=== PATIENT | male | born 1955 | race Caucasian/White ===

== ENCOUNTER 2016-09-21 09:40 | Inpatient (IN) | payer OTHER ==
[2016-09-21] VITALS (8 sets, daily range): BP systolic 81–113; BP diastolic 53–67; PULSE 96–112; RESP 16–20; TEMP 97.3–97.8; O2SAT 94–98
[~2016-09-21] VITALS: Ht 180.3 cm; Wt 69.0 kg
[~2016-09-21 09:40] MED LIST: AMIT25TA20 PO/GT; FURO1TAB93 PO/GT; LACT20SO4 PO/GT; LORTA5 PEG; MAGN400T19 PO/GT; MIDO5 PO/GT; PROT40TA PO/GT; QUET1TAB67 PO/GT; RIFA550 PO/GT; SENN8.6T15 PO/GT; SPIR100 PO/GT; TUMS500C PO/GT
[2016-09-21] MEDS ORDERED: SODIUM CHLOR 0.9% 1000 ML INJ 1,000 ML IV SCH (10:36)
--- NOTE | 2016-09-21 10:37 | RADRPT ---
EXAM DATE/TIME: 09/21/2016 10:07 [facility] COMPARISON: CHEST SINGLE AP, December 13, 2013, 4:11. INDICATIONS : Cough x 3 weeks. MEDICAL HISTORY : Ascites. SURGICAL HISTORY : None. ENCOUNTER: Initial ACUITY: 1 day PAIN SCORE: 5/10 LOCATION: Bilateral chest FINDINGS: A single view of the chest demonstrates a focal small area of probable consolidation in the right quyen g base just above the right hemidiaphragm. Otherwise, the lungs are well aerated and grossly clear. There is blunting of the right costophrenic angle suggestive of a small right effusion. There is no e vidence of a left-sided effusion. The heart size is within normal limits. There is no pulmonary edema . The bony structures are grossly intact. There is evidence of previous surgery to the cervical spine . CONCLUSION: There is a small focal area of parenchymal consolidation in the right lung base along with a small ri ght effusion. Focal right lower lung pneumonia is the primary consideration. Recommend a followup lisa st x-ray in 2-3 weeks after appropriate medical therapy to ensure resolution. If this has not resolve d after appropriate medical therapy, then a noncontrast CT thorax can be performed for further evalua tion on a nonemergent outpatient basis.. Saroj Martinez MD on September 21, 2016 at 10:30 Board Certified Radiologist. This report was verified electronically.
[2016-09-21] MEDS ORDERED: SODIUM CHLORIDE 0.9% FLUSH 5 ML FLUSH IVF PRN (10:45)
[2016-09-21] MEDS ORDERED: ONDANSETRON HCL 4 MG/2 ML VIAL IVP ONE (10:45)
[2016-09-21] MEDS ORDERED: PANTOPRAZOLE SODIUM 40 MG VIAL IVP ONE (10:45)
--- NOTE | 2016-09-21 10:49 | PD ---
HPI Chief Complaint: Respiratory Symptoms Time Seen by Provider: 10:36 Travel History International Travel<30 days: No Contact w/Intl Traveler<30days: No Traveled to known affect area: No History of Present Illness HPI 60-year-old male with history of alcohol use, cirrhosis, smoking, presents to the ER today because he has been having coughing and shortness of breath for several days. He also states that he has been having epigastric burning pains when he eats. He has been nauseous but denies any vomiting, fevers, or any other symptoms. Modifying Factors: None Associated Signs & Symptoms: Epigastric abdominal discomfort and nausea, shortness of breath and coughing Risk Factors: None PFSH Past Medical History Blood Disorders: No Anxiety: No Depression: No Cancer: No Cardiovascular Problems: No Chemotherapy: No Cirrhosis: Yes Cerebrovascular Accident: No Diabetes: No Diminished Hearing: No Endocrine: No Gastrointestinal Disorders: Yes (ASCITIES/CIRRHOSIS) Genitourinary: No Immune Disorder: No Implanted Vascular Access Dvce: No Musculoskeletal: No Neurologic: Yes Psychiatric: No Reproductive: No Respiratory: Yes Immunizations Current: Yes Radiation Therapy: No Seizures: No Thyroid Disease: No Past Surgical History Abdominal Surgery: Yes (APPENDIX) Appendectomy: Yes Neurologic Surgery: Yes (C3,C4,C5 FUSION) Other Surgery: Yes Social History Alcohol Use: Yes (1 or 2 beers a day) Tobacco Use: Yes (4 CIGS A DAY) Substance Use: No Allergies-Medications (Allergen,Severity, Reaction): Coded Allergies: *MDRO Multi-Drug Resistant Organism (Verified Allergy, Unknown, 09/21/16) MDR Streptococcus pneumoniae Reported Meds & Prescriptions Reported Meds & Active Scripts Active Reported Proamatine 5 Mg Tab (Midodrine) 5 Mg Tab 5 Mg PO/GT ,, PRN Tums (Calcium Carbonate) 500 Mg Chew 500 Mg PO/GT DAILY Aldactone 100 Mg Tab (Spironolactone) 100 Mg Tab 100 Mg PO/GT DAILY Xifaxan 550 Mg Tab (Rifaximin) 550 Mg Tab 550 Mg PO/GT BID Protonix (Pantoprazole Sodium) 40 Mg Tab 40 Mg PO/GT DAILY Lasix (Furosemide) 40 Mg Tab 40 Mg PO/GT DAILY Senna Lax (Sennosides) 8.6 Mg Tab 17.6 Mg PO/GT BID PRN Seroquel (Quetiapine Fumarate) 25 Mg Tab 25 Mg PO/GT BID Elavil (Amitriptyline HCl) 25 Mg Tab 25 Mg PO/GT HS Magnesium Oxide (Magnesium Oxide (mg Supplement)) 400 Mg Tab 400 Mg PO/GT TID Lactulose 30 Ml Syrp 30 Ml PO/GT BID Lortab 5/325 Tab (Hydrocodone-Acetaminophen) 1 Tab Tab 1 Tab PEG Q6H PRN Review of Systems Except as stated in HPI: all other systems reviewed are Neg Physical Exam Narrative GENERAL: Thin, well-developed middle age white male patient in mild distress. Awake and oriented 3. SKIN: Warm and dry. HEAD: Normocephalic. EYES: No scleral icterus. No injection or drainage. NECK: Supple, trachea midline. CARDIOVASCULAR: Regular rate and rhythm without murmurs, gallops, or rubs. RESPIRATORY: Breath sounds equal with mild wheezing throughout bilaterally. No accessory muscle use. GASTROINTESTINAL: Abdomen soft, diffuse abdominal tenderness more pronounced in the epigastrium with mild guarding and no rebound, nondistended. MUSCULOSKELETAL: No cyanosis, or edema. BACK: Nontender without obvious deformity. No CVA tenderness. Data Data Last Documented VS Vital Signs Date Time Temp Pulse Resp B/P Pulse Ox O2 Delivery O2 Flow Rate FiO2 09/21/16 09:45 97.8 99 16 113/67 98 Orders Influenzae A/B Antigen (09/21/16 10:10) Chest, Single Ap (09/21/16 10:10) Complete Blood Count With Diff (09/21/16 10:36) Comprehensive Metabolic Panel (09/21/16 10:36) Lipase (09/21/16 10:36) Iv Access Insert/Monitor (09/21/16 10:36) Ecg Monitoring (09/21/16 10:36) Oximetry (09/21/16 10:36) Ondansetron Inj (Zofran Inj) (09/21/16 10:45) Pantoprazole Inj (Protonix Inj) (09/21/16 10:45) Sodium Chlor 0.9% 1000 Ml Inj (Ns 1000 M (09/21/16 10:36) Sodium Chloride 0.9% Flush (Ns Flush) (09/21/16 10:45) Electrocardiogram (09/21/16 10:36) Albuterol-Ipratropium Neb (Duoneb Neb) (09/21/16 10:45) Ct Abd/Pel W Iv Contrast(Rout) (09/21/16 10:49) Lactic Acid Sepsis Protocol (09/21/16 10:58) Blood Culture (09/21/16 10:58) Ceftriaxone Inj (Rocephin Inj) (09/21/16 10:58) Azithromycin Inj (Zithromax Inj) (09/21/16 10:58) Iohexol 300 Inj (Omnipaque 300 Inj) (09/21/16 13:03) Hydromorphone Pf Inj (Dilaudid Pf Inj) (09/21/16 13:30) Ondansetron Inj (Zofran Inj) (09/21/16 13:30) Admit Order (Ed Use Only) (09/21/16 13:42) Labs Laboratory Tests Test 09/21/16 09/21/16 10:45 11:15 White Blood Count 7.5 TH/MM3 Red Blood Count 3.57 MIL/MM3 Hemoglobin 10.9 GM/DL Hematocrit 32.1 % Mean Corpuscular Volume 90.1 FL Mean Corpuscular Hemoglobin 30.6 PG Mean Corpuscular Hemoglobin 34.0 % Concent Red Cell Distribution Width 16.9 % Platelet Count 187 TH/MM3 Mean Platelet Volume 8.0 FL Neutrophils (%) (Auto) 71.5 % Lymphocytes (%) (Auto) 12.7 % Monocytes (%) (Auto) 14.4 % Eosinophils (%) (Auto) 0.5 % Basophils (%) (Auto) 0.9 % Neutrophils # (Auto) 5.3 TH/MM3 Lymphocytes # (Auto) 0.9 TH/MM3 Monocytes # (Auto) 1.1 TH/MM3 Eosinophils # (Auto) 0.0 TH/MM3 Basophils # (Auto) 0.1 TH/MM3 CBC Comment DIFF FINAL Differential Comment Sodium Level 130 MEQ/L Potassium Level 3.3 MEQ/L Chloride Level 93 MEQ/L Carbon Dioxide Level 27.0 MEQ/L Anion Gap 10 MEQ/L Blood Urea Nitrogen 12 MG/DL Creatinine 0.83 MG/DL Estimat Glomerular Filtration 95 ML/MIN Rate Random Glucose 93 MG/DL Calcium Level 8.1 MG/DL Total Bilirubin 1.2 MG/DL Aspartate Amino Transf 69 U/L (AST/SGOT) Alanine Aminotransferase 25 U/L (ALT/SGPT) Alkaline Phosphatase 157 U/L Total Protein 8.5 GM/DL Albumin 2.0 GM/DL Lipase 164 U/L Lactic Acid Level 1.9 mmol/L MDM Medical Decision Making Medical Screen Exam Complete: Yes Emergency Medical Condition: Yes Medical Record Reviewed: Yes Interpretation(s) Laboratory Tests Test 09/21/16 10:45 Red Blood Count 3.57 MIL/MM3 (4.50-5.90) Hemoglobin 10.9 GM/DL (13.0-17.0) Hematocrit 32.1 % (39.0-51.0) Neutrophils (%) (Auto) 71.5 % (16.0-70.0) Monocytes (%) (Auto) 14.4 % (0.0-8.0) Lymphocytes # (Auto) 0.9 TH/MM3 (1.0-4.8) Monocytes # (Auto) 1.1 TH/MM3 (0-0.9) Sodium Level 130 MEQ/L (136-145) Potassium Level 3.3 MEQ/L (3.5-5.1) Chloride Level 93 MEQ/L (98-107) Calcium Level 8.1 MG/DL (8.5-10.1) Total Bilirubin 1.2 MG/DL (0.2-1.0) Aspartate Amino Transf 69 U/L (15-37) (AST/SGOT) Alkaline Phosphatase 157 U/L (45-117) Total Protein 8.5 GM/DL (6.4-8.2) Albumin 2.0 GM/DL (3.4-5.0) Last 24 hours Impressions Abdomen/Pelvis CT 09/21/16 1049 Signed Impressions: Service Date/Time: Wednesday, September 21, 2016 12:51 - CONCLUSION: Persistent findings of cirrhosis hepatocellular disease splenomegaly varices portal hypertension and ascites. Significant change with multiple low density lesions ill-defined in the liver as well as intra-abdominal adenopathy at the bernie hepatis as well as retroperitoneal up to 5 cm in size. Findings are highly suggestive of malignancy such as hepatocellular carcinoma or metastatic disease. Mello Zelaya MD Chest X-Ray 09/21/16 1010 Signed Impressions: Service Date/Time: Wednesday, September 21, 2016 10:07 - CONCLUSION: There is a small focal area of parenchymal consolidation in the right lung base along with a small right effusion. Focal right lower lung pneumonia is the primary consideration. Recommend a followup chest x-ray in 2-3 weeks after appropriate medical therapy to ensure resolution. If this has not resolved after appropriate medical therapy, then a noncontrast CT thorax can be performed for further evaluation on a nonemergent outpatient basis.. Saroj Martinez MD Differential Diagnosis Coughing, shortness of breath, nausea, epigastric abdominal painsgastritis versus gastroesophageal reflux versus gastroenteritis versus pancreatitis versus worsening cirrhosis versus influenza versus pneumonia Narrative Course Chest x-ray indicates underlying pneumonia. Lab work indicates a questionable metastatic disease or liver nodules which needs to be evaluated further. IV Ancef eyes were initiated in the ER. At this point, my plan would be to admit the patient for further evaluation. Case is discussed with family practice residents for admission. Diagnosis Primary Impression: Pneumonia Admitting Information Admitting Physician Requests: Admit Rolanda Joyner MD Sep 21, 2016 10:49
[2016-09-21] MEDS ORDERED: AZITHROMYCIN INJ 500 MG in SODIUM CHLOR 0.9% 250 ML INJ 250 ML IV STA (10:58)
[2016-09-21] MEDS: RESP: ALBUTEROL 2.5 MG/IPRATROPIUM 0.5 MG NEB (SCH) INH ×2 (10:58→11:00)
[2016-09-21] MEDS ORDERED: cefTRIAXone INJ 2,000 MG in SODIUM CHLORIDE 0.9% INJ 100 ML IV STA (10:58)
[2016-09-21 11:24] LABS: AUTOMATED NEUTROPHIL # 5.3 TH/MM3 (1.8-7.7); BASOPHIL # 0.1 TH/MM3 (0-0.2); BASOPHIL % 0.9 % (0.0-2.0); EOSINOPHIL % 0.5 % (0.0-4.0); HEMATOCRIT 32.1 % (39.0-51.0); HEMO FLAGS DIFF FINAL; LYMPH % 12.7 % (9.0-44.0); LYMPHOCYTE # 0.9 TH/MM3 (1.0-4.8); MEAN CELL VOLUME 90.1 FL (80.0-100.0); MEAN CORPUSCULAR HEMOGLOBIN 30.6 PG (27.0-34.0); MONO % 14.4 % (0.0-8.0); NEUT % 71.5 % (16.0-70.0); PLATELET COUNT 187 TH/MM3 (150-450); RED BLOOD COUNT 3.57 MIL/MM3 (4.50-5.90); RED CELL DISTRIBUTION WIDTH 16.9 % (11.6-17.2); WHITE BLOOD COUNT 7.5 TH/MM3 (4.0-11.0)
[2016-09-21 11:44] LABS: ALKALINE PHOSPHATASE 157 U/L (45-117); TOTAL BILIRUBIN ADULT 1.2 MG/DL (0.2-1.0)
[2016-09-21 11:55] LABS: ALT (GPT) 25 U/L (12-78); ANION GAP 10 MEQ/L (5-15); AST (GOT) 69 U/L (15-37); BLOOD UREA NITROGEN 12 MG/DL (7-18); CHLORIDE 93 MEQ/L (98-107); GLOMERULAR FILTRATION RATE 95 ML/MIN (>89); SODIUM (NA) 130 MEQ/L (136-145)
[2016-09-21 12:01] LABS: POTASSIUM 3.3 MEQ/L (3.5-5.1)
[2016-09-21] MEDS ORDERED: IOHEXOL 300 MG/ML 50 ML BTL (for RAD DIAG) IV ONE (13:03)
--- NOTE | 2016-09-21 13:14 | RADRPT ---
EXAM DATE/TIME: 09/21/2016 12:51 [facility] COMPARISON: CT ABDOMEN & PELVIS W CONTRAST, July 02, 2013, 17:15. INDICATIONS : Epigastric pain. IV CONTRAST: 85 cc Omnipaque 300 (iohexol) IV ORAL CONTRAST: No oral contrast ingested. RADIATION DOSE: 9.96 CTDIvol (mGy) MEDICAL HISTORY : Cirrhosis. SURGICAL HISTORY : Appendectomy. ENCOUNTER: Initial ACUITY: 1 week PAIN SCALE: 8/10 LOCATION: Epigastric TECHNIQUE: Volumetric scanning of the abdomen and pelvis was performed. Using automated exposure control and adjustment of the mA and/or kV according to patient size, radiation dose was kept as low as reasonably achievable to obtain optimal diagnostic quality images. FINDINGS: Significant abnormalities include findings of cirrhosis with a nodular liver which now has multiple ill defined low density lesion in the right lobe largest up to 3.6 cm. There are multipl e of these suggesting metastatic disease or hepatocellular carcinoma. There is additionally appreciat ed intra-abdominal lymphadenopathy at the bernie hepatis measuring up to 3.7 cm in size in multiple re troperitoneal bilateral largest right side 5 cm in size. There is ascitic fluid. Borderline splenomeg flaquita. There is right basilar pleural thickening or effusion and possible fissural thickening laterally . CONCLUSION: Persistent findings of cirrhosis hepatocellular disease splenomegaly varices portal h ypertension and ascites. Significant change with multiple low density lesions ill-defi nicolasa in the liver as well as intra-abdominal adenopathy at the bernie hepatis as well as retroperitonea l up to 5 cm in size. Findings are highly suggestive of malignancy such as hepatocellular carcinoma o r metastatic disease. Mello Zelaya MD on September 21, 2016 at 13:05 Board Certified Radiologist. This report was verified electronically.
[2016-09-21] MEDS ORDERED: HYDROmorphone HCL PF 1 MG/ML VIAL IV PUSH ONE (13:30)
[2016-09-21] MEDS ORDERED: ONDANSETRON HCL 4 MG/2 ML VIAL IV PUSH ONE (13:30)
[2016-09-21] MEDS ORDERED: IBUPROFEN 400 MG TAB PO PRN (14:30)
[2016-09-21] MEDS ORDERED: FLUMAZENIL 1 MG/10 ML VIAL IV PUSH PRN (14:45)
[2016-09-21] MEDS ORDERED: LORazepam 2 MG TAB PO PRN (14:45)
[2016-09-21] MEDS ORDERED: LORazepam 1 MG TAB PO PRN (14:45)
[2016-09-21] MEDS ORDERED: LORazepam 2 MG/ML VIAL IV PUSH PRN ×4 (14:45)
[2016-09-21] MEDS ORDERED: VITA100T54 PO (15:24)
[2016-09-21] MEDS ORDERED: ALDA50TA2 PO (15:24)
[2016-09-21] MEDS ORDERED: QUET-86 PO (15:24)
[2016-09-21] MEDS ORDERED: TRAM50TA PO (15:24)
[2016-09-21] MEDS ORDERED: FOLI1TAB4 PO (15:24)
[2016-09-21] MEDS ORDERED: FAMO20TA2 PO (15:24)
[2016-09-21] MEDS ORDERED: AMIT50TA3 PO (15:24)
[2016-09-21] MEDS ORDERED: FURO20TA PO (15:24)
--- NOTE | 2016-09-21 16:44 | PD.CONS ---
HPI History of Present Illness This is a 60 year old male with known history of alcoholic cirrhosis, history of varices, double pneumonia presents to the ED with one week history of chest pain, shortness of breath associated with nausea, vomiting, cough, sputum, burning sensation in the upper chest area. As far as cirrhosis is concerned, patient states this has been under good control, he hasn't required any recent paracentesis, and hasn't seen GI Dr. for over a year due to lack of symptoms. He is on a regimen of Lasix , Aldactone, and Pepcid. He denies recent endoscopy. He continue to drink about [address] showed hepatic carcinoma, with possible mets, persistent cirrhosis. Chest x-ray suggesting pneumonia. He denies hematemesis, abdominal pain, hematochezia, melena, diarrhea or constipation. Patient is visiting for [place], he is from [place]. Records indicated EGD on (12/20/13) ----> grade 1 esophageal varices. (Shabbir Holt) PFSH Past Medical History Cirrhosis history of double pneumonia requiring intubation Past Surgical History Appendectomy C3,C4,C5 FUSION PEG placement and removal (Shabbir Holt) Coded Allergies: *MDRO Multi-Drug Resistant Organism (Verified Allergy, Unknown, 09/21/16) MDR Streptococcus pneumoniae Medications Current Medications Medications (Trade) Dose Ordered Sig/Bashir Route Start Time Stop Time Status Last Admin (NS Flush) 2 ml UNSCH PRN FLUSH 09/21/16 14:30 (NS Flush) 2 ml BID FLUSH 09/21/16 21:00 (Motrin) 400 mg Q6H PRN PO 09/21/16 14:30 (Roxicodone) 10 mg Q4H PRN PO 09/21/16 14:30 (Dilaudid Pf Inj) 1 mg Q3H PRN IV 09/21/16 14:30 (Roxicodone) 5 mg Q4H PRN PO 09/21/16 14:30 (Ativan) 1 mg Q4H PRN PO 09/21/16 14:45 (Ativan Inj) 1 mg Q4H PRN IV PUSH 09/21/16 14:45 (Ativan) 2 mg Q2H PRN PO 09/21/16 14:45 (Ativan Inj) 2 mg Q2H PRN IV PUSH 09/21/16 14:45 (Ativan Inj) 2 mg Q1H PRN IV PUSH 09/21/16 14:45 Lorazepam 2 mg 2 mg Q15M PRN IV PUSH 09/21/16 14:45 Ceftriaxone Sodium 1000 mg/ Sodium Chloride 100 ml @ 200 mls/hr Q24H IV 09/22/16 13:00 (Zithromax Inj/ NS 250 ml Inj) 250 ml @ 250 mls/hr Q24H IV 09/22/16 14:00 (Deltasone) 40 mg DAILY PO 09/22/16 09:00 (Protonix) 40 mg DAILY PO 09/22/16 09:00 (Elavil) 50 mg HS PO 09/21/16 21:00 (Folate) 1 mg DAILY PO 09/22/16 09:00 (Lasix) 20 mg DAILY PO 09/22/16 09:00 (Aldactone) 50 mg DAILY PO 09/22/16 09:00 (Vitamin B1) 100 mg DAILY PO 09/22/16 09:00 (SEROquel XR) 50 mg HS PO 09/21/16 21:00 Family History two brothers and two sisters are healthy Social History Drinks 1-2 drinks a day smokes 3 cigarette a day No illicit drug use (Shabbir Holt) Review of Systems Constitutional: COMPLAINS OF: Fatigue, DENIES: Fever, Chills Endocrine: DENIES: Polyuria Eyes: DENIES: Double Vision Ears, nose, mouth, throat: DENIES: Hoarseness Respiratory: COMPLAINS OF: Shortness of breath Cardiovascular: DENIES: Syncope, Lower Extremity Edema Gastrointestinal: COMPLAINS OF: Nausea, Vomiting, Heartburn, DENIES: Abdominal pain, Black stools, Bloody stools, Constipation, Diarrhea, Difficulty Swallowing, Anorexia, Odynophagia, Swelling of Abdomen, Hematemesis Genitourinary: DENIES: Hematuria Musculoskeletal: DENIES: Neck pain Integumentary: DENIES: Jaundice Hematologic/lymphatic: DENIES: Bruising Immunologic/allergic: DENIES: Eczema Neurologic: DENIES: Abnormal gait Psychiatric: DENIES: Anxiety (Shabbir Holt) GI Exam Vitals I&O Vital Signs Date Time Temp Pulse Resp B/P Pulse Ox O2 Delivery O2 Flow Rate FiO2 09/21/16 10:15 24 96 Room Air 09/21/16 09:45 97.8 99 16 113/67 98 Imaging Last Impressions Abdomen/Pelvis CT 09/21/16 1049 Signed Impressions: Service Date/Time: Wednesday, September 21, 2016 12:51 - CONCLUSION: Persistent findings of cirrhosis hepatocellular disease splenomegaly varices portal hypertension and ascites. Significant change with multiple low density lesions ill-defined in the liver as well as intra-abdominal adenopathy at the bernie hepatis as well as retroperitoneal up to 5 cm in size. Findings are highly suggestive of malignancy such as hepatocellular carcinoma or metastatic disease. Mello Zelaya MD Chest X-Ray 09/21/16 1010 Signed Impressions: Service Date/Time: Wednesday, September 21, 2016 10:07 - CONCLUSION: There is a small focal area of parenchymal consolidation in the right lung base along with a small right effusion. Focal right lower lung pneumonia is the primary consideration. Recommend a followup chest x-ray in 2-3 weeks after appropriate medical therapy to ensure resolution. If this has not resolved after appropriate medical therapy, then a noncontrast CT thorax can be performed for further evaluation on a nonemergent outpatient basis.. Saroj Martinez MD Laboratory Test 09/21/16 09/21/16 10:45 11:15 White Blood Count 7.5 TH/MM3 Red Blood Count 3.57 MIL/MM3 Hemoglobin 10.9 GM/DL Hematocrit 32.1 % Mean Corpuscular Volume 90.1 FL Mean Corpuscular Hemoglobin 30.6 PG Mean Corpuscular Hemoglobin 34.0 % Concent Red Cell Distribution Width 16.9 % Platelet Count 187 TH/MM3 Mean Platelet Volume 8.0 FL Neutrophils (%) (Auto) 71.5 % Lymphocytes (%) (Auto) 12.7 % Monocytes (%) (Auto) 14.4 % Eosinophils (%) (Auto) 0.5 % Basophils (%) (Auto) 0.9 % Neutrophils # (Auto) 5.3 TH/MM3 Lymphocytes # (Auto) 0.9 TH/MM3 Monocytes # (Auto) 1.1 TH/MM3 Eosinophils # (Auto) 0.0 TH/MM3 Basophils # (Auto) 0.1 TH/MM3 CBC Comment DIFF FINAL Differential Comment Sodium Level 130 MEQ/L Potassium Level 3.3 MEQ/L Chloride Level 93 MEQ/L Carbon Dioxide Level 27.0 MEQ/L Anion Gap 10 MEQ/L Blood Urea Nitrogen 12 MG/DL Creatinine 0.83 MG/DL Estimat Glomerular Filtration 95 ML/MIN Rate Random Glucose 93 MG/DL Calcium Level 8.1 MG/DL Total Bilirubin 1.2 MG/DL Aspartate Amino Transf 69 U/L (AST/SGOT) Alanine Aminotransferase 25 U/L (ALT/SGPT) Alkaline Phosphatase 157 U/L Total Protein 8.5 GM/DL Albumin 2.0 GM/DL Lipase 164 U/L Lactic Acid Level 1.9 mmol/L Date/Time Procedure Status Source Growth 09/21/16 11:10 Aerobic Blood Culture Received Blood Peripheral Pending 09/21/16 11:10 Anaerobic Blood Culture Received Blood Peripheral Pending 09/21/16 10:45 Influenza Types A,B Antigen ([facility]ASE[facility]) - Final Complete Nasal Washing NEGATIVE FOR FLU A AND B ANTIGEN.... Physical Examination HEENT: Pupils round and reactive to light; normocephalic; atraumatic; no jaundice. Throat is clear. NECK: Neck is supple, no JVD, no lymphadenopathy. CHEST: wheezing throughout bilaterally more so on the right CARDIAC: Regular rate and rhythm with no murmur gallop or rubs. ABDOMEN: Soft, nondistended, nontender; no hepatosplenomegaly; bowel sounds are present in all four quadrants. EXTREMITIES: No clubbing, cyanosis, or edema. SKIN: Normal; no rash; no jaundice. ADULT AND PEDIATRIC NEUROLOGIST: No focal deficits; alert and oriented times three. (Shabbir Holt) Assessment and Plan Plan - Alcoholic cirrhosis- He continue to drink, has been stable with Lasix, Aldactone and Pepcid, no recent EGD Records indicated EGD on (12/20/13) ----> grade [address] showed hepatic carcinoma, with possible mets, persistent cirrhosis. He denies hematemesis, abdominal pain, hematochezia, melena, diarrhea or constipation. Patient is visiting for [place], he is from [place]. - Chronic anemia- hgb 10.9 no bleeding reported, will need EGD once more stable - History of Varices- EGD in 2013, no bleeding reported - liver cancer with mets- CT above, oncology consulted - Pneumonia- Chest x-ray suggesting pneumonia, abx, blood cx pending - Hyponatremia, hypokalemia per attending Plan: - [facility] - [facility] - Appreciate oncology input - alcohol cessation - EGD/colonoscopy once more stable medically - Supportive care - Patient seen and examined by and myself and this note is written on his behalf. (Shabbir Holt) Physician Comments Seen and examined, plan as above, will follow up with you for further recommendations . (Chen Ochoa MD) Shabbir Holt Sep 21, 2016 16:44 Chen Ochoa MD Sep 21, 2016 17:07
--- NOTE | 2016-09-21 17:42 | HHI.FPPN ---
Subjective Subjective Patient seen and examined. Case reviewed and discussed Please refer to resident H&P for further details regarding HPI, ROS, PMH, SurgHx , FH and SocHx In summary, patient is a 60yo[place] who [place] an [place] resident with a history significant for cirrhosis presenting with a several week history of progressively worsening shortness of breath, productive cough, night sweats and weight loss. He decided to call 911 today after his breathing became significantly worse. [facility] Objective Objective Last Impressions Abdomen/Pelvis CT 09/21/16 1049 Signed Impressions: Service Date/Time: Wednesday, September 21, 2016 12:51 - CONCLUSION: Persistent findings of cirrhosis hepatocellular disease splenomegaly varices portal hypertension and ascites. Significant change with multiple low density lesions ill-defined in the liver as well as intra-abdominal adenopathy at the bernie hepatis as well as retroperitoneal up to 5 cm in size. Findings are highly suggestive of malignancy such as hepatocellular carcinoma or metastatic disease. Mello Zelaya MD Chest X-Ray 09/21/16 1010 Signed Impressions: Service Date/Time: Wednesday, September 21, 2016 10:07 - CONCLUSION: There is a small focal area of parenchymal consolidation in the right lung base along with a small right effusion. Focal right lower lung pneumonia is the primary consideration. Recommend a followup chest x-ray in 2-3 weeks after appropriate medical therapy to ensure resolution. If this has not resolved after appropriate medical therapy, then a noncontrast CT thorax can be performed for further evaluation on a nonemergent outpatient basis.. Saroj Martinez MD Laboratory Tests - Abnormals Test 09/21/16 09/21/16 10:45 15:04 Red Blood Count 3.57 MIL/MM3 Hemoglobin 10.9 GM/DL Hematocrit 32.1 % Neutrophils (%) (Auto) 71.5 % Monocytes (%) (Auto) 14.4 % Lymphocytes # (Auto) 0.9 TH/MM3 Monocytes # (Auto) 1.1 TH/MM3 Sodium Level 130 MEQ/L Potassium Level 3.3 MEQ/L Chloride Level 93 MEQ/L Calcium Level 8.1 MG/DL Total Bilirubin 1.2 MG/DL Aspartate Amino Transf 69 U/L (AST/SGOT) Alkaline Phosphatase 157 U/L Total Protein 8.5 GM/DL Albumin 2.0 GM/DL Troponin I LESS THAN 0.02 NG/ML Vital Signs 09/21/16 09/21/16 09/21/16 09/21/16 09:45 10:15 11:00 15:00 Temp 97.8 Pulse 99 112 Resp 16 24 20 B/P 113/67 101/60 Pulse Ox 98 96 96 94 O2 Delivery Room Air Room Air Room Air 09/21/16 09/21/16 16:00 17:30 Pulse 100 102 Resp 20 19 B/P 84/56 Pulse Ox 98 96 O2 Delivery Room Air Room Air Physical exam GENERAL: Cachectic male SKIN: Warm and dry. Tattoos HEAD: Normocephalic. AT EYES: No scleral icterus. No injection or drainage. ENT: OP clear. MM slightly dry NECK: Supple, trachea midline. No JVD or lymphadenopathy. CARDIOVASCULAR: Regular rate and rhythm without audible murmurs, gallops, or rubs. RESPIRATORY: Breath sounds with R basilar crackles, poor inspiratory effort. Scattered exp wheezing. No accessory muscle use. GASTROINTESTINAL: Abdomen soft, non-tender, nondistended. Normal active BS MUSCULOSKELETAL: No cyanosis, or edema. 2+distal pulses BACK: Nontender without obvious deformity. No CVA tenderness. NEURO: Awake and alert. Normal speech. CN grossly intact. Assessment Assessment 60yoM admitted with: PNA, CAP vs post-obstructive 2/2 malignancy Multiple liver lesions, HCC vs metastatic disease Cirrhosis Chronic alcohol and tobacco use Anemia Hyponatremia Hypokalemia PLAN PLAN CT Chest CT consult for CT guided bx liver lesion Oncology consult GI consult Floresita Porter for CAP Sputum culture Check legionella, pneumococcal antigen Pain control Duonebs Supplemental oxgen CIWA Replete electrolytes as needed Counseled on smoking cessation Patient seen and examined. Case reviewed and discussed Agree with plan of care as discussed with me and documented in the resident note. Naty Man MD Sep 21, 2016 17:42
--- NOTE | 2016-09-21 19:31 | MB ---
cc: HAIM QUINN M.D. DATE OF CONSULTATION 09/21/[address] Man. REASON FOR CONSULTATION Oncology consulted to render an opinion regarding a patient with liver mass. HISTORY OF PRESENT ILLNESS The patient is very pleasant 60-year-old male visiting from [place] with a history of alcohol-induced cirrhosis presented to the emergency room with complaint of right chest wall and midepigastric pain, associated with shortness of breath, nausea, vomiting and cough productive of yellowish sputum which has been going on for about a week. He has lost about 10 pounds. He denies any fevers or chills. He denies any chest pressure or palpitation. He denies any significant abdominal pain. He has constipation. He has no dysuria or hematuria. He denies any back pain. Denies any headache, focal numbness or weakness. In the emergency room a CT abdomen showed multiple low density lesions in the liver with intra-abdominal adenopathy. PAST MEDICAL HISTORY 1. Alcohol-induced cirrhosis. 2. Varices. 3. History of pneumonia, respiratory failure requiring ventilator support. PAST SURGICAL HISTORY 1. EGD November 2013, reportedly showed varices. 2. Appendectomy. 3. C3-C5 fusion. 4. PEG tube placement and removal. FAMILY HISTORY Two brothers, two sisters all healthy. He has a son who is healthy. SOCIAL HISTORY Smoked two packs a day for about 40 years. He has cut back down to about a pack every 3 days. He used to drink excessively, now he drinks one to two beers a day. ALLERGIES NO KNOWN DRUG ALLERGIES. CURRENT MEDICATIONS 1. Azithromycin. 2. Ceftriaxone. 3. Prednisone. 4. Protonix. 5. Folic acid. 6. Lasix. 7. Aldactone. 8. Thiamine. 9. Elavil. 10. Seroquel. REVIEW OF SYSTEMS CONSTITUTIONAL: He has increased fatigue and has lost about 10 pounds. EYES: Denies any blurred vision, double vision. EAR, NOSE, AND THROAT: Denies any mouth sores or voice changes. CARDIOVASCULAR: He denies chest pressure, palpitations. RESPIRATORY: As above. GASTROINTESTINAL: As above. GENITOURINARY: Denies any dysuria, hematuria. MUSCULOSKELETAL: Denies any bone pain, muscle pain. HEMATOLOGIC: Negative. ENDOCRINE: Negative. DERMATOLOGIC: Negative. PSYCHIATRIC: Negative. NEUROLOGICAL: Negative. PHYSICAL EXAMINATION VITAL SIGNS: Temperature 97.8, blood pressure 84/56, pulse is 102. O2 saturation 96% on room air. GENERAL: He is alert and oriented times three, in no acute distress. He is very thin. HEENT: Atraumatic, normocephalic. Pupils equal, round and reactive to light. Extraocular muscles intact. No scleral icterus. Oropharynx dry mucosa, no lesion. NECK: No thyromegaly, no palpable mass. LYMPHATICS: No palpable cervical, clavicular, axillary or inguinal lymph nodes. CARDIOVASCULAR: Regular S1, S2. No murmur. LUNGS: Clear to auscultation bilaterally. No wheezing or rhonchi. ABDOMEN: Soft, nondistended. He is very tense and very difficult to palpate his liver. EXTREMITIES: No clubbing, cyanosis or edema. No calf tenderness. BACK: No paravertebral tenderness. SKIN: No rash or petechiae. NEUROLOGIC: Nonfocal. LABORATORY DATA Reviewed. ASSESSMENT 1. Liver mass with intra-abdominal adenopathy. He has history of alcohol-induced cirrhosis. The CT finding is suspicious for malignancy. This could be a primary hepatocellular carcinoma with metastatic adenopathy versus metastatic disease from other GI tract. Clinically he has shortness of breath and productive cough which may be due to pneumonia. However, I recommend getting a CT of the chest to make sure he does not have metastatic disease in the thorax. We will check his tumor marker. He is going to need further GI workup to look for other GI primary tumor. Gastroenterology has been consulted. I also talked to the patient about getting a biopsy of the liver mass which he agrees. We will consult radiology for CT-guided biopsy. 2. Pneumonia. Chest x-ray showed right lung base consolidation with small right pleural effusion. He has had increased shortness of breath and productive cough for about a week. He was started on antibiotic. 3. Alcohol-induced cirrhosis. He still drinks one to two beers a day. He has history of portal hypertension with varices but no history of GI bleed. CT of the abdomen also showed ascites and sign of portal hypertension. RECOMMENDATIONS 1. Check tumor marker. 2. Await CT scan of the chest. 3. Await further GI workup. I think he will need EGD and colonoscopy. 4. Consult radiology to biopsy the liver mass. Thank you Dr. Man for asking me to see this patient. MD JAVIER Jason /6:36 PM /7:11 PM MARGY
[2016-09-21] MEDS ORDERED: AMITRIPTYLINE HCL 25 MG TAB PO SCH (21:00)
[2016-09-21] MEDS: QUEtiapine FUMARATE 50 MG EXTENDED RELEASE TABLET PO SCH (21:20)
[2016-09-21] MEDS: AMITRIPTYLINE HCL 50 MG TAB PO SCH (21:20)
[2016-09-21] MEDS: SODIUM CHLORIDE 0.9% FLUSH 5 ML FLUSH FLUSH SCH (21:21)
[2016-09-21 21:47] LABS: HEMATOCRIT 29.7 % (39.0-51.0); REVIEW FLAG FINAL
--- NOTE | 2016-09-21 22:53 | HHI.HP ---
HPI Service Family Medicine Primary Care Physician Unknown Admission Diagnosis pneumonia/liver nodules Diagnoses: International Travel<30 Days: No Contact w/Intl Traveler<30days: No Known Affected Area: No History of Present Illness 60-year-old male with extensive smoking history and cirrhosis of the liver due to prior alcohol use presenting with a history of increased shortness of breath and cough starting last Tuesday. These been progressively worsening gradually to the point where it is difficult to move very far without stopping to catch her breath. He also endorses some mild pleuritic chest pain, but no chest pain unrelated to inspiration, and no chest pain on exertion. No fevers or chills that is noted. He is also been nauseous and has vomited about 6 times in the last several days, one of which had streaks of blood in the vomitus but no large volume of blood, no coffee ground emesis, no bile. No hematochezia or melena. (Delmar Dumont MD R1) Review of Systems Constitutional: COMPLAINS OF: Fatigue, DENIES: Fever Endocrine: DENIES: Polyuria Eyes: DENIES: Blurred vision Ears, nose, mouth, throat: DENIES: Hearing loss Respiratory: COMPLAINS OF: Cough, Shortness of breath, DENIES: Wheezing, Hemoptysis Cardiovascular: COMPLAINS OF: Chest pain (pleuritic, not exertional, only related to breathing on deep inspiration), Dyspnea on Exertion, DENIES: Palpitations, Lower Extremity Edema Gastrointestinal: COMPLAINS OF: Nausea, Vomiting, DENIES: Abdominal pain, Black stools, Bloody stools Genitourinary: DENIES: Dysuria Musculoskeletal: DENIES: Muscle aches Integumentary: DENIES: Rash Hematologic/lymphatic: DENIES: Bruising Neurologic: DENIES: Headache (Delmar Dumont MD R1) Past Family Social History Past Medical History Cirrhosis of the liver COPD Past Surgical History Appendectomy about 40 years ago Orthopedic surgeries in youth Reported Medications Reported Meds & Active Scripts Active Reported Quetiapine ER (Quetiapine Fumarate) 50 Mg Tab 50 Mg PO HS Famotidine 20 Mg Tab 20 Mg PO DAILY Vitamin B-1 (Thiamine HCl) 100 Mg Tab 100 Mg PO DAILY Folate (Folic Acid) 1 Mg Tab 1 Mg PO DAILY Furosemide 20 Mg Tab 20 Mg PO DAILY Amitriptyline (Amitriptyline HCl) 50 Mg Tab 50 Mg PO HS Aldactone (Spironolactone) 50 Mg Tab 50 Mg PO DAILY Tramadol (Tramadol HCl) 50 Mg Tab 50 Mg PO BID PRN Protonix (Pantoprazole Sodium) 40 Mg Tab 40 Mg PO/GT DAILY (Delmar Dumont MD R1 ) Allergies: Coded Allergies: *MDRO Multi-Drug Resistant Organism (Verified Allergy, Unknown, 09/21/16) MDR Streptococcus pneumoniae Active Ordered Medications Current Medications Medications (Trade) Dose Ordered Sig/Bashir Route Start Time Stop Time Status Last Admin (NS Flush) 2 ml UNSCH PRN FLUSH 09/21/16 14:30 (NS Flush) 2 ml BID FLUSH 09/21/16 21:00 09/21/16 21:21 (Motrin) 400 mg Q6H PRN PO 09/21/16 14:30 (Roxicodone) 10 mg Q4H PRN PO 09/21/16 14:30 09/21/16 20:30 (Dilaudid Pf Inj) 1 mg Q3H PRN IV 09/21/16 14:30 (Roxicodone) 5 mg Q4H PRN PO 09/21/16 14:30 (Ativan) 1 mg Q4H PRN PO 09/21/16 14:45 (Ativan Inj) 1 mg Q4H PRN IV PUSH 09/21/16 14:45 (Ativan) 2 mg Q2H PRN PO 09/21/16 14:45 (Ativan Inj) 2 mg Q2H PRN IV PUSH 09/21/16 14:45 (Ativan Inj) 2 mg Q1H PRN IV PUSH 09/21/16 14:45 Lorazepam 2 mg 2 mg Q15M PRN IV PUSH 09/21/16 14:45 Ceftriaxone Sodium 1000 mg/ Sodium Chloride 100 ml @ 200 mls/hr Q24H IV 09/22/16 13:00 (Zithromax Inj/ NS 250 ml Inj) 250 ml @ 250 mls/hr Q24H IV 09/22/16 14:00 (Deltasone) 40 mg DAILY PO 09/22/16 09:00 (Protonix) 40 mg DAILY PO 09/22/16 09:00 (Elavil) 50 mg HS PO 09/21/16 21:00 09/21/16 21:20 (Folate) 1 mg DAILY PO 09/22/16 09:00 (Lasix) 20 mg DAILY PO 09/22/16 09:00 (Aldactone) 50 mg DAILY PO 09/22/16 09:00 (Vitamin B1) 100 mg DAILY PO 09/22/16 09:00 (SEROquel XR) 50 mg HS PO 09/21/16 21:00 09/21/16 21:20 (Flu (Quadrivalent) Vaccine Inj) 0.5 ml ONCE ONCE IM 09/22/16 10:00 09/22/16 10:01 Family History Mother and father are healthy with no medical problems; no diabetes or high blood pressure in the family Social History Tobacco: One pack per day for approximately 46 years Alcohol: One to 2 beers per day Other drug use: Denies (Delmar Dumont MD R1) Physical Exam Vital Signs Vital Signs Date Time Temp Pulse Resp B/P Pulse Ox O2 Delivery O2 Flow Rate FiO2 09/21/16 19:15 97.3 96 16 81/53 97 09/21/16 17:30 102 19 84/56 96 Room Air 09/21/16 16:00 100 20 98 Room Air 09/21/16 15:00 112 20 101/60 94 Room Air 09/21/16 11:00 96 Room Air 09/21/16 10:15 24 96 Room Air 09/21/16 09:45 97.8 99 16 113/67 98 Physical Exam GENERAL: WDWN adult white male sitting up in bed in no acute distress SKIN: No rashes, ecchymoses or lesions. Cool and dry. No stigmata of chronic liver disease except very mild jaundice. HEAD: NC/AT EYES: PERRL. EOMI. No conjunctival injection or drainage. ENT: MMM, OP without erythema, tonsillar swelling, or exudate. NECK: Supple, no lymphadenopathy. No JVD. CARDIOVASCULAR: NRRR. Normal S1/S2. No MRG RESPIRATORY: CTAB. No crackles or wheezes. GASTROINTESTINAL: Abdomen soft, non-distended, non-tender. No hepato- splenomegaly or palpable masses. No ascites. MUSCULOSKELETAL: Extremities without clubbing, cyanosis, or edema. NEUROLOGICAL: Awake and alert. Cranial nerves II through XII grossly intact. Moves all extremities without difficulty. Normal speech. Laboratory Laboratory Tests Test 09/21/16 09/21/16 09/21/16 09/21/16 10:45 11:15 15:04 20:50 White Blood Count 7.5 Red Blood Count 3.57 Hemoglobin 10.9 10.0 Hematocrit 32.1 29.7 Mean Corpuscular Volume 90.1 Mean Corpuscular Hemoglobin 30.6 Mean Corpuscular Hemoglobin 34.0 Concent Red Cell Distribution Width 16.9 Platelet Count 187 Mean Platelet Volume 8.0 Neutrophils (%) (Auto) 71.5 Lymphocytes (%) (Auto) 12.7 Monocytes (%) (Auto) 14.4 Eosinophils (%) (Auto) 0.5 Basophils (%) (Auto) 0.9 Neutrophils # (Auto) 5.3 Lymphocytes # (Auto) 0.9 Monocytes # (Auto) 1.1 Eosinophils # (Auto) 0.0 Basophils # (Auto) 0.1 CBC Comment DIFF FINAL Differential Comment Sodium Level 130 Potassium Level 3.3 Chloride Level 93 Carbon Dioxide Level 27.0 Anion Gap 10 Blood Urea Nitrogen 12 Creatinine 0.83 Estimat Glomerular Filtration 95 Rate Random Glucose 93 Calcium Level 8.1 Total Bilirubin 1.2 Aspartate Amino Transf 69 (AST/SGOT) Alanine Aminotransferase 25 (ALT/SGPT) Alkaline Phosphatase 157 Total Protein 8.5 Albumin 2.0 Lipase 164 Lactic Acid Level 1.9 Troponin I LESS THAN 0.02 Date/Time Procedure Status Source Growth 09/21/16 11:10 Aerobic Blood Culture Received Blood Peripheral Pending 09/21/16 11:10 Anaerobic Blood Culture Received Blood Peripheral Pending 09/21/16 10:45 Influenza Types A,B Antigen (KASEY) - Final Complete Nasal Washing NEGATIVE FOR FLU A AND B ANTIGEN.... (Delmar Dumont MD R1) Result Diagram: 09/21/16204909/21/16 104 Imaging Last Impressions Abdomen/Pelvis CT 09/21/16 1049 Signed Impressions: Service Date/Time: Wednesday, September 21, 2016 12:51 - CONCLUSION: Persistent findings of cirrhosis hepatocellular disease splenomegaly varices portal hypertension and ascites. Significant change with multiple low density lesions ill-defined in the liver as well as intra-abdominal adenopathy at the bernie hepatis as well as retroperitoneal up to 5 cm in size. Findings are highly suggestive of malignancy such as hepatocellular carcinoma or metastatic disease. Mello Zelaya MD Chest X-Ray 09/21/16 1010 Signed Impressions: Service Date/Time: Wednesday, September 21, 2016 10:07 - CONCLUSION: There is a small focal area of parenchymal consolidation in the right lung base along with a small right effusion. Focal right lower lung pneumonia is the primary consideration. Recommend a followup chest x-ray in 2-3 weeks after appropriate medical therapy to ensure resolution. If this has not resolved after appropriate medical therapy, then a noncontrast CT thorax can be performed for further evaluation on a nonemergent outpatient basis.. Saroj Martinez MD (Delmar Dumont MD R1) Assessment and Plan Assessment and Plan 60 year old male with PMH of cirrhosis presenting with: #1 Liver nodules Highly suspicious for malignancy by CT * Oncology consulted, appreciate their recommendations * GI consulted, appreciate their recommendations * Check plans for EGD/colonoscopy once medically stable * Oncology recommending CT chest and CT guided biopsy of liver nodules as well as cancer antigen workup * Ibuprofen and oxycodone as needed for pain * Dilaudid and milligram IV every 3 hours for breakthrough pain #2 pneumonia Chest x-ray suspicious for right lower lobe pneumonia. In setting of likely cancer, this could either be a primary with obstruction versus separate community-acquired pneumonia. * Rocephin 1 g IV every 24 hours * Azithromycin 500 mg IV every 24 hours * Legionella urine antigen * Pneumococcal urine antigen * Sputum culture and Gram stain * Prednisone 40 mg daily #3 alcohol abuse Does not drink very much at present, however has severe cirrhosis * [facility] protocol #4 hepatic cirrhosis Well compensated at present * Continue home Lasix, prolactin, vitamins * Hepatic dosing for medications #5 GERD Stable * Continue home Protonix #6 depression Stable * Continue home Seroquel, Elavil Code Status DNR Discussed Condition With Dr. Patel, Dr. Man (Delmar Dumont MD R1) Attending Attestation The patient has been seen and examined. The chart and all resident notes have been reviewed. I agree that inpatient care is appropriate and that a two midnight stay is expected for the reasons documented in the resident history and physical. I have discussed this with the resident and certify the resident s order for inpatient admission. (Naty Man MD) Problem List: (1) Liver nodule Status: Acute (2) Pneumonia Status: Acute (3) Liver cirrhosis Status: Chronic (4) Hyponatremia Status: Acute (5) Anemia of chronic disease Status: Acute (6) Tobacco abuse Status: Chronic (7) Alcohol abuse Status: Chronic (Delmar Dumont MD R1) Physician Certification 2 Midnight Certification Type: Admission for Inpatient Services Order for Inpatient Services The services are ordered in accordance with Medicare regulations or non- Medicare payer requirements, as applicable. In the case of services not specified as inpatient-only, they are appropriately provided as inpatient services in accordance with the 2-midnight benchmark. Estimated LOS (days): 2 days is the estimated time the patient will need to remain in the hospital, assuming treatment plan goals are met and no additional complications. Post-Hospital Plan: Not yet determined (Delmar Dumont MD R1) Problem Qualifiers (1) Pneumonia: Qualified Code: J18.1 - Pneumonia of right lower lobe due to infectious organism (2) Liver cirrhosis: Qualified Code: K70.30 - Alcoholic cirrhosis of liver without ascites Delmar Dumont MD R1 Sep 21, 2016 22:53 Naty Man MD Sep 23, 2016 08:48
[2016-09-22] VITALS (9 sets, daily range): BP systolic 75–99; BP diastolic 50–60; PULSE 90–105; RESP 16–20; TEMP 97.1–98; O2SAT 74–95
[2016-09-22] MEDS: FUROSEMIDE 20 MG TAB PO SCH (08:05)
[2016-09-22] MEDS: predniSONE 20 MG TAB PO SCH (08:05)
[2016-09-22] MEDS: FOLIC ACID 1 MG TAB PO SCH (08:05)
[2016-09-22] MEDS: SPIRONOLACTONE 50 MG TAB PO SCH (08:05)
[2016-09-22] MEDS: SODIUM CHLORIDE 0.9% FLUSH 5 ML FLUSH FLUSH SCH ×2 (08:05→21:00)
[2016-09-22] MEDS: PANTOPRAZOLE SOD 40 MG DELAYED RELEASE TAB PO SCH (08:05)
[2016-09-22] MEDS: THIAMINE HCL 100 MG TAB PO SCH (08:05)
[2016-09-22 08:18] LABS: AUTOMATED NEUTROPHIL # 6.7 TH/MM3 (1.8-7.7); BASOPHIL % 0.2 % (0.0-2.0); HEMO FLAGS DIFF FINAL; LYMPH % 9.9 % (9.0-44.0); LYMPHOCYTE # 0.8 TH/MM3 (1.0-4.8); MEAN CELL VOLUME 90.3 FL (80.0-100.0); MEAN CORPUSCULAR HEMOGLOBIN 30.2 PG (27.0-34.0); MEAN CORPUSCULAR HGB CONC 33.4 % (32.0-36.0); MONO % 10.7 % (0.0-8.0); NEUT % 79.2 % (16.0-70.0); PLATELET COUNT 185 TH/MM3 (150-450); RED BLOOD COUNT 3.21 MIL/MM3 (4.50-5.90); RED CELL DISTRIBUTION WIDTH 16.6 % (11.6-17.2); WHITE BLOOD COUNT 8.5 TH/MM3 (4.0-11.0)
[2016-09-22 08:24] LABS: APTT (PATIENT) 32.7 SEC (24.3-30.1); INTERNATIONAL NORMALIZED RATIO 1.3 RATIO; PROTHROMBIN TIME - PATIENT 14.5 SEC (9.8-11.6)
[2016-09-22 08:43] LABS: ANION GAP 10 MEQ/L (5-15); AST (GOT) 43 U/L (15-37); BICARBONATE 24.2 MEQ/L (21.0-32.0); BLOOD UREA NITROGEN 14 MG/DL (7-18); CHLORIDE 97 MEQ/L (98-107); GLOMERULAR FILTRATION RATE 73 ML/MIN (>89); POTASSIUM 3.3 MEQ/L (3.5-5.1); SODIUM (NA) 131 MEQ/L (136-145)
[2016-09-22 08:46] LABS: ALKALINE PHOSPHATASE 134 U/L (45-117); ALT (GPT) 20 U/L (12-78); TOTAL BILIRUBIN ADULT 0.5 MG/DL (0.2-1.0)
[2016-09-22] MEDS ORDERED: FAMOTIDINE 20 MG TAB PO SCH (09:00)
[2016-09-22] MEDS ORDERED: LIDOCAINE 1%/EPINEPHrine 1:100,000 SOLN 20 ML VIAL ONE (09:47)
[2016-09-22] MEDS ORDERED: INFLUENZA VIRUS VACCINE (QUADRIVALENT) 0.5 ML SYR IM ONE (10:00)
[2016-09-22] MEDS ORDERED: LACTULOSE SYRUP 20 GM/30 ML CUP PO PRN (10:15)
[2016-09-22] MEDS ORDERED: POTASSIUM CHLORIDE 10 MEQ CONTROLLED RELEASE TAB PO ONE (10:15)
[2016-09-22] MEDS ORDERED: SODIUM CHLOR 0.9% 1000 ML INJ 1,000 ML IV ONE (10:15)
[2016-09-22] MEDS ORDERED: MIDAZOLAM HCL 5 MG/5 ML VIAL ONE (10:39)
[2016-09-22] MEDS ORDERED: fentaNYL CITRATE 250 MCG/5 ML AMP ONE (10:39)
[2016-09-22] MEDS ORDERED: IOHEXOL 350 MG/ML 10 ML VIAL (for RAD DIAG) IV ONE (11:29)
--- NOTE | 2016-09-22 11:45 | RADRPT ---
EXAM DATE/TIME: 09/22/2016 10:49 [facility] COMPARISON: CT THORAX W/O CONTRAST, November 23, 2013, 16:28. INDICATIONS : Cough; evaluate for pulmonary embolism. IV CONTRAST: 85 cc Omnipaque 350 (iohexol) IV RADIATION DOSE: 10.42 CTDIvol (mGy) MEDICAL HISTORY : Cirrhosis. SURGICAL HISTORY : Appendectomy. ENCOUNTER: Initial ACUITY: 1 day PAIN SCALE: 0/10 LOCATION: chest TECHNIQUE: Volumetric scanning of the chest was performed using a pulmonary embolism protocol MIP images were re constructed. Using automated exposure control and adjustment of the mA and/or kV according to patien t size, radiation dose was kept as low as reasonably achievable to obtain optimal diagnostic quality images. FINDINGS: PULMONARY ARTERIES: No filling defects are seen in the pulmonary arteries through the segmental level. LUNGS: Severe emphysematous changes are noted. There is a mass involving the right lower lobe that measures 3.6 x 2.6 cm. This abuts the overlying pleura of the major fissure as well as the right posterior lat eral chest. This is a new finding from the prior exam. PLEURAE: Scattered areas of pleural thickening observed most pronounced within the lateral aspects of the righ t posterior lateral chest. Tiny bilateral pleural effusions. MEDIASTINUM: The heart is normal in size. Pulmonary arteries and aorta are normal in caliber. There is circumferen tial wall thickening involving the lower thoracic esophagus approaching the GE junction. There is dil atation of the more proximal esophagus which is fluid-filled. MUSCULOSKELETAL: Within normal limits for patient age. MISCELLANEOUS: Please see the CT of the abdomen and pelvis reported separately. CONCLUSION: 1. Right lower lobe pulmonary mass measuring 3.6 x 2.6 cm. This would be amenable to percutaneous bio psy if clinically warranted. 2. Circumferential wall thickening involving the lower thoracic esophagus with some dilatation of the more proximal esophagus. I cannot exclude an infiltrating process such as malignancy. 3. No pulmonary embolus. 4. Pronounced emphysematous changes. 5. Tiny bilateral pleural effusions. Ruben Hannon Jr., MD on September 22, 2016 at 11:34 Board Certified Radiologist. This report was verified electronically.
[2016-09-22] MEDS: ALBUMIN HUMAN 5% 25 GM/500 ML BOTTLE IV SCH ×2 (11:51→21:00)
[2016-09-22] MEDS: MIDODRINE 5 MG TAB PO SCH ×2 (11:51→18:37)
[2016-09-22] MEDS ORDERED: PIPERACIL-TAZO 3.375 GM PREMIX 50 ML IV SCH (12:00)
--- NOTE | 2016-09-22 12:01 | RADRPT ---
EXAM DATE/TIME: 09/22/2016 11:32 [facility] COMPARISON: US ABDOMEN - LOWER LIMITED, January 31, 2015, 8:39. INDICATIONS : Ascites. MEDICAL HISTORY : Cirrhosis. Ascites. SURGICAL HISTORY : Appendectomy. Spinal fusion. Orthopedic surgery, right hand, left wrist, left collar bone, and ri ght ankle. ENCOUNTER: Subsequent ACUITY: 1 day PAIN SCORE: 1/10 LOCATION: Abdomen. AREA EVALUATED: Abdomen. FINDINGS: Imaging of the abdomen and pelvis was performed to evaluate for ascites for possible paracentesis. Th ere is only a trace of ascites. This is insufficient for drainage. CONCLUSION: Trace of ascites. Insufficient for drainage. Saroj Martinez MD on September 22, 2016 at 11:59 Board Certified Radiologist. This report was verified electronically.
--- NOTE | 2016-09-22 12:25 | HHI.GIFU ---
Subjective Remarks Resting in bed. States he is hungry and wants to get some coffee. Pain controlled. Never had a colonoscopy- states he does not really want this unless absolutely necessary. (Abbie Johns) Objective Vitals I&O Vital Signs Date Time Temp Pulse Resp B/P Pulse Ox O2 Delivery O2 Flow Rate FiO2 09/22/16 08:45 90 09/22/16 08:00 97.4 105 20 84/53 94 09/22/16 08:00 Room Air 09/22/16 03:37 97.5 99 16 75/50 95 09/21/16 23:27 97.7 97 16 87/55 95 09/21/16 20:00 Room Air 09/21/16 20:00 96 09/21/16 19:15 97.3 96 16 81/53 97 09/21/16 17:30 102 19 84/56 96 Room Air 09/21/16 16:00 100 20 98 Room Air 09/21/16 15:00 112 20 101/60 94 Room Air I/O 09/21/16 09/21/16 09/21/16 09/22/16 09/22/16 09/22/16 06:59 14:59 22:59 06:59 14:59 22:59 Intake Total 480 ml Output Total 150 ml Balance 330 ml Intake Oral 480 ml Output Urine Total 150 ml # Bowel Movements 0 Laboratory Laboratory Tests Test 09/21/16 09/21/16 09/22/16 15:04 20:50 07:18 Troponin I LESS THAN 0.02 Hemoglobin 10.0 9.7 Hematocrit 29.7 29.0 White Blood Count 8.5 Red Blood Count 3.21 Mean Corpuscular Volume 90.3 Mean Corpuscular Hemoglobin 30.2 Mean Corpuscular Hemoglobin 33.4 Concent Red Cell Distribution Width 16.6 Platelet Count 185 Mean Platelet Volume 7.9 Neutrophils (%) (Auto) 79.2 Lymphocytes (%) (Auto) 9.9 Monocytes (%) (Auto) 10.7 Eosinophils (%) (Auto) 0.0 Basophils (%) (Auto) 0.2 Neutrophils # (Auto) 6.7 Lymphocytes # (Auto) 0.8 Monocytes # (Auto) 0.9 Eosinophils # (Auto) 0.0 Basophils # (Auto) 0.0 CBC Comment DIFF FINAL Differential Comment Prothrombin Time 14.5 Prothromb Time International 1.3 Ratio Activated Partial 32.7 Thromboplast Time Sodium Level 131 Potassium Level 3.3 Chloride Level 97 Carbon Dioxide Level 24.2 Anion Gap 10 Blood Urea Nitrogen 14 Creatinine 1.04 Estimat Glomerular Filtration 73 Rate Random Glucose 120 Calcium Level 7.9 Total Bilirubin 0.5 Aspartate Amino Transf 43 (AST/SGOT) Alanine Aminotransferase 20 (ALT/SGPT) Alkaline Phosphatase 134 Total Protein 7.7 Albumin 1.8 Tumor Marker Alpha Fetoprotein 131.7 Carcinoembryonic Antigen 2.8 CA 19-9 Antigen 45.1 Date/Time Procedure Status Source Growth 09/22/16 07:10 Gram Stain Received Sputum Expectorated Sputum Pending 09/22/16 07:10 Sputum Culture Received Sputum Expectorated Sputum Pending 09/21/16 11:10 Aerobic Blood Culture - Preliminary Resulted Blood Peripheral NO GROWTH IN 1 DAY 09/21/16 11:10 Anaerobic Blood Culture - Preliminary Resulted Blood Peripheral NO GROWTH IN 1 DAY 09/21/16 10:45 Influenza Types A,B Antigen (KASEY) - Final Complete Nasal Washing NEGATIVE FOR FLU A AND B ANTIGEN.... Imaging Last Impressions Abdomen/Pelvis CT 09/21/16 1049 Signed Impressions: Service Date/Time: Wednesday, September 21, 2016 12:51 - CONCLUSION: Persistent findings of cirrhosis hepatocellular disease splenomegaly varices portal hypertension and ascites. Significant change with multiple low density lesions ill-defined in the liver as well as intra-abdominal adenopathy at the bernie hepatis as well as retroperitoneal up to 5 cm in size. Findings are highly suggestive of malignancy such as hepatocellular carcinoma or metastatic disease. Mello Zelaya MD Chest X-Ray 09/21/16 1010 Signed Impressions: Service Date/Time: Wednesday, September 21, 2016 10:07 - CONCLUSION: There is a small focal area of parenchymal consolidation in the right lung base along with a small right effusion. Focal right lower lung pneumonia is the primary consideration. Recommend a followup chest x-ray in 2-3 weeks after appropriate medical therapy to ensure resolution. If this has not resolved after appropriate medical therapy, then a noncontrast CT thorax can be performed for further evaluation on a nonemergent outpatient basis.. Saroj Martinez MD Physical Exam HEENT: Normocephalic; atraumatic; no jaundice. CHEST: CTA, diminished CARDIAC: RRR ABDOMEN: Soft, distended, mild diffuse tenderness; hepatosplenomegaly; bowel sounds are present in all four quadrants. EXTREMITIES: No clubbing, cyanosis, or edema. SKIN: Multiple ecchymotic areas. [employer]: No focal deficits; alert and oriented times three. (Abbie Johns) Assessment and Plan Plan ASSESSMENT: - Liver mass with intra-abdominal adenopathy and elevated tumor markers. Abdomen/Pelvis CT (09/21/16)-----> Persistent findings of cirrhosis hepatocellular disease splenomegaly varices portal hypertension and ascites. Significant change with multiple low density lesions ill-defined in the liver as well as intra-abdominal adenopathy at the bernie hepatis as well as retroperitoneal up to 5 cm in size. Findings are highly suggestive of malignancy such as hepatocellular carcinoma or metastatic disease. AFP 131.7, CEA 2.8, Ca19-[address] guided liver biopsy pending. Suspicious for HCC vs. other primary. Spoke to Dr. Franz, suspects that this could be GI primary. Recommends endoscopic evaluation. Spoke to patient re: egd vs. egd/colonoscopy. He is very reluctant to pursue at this time and would like to speak to his son yue prior to making a decision. - Esophageal thickening involving the lower thoracic esophagus with some dilatation of the more proximal esophagus on CTA. - RLL Pulmonary mass measuring 3.6 x 2.6. - Alcoholic cirrhosis- He continue to drink, has been stable with Lasix, Aldactone and Pepcid, no recent EGD Records indicated EGD on (12/20/13) ----> grade 1 esophageal varices. - Ascites. US with trace ascites, insufficient for safe drainage - Chronic anemia. HH 9.7/29.0. - History of Varices- EGD in 2013, no bleeding reported - Pneumonia- Chest x-ray suggesting pneumonia, abx - Hyponatremia, hypokalemia per attending Plan: - [place] - Await pathology from liver biopsy - Hepatitis panel - Monitor labs, CBC, PT/INR, CMP - Likely will need EGD/Colonoscopy- will d/w Dr. Franz timing of this - Supportive care - Further recommendations to follow based on results of above - Patient seen and examined by Dr. Ochoa and myself and this note is written on his behalf. ADDENDUM. D/W Dr. Franz, recommends endoscopic evaluation to r/o GI source. D/ W patient CT findings and further evaluation with egd vs. egd/colonoscopy. He verbalizes understanding, but is very reluctant to proceed with any procedures until he speaks to his son yue. He states that he will make a decision later tonight after he speaks with his son. Will follow up in am. (Abbie Johns) Physician Comments Seen and examined, plan as above, will follow up regarding endoscopic evaluation , will plan it for tomorrow or after tomorrow. (Chen Ochoa MD) Abbie Johns Sep 22, 2016 12:25 Chen Ochoa MD Sep 22, 2016 21:33
[2016-09-22] MEDS ORDERED: cefTRIAXone INJ 1,000 MG in SODIUM CHLORIDE 0.9% INJ 100 ML IV SCH (13:00)
[2016-09-22] MEDS: metroNIDAZOLE 500 MG INJ 100 ML IV SCH ×2 (13:15→18:38)
[2016-09-22] MEDS: cefTRIAXone INJ 1,000 MG in SODIUM CHLORIDE 0.9% INJ 100 ML IV SCH (13:44)
[2016-09-22] MEDS ORDERED: AZITHROMYCIN INJ 500 MG in SODIUM CHLOR 0.9% 250 ML INJ 250 ML IV SCH (14:00)
[2016-09-22 14:07] LABS: BLOOD, URINE NEG (NEG); GLUCOSE,URINE NEG (NEG); KETONE, URINE NEG (NEG); NITRITE,URINE NEG (NEG); PH, URINE 6.5 (5.0-8.5); SQUAMOUS EPITHELIAL CELL URINE <1 /hpf (0-5); URINE COLOR YELLOW (YELLW/STRAW)
[2016-09-22 14:08] LABS: COMMENT (UR) CATH-CULT NOT IND; CULTURE IF INDICATED CATH CULTURE NOT IND
--- NOTE | 2016-09-22 14:16 | RADRPT ---
EXAM DATE/TIME: 09/22/2016 10:49 [facility] COMPARISON: No previous studies available for comparison. INDICATIONS : Liver mass. BIOPSY SITE: Liver DEVICE(S): 1.) 18 gauge Temno core biopsy needle MEDICAL HISTORY : Cirrhosis. SURGICAL HISTORY : Appendectomy. ENCOUNTER: Initial ACUITY: 1 day PAIN SCORE: 0/10 LOCATION: abdomen. A total of two core specimen(s) were obtained and sent to the laboratory for pathologic evaluation. PROCEDURE: 1. CT guided liver biopsy. Prior to the procedure informed consent was obtained. Any appropriate prior imaging studies were rev iewed. The site was prepped in a sterile fashion. Full sterile technique was used, including cap, mask, saumya rile gloves and gown and a large sterile sheet. Hand hygiene and 2% chlorhexidine and/or betadine/al cohol prep was utilized per protocol for cutaneous antisepsis. The skin and subcutaneous tissues wer e infiltrated with local anesthetic solution. With CT guidance the previously identified target was localized. Biopsy was performed using the presc ribed needle as above. Adequate hemostasis was obtained with compression at the puncture site. Follow-up CT scan reveals no hemorrhage. The patient tolerated the procedure well and there were no complications. The patient was returned to the Radiology Outpatient Unit in stable condition. CONCLUSION: Uncomplicated CT guided biopsy. Saroj Martinez MD on September 22, 2016 at 14:14 Board Certified Radiologist. This report was verified electronically.
[2016-09-22 15:45] LABS: LACTIC ACID GHOST NOT REPORTABLE
--- NOTE | 2016-09-22 16:30 | PD.ONC.PN ---
Subjective Subjective Remarks Feels better. Mild HENRI/chest wall pain. Objective Data Date Time Temp Pulse Resp B/P Pulse Ox O2 Delivery O2 Flow Rate FiO2 09/22/16 09:08 93 21 09/22/16 08:45 90 09/22/16 08:00 97.4 105 20 84/53 94 09/22/16 08:00 Room Air 09/22/16 03:37 97.5 99 16 75/50 95 09/21/16 23:27 97.7 97 16 87/55 95 09/21/16 20:00 Room Air 09/21/16 20:00 96 09/21/16 19:15 97.3 96 16 81/53 97 09/21/16 17:30 102 19 84/56 96 Room Air Result Diagram: 09/22/16 0718 09/22/16 0718 Laboratory Results Laboratory Tests Test 09/21/16 09/22/16 09/22/16 09/22/16 20:50 07:18 13:15 13:42 Hemoglobin 10.0 GM/DL 9.7 GM/DL Hematocrit 29.7 % 29.0 % White Blood Count 8.5 TH/MM3 Red Blood Count 3.21 MIL/MM3 Mean Corpuscular Volume 90.3 FL Mean Corpuscular Hemoglobin 30.2 PG Mean Corpuscular Hemoglobin 33.4 % Concent Red Cell Distribution Width 16.6 % Platelet Count 185 TH/MM3 Mean Platelet Volume 7.9 FL Neutrophils (%) (Auto) 79.2 % Lymphocytes (%) (Auto) 9.9 % Monocytes (%) (Auto) 10.7 % Eosinophils (%) (Auto) 0.0 % Basophils (%) (Auto) 0.2 % Neutrophils # (Auto) 6.7 TH/MM3 Lymphocytes # (Auto) 0.8 TH/MM3 Monocytes # (Auto) 0.9 TH/MM3 Eosinophils # (Auto) 0.0 TH/MM3 Basophils # (Auto) 0.0 TH/MM3 CBC Comment DIFF FINAL Differential Comment Prothrombin Time 14.5 SEC Prothromb Time International 1.3 RATIO Ratio Activated Partial 32.7 SEC Thromboplast Time Sodium Level 131 MEQ/L Potassium Level 3.3 MEQ/L Chloride Level 97 MEQ/L Carbon Dioxide Level 24.2 MEQ/L Anion Gap 10 MEQ/L Blood Urea Nitrogen 14 MG/DL Creatinine 1.04 MG/DL Estimat Glomerular Filtration 73 ML/MIN Rate Random Glucose 120 MG/DL Calcium Level 7.9 MG/DL Total Bilirubin 0.5 MG/DL Aspartate Amino Transf 43 U/L (AST/SGOT) Alanine Aminotransferase 20 U/L (ALT/SGPT) Alkaline Phosphatase 134 U/L Lactate Dehydrogenase 266 U/L Total Protein 7.7 GM/DL Albumin 1.8 GM/DL Tumor Marker Alpha Fetoprotein 131.7 NG/ML Carcinoembryonic Antigen 2.8 NG/ML CA 19-9 Antigen 45.1 U/ML Urine Color YELLOW Urine Turbidity CLEAR Urine pH 6.5 Urine Specific [place] 1.024 Urine Protein NEG mg/dL Urine Glucose (UA) NEG mg/dL Urine Ketones NEG mg/dL Urine Occult Blood NEG Urine Nitrite NEG Urine Bilirubin NEG Urine Urobilinogen LESS THAN 2.0 MG/DL Urine Leukocyte Esterase NEG Urine WBC 1 /hpf Urine Squamous Epithelial <1 /hpf Cells Microscopic Urinalysis Comment CATH-CULT NOT IND Lactic Acid Level 3.4 mmol/L Culture Results Microbiology Date/Time Procedure Status Source Growth 09/21/16 10:45 Influenza Types A,B Antigen (KASEY) - Final Complete Nasal Washing NEGATIVE FOR FLU A AND B ANTIGEN.... 09/21/16 11:05 Aerobic Blood Culture - Preliminary Resulted Blood Peripheral NO GROWTH IN 1 DAY 09/21/16 11:05 Anaerobic Blood Culture - Preliminary Resulted Escherichia Coli 09/21/16 11:10 Aerobic Blood Culture - Preliminary Resulted Blood Peripheral NO GROWTH IN 1 DAY 09/21/16 11:10 Anaerobic Blood Culture - Preliminary Resulted Blood Peripheral NO GROWTH IN 1 DAY 09/22/16 07:10 Cancelled Sputum Expectorated Sputum 09/22/16 13:34 Aerobic Blood Culture Received Blood Peripheral Pending 09/22/16 13:34 Anaerobic Blood Culture Received Blood Peripheral Pending 09/22/16 13:42 Aerobic Blood Culture Received Blood Peripheral Pending 09/22/16 13:42 Anaerobic Blood Culture Received Blood Peripheral Pending Imaging Studies Last 24 hours Impressions Liver Biopsy CT 09/22/16 0000 Signed Impressions: Service Date/Time: Thursday, September 22, 2016 10:49 - CONCLUSION: Uncomplicated CT guided biopsy. Saroj Martinez MD CT Angiography 09/22/16 0000 Signed Impressions: Service Date/Time: Thursday, September 22, 2016 10:49 - CONCLUSION: 1. Right lower lobe pulmonary mass measuring 3.6 x 2.6 cm. This would be amenable to percutaneous biopsy if clinically warranted. 2. Circumferential wall thickening involving the lower thoracic esophagus with some dilatation of the more proximal esophagus. I cannot exclude an infiltrating process such as malignancy. 3. No pulmonary embolus. 4. Pronounced emphysematous changes. 5. Tiny bilateral pleural effusions. Ruben Hannon Jr., MD Abdomen Ultrasound 09/22/16 0000 Signed Impressions: Service Date/Time: Thursday, September 22, 2016 11:32 - CONCLUSION: Trace of ascites. Insufficient for drainage. Saroj Martinez MD Administered Medications Medications (Trade) Dose Ordered Sig/Bashir Route PRN Reason Start Time Stop Time Status Last Admin Dose Admin IV Flush (NS Flush) 2 ml BID FLUSH 09/21/16 21:00 09/22/16 08:05 Oxycodone HCl 10 mg 10 mg Q4H PRN PO PAIN SCALE 6 TO 10 09/21/16 14:30 09/22/16 13:18 Azithromycin/ Sodium Chloride (Zithromax Inj/ NS 250 ml Inj) 250 ml @ 250 mls/hr Q24H IV 09/22/16 14:00 09/22/16 14:20 Prednisone (Deltasone) 40 mg DAILY PO 09/22/16 09:00 09/22/16 08:05 Pantoprazole Sodium (Protonix) 40 mg DAILY PO 09/22/16 09:00 09/22/16 08:05 Amitriptyline HCl (Elavil) 50 mg HS PO 09/21/16 21:00 09/21/16 21:20 Folic Acid (Folate) 1 mg DAILY PO 09/22/16 09:00 09/22/16 08:05 Furosemide (Lasix) 20 mg DAILY PO 09/22/16 09:00 09/22/16 08:05 Spironolactone (Aldactone) 50 mg DAILY PO 09/22/16 09:00 09/22/16 08:05 Thiamine HCl (Vitamin B1) 100 mg DAILY PO 09/22/16 09:00 09/22/16 08:05 Quetiapine Fumarate (SEROquel XR) 50 mg HS PO 09/21/16 21:00 09/21/16 21:20 Albumin Human (Albumin 5% Inj) 25 gm Q12H IV 09/22/16 09:00 09/22/16 11:51 Midodrine 5 mg 5 mg TID@07,12,17 PO 09/22/16 12:00 09/22/16 11:51 Sodium Chloride 1,000 ml @ 42 mls/hr [id number] ONCE IV 09/22/16 10:15 09/23/16 10:03 09/22/16 11:51 Ceftriaxone Sodium 1000 mg/ Sodium Chloride 100 ml @ 200 mls/hr Q24H IV 09/22/16 14:00 09/22/16 13:44 Metronidazole (Flagyl 500 Mg Inj) 100 ml @ 100 mls/hr Q6H IV 09/22/16 13:00 09/22/16 13:15 Objective Remarks GENERAL: Weak. SKIN: Warm and dry. HEAD: Normocephalic. EYES: No scleral icterus. No injection or drainage. NECK: Supple, trachea midline. No JVD or lymphadenopathy. LYMPHATIC: No adenopathy. CARDIOVASCULAR: Regular rate and rhythm without murmurs. RESPIRATORY: Breath sounds equal bilaterally. No accessory muscle use. GASTROINTESTINAL: Abdomen soft, slightly tender HENRI, +BS. EXTREMITIES: No cyanosis, or edema. MUSCULOSKELETAL: Adequate muscle tone. NEUROLOGICAL: No obvious focal deficit. Awake, alert, and oriented x3. PSYCHIATRIC: Appropriate mood and affect; insight and judgment normal. Assessment/Plan Assessment 1. Liver mass with intra-abdominal adenopathy. He has history of alcohol-induced cirrhosis. The CT finding is suspicious for malignancy. This could be a primary hepatocellular carcinoma with metastatic adenopathy versus metastatic disease from other GI tract. CT chest showed a right lower lobe lung mass and circumferential wall thickening of lower thoracic esophagus. AFP and Ca 19-9 slighyly elevated but non specific. Clinically he has shortness Going to have biopsy of liver lesion. 2. Pneumonia. Chest x-ray showed right lung base consolidation with small right pleural effusion. He has had increased shortness of breath and productive cough for about a week. He was started on antibiotic. 3. Alcohol-induced cirrhosis. He still drinks one to two beers a day. He has history of portal hypertension with varices but no history of GI bleed. CT of the abdomen also showed ascites and sign of portal hypertension. Plan Plan: 1. Await biopsy of liver mass. 2. Await further GI workup. I think he will need EGD to evaluate the esophageal wall thickening noted on chest CT. Ranjit Franz MD Sep 22, 2016 16:30
--- NOTE | 2016-09-22 17:16 | HHI.FPPN ---
Subjective Remarks No acute events overnight. Feeling not nearly as short of breath, just tired due to lack of sleep. No new chest pains or other concerns. Afebrile. Persistently hypotensive with SBP into 80s and DBP into 50s. Mild tachycardia into the 90s-100s. (Delmar Dumont MD R1) Objective Vitals Vital Signs Date Time Temp Pulse Resp B/P Pulse Ox O2 Delivery O2 Flow Rate FiO2 09/22/16 09:08 93 21 09/22/16 08:45 90 09/22/16 08:00 97.4 105 20 84/53 94 09/22/16 08:00 Room Air 09/22/16 03:37 97.5 99 16 75/50 95 09/21/16 23:27 97.7 97 16 87/55 95 09/21/16 20:00 Room Air 09/21/16 20:00 96 09/21/16 19:15 97.3 96 16 81/53 97 09/21/16 17:30 102 19 84/56 96 Room Air I/O 09/21/16 09/21/16 09/21/16 09/22/16 09/22/16 09/22/16 07:00 15:00 23:00 07:00 15:00 23:00 Intake Total 480 ml Output Total 150 ml Balance 330 ml Intake Oral 480 ml Output Urine Total 150 ml # Bowel Movements 0 (Delmar Dumont MD R1) Result Diagram: 09/22/1618 09/22/16 0718 Imaging Last Impressions Liver Biopsy CT 09/22/16 0000 Signed Impressions: Service Date/Time: Thursday, September 22, 2016 10:49 - CONCLUSION: Uncomplicated CT guided biopsy. Saroj Martinez MD CT Angiography 09/22/16 0000 Signed Impressions: Service Date/Time: Thursday, September 22, 2016 10:49 - CONCLUSION: 1. Right lower lobe pulmonary mass measuring 3.6 x 2.6 cm. This would be amenable to percutaneous biopsy if clinically warranted. 2. Circumferential wall thickening involving the lower thoracic esophagus with some dilatation of the more proximal esophagus. I cannot exclude an infiltrating process such as malignancy. 3. No pulmonary embolus. 4. Pronounced emphysematous changes. 5. Tiny bilateral pleural effusions. Ruben Hannon Jr., MD Abdomen Ultrasound 09/22/16 0000 Signed Impressions: Service Date/Time: Thursday, September 22, 2016 11:32 - CONCLUSION: Trace of ascites. Insufficient for drainage. Saroj Martinez MD Abdomen/Pelvis CT 09/21/16 1049 Signed Impressions: Service Date/Time: Wednesday, September 21, 2016 12:51 - CONCLUSION: Persistent findings of cirrhosis hepatocellular disease splenomegaly varices portal hypertension and ascites. Significant change with multiple low density lesions ill-defined in the liver as well as intra-abdominal adenopathy at the bernie hepatis as well as retroperitoneal up to 5 cm in size. Findings are highly suggestive of malignancy such as hepatocellular carcinoma or metastatic disease. Mello Zelaya MD Chest X-Ray 09/21/16 1010 Signed Impressions: Service Date/Time: Wednesday, September 21, 2016 10:07 - CONCLUSION: There is a small focal area of parenchymal consolidation in the right lung base along with a small right effusion. Focal right lower lung pneumonia is the primary consideration. Recommend a followup chest x-ray in 2-3 weeks after appropriate medical therapy to ensure resolution. If this has not resolved after appropriate medical therapy, then a noncontrast CT thorax can be performed for further evaluation on a nonemergent outpatient basis.. Saroj Martinez MD Objective Remarks GENERAL: Very pleasant WDWN adult white male lying in bed in no acute distress SKIN: No stigmata of chronic liver disease except very mild jaundice. CARDIOVASCULAR: NRRR. Normal S1/S2. No MRG RESPIRATORY: CTAB. No crackles or wheezes. GASTROINTESTINAL: Abdomen soft, non-distended, non-tender. No hepato- splenomegaly or palpable masses. No ascites. MUSCULOSKELETAL: Extremities without clubbing, cyanosis, or edema. NEUROLOGICAL: Awake and alert. Cranial nerves II through XII grossly intact. Moves all extremities without difficulty. Normal speech. Procedures 09/22 - CT guided liver Bx Medications and IVs Current Medications Medications (Trade) Dose Ordered Sig/Bashir Route Start Time Stop Time Status Last Admin (NS Flush) 2 ml UNSCH PRN FLUSH 09/21/16 14:30 (NS Flush) 2 ml BID FLUSH 09/21/16 21:00 09/22/16 08:05 (Motrin) 400 mg Q6H PRN PO 09/21/16 14:30 (Roxicodone) 10 mg Q4H PRN PO 09/21/16 14:30 09/22/16 13:18 (Dilaudid Pf Inj) 1 mg Q3H PRN IV 09/21/16 14:30 (Roxicodone) 5 mg Q4H PRN PO 09/21/16 14:30 (Ativan) 1 mg Q4H PRN PO 09/21/16 14:45 (Ativan Inj) 1 mg Q4H PRN IV PUSH 09/21/16 14:45 (Ativan) 2 mg Q2H PRN PO 09/21/16 14:45 (Ativan Inj) 2 mg Q2H PRN IV PUSH 09/21/16 14:45 (Ativan Inj) 2 mg Q1H PRN IV PUSH 09/21/16 14:45 Lorazepam 2 mg 2 mg Q15M PRN IV PUSH 09/21/16 14:45 (Zithromax Inj/ NS 250 ml Inj) 250 ml @ 250 mls/hr Q24H IV 09/22/16 14:00 09/22/16 14:20 (Deltasone) 40 mg DAILY PO 09/22/16 09:00 09/22/16 08:05 (Protonix) 40 mg DAILY PO 09/22/16 09:00 09/22/16 08:05 (Elavil) 50 mg HS PO 09/21/16 21:00 09/21/16 21:20 (Folate) 1 mg DAILY PO 09/22/16 09:00 09/22/16 08:05 (Lasix) 20 mg DAILY PO 09/22/16 09:00 09/22/16 08:05 (Aldactone) 50 mg DAILY PO 09/22/16 09:00 09/22/16 08:05 (Vitamin B1) 100 mg DAILY PO 09/22/16 09:00 09/22/16 08:05 (SEROquel XR) 50 mg HS PO 09/21/16 21:00 09/21/16 21:20 (Albumin 5% Inj) 25 gm Q12H IV 09/22/16 09:00 09/22/16 11:51 (Proamatine) 5 mg TID@07,12,17 PO 09/22/16 12:00 09/22/16 11:51 Lactulose 30 ml 30 ml DAILY PRN PO 09/22/16 10:15 Sodium Chloride 1,000 ml @ 42 mls/hr [id number] ONCE IV 09/22/16 10:15 09/23/16 10:03 09/22/16 11:51 Ceftriaxone Sodium 1000 mg/ Sodium Chloride 100 ml @ 200 mls/hr Q24H IV 09/22/16 14:00 09/22/16 13:44 (Flagyl 500 Mg Inj) 100 ml @ 100 mls/hr Q6H IV 09/22/16 13:00 09/22/16 13:15 (Delmar Dumont MD R1) A/P Assessment and Plan 60 year old male with PMH of cirrhosis presenting with: Discharge Planning Unclear at this time; pending work-up of malignancy and discussions with palliative care (Delmar Dumont MD R1) Attending Attestation Patient seen and examined with the resident team. Case reviewed and discussed Agree with plan of care as discussed with me and documented in the resident note. Appreciate expertise of consultants. (Naty Man MD) Problem List: (1) Liver nodule Status: Acute Plan: Highly suspicious for malignancy by CT CTA chest showing approx 3x3 cm lung mass, could be primary or met CTA also showing esophageal thickening which could also be primary cancer source AFP elevated to 131.7 CA 19-9 elevated to 45.1 CEA Ag normal (2.8) * Oncology consulted, appreciate their recommendations * GI consulted, appreciate their recommendations * GI plans for EGD/colonoscopy once more clinically stable * F/u liver biopsy results * Ibuprofen and oxycodone as needed for pain * Dilaudid and milligram IV every 3 hours for breakthrough pain * Palliative care consult placed per ID suggestion to address goals of care and dispo planning (CM to assist as well, patient lives in [place]) (2) Sepsis syndrome Status: Acute Plan: Patient with positive blood cultures and imaging suggestive of PNA now with tachycardia, hypotension and elevated lactic acid (3.4) Hypotension could be due to cirrhosis and chronic (he has had this on prior admission) however could also be a sepsis response * ID consulted, appreciate their recommendations * Antibiotics as below (see "Pneumonia" and "Positive blood culture") * Repeat lactic acid per sepsis protocol * Holding IVF at this time given cirrhosis * Midodrine 5 mg PO TID to treat hypotension * If begins to decompensate, low threshold to consult CCM (3) Pneumonia Status: Acute Plan: Chest x-ray suspicious for right lower lobe pneumonia. In setting of likely cancer, this could either be a primary with obstruction versus solely malignancy versus separate community-acquired pneumonia. CTA chest showing 3x3 cm mass and emphysematous changes * Rocephin 1 g IV every 24 hours * Azithromycin 500 mg IV every 24 hours * Legionella urine antigen * Pneumococcal urine antigen * Sputum culture and Gram stain * Prednisone 40 mg daily (4) Positive blood culture Status: Acute Plan: Blood culture drawn 09/22 bottle growing GNR E. coli Probable GI source from invasion of a primary tumor causing seeding of bloodstream versus SBP Abdominal U/S showing small ascites but insufficient to obtain paracentesis sample * ID consulted, appreciate their recommendations * Continue Rocephin and Azithro as above * Add Flagyl 500 mg IV Q6H for anaerobic coverage * Plan for assessment of ascitic fluid if fluid pocket increases (will order additional U/S if ascites develops) (5) Liver cirrhosis Status: Chronic Plan: Well compensated at present * Added lactulose to prevent hepatic encephalopathy given positive blood culture / possible SBP * Added albumin 25 g Q12H IV * Continue home Lasix, prolactin, vitamins * Hepatic dosing for medications (6) Hyponatremia Status: Acute Plan: Likely chronic * Encourage salty foods * Monitor BMP * Hold IVF due to cirrhosis (7) Anemia of chronic disease Status: Acute Plan: Stable at present * Monitor H/H (8) Depression Status: Acute Plan: Stable * Continue home Seroquel, Elavil (9) GERD (gastroesophageal reflux disease) Status: Acute Plan: Stable * Continue home Protonix (10) Alcohol abuse Status: Chronic Plan: Does not drink very much at present, however has severe cirrhosis * CIWA protocol (11) Tobacco abuse Status: Chronic Plan: Nicotine patch if patient requests (12) FEN/PPX Status: Acute Plan: Fluids: PO only Elecs: Monitor and replete PRN; hyponatremic and hypokalemic, see above for hyponatremia. Repleting potassium with PO KCl as indicated Nutrition: Diet regular basic DVT: SCDs to BLE Pain: As above GI: On Protonix 40 mg daily (Delmar Dumont MD R1) Problem Qualifiers (1) Pneumonia: Qualified Code: J18.1 - Pneumonia of right lower lobe due to infectious organism (2) Liver cirrhosis: Qualified Code: K70.30 - Alcoholic cirrhosis of liver without ascites Delmar Dumont MD R1 Sep 22, 2016 17:15 Naty Man MD Sep 23, 2016 08:52
--- NOTE | 2016-09-22 18:15 | PD.ID.CON ---
History of Present Illness Service ID Consult Requested By Reason for Consult Evaluation and Mment of Sepsis, Gram negative bacteremia, ? liver abscess. Primary Care Physician Unknown Diagnoses: History of Present Illness is a 60 y/o male with extensive history of smoking, cirrhosis of the liver thought to be due to prior alcohol use. With this background patient presents with a history of increased shortness of breath and cough starting last Tuesday. These been progressively worsening gradually to the point where it is difficult to move very far without stopping to catch her breath. He also endorses some mild pleuritic chest pain, but no chest pain unrelated to inspiration, and no chest pain on exertion. No fevers or chills that is noted. He is also been nauseous and has vomited about 6 times in the last several days RN INTERVENTIONAL, one of which had streaks of blood in the vomitus but no large volume of blood, no coffee ground emesis, no bile. No hematochezia or melena. Patient has had prior Strep pneumo bacteremia and necrotizing pneumonia. Also has h/o Kocuria bacteremia. Patient reports he has no recent paracentesis last one was several years back. Imaging revealed right lower lobe pulmonary mass measuring 3.6 x 2.6 cm. Circumferential wall thickening involving the lower thoracic esophagus with some dilatation of the more proximal esophagus. No pulmonary embolus. Pronounced emphysematous changes. Tiny bilateral pleural effusions. Oncology has been following patient. A CT guided liver biopsy was done prior to me seeing the patient. I called micro and all samples were in formalin and could not be sent for cultures. Called pathology to add gram stain, AFB stain and Fungal stain to help guide therapy. Blood cultures growing E.coli susceptibility pending. Sepsis workup was initiated and patient is started on IV Rocephin and Azithro. Review of Systems ROS Limitations: Poor Historian Constitutional: COMPLAINS OF: Fever, Weight loss, Chills, Change in appetite, Night Sweats, DENIES: Diaphoretic episodes, Fatigue, Weight gain, Dizziness Endocrine: DENIES: Heat/cold intolerance, Polydipsia, Polyuria, Polyphagia Eyes: DENIES: Blurred vision, Diplopia, Eye inflammation, Eye pain, Vision loss , Photosensitivity, Double Vision Ears, nose, mouth, throat: DENIES: Tinnitus, Hearing loss, Vertigo, Nasal discharge, Oral lesions, Throat pain, Hoarseness, Ear Pain, Running Nose, Epistaxis, Sinus Pain, Toothache, Odynophagia Respiratory: DENIES: Apneas, Cough, Snoring, Wheezing, Hemoptysis, Sputum production, Shortness of breath Cardiovascular: DENIES: Chest pain, Palpitations, Syncope, Dyspnea on Exertion , PND, Lower Extremity Edema, Orthopnea, Claudication Gastrointestinal: COMPLAINS OF: Abdominal pain Genitourinary: DENIES: Sexual dysfunction, Urinary frequency, Urinary incontinence, Urgency, Hematuria, Dysuria, Nocturia, Penile Discharge, Testicular Pain, Testicular Swelling Musculoskeletal: DENIES: Joint pain, Muscle aches, Stiffness, Joint Swelling, Back pain, Neck pain Integumentary: DENIES: Abnormal pigmentation, Nail changes, Pruritus, Rash Hematologic/lymphatic: DENIES: Bruising, Lymphadenopathy Immunologic/allergic: DENIES: Eczema, Urticaria Neurologic: DENIES: Abnormal gait, Headache, Localized weakness, Paresthesias, Seizures, Speech Problems, Tremor, Poor Balance Psychiatric: DENIES: Anxiety, Confusion, Mood changes, Depression, Hallucinations, Agitation, Suicidal Ideation, Homicidal Ideation, Delusions Past Family Social History Allergies: Coded Allergies: *MDRO Multi-Drug Resistant Organism (Verified Allergy, Unknown, 09/21/16) MDR Streptococcus pneumoniae Past Medical History Cirrhosis of the liver COPD ? Alcoholic liver cirrhosis. GERD. Past Surgical History Appendectomy about 40 years ago Orthopedic surgeries in youth Reported Medications Reported Meds & Active Scripts Active Reported Quetiapine ER (Quetiapine Fumarate) 50 Mg Tab 50 Mg PO HS Famotidine 20 Mg Tab 20 Mg PO DAILY Vitamin B-1 (Thiamine HCl) 100 Mg Tab 100 Mg PO DAILY Folate (Folic Acid) 1 Mg Tab 1 Mg PO DAILY Furosemide 20 Mg Tab 20 Mg PO DAILY Amitriptyline (Amitriptyline HCl) 50 Mg Tab 50 Mg PO HS Aldactone (Spironolactone) 50 Mg Tab 50 Mg PO DAILY Tramadol (Tramadol HCl) 50 Mg Tab 50 Mg PO BID PRN Protonix (Pantoprazole Sodium) 40 Mg Tab 40 Mg PO/GT DAILY Active Ordered Medications Current Medications Medications (Trade) Dose Ordered Sig/Bashir Route Start Time Stop Time Status Last Admin (NS Flush) 2 ml UNSCH PRN FLUSH 09/21/16 14:30 (NS Flush) 2 ml BID FLUSH 09/21/16 21:00 09/22/16 21:00 (Motrin) 400 mg Q6H PRN PO 09/21/16 14:30 (Roxicodone) 10 mg Q4H PRN PO 09/21/16 14:30 09/22/16 20:59 (Dilaudid Pf Inj) 1 mg Q3H PRN IV 09/21/16 14:30 (Roxicodone) 5 mg Q4H PRN PO 09/21/16 14:30 (Ativan) 1 mg Q4H PRN PO 09/21/16 14:45 (Ativan Inj) 1 mg Q4H PRN IV PUSH 09/21/16 14:45 (Ativan) 2 mg Q2H PRN PO 09/21/16 14:45 (Ativan Inj) 2 mg Q2H PRN IV PUSH 09/21/16 14:45 (Ativan Inj) 2 mg Q1H PRN IV PUSH 09/21/16 14:45 Lorazepam 2 mg 2 mg Q15M PRN IV PUSH 09/21/16 14:45 (Zithromax Inj/ NS 250 ml Inj) 250 ml @ 250 mls/hr Q24H IV 09/22/16 14:00 09/22/16 14:20 (Deltasone) 40 mg DAILY PO 09/22/16 09:00 09/22/16 08:05 (Protonix) 40 mg DAILY PO 09/22/16 09:00 09/22/16 08:05 (Elavil) 50 mg HS PO 09/21/16 21:00 09/22/16 20:59 (Folate) 1 mg DAILY PO 09/22/16 09:00 09/22/16 08:05 (Lasix) 20 mg DAILY PO 09/22/16 09:00 09/22/16 08:05 (Aldactone) 50 mg DAILY PO 09/22/16 09:00 09/22/16 08:05 (Vitamin B1) 100 mg DAILY PO 09/22/16 09:00 09/22/16 08:05 (SEROquel XR) 50 mg HS PO 09/21/16 21:00 09/22/16 20:59 (Albumin 5% Inj) 25 gm Q12H IV 09/22/16 09:00 09/22/16 11:51 (Proamatine) 5 mg TID@07,12,17 PO 09/22/16 12:00 09/22/16 18:37 Lactulose 30 ml 30 ml DAILY PRN PO 09/22/16 10:15 Sodium Chloride 1,000 ml @ 42 mls/hr [id number] ONCE IV 09/22/16 10:15 09/23/16 10:03 09/22/16 11:51 Ceftriaxone Sodium 1000 mg/ Sodium Chloride 100 ml @ 200 mls/hr Q24H IV 09/22/16 14:00 09/22/16 13:44 (Flagyl 500 Mg Inj) 100 ml @ 100 mls/hr Q6H IV 09/22/16 13:00 09/22/16 18:38 Family History reviewed and NC to current ID problems. Social History Prior alcoholism. Now admits to [facility] 1-2 beers ? reliability. Prior smoking many yrs 40 plus yrs. No IVDA Lives in [place]. His son lives in [facility] and he is visiting him for the holidays. Physical Exam Vital Signs Vital Signs Date Time Temp Pulse Resp B/P Pulse Ox O2 Delivery O2 Flow Rate FiO2 09/22/16 16:00 97.4 90 16 84/51 92 09/22/16 12:00 97.1 96 20 99/60 93 09/22/16 09:08 93 21 09/22/16 08:45 90 09/22/16 08:00 97.4 105 20 84/53 94 09/22/16 08:00 Room Air 09/22/16 03:37 97.5 99 16 75/50 95 09/21/16 23:27 97.7 97 16 87/55 95 09/21/16 20:00 Room Air 09/21/16 20:00 96 09/21/16 19:15 97.3 96 16 81/53 97 Physical Exam GENERAL: Thin built cachectic appearing male patient, in no apparent distress. SKIN: No rashes but bruising and spider naevi noted on neck and chest wall HEAD: Atraumatic. Normocephalic. No temporal or scalp tenderness. EYES: Pupils equal round and reactive. Extraocular motions intact. No scleral icterus. No injection or drainage. ENT: Nose without bleeding, purulent drainage or septal hematoma. Throat without erythema, tonsillar hypertrophy or exudate. Uvula midline. Airway patent. NECK: Trachea midline. Supple, nontender, no meningeal signs. CARDIOVASCULAR: HS audible. RESPIRATORY: Clear to auscultation. Breath sounds equal bilaterally. GASTROINTESTINAL: Abdomen soft, non-tender, nondistended. MUSCULOSKELETAL: Extremities without clubbing, cyanosis, or edema. No joint tenderness, effusion, or edema noted. No calf tenderness. Negative Homans sign bilaterally. NEUROLOGICAL: Awake and alert. Cranial nerves II through XII intact. Motor and sensory grossly within normal limits. Five out of 5 muscle strength in all muscle groups. Normal speech. Psych cooperative IV line sites with no e.o infection. Laboratory Laboratory Tests Test 09/21/16 09/22/16 09/22/16 09/22/16 20:50 07:18 13:15 13:42 Hemoglobin 10.0 9.7 Hematocrit 29.7 29.0 White Blood Count 8.5 Red Blood Count 3.21 Mean Corpuscular Volume 90.3 Mean Corpuscular Hemoglobin 30.2 Mean Corpuscular Hemoglobin 33.4 Concent Red Cell Distribution Width 16.6 Platelet Count 185 Mean Platelet Volume 7.9 Neutrophils (%) (Auto) 79.2 Lymphocytes (%) (Auto) 9.9 Monocytes (%) (Auto) 10.7 Eosinophils (%) (Auto) 0.0 Basophils (%) (Auto) 0.2 Neutrophils # (Auto) 6.7 Lymphocytes # (Auto) 0.8 Monocytes # (Auto) 0.9 Eosinophils # (Auto) 0.0 Basophils # (Auto) 0.0 CBC Comment DIFF FINAL Differential Comment Prothrombin Time 14.5 Prothromb Time International 1.3 Ratio Activated Partial 32.7 Thromboplast Time Sodium Level 131 Potassium Level 3.3 Chloride Level 97 Carbon Dioxide Level 24.2 Anion Gap 10 Blood Urea Nitrogen 14 Creatinine 1.04 Estimat Glomerular Filtration 73 Rate Random Glucose 120 Calcium Level 7.9 Total Bilirubin 0.5 Aspartate Amino Transf 43 (AST/SGOT) Alanine Aminotransferase 20 (ALT/SGPT) Alkaline Phosphatase 134 Lactate Dehydrogenase 266 C-Reactive Protein 4.60 Total Protein 7.7 Albumin 1.8 Tumor Marker Alpha Fetoprotein 131.7 Carcinoembryonic Antigen 2.8 CA 19-9 Antigen 45.1 Urine Color YELLOW Urine Turbidity CLEAR Urine pH 6.5 Urine Specific Innis 1.024 Urine Protein NEG Urine Glucose (UA) NEG Urine Ketones NEG Urine Occult Blood NEG Urine Nitrite NEG Urine Bilirubin NEG Urine Urobilinogen LESS THAN 2.0 Urine Leukocyte Esterase NEG Urine WBC 1 Urine Squamous Epithelial <1 Cells Microscopic Urinalysis Comment CATH-CULT NOT IND Lactic Acid Level 3.4 Test 09/22/16 16:20 Lactic Acid Level 3.7 Date/Time Procedure Status Source Growth 09/22/16 13:42 Aerobic Blood Culture Received Blood Peripheral Pending 09/22/16 13:42 Anaerobic Blood Culture Received Blood Peripheral Pending 09/22/16 07:10 Cancelled Sputum Expectorated Sputum 09/21/16 11:10 Aerobic Blood Culture - Preliminary Resulted Blood Peripheral NO GROWTH IN 1 DAY 09/21/16 11:10 Anaerobic Blood Culture - Preliminary Resulted Blood Peripheral NO GROWTH IN 1 DAY 09/21/16 10:45 Influenza Types A,B Antigen (KASEY) - Final Complete Nasal Washing NEGATIVE FOR FLU A AND B ANTIGEN.... Result Diagram: 09/22/16 0718 09/22/16 0718 Imaging Last Impressions Liver Biopsy CT 09/22/16 0000 Signed Impressions: Service Date/Time: Thursday, September 22, 2016 10:49 - CONCLUSION: Uncomplicated CT guided biopsy. Saroj Martinez MD CT Angiography 09/22/16 0000 Signed Impressions: Service Date/Time: Thursday, September 22, 2016 10:49 - CONCLUSION: 1. Right lower lobe pulmonary mass measuring 3.6 x 2.6 cm. This would be amenable to percutaneous biopsy if clinically warranted. 2. Circumferential wall thickening involving the lower thoracic esophagus with some dilatation of the more proximal esophagus. I cannot exclude an infiltrating process such as malignancy. 3. No pulmonary embolus. 4. Pronounced emphysematous changes. 5. Tiny bilateral pleural effusions. Ruben Hannon Jr., MD Abdomen Ultrasound 09/22/16 0000 Signed Impressions: Service Date/Time: Thursday, September 22, 2016 11:32 - CONCLUSION: Trace of ascites. Insufficient for drainage. Saroj Martinez MD Abdomen/Pelvis CT 09/21/16 1049 Signed Impressions: Service Date/Time: Wednesday, September 21, 2016 12:51 - CONCLUSION: Persistent findings of cirrhosis hepatocellular disease splenomegaly varices portal hypertension and ascites. Significant change with multiple low density lesions ill-defined in the liver as well as intra-abdominal adenopathy at the bernie hepatis as well as retroperitoneal up to 5 cm in size. Findings are highly suggestive of malignancy such as hepatocellular carcinoma or metastatic disease. Mello Zelaya MD Chest X-Ray 09/21/16 1010 Signed Impressions: Service Date/Time: Wednesday, September 21, 2016 10:07 - CONCLUSION: There is a small focal area of parenchymal consolidation in the right lung base along with a small right effusion. Focal right lower lung pneumonia is the primary consideration. Recommend a followup chest x-ray in 2-3 weeks after appropriate medical therapy to ensure resolution. If this has not resolved after appropriate medical therapy, then a noncontrast CT thorax can be performed for further evaluation on a nonemergent outpatient basis.. Saroj Martinez MD Assessment and Plan Assessment and Plan Sepsis E.coli bacteremia Pneumonia vs septic emboli. Ascites with tiny pleural effusions. Esophageal mass needs EGD. Liver masses: DDx: abscess, malignancy or both. Recs Repeat blood cultures Check CRP Check hepatitis profile. 2D ECHO to r.o endocarditis in view of multiple system lesions ? septic emboli Continue Rocephin Continue Azithro. Called micro no sample in saline sent. Called Pathology: added gram stain, AFB stain and Fungal stain. D.w Primary team, pt and RN. Follow cultures Follow clinically. Vernell Austin MD Sep 22, 2016 18:15
[2016-09-22] MEDS: QUEtiapine FUMARATE 50 MG EXTENDED RELEASE TABLET PO SCH (20:59)
[2016-09-22] MEDS: AMITRIPTYLINE HCL 50 MG TAB PO SCH (20:59)
--- NOTE | 2016-09-22 21:02 | EC ---
Study Study Date:09/22/2016 STUDY CONCLUSIONS SUMMARY LEFT VENTRICLE: The cavity size was normal. Wall thickness was normal. Systolic function was normal. The estimated ejection fraction was in the range of 55% to 60%. Wall motion was normal; there were no regional wall motion abnormalities. Impressions: No evidence of endocarditis. If LV function is below 40, please consider prescribing an ACEI or ARB or document rationale for non-use. PROCEDURE DATA STUDY STATUS: Elective. Procedure: Transthoracic echocardiography. Image quality was poor. Scanning was performed from the parasternal, apical, and subcostal acoustic windows. Study completion: The patient tolerated the procedure well. Transthoracic echocardiography. M-mode, complete 2D, complete spectral Doppler, and color Doppler. Patient status: Inpatient. CARDIAC ANATOMY LEFT VENTRICLE: The cavity size was normal. Wall thickness was normal. Systolic function was normal. The estimated ejection fraction was in the range of 55% to 60%. Wall motion was normal; there were no regional wall motion abnormalities. AORTIC VALVE: Poorly visualized. Trileaflet; normal thickness leaflets. Doppler: Transvalvular velocity was within the normal range. There was no stenosis. No regurgitation. AORTA: Aortic root: The aortic root was normal in size. MITRAL VALVE: Poorly visualized. Structurally normal valve. Doppler: Transvalvular velocity was within the normal range. There was no evidence for stenosis. No regurgitation. Mean gradient: 2mm Hg (D). LEFT ATRIUM: The atrium was normal in size. RIGHT VENTRICLE: The cavity size was normal. Wall thickness was normal. PULMONIC VALVE: Doppler: Transvalvular velocity was within the normal range. There was no evidence for stenosis. No regurgitation. TRICUSPID VALVE: Poorly visualized. Structurally normal valve. Doppler: Transvalvular velocity was within the normal range. No regurgitation. PULMONARY ARTERY: The main pulmonary artery was normal-sized. Systolic pressure was within the normal range. RIGHT ATRIUM: The atrium was normal in size. PERICARDIUM: There was no pericardial effusion. SYSTEMIC VEINS: Inferior vena cava: The vessel was normal in size. BASIC MEASUREMENTS ADULT Normal Left ventricle LV internal dimension, ED, chordal level, *40.7 mm 43-52 PLAX LV posterior wall thickness, ED 6.82 mm IVS/LVPW ratio, ED *1.36 <1.3 Ventricular septum Septal thickness, ED 9.25 mm Left atrium Anterior-posterior dimension 32 mm DOPPLER MEASUREMENTS ADULT Normal Main pulmonary artery Pressure, S 14 mm Hg =30 Aortic valve VTI, S 27 cm Mitral valve Peak E-wave velocity 52.4 cm/s Peak A-wave velocity 57.5 cm/s Mean velocity, D 55.8 cm/s Mean gradient, D 2 mm Hg Peak E/A ratio 0.9 Tricuspid valve Regurgitant peak velocity 95.6 cm/s Peak RV-RA gradient, S 4 mm Hg Maximal regurgitant velocity 95.6 cm/s Systemic veins Estimated CVP 10 mm Hg Right ventricle RV pressure, S 14 mm Hg <30 LEGEND: Mean values are shown as u=mean value. Asterisk (*) horn values outside specified normal range. Prepared and signed by Alanna Cristina [id number]
--- NOTE | 2016-09-22 23:23 | EKG ---
Date Performed: 09/21/2016 Time Performed: 14:55:21 PTAGE: 60 years EKG: SINUS TACHYCARDIA LOW QRS VOLTAGE IN EXTREMITY LEADS NONSPECIFIC ST & T-WAVE ABNORMALITY AB NORMAL RHYTHM ECG PREVIOUS TRACING : 10/25/2013 07.19 DOCTOR: Veronica Daugherty Interpretating Date/Time 09/22/2016 23:16:40
[2016-09-23] VITALS (9 sets, daily range): BP systolic 74–109; BP diastolic 51–68; PULSE 86–115; RESP 16–20; TEMP 97–98.3; O2SAT 84–95
[2016-09-23] MEDS: HYDROmorphone HCL PF 1 MG/ML VIAL IV PRN ×2 (00:06→11:48)
[2016-09-23] MEDS: metroNIDAZOLE 500 MG INJ 100 ML IV SCH ×3 (00:10→11:47)
[2016-09-23] MEDS: RESP: ALBUTEROL 2.5 MG/IPRATROPIUM 0.5 MG NEB (PRN) NEB (05:22)
[2016-09-23] MEDS: MIDODRINE 5 MG TAB PO SCH ×3 (06:55→16:42)
[2016-09-23] MEDS: ALBUMIN HUMAN 5% 25 GM/500 ML BOTTLE IV SCH ×2 (08:54→22:12)
[2016-09-23] MEDS: SODIUM CHLORIDE 0.9% FLUSH 5 ML FLUSH FLUSH SCH ×2 (08:54→22:12)
[2016-09-23] MEDS: SPIRONOLACTONE 50 MG TAB PO SCH (08:54)
[2016-09-23] MEDS: PANTOPRAZOLE SOD 40 MG DELAYED RELEASE TAB PO SCH (08:55)
[2016-09-23] MEDS: predniSONE 20 MG TAB PO SCH (08:55)
[2016-09-23] MEDS: FOLIC ACID 1 MG TAB PO SCH (08:55)
[2016-09-23] MEDS: THIAMINE HCL 100 MG TAB PO SCH (08:55)
[2016-09-23 09:09] LABS: AUTOMATED NEUTROPHIL # 6.3 TH/MM3 (1.8-7.7); BASOPHIL % 0.1 % (0.0-2.0); HEMATOCRIT 29.4 % (39.0-51.0); HEMO FLAGS DIFF FINAL; LYMPH % 10.2 % (9.0-44.0); LYMPHOCYTE # 0.8 TH/MM3 (1.0-4.8); MEAN CELL VOLUME 91.9 FL (80.0-100.0); MEAN CORPUSCULAR HEMOGLOBIN 30.5 PG (27.0-34.0); MEAN CORPUSCULAR HGB CONC 33.2 % (32.0-36.0); MONO % 8.8 % (0.0-8.0); NEUT % 80.9 % (16.0-70.0); PLATELET COUNT 160 TH/MM3 (150-450); RED CELL DISTRIBUTION WIDTH 17.3 % (11.6-17.2); WHITE BLOOD COUNT 7.8 TH/MM3 (4.0-11.0)
[2016-09-23 09:25] LABS: APTT (PATIENT) 33.3 SEC (24.3-30.1); INTERNATIONAL NORMALIZED RATIO 1.3 RATIO
[2016-09-23 09:47] LABS: ALKALINE PHOSPHATASE 137 U/L (45-117); ALT (GPT) 22 U/L (12-78); ANION GAP 9 MEQ/L (5-15); AST (GOT) 45 U/L (15-37); BLOOD UREA NITROGEN 13 MG/DL (7-18); CHLORIDE 100 MEQ/L (98-107); GLOMERULAR FILTRATION RATE 87 ML/MIN (>89); POTASSIUM 3.7 MEQ/L (3.5-5.1); SODIUM (NA) 132 MEQ/L (136-145); TOTAL BILIRUBIN ADULT 0.5 MG/DL (0.2-1.0)
[2016-09-23] MEDS ORDERED: PILL SPLITTER OTHER PRN (11:15)
[2016-09-23] MEDS: LACTULOSE SYRUP 20 GM/30 ML CUP PO SCH (11:46)
--- NOTE | 2016-09-23 11:52 | HHI.FPPN ---
Subjective Remarks No acute events overnight. Afebrile, still having low BPs running 80-90/50-55. He is tired from not sleeping much but otherwise feels well with no CP/SOB, mild abdominal pain. (Delmar Dumont MD R1) Objective Vitals Vital Signs Date Time Temp Pulse Resp B/P Pulse Ox O2 Delivery O2 Flow Rate FiO2 09/23/16 09:57 20 09/23/16 08:00 97.3 102 20 98/59 91 09/23/16 05:58 90 16 95 09/23/16 04:55 97.8 97 16 84/56 84 09/22/16 23:56 98.0 99 16 90/57 91 09/22/16 20:54 97.4 94 16 79/52 94 09/22/16 20:00 97 09/22/16 20:00 Room Air 09/22/16 16:00 97.4 90 16 84/51 92 09/22/16 12:00 97.1 96 20 99/60 93 I/O 09/22/16 09/22/16 09/22/16 09/23/16 09/23/16 09/23/16 06:59 14:59 22:59 06:59 14:59 22:59 Intake Total 480 ml 803 ml 480 ml 720 ml Output Total 150 ml 525 ml 250 ml 250 ml Balance 330 ml 278 ml 230 ml 470 ml Intake Oral 480 ml 240 ml 480 ml 720 ml IV Total 563 ml Output Urine Total 150 ml 525 ml 250 ml 250 ml # Bowel Movements 0 0 0 0 (Delmar Dumont MD R1) Result Diagram: 09/23/1613 09/23/16 0812 Imaging Last Impressions Liver Biopsy CT 09/22/16 0000 Signed Impressions: Service Date/Time: Thursday, September 22, 2016 10:49 - CONCLUSION: Uncomplicated CT guided biopsy. Saroj Martinez MD CT Angiography 09/22/16 0000 Signed Impressions: Service Date/Time: Thursday, September 22, 2016 10:49 - CONCLUSION: 1. Right lower lobe pulmonary mass measuring 3.6 x 2.6 cm. This would be amenable to percutaneous biopsy if clinically warranted. 2. Circumferential wall thickening involving the lower thoracic esophagus with some dilatation of the more proximal esophagus. I cannot exclude an infiltrating process such as malignancy. 3. No pulmonary embolus. 4. Pronounced emphysematous changes. 5. Tiny bilateral pleural effusions. Ruben Hannon Jr., MD Abdomen Ultrasound 09/22/16 0000 Signed Impressions: Service Date/Time: Thursday, September 22, 2016 11:32 - CONCLUSION: Trace of ascites. Insufficient for drainage. Saroj Martinez MD Abdomen/Pelvis CT 09/21/16 1049 Signed Impressions: Service Date/Time: Wednesday, September 21, 2016 12:51 - CONCLUSION: Persistent findings of cirrhosis hepatocellular disease splenomegaly varices portal hypertension and ascites. Significant change with multiple low density lesions ill-defined in the liver as well as intra-abdominal adenopathy at the bernie hepatis as well as retroperitoneal up to 5 cm in size. Findings are highly suggestive of malignancy such as hepatocellular carcinoma or metastatic disease. Mello Zelaya MD Chest X-Ray 09/21/16 1010 Signed Impressions: Service Date/Time: Wednesday, September 21, 2016 10:07 - CONCLUSION: There is a small focal area of parenchymal consolidation in the right lung base along with a small right effusion. Focal right lower lung pneumonia is the primary consideration. Recommend a followup chest x-ray in 2-3 weeks after appropriate medical therapy to ensure resolution. If this has not resolved after appropriate medical therapy, then a noncontrast CT thorax can be performed for further evaluation on a nonemergent outpatient basis.. Saroj Martinez MD Objective Remarks GENERAL: Very pleasant WDWN adult white male lying in bed in no acute distress SKIN: No stigmata of chronic liver disease except very mild jaundice. CARDIOVASCULAR: NRRR. Normal S1/S2. No MRG RESPIRATORY: CTAB. No crackles or wheezes. GASTROINTESTINAL: Abdomen soft, non-distended, non-tender. No hepato- splenomegaly or palpable masses. No ascites. MUSCULOSKELETAL: Extremities without clubbing, cyanosis, or edema. NEUROLOGICAL: Awake and alert. Cranial nerves II through XII grossly intact. Moves all extremities without difficulty. Normal speech. Procedures 09/22 - CT guided liver Bx Medications and IVs Current Medications Medications (Trade) Dose Ordered Sig/Bashir Route Start Time Stop Time Status Last Admin (NS Flush) 2 ml UNSCH PRN FLUSH 09/21/16 14:30 (NS Flush) 2 ml BID FLUSH 09/21/16 21:00 09/23/16 08:54 (Motrin) 400 mg Q6H PRN PO 09/21/16 14:30 (Roxicodone) 10 mg Q4H PRN PO 09/21/16 14:30 09/23/16 08:55 (Dilaudid Pf Inj) 1 mg Q3H PRN IV 09/21/16 14:30 09/23/16 11:48 (Roxicodone) 5 mg Q4H PRN PO 09/21/16 14:30 (Ativan) 1 mg Q4H PRN PO 09/21/16 14:45 (Ativan Inj) 1 mg Q4H PRN IV PUSH 09/21/16 14:45 (Ativan) 2 mg Q2H PRN PO 09/21/16 14:45 (Ativan Inj) 2 mg Q2H PRN IV PUSH 09/21/16 14:45 (Ativan Inj) 2 mg Q1H PRN IV PUSH 09/21/16 14:45 Lorazepam 2 mg 2 mg Q15M PRN IV PUSH 09/21/16 14:45 (Zithromax Inj/ NS 250 ml Inj) 250 ml @ 250 mls/hr Q24H IV 09/22/16 14:00 09/22/16 14:20 (Deltasone) 40 mg DAILY PO 09/22/16 09:00 09/23/16 08:55 (Protonix) 40 mg DAILY PO 09/22/16 09:00 09/23/16 08:55 (Elavil) 50 mg HS PO 09/21/16 21:00 09/22/16 20:59 (Folate) 1 mg DAILY PO 09/22/16 09:00 09/23/16 08:55 (Lasix) 20 mg DAILY PO 09/22/16 09:00 09/22/16 08:05 (Vitamin B1) 100 mg DAILY PO 09/22/16 09:00 09/23/16 08:55 (SEROquel XR) 50 mg HS PO 09/21/16 21:00 09/22/16 20:59 Albumin Human 25 gm 25 gm Q12H IV 09/22/16 09:00 09/23/16 08:54 Ceftriaxone Sodium 1000 mg/ Sodium Chloride 100 ml @ 200 mls/hr Q24H IV 09/22/16 14:00 09/22/16 13:44 (Flagyl 500 Mg Inj) 100 ml @ 100 mls/hr Q6H IV 09/22/16 13:00 09/23/16 11:47 (Proamatine) 10 mg TID@07,12,17 PO 09/23/16 12:00 09/23/16 11:46 (Lactulose Liq) 30 ml DAILY PO 09/23/16 11:00 09/23/16 11:46 (Aldactone) 12.5 mg BID PO 09/23/16 21:00 (Pill Splitter) 1 ea UNSCH PRN OTHER 09/23/16 11:15 (Delmar Dumont MD R1) A/P Assessment and Plan 60 year old male with PMH of cirrhosis presenting with: Discharge Planning Unclear at this time; pending work-up of malignancy and discussions with palliative care (Delmar Dumont MD R1) Attending Attestation Patient seen and examined. Case reviewed and discussed Agree with plan of care as discussed with me and documented in the resident note. (Naty Man MD) Problem List: (1) Liver nodule Status: Acute Plan: Highly suspicious for malignancy by CT CTA chest showing approx 3x3 cm lung mass, could be primary or met CTA also showing esophageal thickening which could also be primary cancer source AFP elevated to 131.7 CA 19-9 elevated to 45.1 CEA Ag normal (2.8) * Oncology consulted, appreciate their recommendations * GI consulted, appreciate their recommendations * GI plans for EGD/colonoscopy once more clinically stable * F/u liver biopsy results * Ibuprofen and oxycodone as needed for pain * Dilaudid and milligram IV every 3 hours for breakthrough pain * Palliative care consult placed to address goals of care and dispo planning ( CM to assist as well, patient lives in [place], son is local) (2) Sepsis syndrome Status: Acute Plan: Patient with positive blood cultures and imaging suggestive of PNA now with tachycardia, hypotension and elevated lactic acid (3.4) Hypotension could be due to cirrhosis and chronic (he has had this on prior admission) however could also be a sepsis response Repeat lactic acid 09/22 PM = 3.7 * ID consulted, appreciate their recommendations * Repeat lactic acid today * Antibiotics as below (see "Pneumonia" and "Positive blood culture") * Repeat lactic acid per sepsis protocol * Light MIVF (NS @ 42 cc/hr), no bolus given cirrhosis and desire to prevent decompensation * Increase to Midodrine 10 mg PO TID to treat hypotension * Decrease dose of aldactone to 12.5 mg PO BID (from 50 daily) to address hypotension * If begins to decompensate, low threshold to consult CCM (3) Pneumonia Status: Acute Plan: Chest x-ray suspicious for right lower lobe pneumonia. In setting of likely cancer, this could either be a primary with obstruction versus solely malignancy versus separate community-acquired pneumonia. CTA chest showing 3x3 cm mass and emphysematous changes * Rocephin 1 g IV every 24 hours * Azithromycin 500 mg IV every 24 hours * Legionella urine antigen * Pneumococcal urine antigen * Sputum culture and Gram stain * Prednisone 40 mg daily (4) Positive blood culture Status: Acute Plan: Blood culture drawn 09/22 bottle growing GNR E. coli Probable GI source from invasion of a primary tumor causing seeding of bloodstream versus SBP Abdominal U/S showing small ascites but insufficient to obtain paracentesis sample * ID consulted, appreciate their recommendations * Continue Rocephin and Azithro as above * Continue Flagyl 500 mg IV Q6H for anaerobic coverage * Plan for assessment of ascitic fluid if fluid pocket increases (will order additional U/S if ascites develops) * F/U culture of liver biopsy sample to r/o abscesses (5) Liver cirrhosis Status: Chronic Plan: Well compensated at present * Added lactulose to prevent hepatic encephalopathy given positive blood culture / possible SBP * Added albumin 25 g Q12H IV * Aldactone as above * Continue home Lasix, prolactin, vitamins * Hepatic dosing for medications (6) Hyponatremia Status: Acute Plan: Likely chronic * Encourage salty foods * Monitor BMP * Hold IVF due to cirrhosis (7) Anemia of chronic disease Status: Acute Plan: Stable at present * Monitor H/H (8) Depression Status: Acute Plan: Stable * Continue home Seroquel, Elavil (9) GERD (gastroesophageal reflux disease) Status: Acute Plan: Stable * Continue home Protonix (10) Alcohol abuse Status: Chronic Plan: Does not drink very much at present, however has severe cirrhosis * CIWA protocol (11) Tobacco abuse Status: Chronic Plan: Nicotine patch if patient requests (12) FEN/PPX Status: Acute Plan: Fluids: NS @ 42 cc/hr Elecs: Monitor and replete PRN; hyponatremic, see above. Nutrition: Diet regular basic DVT: SCDs to BLE Pain: As above GI: On Protonix 40 mg daily (Delmar Dumont MD R1) Problem Qualifiers (1) Pneumonia: Qualified Code: J18.1 - Pneumonia of right lower lobe due to infectious organism (2) Liver cirrhosis: Qualified Code: K70.30 - Alcoholic cirrhosis of liver without ascites Delmar Dumont MD R1 Sep 23, 2016 11:52 Naty Man MD Sep 23, 2016 16:24
--- NOTE | 2016-09-23 11:54 | PD.CONS ---
Consult Service Palliative Care Consult Requested By Family Medicine Primary Care Physician Unknown Reason for Consultation a. To assist with evaluation and management of symptoms including:pain b. To assist medical decision maker(s) with: better understanding of current medical conditions; weighing benefits/burdens of medical treatment options; making medical treatment decisions. HPI History of Present Illness Is a 58-year-old male with a past medical history of alcohol use, cirrhosis, ascites, neck and back pain, who presented to the ER due to coughing and shortness of breath on 09/21/2016. There is associated epigastric burning sensation when he eats. In the ER: * Temperature is 97.8, pulse is 99, respirations 16, blood pressure is 113/67, pulse ox 98% * WBC is 7.5, H&H is 10.9 and 32.1, platelets 187 * Sodium is 1:30, potassium is 3.3, chloride 93, bicarbonate is 27.0, BUN is 12 , creatinine is 0.83 * AST is 69, ALTs 29, alkaline phosphatase is 157, albumin is 2.0 * PT is 14.5, INR is 1.3 * UA is unremarkable * Chest x-ray shows small focal area of consolidation in the right lung base along with small right pleural effusion. * Abdominal CT shows persistent cirrhosis and hepatocellular disease, splenomegaly, varices, portal hypertension and ascites. There are multiple low densities lesion ill-defined in the liver,as well as intra-abdominal adenopathy at the bernie hepatis in the retroperitoneal area up to 5 cm in size. Findings are highly suggestive of malignancy such as hepatocellular carcinoma metastatic disease. * Patient was initiated on Ancef in the ER. Patient was admitted to family medicine services. ==Oncology was consulted, to make markers are checked. Oncology recommended further GI workup to look for other GI primary tumors, and also biopsy. GI evaluated patient and pt stated he does not really want colonoscopy unless absolutely necessary. == ID was consulted and followed. recommended rocephin, and follow cultures. Recommend 2D echo to r/o endocarditis. ==Pt pneumonia continues to be treated. 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 Palliative care was consulted to review goals of care. On my visit pt was sleeping, easily wakes up, complain of pain when breathing in the ribs area bilaterally. He is fatigued. He states he has not drink since [place]. When I ask him if he was concern about his results, he stated yes. He would like his son to be involve when results are revealed and discussion on further treatement and prognosis. I spoke with pt's son is is amenable to family meeting at 1030AM in the morning. He ask if other physicians will be present, I stated I will find out. Function/Cognitive Trajectory Weak, has been declining. Fatigued. Review of Systems Constitutional: COMPLAINS OF: Fatigue, Weight loss Musculoskeletal: COMPLAINS OF: Muscle aches, Stiffness Past Family Social History Coded Allergies: *MDRO Multi-Drug Resistant Organism (Verified Allergy, Unknown, 09/21/16) MDR Streptococcus pneumoniae Past Medical History Cirrhosis history of double pneumonia requiring intubation Past Surgical History Appendectomy C3,C4,C5 FUSION PEG placement and removal Reported Medications Proamatine 5 Mg Tab (Midodrine) 5 Mg Tab 5 Mg PO/GT ,, PRN Tums (Calcium Carbonate) 500 Mg Chew 500 Mg PO/GT DAILY Aldactone 100 Mg Tab (Spironolactone) 100 Mg Tab 100 Mg PO/GT DAILY Xifaxan 550 Mg Tab (Rifaximin) 550 Mg Tab 550 Mg PO/GT BID Protonix (Pantoprazole Sodium) 40 Mg Tab 40 Mg PO/GT DAILY Lasix (Furosemide) 40 Mg Tab 40 Mg PO/GT DAILY Senna Lax (Sennosides) 8.6 Mg Tab 17.6 Mg PO/GT BID PRN Seroquel (Quetiapine Fumarate) 25 Mg Tab 25 Mg PO/GT BID Elavil (Amitriptyline HCl) 25 Mg Tab 25 Mg PO/GT HS Magnesium Oxide (Magnesium Oxide (mg Supplement)) 400 Mg Tab 400 Mg PO/GT TID Lactulose 30 Ml Syrp 30 Ml PO/GT BID Lortab 5/325 Tab (Hydrocodone-Acetaminophen) 1 Tab Tab 1 Tab PEG Q6H PRN Current Medications Medications (Trade) Dose Ordered Sig/Bashir Route Start Time Stop Time Status Last Admin (NS Flush) 2 ml UNSCH PRN FLUSH 09/21/16 14:30 (NS Flush) 2 ml BID FLUSH 09/21/16 21:00 09/23/16 08:54 (Motrin) 400 mg Q6H PRN PO 09/21/16 14:30 (Roxicodone) 10 mg Q4H PRN PO 09/21/16 14:30 09/23/16 08:55 (Dilaudid Pf Inj) 1 mg Q3H PRN IV 09/21/16 14:30 09/23/16 00:06 (Roxicodone) 5 mg Q4H PRN PO 09/21/16 14:30 (Ativan) 1 mg Q4H PRN PO 09/21/16 14:45 (Ativan Inj) 1 mg Q4H PRN IV PUSH 09/21/16 14:45 (Ativan) 2 mg Q2H PRN PO 09/21/16 14:45 (Ativan Inj) 2 mg Q2H PRN IV PUSH 09/21/16 14:45 (Ativan Inj) 2 mg Q1H PRN IV PUSH 09/21/16 14:45 Lorazepam 2 mg 2 mg Q15M PRN IV PUSH 09/21/16 14:45 (Zithromax Inj/ NS 250 ml Inj) 250 ml @ 250 mls/hr Q24H IV 09/22/16 14:00 09/22/16 14:20 (Deltasone) 40 mg DAILY PO 09/22/16 09:00 09/23/16 08:55 (Protonix) 40 mg DAILY PO 09/22/16 09:00 09/23/16 08:55 (Elavil) 50 mg HS PO 09/21/16 21:00 09/22/16 20:59 (Folate) 1 mg DAILY PO 09/22/16 09:00 09/23/16 08:55 (Lasix) 20 mg DAILY PO 09/22/16 09:00 Hold 09/22/16 08:05 (Vitamin B1) 100 mg DAILY PO 09/22/16 09:00 09/23/16 08:55 (SEROquel XR) 50 mg HS PO 09/21/16 21:00 09/22/16 20:59 Albumin Human 25 gm 25 gm Q12H IV 09/22/16 09:00 09/23/16 08:54 Ceftriaxone Sodium 1000 mg/ Sodium Chloride 100 ml @ 200 mls/hr Q24H IV 09/22/16 14:00 09/22/16 13:44 (Flagyl 500 Mg Inj) 100 ml @ 100 mls/hr Q6H IV 09/22/16 13:00 09/23/16 06:55 (Proamatine) 10 mg TID@07,12,17 PO 09/23/16 12:00 (Lactulose Liq) 30 ml DAILY PO 09/23/16 11:00 (Aldactone) 12.5 mg BID PO 09/23/16 21:00 (Pill Splitter) 1 ea UNSCH PRN OTHER 09/23/16 11:15 Family History two brothers and two sisters are healthy Substance Use Tobacco: He smokes 2 packs per day for 40 years Alcohol: Drink excessively now he only drinks 1-2 beers a day according to patient. Illicits: Denies Psychosocial History Originally from [place]. He never . He has a son, and a grandson. 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 Living Will: Never completed Physical Exam Vital Signs Date Time Temp Pulse Resp B/P Pulse Ox O2 Delivery O2 Flow Rate FiO2 09/23/16 09:57 20 09/23/16 08:00 97.3 102 20 98/59 91 09/23/16 05:58 90 16 95 09/23/16 04:55 97.8 97 16 84/56 84 09/22/16 23:56 98.0 99 16 90/57 91 09/22/16 20:54 97.4 94 16 79/52 94 09/22/16 20:00 97 09/22/16 20:00 Room Air 09/22/16 16:00 97.4 90 16 84/51 92 09/22/16 12:00 97.1 96 20 99/60 93 09/22/16 09/23/16 19:00 07:00 Intake Total 803 ml 1200 ml Output Total 525 ml 500 ml Balance 278 ml 700 ml Intake Oral 240 ml 1200 ml IV Total 563 ml Output Urine Total 525 ml 500 ml # Bowel Movements 0 0 Exam CONSTITUTIONAL/GENERAL: This is a thin middle age male. Appeas fatigued SKIN: Jaundice. Ecchymoses on upper extremities. No wounds seen anteriorly. Skin temperature appropriate. Not diaphoretic. HEAD: Atraumatic. Normocephalic. EYES: Pupils equal and round and reactive. Extraocular motions intact. No scleral icterus. No injection or drainage. Fundi not examined. ENT: Hearing grossly normal. Nose without bleeding or purulent drainage. Throat without visible erythema, exudates, masses, or lesions. NECK: Trachea midline. Supple, nontender. No palpable thyroid enlargement or nodularity. CARDIOVASCULAR: Regular rate and rhythm without murmurs, gallops, or rubs. No JVD. Peripheral pulses symmetric. RESPIRATORY/CHEST: Symmetric, unlabored respirations. Clear to auscultation. Breath sounds equal bilaterally. No wheezes, rales, or rhonchi. GASTROINTESTINAL: Abdomen soft, somewhat distended. No guarding. Bowel sounds present. GENITOURINARY: Without palpable bladder distension. Christopher catheter in place. MUSCULOSKELETAL: Extremities without clubbing, cyanosis, or edema. LYMPHATICS: No palpable cervical or supraclavicular adenopathy. NEUROLOGICAL: Awake and alert. Motor and sensory grossly within normal limits. Follows commands. Cognitively sharp. Moves all extremities. Diagnostic Tests Laboratory Laboratory Tests Test 09/21/16 09/21/16 09/21/16 09/21/16 10:45 11:15 15:04 20:50 White Blood Count 7.5 TH/MM3 (4.0-11.0) Red Blood Count 3.57 MIL/MM3 (4.50-5.90) Hemoglobin 10.9 GM/DL 10.0 GM/DL (13.0-17.0) (13.0-17.0) Hematocrit 32.1 % 29.7 % (39.0-51.0) (39.0-51.0) Mean Corpuscular Volume 90.1 FL (80.0-100.0) Mean Corpuscular Hemoglobin 30.6 PG (27.0-34.0) Mean Corpuscular Hemoglobin 34.0 % Concent (32.0-36.0) Red Cell Distribution Width 16.9 % (11.6-17.2) Platelet Count 187 TH/MM3 (150-450) Mean Platelet Volume 8.0 FL (7.0-11.0) Neutrophils (%) (Auto) 71.5 % (16.0-70.0) Lymphocytes (%) (Auto) 12.7 % (9.0-44.0) Monocytes (%) (Auto) 14.4 % (0.0-8.0) Eosinophils (%) (Auto) 0.5 % (0.0-4.0) Basophils (%) (Auto) 0.9 % (0.0-2.0) Neutrophils # (Auto) 5.3 TH/MM3 (1.8-7.7) Lymphocytes # (Auto) 0.9 TH/MM3 (1.0-4.8) Monocytes # (Auto) 1.1 TH/MM3 (0-0.9) Eosinophils # (Auto) 0.0 TH/MM3 (0-0.4) Basophils # (Auto) 0.1 TH/MM3 (0-0.2) CBC Comment DIFF FINAL Differential Comment Sodium Level 130 MEQ/L (136-145) Potassium Level 3.3 MEQ/L (3.5-5.1) Chloride Level 93 MEQ/L (98-107) Carbon Dioxide Level 27.0 MEQ/L (21.0-32.0) Anion Gap 10 MEQ/L (5-15) Blood Urea Nitrogen 12 MG/DL (7-18) Creatinine 0.83 MG/DL (0.60-1.30) Estimat Glomerular Filtration 95 ML/MIN (>89) Rate Random Glucose 93 MG/DL (74-106) Calcium Level 8.1 MG/DL (8.5-10.1) Total Bilirubin 1.2 MG/DL (0.2-1.0) Aspartate Amino Transf 69 U/L (15-37) (AST/SGOT) Alanine Aminotransferase 25 U/L (12-78) (ALT/SGPT) Alkaline Phosphatase 157 U/L (45-117) Total Protein 8.5 GM/DL (6.4-8.2) Albumin 2.0 GM/DL (3.4-5.0) Lipase 164 U/L (73-393) Lactic Acid Level 1.9 mmol/L (0.4-2.0) Troponin I LESS THAN 0.02 NG/ML (0.02-0.05) Test 09/22/16 09/22/16 09/22/16 09/22/16 07:18 13:15 13:42 16:20 White Blood Count 8.5 TH/MM3 (4.0-11.0) Red Blood Count 3.21 MIL/MM3 (4.50-5.90) Hemoglobin 9.7 GM/DL (13.0-17.0) Hematocrit 29.0 % (39.0-51.0) Mean Corpuscular Volume 90.3 FL (80.0-100.0) Mean Corpuscular Hemoglobin 30.2 PG (27.0-34.0) Mean Corpuscular Hemoglobin 33.4 % Concent (32.0-36.0) Red Cell Distribution Width 16.6 % (11.6-17.2) Platelet Count 185 TH/MM3 (150-450) Mean Platelet Volume 7.9 FL (7.0-11.0) Neutrophils (%) (Auto) 79.2 % (16.0-70.0) Lymphocytes (%) (Auto) 9.9 % (9.0-44.0) Monocytes (%) (Auto) 10.7 % (0.0-8.0) Eosinophils (%) (Auto) 0.0 % (0.0-4.0) Basophils (%) (Auto) 0.2 % (0.0-2.0) Neutrophils # (Auto) 6.7 TH/MM3 (1.8-7.7) Lymphocytes # (Auto) 0.8 TH/MM3 (1.0-4.8) Monocytes # (Auto) 0.9 TH/MM3 (0-0.9) Eosinophils # (Auto) 0.0 TH/MM3 (0-0.4) Basophils # (Auto) 0.0 TH/MM3 (0-0.2) CBC Comment DIFF FINAL Differential Comment Prothrombin Time 14.5 SEC (9.8-11.6) Prothromb Time International 1.3 RATIO Ratio Activated Partial 32.7 SEC Thromboplast Time (24.3-30.1) Sodium Level 131 MEQ/L (136-145) Potassium Level 3.3 MEQ/L (3.5-5.1) Chloride Level 97 MEQ/L (98-107) Carbon Dioxide Level 24.2 MEQ/L (21.0-32.0) Anion Gap 10 MEQ/L (5-15) Blood Urea Nitrogen 14 MG/DL (7-18) Creatinine 1.04 MG/DL (0.60-1.30) Estimat Glomerular Filtration 73 ML/MIN (>89) Rate Random Glucose 120 MG/DL (74-106) Calcium Level 7.9 MG/DL (8.5-10.1) Total Bilirubin 0.5 MG/DL (0.2-1.0) Aspartate Amino Transf 43 U/L (15-37) (AST/SGOT) Alanine Aminotransferase 20 U/L (12-78) (ALT/SGPT) Alkaline Phosphatase 134 U/L (45-117) Lactate Dehydrogenase 266 U/L (87-241) C-Reactive Protein 4.60 MG/DL (0.00-0.30) Total Protein 7.7 GM/DL (6.4-8.2) Albumin 1.8 GM/DL (3.4-5.0) Tumor Marker Alpha Fetoprotein 131.7 NG/ML (0.5-8.0) Carcinoembryonic Antigen 2.8 NG/ML (0.2-5.0) CA 19-9 Antigen 45.1 U/ML (0.0-35.0) Urine Color YELLOW (YELLW/STRAW) Urine Turbidity CLEAR (CLEAR) Urine pH 6.5 (5.0-8.5) Urine Specific [place] 1.024 (1.002-1.035) Urine Protein NEG mg/dL (NEG-TRACE) Urine Glucose (UA) NEG mg/dL (NEG) Urine Ketones NEG mg/dL (NEG) Urine Occult Blood NEG (NEG) Urine Nitrite NEG (NEG) Urine Bilirubin NEG (NEG) Urine Urobilinogen LESS THAN 2.0 MG/DL (LESS THAN 2.0) Urine Leukocyte Esterase NEG (NEG) Urine WBC 1 /hpf (0-5) Urine Squamous Epithelial <1 /hpf (0-5) Cells Microscopic Urinalysis Comment CATH-CULT NOT IND Lactic Acid Level 3.4 mmol/L 3.7 mmol/L (0.4-2.0) (0.4-2.0) Test 09/23/16 09/23/16 08:12 08:13 Sodium Level 132 MEQ/L (136-145) Potassium Level 3.7 MEQ/L (3.5-5.1) Chloride Level 100 MEQ/L (98-107) Carbon Dioxide Level 23.0 MEQ/L (21.0-32.0) Anion Gap 9 MEQ/L (5-15) Blood Urea Nitrogen 13 MG/DL (7-18) Creatinine 0.90 MG/DL (0.60-1.30) Estimat Glomerular Filtration 87 ML/MIN (>89) Rate Random Glucose 101 MG/DL (74-106) Calcium Level 7.8 MG/DL (8.5-10.1) Total Bilirubin 0.5 MG/DL (0.2-1.0) Aspartate Amino Transf 45 U/L (15-37) (AST/SGOT) Alanine Aminotransferase 22 U/L (12-78) (ALT/SGPT) Alkaline Phosphatase 137 U/L (45-117) Total Protein 7.7 GM/DL (6.4-8.2) Albumin 2.6 GM/DL (3.4-5.0) White Blood Count 7.8 TH/MM3 (4.0-11.0) Red Blood Count 3.20 MIL/MM3 (4.50-5.90) Hemoglobin 9.8 GM/DL (13.0-17.0) Hematocrit 29.4 % (39.0-51.0) Mean Corpuscular Volume 91.9 FL (80.0-100.0) Mean Corpuscular Hemoglobin 30.5 PG (27.0-34.0) Mean Corpuscular Hemoglobin 33.2 % Concent (32.0-36.0) Red Cell Distribution Width 17.3 % (11.6-17.2) Platelet Count 160 TH/MM3 (150-450) Mean Platelet Volume 7.8 FL (7.0-11.0) Neutrophils (%) (Auto) 80.9 % (16.0-70.0) Lymphocytes (%) (Auto) 10.2 % (9.0-44.0) Monocytes (%) (Auto) 8.8 % (0.0-8.0) Eosinophils (%) (Auto) 0.0 % (0.0-4.0) Basophils (%) (Auto) 0.1 % (0.0-2.0) Neutrophils # (Auto) 6.3 TH/MM3 (1.8-7.7) Lymphocytes # (Auto) 0.8 TH/MM3 (1.0-4.8) Monocytes # (Auto) 0.7 TH/MM3 (0-0.9) Eosinophils # (Auto) 0.0 TH/MM3 (0-0.4) Basophils # (Auto) 0.0 TH/MM3 (0-0.2) CBC Comment DIFF FINAL Differential Comment Prothrombin Time 14.0 SEC (9.8-11.6) Prothromb Time International 1.3 RATIO Ratio Activated Partial 33.3 SEC Thromboplast Time (24.3-30.1) Result Diagram: 09/23/16 0813 09/23/16 0812 Microbiology Microbiology Date/Time Procedure Status Source Growth 09/21/16 10:45 Influenza Types A,B Antigen (KASEY) - Final Complete Nasal Washing NEGATIVE FOR FLU A AND B ANTIGEN.... 09/21/16 11:05 Aerobic Blood Culture - Preliminary Resulted Blood Peripheral NO GROWTH IN 2 DAYS 09/21/16 11:05 Anaerobic Blood Culture - Preliminary Resulted Escherichia Coli 09/21/16 11:10 Aerobic Blood Culture - Preliminary Resulted Blood Peripheral NO GROWTH IN 2 DAYS 09/21/16 11:10 Anaerobic Blood Culture - Preliminary Resulted Blood Peripheral NO GROWTH IN 2 DAYS 09/22/16 07:10 Cancelled Sputum Expectorated Sputum 09/22/16 13:34 Aerobic Blood Culture - Preliminary Resulted Blood Peripheral NO GROWTH IN 1 DAY 09/22/16 13:34 Anaerobic Blood Culture - Preliminary Resulted Blood Peripheral NO GROWTH IN 1 DAY 09/22/16 13:42 Aerobic Blood Culture - Preliminary Resulted Blood Peripheral NO GROWTH IN 1 DAY 09/22/16 13:42 Anaerobic Blood Culture - Preliminary Resulted Blood Peripheral NO GROWTH IN 1 DAY 09/22/16 22:45 Gram Stain - Final Resulted Sputum Expectorated Sputum 09/22/16 22:45 Sputum Culture Resulted Sputum Expectorated Sputum Pending Imaging Last Impressions Liver Biopsy CT 09/22/16 0000 Signed Impressions: Service Date/Time: Thursday, September 22, 2016 10:49 - CONCLUSION: Uncomplicated CT guided biopsy. Saroj Martinez MD CT Angiography 09/22/16 0000 Signed Impressions: Service Date/Time: Thursday, September 22, 2016 10:49 - CONCLUSION: 1. Right lower lobe pulmonary mass measuring 3.6 x 2.6 cm. This would be amenable to percutaneous biopsy if clinically warranted. 2. Circumferential wall thickening involving the lower thoracic esophagus with some dilatation of the more proximal esophagus. I cannot exclude an infiltrating process such as malignancy. 3. No pulmonary embolus. 4. Pronounced emphysematous changes. 5. Tiny bilateral pleural effusions. Ruben Hannon Jr., MD Abdomen Ultrasound 09/22/16 0000 Signed Impressions: Service Date/Time: Thursday, September 22, 2016 11:32 - CONCLUSION: Trace of ascites. Insufficient for drainage. Saroj Martinez MD Abdomen/Pelvis CT 09/21/16 1049 Signed Impressions: Service Date/Time: Wednesday, September 21, 2016 12:51 - CONCLUSION: Persistent findings of cirrhosis hepatocellular disease splenomegaly varices portal hypertension and ascites. Significant change with multiple low density lesions ill-defined in the liver as well as intra-abdominal adenopathy at the bernie hepatis as well as retroperitoneal up to 5 cm in size. Findings are highly suggestive of malignancy such as hepatocellular carcinoma or metastatic disease. Mello Zelaya MD Chest X-Ray 09/21/16 1010 Signed Impressions: Service Date/Time: Wednesday, September 21, 2016 10:07 - CONCLUSION: There is a small focal area of parenchymal consolidation in the right lung base along with a small right effusion. Focal right lower lung pneumonia is the primary consideration. Recommend a followup chest x-ray in 2-3 weeks after appropriate medical therapy to ensure resolution. If this has not resolved after appropriate medical therapy, then a noncontrast CT thorax can be performed for further evaluation on a nonemergent outpatient basis.. Saroj Martinez MD Patient/Family Conference Present at Family Conference: son Family Conference Time (mins): 20 Family Conference Location: Telephone Issues Discussed: * Palliative care role, purpose, approach * Additional medical, psychosocial, and spiritual history * Patients general health, functional status, and cognitive changes in the months leading up to the current hospitalization * Patient/family understanding of the current medical problems * Patient/family understanding of prognosis * Patients goals of care as best understood from advance directives and/or conversations and/or values * Current medical treatment options and benefits/burdens of those options * Likely scenarios comparing ongoing aggressive care with a transition to comfort measures only * Questions answered to the best of my ability * Palliative care contact information provided Assessment and Plan Disease Oriented Problem List: (1) End-stage liver disease (2) Liver cirrhosis (3) Pneumonia (4) GERD (gastroesophageal reflux disease) (5) Sepsis syndrome Symptom Scale: Pertinent Non-Medical Issues Psychosocial: Spiritual: Legal: Ethical issues impacting care: Important Contacts son Prognosis Primliminary report is hepatocellular carcinoma. Spoke with Dr. Franz oncology, if that is the case, prognosis is poor. Code Status: No Code Plan == dnr/dni no code. == goals: evolving pending family meeting with son tomorrow at 1030am. family residents will join. I spoke with oncology, who state preliminary results is hepatocellular carcinoma, if final results confirms it, prognosis is poor. == pain-pain when breathing, no new meds currently. == palliative care will follow up in AM. Thank you for the opportunity to participate in the care of Mr. Watkins. Attestation To help prompt me to consider important information that might be impacting today's encounter and assessment, information from prior notes written by myself or my colleagues may have been "brought forward" into today's note. My signature on this note, however, is an attestation that I personally performed the exam, history, and/or decision-making noted today, and, unless otherwise indicated, the interactions with patient, family, and staff as well as the review of records all occurred today. I also attest that the listed assessment and stated plan reflect my best clinical judgment today based on the combination of historical information, prior notes, and today's exam/ interactions. When time spent is documented, it refers only to time spent today by the signer, or if indicated, combined time spent today by collaborating physician/nurse practitioner. Fidel Hudson MD Sep 23, 2016 11:54
[2016-09-23] MEDS: cefTRIAXone INJ 1,000 MG in SODIUM CHLORIDE 0.9% INJ 100 ML IV SCH (13:07)
--- NOTE | 2016-09-23 15:13 | HHI.IDPN ---
Subjective Subjective Remarks is a 60 y/o male with extensive history of smoking, cirrhosis of the liver thought to be due to prior alcohol use. E.coli bacteremia possible liver abscesses. Antibiotics Rocephin Azithro Flagyl Lines Line sites with no e/o infection. Past Medical History reviewed Allergies: Coded Allergies: *MDRO Multi-Drug Resistant Organism (Verified Allergy, Unknown, 09/21/16) MDR Streptococcus pneumoniae Objective . Vital Signs Date Time Temp Pulse Resp B/P Pulse Ox O2 Delivery O2 Flow Rate FiO2 09/23/16 12:52 18 09/23/16 12:00 97.0 104 20 83/53 90 09/23/16 09:57 20 09/23/16 08:00 97.3 102 20 98/59 91 09/23/16 07:00 91 Nasal Cannula 2.00 09/23/16 05:58 90 16 95 09/23/16 04:55 97.8 97 16 84/56 84 09/22/16 23:56 98.0 99 16 90/57 91 09/22/16 20:54 97.4 94 16 79/52 94 09/22/16 20:00 97 09/22/16 20:00 Room Air 09/22/16 16:00 97.4 90 16 84/51 92 09/22/16 09/22/16 09/23/16 14:59 22:59 06:59 Intake Total 803 ml 480 ml 720 ml Output Total 525 ml 250 ml 250 ml Balance 278 ml 230 ml 470 ml Intake Oral 240 ml 480 ml 720 ml IV Total 563 ml Output Urine Total 525 ml 250 ml 250 ml # Bowel Movements 0 0 0 . Laboratory Tests Test 09/21/16 09/22/16 09/23/16 20:50 07:18 08:13 Hemoglobin 10.0 GM/DL 9.7 GM/DL 9.8 GM/DL Hematocrit 29.7 % 29.0 % 29.4 % White Blood Count 8.5 TH/MM3 7.8 TH/MM3 Red Blood Count 3.21 MIL/MM3 3.20 MIL/MM3 Mean Corpuscular Volume 90.3 FL 91.9 FL Mean Corpuscular Hemoglobin 30.2 PG 30.5 PG Mean Corpuscular Hemoglobin 33.4 % 33.2 % Concent Red Cell Distribution Width 16.6 % 17.3 % Platelet Count 185 TH/MM3 160 TH/MM3 Mean Platelet Volume 7.9 FL 7.8 FL Neutrophils (%) (Auto) 79.2 % 80.9 % Lymphocytes (%) (Auto) 9.9 % 10.2 % Monocytes (%) (Auto) 10.7 % 8.8 % Eosinophils (%) (Auto) 0.0 % 0.0 % Basophils (%) (Auto) 0.2 % 0.1 % Neutrophils # (Auto) 6.7 TH/MM3 6.3 TH/MM3 Lymphocytes # (Auto) 0.8 TH/MM3 0.8 TH/MM3 Monocytes # (Auto) 0.9 TH/MM3 0.7 TH/MM3 Eosinophils # (Auto) 0.0 TH/MM3 0.0 TH/MM3 Basophils # (Auto) 0.0 TH/MM3 0.0 TH/MM3 CBC Comment DIFF FINAL DIFF FINAL Differential Comment Laboratory Tests Test 09/22/16 09/22/16 09/22/16 09/23/16 07:18 13:42 16:20 08:12 Sodium Level 131 MEQ/L 132 MEQ/L Potassium Level 3.3 MEQ/L 3.7 MEQ/L Chloride Level 97 MEQ/L 100 MEQ/L Carbon Dioxide Level 24.2 MEQ/L 23.0 MEQ/L Anion Gap 10 MEQ/L 9 MEQ/L Blood Urea Nitrogen 14 MG/DL 13 MG/DL Creatinine 1.04 MG/DL 0.90 MG/DL Estimat Glomerular Filtration 73 ML/MIN 87 ML/MIN Rate Random Glucose 120 MG/DL 101 MG/DL Calcium Level 7.9 MG/DL 7.8 MG/DL Total Bilirubin 0.5 MG/DL 0.5 MG/DL Aspartate Amino Transf 43 U/L 45 U/L (AST/SGOT) Alanine Aminotransferase 20 U/L 22 U/L (ALT/SGPT) Alkaline Phosphatase 134 U/L 137 U/L Lactate Dehydrogenase 266 U/L C-Reactive Protein 4.60 MG/DL Total Protein 7.7 GM/DL 7.7 GM/DL Albumin 1.8 GM/DL 2.6 GM/DL Tumor Marker Alpha Fetoprotein 131.7 NG/ML Carcinoembryonic Antigen 2.8 NG/ML CA 19-9 Antigen 45.1 U/ML Lactic Acid Level 3.4 mmol/L 3.7 mmol/L Test 09/23/16 14:05 Lactic Acid Level 3.3 mmol/L Microbiology Date/Time Procedure Status Source Growth 09/21/16 10:45 Influenza Types A,B Antigen (KASEY) - Final Complete Nasal Washing NEGATIVE FOR FLU A AND B ANTIGEN.... 09/21/16 11:05 Aerobic Blood Culture - Preliminary Resulted Blood Peripheral NO GROWTH IN 2 DAYS 09/21/16 11:05 Anaerobic Blood Culture - Preliminary Resulted Escherichia Coli 09/21/16 11:10 Aerobic Blood Culture - Preliminary Resulted Blood Peripheral NO GROWTH IN 2 DAYS 09/21/16 11:10 Anaerobic Blood Culture - Preliminary Resulted Blood Peripheral NO GROWTH IN 2 DAYS 09/22/16 07:10 Cancelled Sputum Expectorated Sputum 09/22/16 13:34 Aerobic Blood Culture - Preliminary Resulted Blood Peripheral NO GROWTH IN 1 DAY 09/22/16 13:34 Anaerobic Blood Culture - Preliminary Resulted Blood Peripheral NO GROWTH IN 1 DAY 09/22/16 13:42 Aerobic Blood Culture - Preliminary Resulted Blood Peripheral NO GROWTH IN 1 DAY 09/22/16 13:42 Anaerobic Blood Culture - Preliminary Resulted Blood Peripheral NO GROWTH IN 1 DAY 09/22/16 22:45 Gram Stain - Final Resulted Sputum Expectorated Sputum 09/22/16 22:45 Sputum Culture Resulted Sputum Expectorated Sputum Pending Imaging Last Impressions Liver Biopsy CT 09/22/16 0000 Signed Impressions: Service Date/Time: Thursday, September 22, 2016 10:49 - CONCLUSION: Uncomplicated CT guided biopsy. Saroj Martinez MD CT Angiography 09/22/16 0000 Signed Impressions: Service Date/Time: Thursday, September 22, 2016 10:49 - CONCLUSION: 1. Right lower lobe pulmonary mass measuring 3.6 x 2.6 cm. This would be amenable to percutaneous biopsy if clinically warranted. 2. Circumferential wall thickening involving the lower thoracic esophagus with some dilatation of the more proximal esophagus. I cannot exclude an infiltrating process such as malignancy. 3. No pulmonary embolus. 4. Pronounced emphysematous changes. 5. Tiny bilateral pleural effusions. Ruben Hannon Jr., MD Abdomen Ultrasound 09/22/16 0000 Signed Impressions: Service Date/Time: Thursday, September 22, 2016 11:32 - CONCLUSION: Trace of ascites. Insufficient for drainage. Saroj Martinez MD Abdomen/Pelvis CT 09/21/16 1049 Signed Impressions: Service Date/Time: Wednesday, September 21, 2016 12:51 - CONCLUSION: Persistent findings of cirrhosis hepatocellular disease splenomegaly varices portal hypertension and ascites. Significant change with multiple low density lesions ill-defined in the liver as well as intra-abdominal adenopathy at the bernie hepatis as well as retroperitoneal up to 5 cm in size. Findings are highly suggestive of malignancy such as hepatocellular carcinoma or metastatic disease. Mello Zelaya MD Chest X-Ray 09/21/16 1010 Signed Impressions: Service Date/Time: Wednesday, September 21, 2016 10:07 - CONCLUSION: There is a small focal area of parenchymal consolidation in the right lung base along with a small right effusion. Focal right lower lung pneumonia is the primary consideration. Recommend a followup chest x-ray in 2-3 weeks after appropriate medical therapy to ensure resolution. If this has not resolved after appropriate medical therapy, then a noncontrast CT thorax can be performed for further evaluation on a nonemergent outpatient basis.. Saroj Martinez MD Assessment & Plan Remarks Sepsis E.coli bacteremia Pneumonia vs septic emboli. Hepatitis C antibody positive. Hepatocellular carcinoma in a patient with HCV positive. Ascites with tiny pleural effusions. Esophageal mass needs EGD. Liver masses: DDx: abscess, malignancy or both. Recs Continue Rocephin increase dose to 2 gm IV q24hrs. Follow blood cultures. Follow sputum cultures. Follow E.coli susceptibility. 2D ECHO to r.o endocarditis in view of multiple system lesions ? septic emboli DC Azithro DC Flagyl. discussed case with in pathology: no evidence of acute inflammation. Appears to be Hepatocellular carcinoma and Liver Cirrhosis. D.w Primary team, pt and RN. Follow cultures Follow clinically. I will be OOT from 09/24/16 to 10/13/16. Other ID MDs to cover for me. Vernell Austin MD Sep 23, 2016 15:13
--- NOTE | 2016-09-23 15:33 | HHI.GIFU ---
Subjective Remarks Resting in bed. States that he was up all night, didn't get much sleep. Does not want to pursue colonoscopy at this time, did agree to endoscopy for tomorrow though. (Abbie Johns) Objective Vitals I&O Vital Signs Date Time Temp Pulse Resp B/P Pulse Ox O2 Delivery O2 Flow Rate FiO2 09/23/16 12:52 18 09/23/16 12:00 97.0 104 20 83/53 90 09/23/16 09:57 20 09/23/16 08:00 97.3 102 20 98/59 91 09/23/16 07:00 91 Nasal Cannula 2.00 09/23/16 05:58 90 16 95 09/23/16 04:55 97.8 97 16 84/56 84 09/22/16 23:56 98.0 99 16 90/57 91 09/22/16 20:54 97.4 94 16 79/52 94 09/22/16 20:00 97 09/22/16 20:00 Room Air 09/22/16 16:00 97.4 90 16 84/51 92 I/O 09/22/16 09/22/16 09/22/16 09/23/16 09/23/16 09/23/16 07:00 15:00 23:00 07:00 15:00 23:00 Intake Total 480 ml 803 ml 480 ml 720 ml Output Total 150 ml 525 ml 250 ml 250 ml Balance 330 ml 278 ml 230 ml 470 ml Intake Oral 480 ml 240 ml 480 ml 720 ml IV Total 563 ml Output Urine Total 150 ml 525 ml 250 ml 250 ml # Bowel Movements 0 0 0 0 Laboratory Laboratory Tests Test 09/22/16 09/23/16 09/23/16 09/23/16 16:20 08:12 08:13 14:05 Lactic Acid Level 3.7 3.3 Sodium Level 132 Potassium Level 3.7 Chloride Level 100 Carbon Dioxide Level 23.0 Anion Gap 9 Blood Urea Nitrogen 13 Creatinine 0.90 Estimat Glomerular Filtration 87 Rate Random Glucose 101 Calcium Level 7.8 Total Bilirubin 0.5 Aspartate Amino Transf 45 (AST/SGOT) Alanine Aminotransferase 22 (ALT/SGPT) Alkaline Phosphatase 137 Total Protein 7.7 Albumin 2.6 White Blood Count 7.8 Red Blood Count 3.20 Hemoglobin 9.8 Hematocrit 29.4 Mean Corpuscular Volume 91.9 Mean Corpuscular Hemoglobin 30.5 Mean Corpuscular Hemoglobin 33.2 Concent Red Cell Distribution Width 17.3 Platelet Count 160 Mean Platelet Volume 7.8 Neutrophils (%) (Auto) 80.9 Lymphocytes (%) (Auto) 10.2 Monocytes (%) (Auto) 8.8 Eosinophils (%) (Auto) 0.0 Basophils (%) (Auto) 0.1 Neutrophils # (Auto) 6.3 Lymphocytes # (Auto) 0.8 Monocytes # (Auto) 0.7 Eosinophils # (Auto) 0.0 Basophils # (Auto) 0.0 CBC Comment DIFF FINAL Differential Comment Prothrombin Time 14.0 Prothromb Time International 1.3 Ratio Activated Partial 33.3 Thromboplast Time Hepatitis A IgM Antibody NEGATIVE Hepatitis B Surface Antigen NEGATIVE Hepatitis B Core IgM Antibody NEGATIVE Hepatitis C Antibody REACTIVE Date/Time Procedure Status Source Growth 09/22/16 22:45 Gram Stain - Final Resulted Sputum Expectorated Sputum 09/22/16 22:45 Sputum Culture Resulted Sputum Expectorated Sputum Pending 09/22/16 13:42 Aerobic Blood Culture - Preliminary Resulted Blood Peripheral NO GROWTH IN 1 DAY 09/22/16 13:42 Anaerobic Blood Culture - Preliminary Resulted Blood Peripheral NO GROWTH IN 1 DAY 09/22/16 07:10 Cancelled Sputum Expectorated Sputum 09/21/16 10:45 Influenza Types A,B Antigen (KASEY) - Final Complete Nasal Washing NEGATIVE FOR FLU A AND B ANTIGEN.... Imaging Last Impressions Liver Biopsy CT 09/22/16 0000 Signed Impressions: Service Date/Time: Thursday, September 22, 2016 10:49 - CONCLUSION: Uncomplicated CT guided biopsy. Saroj Martinez MD CT Angiography 09/22/16 0000 Signed Impressions: Service Date/Time: Thursday, September 22, 2016 10:49 - CONCLUSION: 1. Right lower lobe pulmonary mass measuring 3.6 x 2.6 cm. This would be amenable to percutaneous biopsy if clinically warranted. 2. Circumferential wall thickening involving the lower thoracic esophagus with some dilatation of the more proximal esophagus. I cannot exclude an infiltrating process such as malignancy. 3. No pulmonary embolus. 4. Pronounced emphysematous changes. 5. Tiny bilateral pleural effusions. Ruben Hannon Jr., MD Abdomen Ultrasound 09/22/16 0000 Signed Impressions: Service Date/Time: Thursday, September 22, 2016 11:32 - CONCLUSION: Trace of ascites. Insufficient for drainage. Saroj Martienz MD Abdomen/Pelvis CT 09/21/16 1049 Signed Impressions: Service Date/Time: Wednesday, September 21, 2016 12:51 - CONCLUSION: Persistent findings of cirrhosis hepatocellular disease splenomegaly varices portal hypertension and ascites. Significant change with multiple low density lesions ill-defined in the liver as well as intra-abdominal adenopathy at the bernie hepatis as well as retroperitoneal up to 5 cm in size. Findings are highly suggestive of malignancy such as hepatocellular carcinoma or metastatic disease. Mello Zelaya MD Chest X-Ray 09/21/16 1010 Signed Impressions: Service Date/Time: Wednesday, September 21, 2016 10:07 - CONCLUSION: There is a small focal area of parenchymal consolidation in the right lung base along with a small right effusion. Focal right lower lung pneumonia is the primary consideration. Recommend a followup chest x-ray in 2-3 weeks after appropriate medical therapy to ensure resolution. If this has not resolved after appropriate medical therapy, then a noncontrast CT thorax can be performed for further evaluation on a nonemergent outpatient basis.. Saroj Martinez MD Physical Exam HEENT: Normocephalic; atraumatic; no jaundice. CHEST: CTA, diminished CARDIAC: RRR ABDOMEN: Soft, distended, mild diffuse tenderness; hepatosplenomegaly; bowel sounds are present in all four quadrants. EXTREMITIES: No clubbing, cyanosis, or edema. SKIN: Multiple ecchymotic areas. RECOVERY ROOM NURSE: No focal deficits; alert and oriented times three. (Abbie Johns [facility]) Assessment and Plan Plan ASSESSMENT: - Liver mass with intra-abdominal adenopathy and elevated tumor markers. Abdomen/Pelvis CT (09/21/16)-----> Persistent findings of cirrhosis hepatocellular disease splenomegaly varices portal hypertension and ascites. Significant change with multiple low density lesions ill-defined in the liver as well as intra-abdominal adenopathy at the bernie hepatis as well as retroperitoneal up to 5 cm in size. Findings are highly suggestive of malignancy such as hepatocellular carcinoma or metastatic disease. AFP 131.7, CEA 2.8, Ca19-[address] guided liver biopsy pending. Suspicious for HCC vs. other primary. Spoke to Dr. Franz, suspects that this could be GI primary. Recommends endoscopic evaluation. Spoke to patient re: egd vs. egd/colonoscopy. He does not wish to have the colonoscopy at this time, but did agree to EGD. Will schedule for tomorrow. - Esophageal thickening involving the lower thoracic esophagus with some dilatation of the more proximal esophagus on CTA. EGD in am. - RLL Pulmonary mass measuring 3.6 x 2.6. - Alcoholic cirrhosis- He continue to drink, has been stable with Lasix, Aldactone and Pepcid, no recent EGD Records indicated EGD on (12/20/13) ----> grade 1 esophageal varices. - Ascites. US with trace ascites, insufficient for safe drainage - Chronic anemia. HH 9.8/29.4 - History of Varices- EGD in 2013, no bleeding reported - Pneumonia- Chest x-ray suggesting pneumonia, abx - Hyponatremia, hypokalemia per attending - Hepatitis C antibodies. Will check viral load and genotype Plan: - Plan for egd in am - Obtain consents - NPO after MN - Await pathology from liver biopsy - HCV Genotype and viral load - Cont. Ceftriaxone - Cont. Spironolactone - Cont. Lactulose - Cont. Lasix - Cont. Albumin - Monitor labs - Supportive care - Refusing colonoscopy at this time. - Further recommendations to follow based on results of above - Patient seen and examined by Dr. Ochoa and myself and this note is written on his behalf. (Abbie Johns) Physician Comments Will schedule EGD in Am, further recommendations to follow. (Chen Ochoa MD) Abbie Johns Sep 23, 2016 15:33 Chen Ochoa MD Sep 23, 2016 17:36
[2016-09-23 16:13] LABS: LACTIC ACID GHOST NOT REPORTABLE
--- NOTE | 2016-09-23 17:42 | PD.ONC.PN ---
Subjective Subjective Remarks Saw patient around 0730. His pain is better controlled. Objective Data Date Time Temp Pulse Resp B/P Pulse Ox O2 Delivery O2 Flow Rate FiO2 09/23/16 16:00 97.4 97 18 91/64 93 09/23/16 12:52 18 09/23/16 12:00 97.0 104 20 83/53 90 09/23/16 09:57 20 09/23/16 08:00 97.3 102 20 98/59 91 09/23/16 07:00 91 Nasal Cannula 2.00 09/23/16 05:58 90 16 95 09/23/16 04:55 97.8 97 16 84/56 84 09/22/16 23:56 98.0 99 16 90/57 91 09/22/16 20:54 97.4 94 16 79/52 94 09/22/16 20:00 97 09/22/16 20:00 Room Air 09/23/16 09/23/16 09/23/16 06:59 14:59 22:59 Intake Total 720 ml 840 ml Output Total 250 ml 550 ml Balance 470 ml 290 ml Result Diagram: 09/23/16 0813 09/23/16 0812 Laboratory Results Laboratory Tests Test 09/23/16 09/23/16 09/23/16 08:12 08:13 14:05 Sodium Level 132 MEQ/L Potassium Level 3.7 MEQ/L Chloride Level 100 MEQ/L Carbon Dioxide Level 23.0 MEQ/L Anion Gap 9 MEQ/L Blood Urea Nitrogen 13 MG/DL Creatinine 0.90 MG/DL Estimat Glomerular Filtration 87 ML/MIN Rate Random Glucose 101 MG/DL Calcium Level 7.8 MG/DL Total Bilirubin 0.5 MG/DL Aspartate Amino Transf 45 U/L (AST/SGOT) Alanine Aminotransferase 22 U/L (ALT/SGPT) Alkaline Phosphatase 137 U/L Total Protein 7.7 GM/DL Albumin 2.6 GM/DL White Blood Count 7.8 TH/MM3 Red Blood Count 3.20 MIL/MM3 Hemoglobin 9.8 GM/DL Hematocrit 29.4 % Mean Corpuscular Volume 91.9 FL Mean Corpuscular Hemoglobin 30.5 PG Mean Corpuscular Hemoglobin 33.2 % Concent Red Cell Distribution Width 17.3 % Platelet Count 160 TH/MM3 Mean Platelet Volume 7.8 FL Neutrophils (%) (Auto) 80.9 % Lymphocytes (%) (Auto) 10.2 % Monocytes (%) (Auto) 8.8 % Eosinophils (%) (Auto) 0.0 % Basophils (%) (Auto) 0.1 % Neutrophils # (Auto) 6.3 TH/MM3 Lymphocytes # (Auto) 0.8 TH/MM3 Monocytes # (Auto) 0.7 TH/MM3 Eosinophils # (Auto) 0.0 TH/MM3 Basophils # (Auto) 0.0 TH/MM3 CBC Comment DIFF FINAL Differential Comment Prothrombin Time 14.0 SEC Prothromb Time International 1.3 RATIO Ratio Activated Partial 33.3 SEC Thromboplast Time Hepatitis A IgM Antibody NEGATIVE Hepatitis B Surface Antigen NEGATIVE Hepatitis B Core IgM Antibody NEGATIVE Hepatitis C Antibody REACTIVE Lactic Acid Level 3.3 mmol/L Culture Results Microbiology Date/Time Procedure Status Source Growth 09/21/16 10:45 Influenza Types A,B Antigen (KASEY) - Final Complete Nasal Washing NEGATIVE FOR FLU A AND B ANTIGEN.... 09/21/16 11:05 Aerobic Blood Culture - Preliminary Resulted Blood Peripheral NO GROWTH IN 2 DAYS 09/21/16 11:05 Anaerobic Blood Culture - Preliminary Resulted Escherichia Coli 09/21/16 11:10 Aerobic Blood Culture - Preliminary Resulted Blood Peripheral NO GROWTH IN 2 DAYS 09/21/16 11:10 Anaerobic Blood Culture - Preliminary Resulted Blood Peripheral NO GROWTH IN 2 DAYS 09/22/16 07:10 Cancelled Sputum Expectorated Sputum 09/22/16 13:34 Aerobic Blood Culture - Preliminary Resulted Blood Peripheral NO GROWTH IN 1 DAY 09/22/16 13:34 Anaerobic Blood Culture - Preliminary Resulted Blood Peripheral NO GROWTH IN 1 DAY 09/22/16 13:42 Aerobic Blood Culture - Preliminary Resulted Blood Peripheral NO GROWTH IN 1 DAY 09/22/16 13:42 Anaerobic Blood Culture - Preliminary Resulted Blood Peripheral NO GROWTH IN 1 DAY 09/22/16 22:45 Gram Stain - Final Resulted Sputum Expectorated Sputum 09/22/16 22:45 Sputum Culture Resulted Sputum Expectorated Sputum Pending Administered Medications Medications (Trade) Dose Ordered Sig/Bashir Route PRN Reason Start Time Stop Time Status Last Admin Dose Admin IV Flush (NS Flush) 2 ml BID FLUSH 09/21/16 21:00 09/23/16 08:54 Oxycodone HCl (Roxicodone) 10 mg Q4H PRN PO PAIN SCALE 6 TO 10 09/21/16 14:30 12/29/16 08:55 Hydromorphone HCl (Dilaudid Pf Inj) 1 mg Q3H PRN IV BREAKTHROUGH PAIN 09/21/16 14:30 09/23/16 11:48 Prednisone (Deltasone) 40 mg DAILY PO 09/22/16 09:00 09/23/16 08:55 Pantoprazole Sodium (Protonix) 40 mg DAILY PO 09/22/16 09:00 09/23/16 08:55 Amitriptyline HCl (Elavil) 50 mg HS PO 09/21/16 21:00 09/22/16 20:59 Folic Acid (Folate) 1 mg DAILY PO 09/22/16 09:00 09/23/16 08:55 Furosemide (Lasix) 20 mg DAILY PO 09/22/16 09:00 09/22/16 08:05 Thiamine HCl (Vitamin B1) 100 mg DAILY PO 09/22/16 09:00 09/23/16 08:55 Quetiapine Fumarate (SEROquel XR) 50 mg HS PO 09/21/16 21:00 09/22/16 20:59 Albumin Human (Albumin 5% Inj) 25 gm Q12H IV 09/22/16 09:00 09/23/16 08:54 Midodrine (Proamatine) 10 mg TID@07,12,17 PO 09/23/16 12:00 09/23/16 16:42 Lactulose (Lactulose Liq) 30 ml DAILY PO 09/23/16 11:00 09/23/16 11:46 Objective Remarks GENERAL: Cachectic. SKIN: Warm and dry. HEAD: Normocephalic. EYES: No scleral icterus. No injection or drainage. NECK: Supple, trachea midline. No JVD or lymphadenopathy. LYMPHATIC: No adenopathy. CARDIOVASCULAR: Regular rate and rhythm without murmurs. RESPIRATORY: Breath sounds equal bilaterally. No accessory muscle use. GASTROINTESTINAL: Abdomen soft, slight tenderness HENRI. EXTREMITIES: No cyanosis, or edema. MUSCULOSKELETAL: Adequate muscle tone. NEUROLOGICAL: No obvious focal deficit. Awake, alert, and oriented x3. PSYCHIATRIC: Appropriate mood and affect; insight and judgment normal. Assessment/Plan Assessment 1. Liver mass with intra-abdominal adenopathy. He has history of alcohol-induced cirrhosis. The CT finding is suspicious for malignancy. This could be a primary hepatocellular carcinoma with metastatic adenopathy versus metastatic disease from other GI tract. CT chest showed a right lower lobe lung mass and circumferential wall thickening of lower thoracic esophagus. AFP and Ca 19-9 slighyly elevated but non specific. Clinically he has shortness S/p biopsy of liver lesion, path pending. 2. Pneumonia. Chest x-ray showed right lung base consolidation with small right pleural effusion. He has had increased shortness of breath and productive cough for about a week. He was started on antibiotic. 3. Alcohol-induced cirrhosis. He still drinks one to two beers a day. He has history of portal hypertension with varices but no history of GI bleed. CT of the abdomen also showed ascites and sign of portal hypertension. Plan Plan: 1. Await path. Prognosis is poor if it is hepatocellular carcinoma. 2. Await further GI workup. I think he will need EGD to evaluate the esophageal wall thickening noted on chest CT. Ranjit Franz MD Sep 23, 2016 17:42
[2016-09-23] MEDS ORDERED: SPIRONOLACTONE 50 MG TAB PO SCH (21:00)
[2016-09-23] MEDS: AMITRIPTYLINE HCL 50 MG TAB PO SCH (22:11)
[2016-09-23] MEDS: QUEtiapine FUMARATE 50 MG EXTENDED RELEASE TABLET PO SCH (22:12)
[2016-09-24] VITALS (8 sets, daily range): BP systolic 79–105; BP diastolic 50–65; PULSE 97–105; RESP 16–22; TEMP 98.1–98.3; O2SAT 90–94
[2016-09-24] MEDS: RESP: ALBUTEROL 2.5 MG/IPRATROPIUM 0.5 MG NEB (PRN) NEB (04:51)
[2016-09-24 05:10] LABS: AUTOMATED NEUTROPHIL # 4.3 TH/MM3 (1.8-7.7); BASOPHIL # 0.1 TH/MM3 (0-0.2); BASOPHIL % 1.1 % (0.0-2.0); HEMATOCRIT 24.7 % (39.0-51.0); HEMO FLAGS DIFF FINAL; LYMPHOCYTE # 0.7 TH/MM3 (1.0-4.8); MEAN CELL VOLUME 90.7 FL (80.0-100.0); MEAN CORPUSCULAR HEMOGLOBIN 30.8 PG (27.0-34.0); MONO % 12.4 % (0.0-8.0); NEUT % 74.5 % (16.0-70.0); PLATELET COUNT 130 TH/MM3 (150-450); RED BLOOD COUNT 2.72 MIL/MM3 (4.50-5.90); RED CELL DISTRIBUTION WIDTH 16.6 % (11.6-17.2); WHITE BLOOD COUNT 5.8 TH/MM3 (4.0-11.0)
[2016-09-24 05:37] LABS: ALT (GPT) 20 U/L (12-78); ANION GAP 9 MEQ/L (5-15); AST (GOT) 35 U/L (15-37); BICARBONATE 23.8 MEQ/L (21.0-32.0); BLOOD UREA NITROGEN 11 MG/DL (7-18); CHLORIDE 106 MEQ/L (98-107); GLOMERULAR FILTRATION RATE 122 ML/MIN (>89); POTASSIUM 4.2 MEQ/L (3.5-5.1); SODIUM (NA) 139 MEQ/L (136-145)
[2016-09-24 05:39] LABS: ALKALINE PHOSPHATASE 107 U/L (45-117); TOTAL BILIRUBIN ADULT 0.5 MG/DL (0.2-1.0)
[2016-09-24] MEDS: MIDODRINE 5 MG TAB PO SCH ×3 (06:17→18:03)
--- NOTE | 2016-09-24 08:07 | PD.ONC.PN ---
Subjective Subjective Remarks HENRI and low chest pain. SOB stable. Objective Data Date Time Temp Pulse Resp B/P Pulse Ox O2 Delivery O2 Flow Rate FiO2 09/24/16 05:30 84/51 92 09/24/16 04:38 98.1 97 20 79/50 90 09/24/16 00:03 97/58 09/24/16 00:00 Room Air 09/23/16 23:17 98.3 97 18 97/58 93 09/23/16 20:38 98.0 96 18 109/68 95 09/23/16 20:15 115 09/23/16 20:00 Room Air 09/23/16 18:17 86 09/23/16 16:00 97.4 97 18 91/64 93 09/23/16 12:52 18 09/23/16 12:00 97.0 104 20 83/53 90 09/23/16 09:57 20 09/24/16 09/24/16 09/24/16 06:59 14:59 22:59 Intake Total 0 ml Output Total 1075 ml Balance -1075 ml Result Diagram: 09/24/16 0446 09/24/16 0446 Laboratory Results Laboratory Tests Test 09/23/16 09/23/16 09/23/16 09/23/16 08:12 08:13 14:05 18:40 Sodium Level 132 MEQ/L Potassium Level 3.7 MEQ/L Chloride Level 100 MEQ/L Carbon Dioxide Level 23.0 MEQ/L Anion Gap 9 MEQ/L Blood Urea Nitrogen 13 MG/DL Creatinine 0.90 MG/DL Estimat Glomerular Filtration 87 ML/MIN Rate Random Glucose 101 MG/DL Calcium Level 7.8 MG/DL Total Bilirubin 0.5 MG/DL Aspartate Amino Transf 45 U/L (AST/SGOT) Alanine Aminotransferase 22 U/L (ALT/SGPT) Alkaline Phosphatase 137 U/L Total Protein 7.7 GM/DL Albumin 2.6 GM/DL White Blood Count 7.8 TH/MM3 Red Blood Count 3.20 MIL/MM3 Hemoglobin 9.8 GM/DL Hematocrit 29.4 % Mean Corpuscular Volume 91.9 FL Mean Corpuscular Hemoglobin 30.5 PG Mean Corpuscular Hemoglobin 33.2 % Concent Red Cell Distribution Width 17.3 % Platelet Count 160 TH/MM3 Mean Platelet Volume 7.8 FL Neutrophils (%) (Auto) 80.9 % Lymphocytes (%) (Auto) 10.2 % Monocytes (%) (Auto) 8.8 % Eosinophils (%) (Auto) 0.0 % Basophils (%) (Auto) 0.1 % Neutrophils # (Auto) 6.3 TH/MM3 Lymphocytes # (Auto) 0.8 TH/MM3 Monocytes # (Auto) 0.7 TH/MM3 Eosinophils # (Auto) 0.0 TH/MM3 Basophils # (Auto) 0.0 TH/MM3 CBC Comment DIFF FINAL Differential Comment Prothrombin Time 14.0 SEC Prothromb Time International 1.3 RATIO Ratio Activated Partial 33.3 SEC Thromboplast Time Hepatitis A IgM Antibody NEGATIVE Hepatitis B Surface Antigen NEGATIVE Hepatitis B Core IgM Antibody NEGATIVE Hepatitis C Antibody REACTIVE Lactic Acid Level 3.3 mmol/L 1.9 mmol/L Test 09/24/16 04:46 White Blood Count 5.8 TH/MM3 Red Blood Count 2.72 MIL/MM3 Hemoglobin 8.4 GM/DL Hematocrit 24.7 % Mean Corpuscular Volume 90.7 FL Mean Corpuscular Hemoglobin 30.8 PG Mean Corpuscular Hemoglobin 34.0 % Concent Red Cell Distribution Width 16.6 % Platelet Count 130 TH/MM3 Mean Platelet Volume 7.5 FL Neutrophils (%) (Auto) 74.5 % Lymphocytes (%) (Auto) 12.0 % Monocytes (%) (Auto) 12.4 % Eosinophils (%) (Auto) 0.0 % Basophils (%) (Auto) 1.1 % Neutrophils # (Auto) 4.3 TH/MM3 Lymphocytes # (Auto) 0.7 TH/MM3 Monocytes # (Auto) 0.7 TH/MM3 Eosinophils # (Auto) 0.0 TH/MM3 Basophils # (Auto) 0.1 TH/MM3 CBC Comment DIFF FINAL Differential Comment Sodium Level 139 MEQ/L Potassium Level 4.2 MEQ/L Chloride Level 106 MEQ/L Carbon Dioxide Level 23.8 MEQ/L Anion Gap 9 MEQ/L Blood Urea Nitrogen 11 MG/DL Creatinine 0.67 MG/DL Estimat Glomerular Filtration 122 ML/MIN Rate Random Glucose 103 MG/DL Calcium Level 8.2 MG/DL Total Bilirubin 0.5 MG/DL Aspartate Amino Transf 35 U/L (AST/SGOT) Alanine Aminotransferase 20 U/L (ALT/SGPT) Alkaline Phosphatase 107 U/L Total Protein 6.7 GM/DL Albumin 2.7 GM/DL Culture Results Microbiology Date/Time Procedure Status Source Growth 09/21/16 10:45 Influenza Types A,B Antigen (KASEY) - Final Complete Nasal Washing NEGATIVE FOR FLU A AND B ANTIGEN.... 09/21/16 11:05 Aerobic Blood Culture - Preliminary Resulted Blood Peripheral NO GROWTH IN 2 DAYS 09/21/16 11:05 Anaerobic Blood Culture - Preliminary Resulted Escherichia Coli 09/21/16 11:10 Aerobic Blood Culture - Preliminary Resulted Blood Peripheral NO GROWTH IN 2 DAYS 09/21/16 11:10 Anaerobic Blood Culture - Preliminary Resulted Blood Peripheral NO GROWTH IN 2 DAYS 09/22/16 07:10 Cancelled Sputum Expectorated Sputum 09/22/16 13:34 Aerobic Blood Culture - Preliminary Resulted Blood Peripheral NO GROWTH IN 1 DAY 09/22/16 13:34 Anaerobic Blood Culture - Preliminary Resulted Blood Peripheral NO GROWTH IN 1 DAY 09/22/16 13:42 Aerobic Blood Culture - Preliminary Resulted Blood Peripheral NO GROWTH IN 1 DAY 09/22/16 13:42 Anaerobic Blood Culture - Preliminary Resulted Blood Peripheral NO GROWTH IN 1 DAY 09/22/16 22:45 Gram Stain - Final Resulted Sputum Expectorated Sputum 09/22/16 22:45 Sputum Culture Resulted Sputum Expectorated Sputum Pending Administered Medications Medications (Trade) Dose Ordered Sig/Bashir Route PRN Reason Start Time Stop Time Status Last Admin Dose Admin IV Flush (NS Flush) 2 ml BID FLUSH 09/21/16 21:00 09/23/16 22:12 Oxycodone HCl (Roxicodone) 10 mg Q4H PRN PO PAIN SCALE 6 TO 10 09/21/16 14:30 09/23/16 22:19 Hydromorphone HCl (Dilaudid Pf Inj) 1 mg Q3H PRN IV BREAKTHROUGH PAIN 09/21/16 14:30 09/23/16 11:48 Prednisone (Deltasone) 40 mg DAILY PO 09/22/16 09:00 09/23/16 08:55 Pantoprazole Sodium (Protonix) 40 mg DAILY PO 09/22/16 09:00 09/23/16 08:55 Amitriptyline HCl (Elavil) 50 mg HS PO 09/21/16 21:00 09/23/16 22:11 Folic Acid (Folate) 1 mg DAILY PO 09/22/16 09:00 09/23/16 08:55 Furosemide (Lasix) 20 mg DAILY PO 09/22/16 09:00 09/22/16 08:05 Thiamine HCl (Vitamin B1) 100 mg DAILY PO 09/22/16 09:00 09/23/16 08:55 Quetiapine Fumarate (SEROquel XR) 50 mg HS PO 09/21/16 21:00 09/23/16 22:12 Albumin Human (Albumin 5% Inj) 25 gm Q12H IV 09/22/16 09:00 09/23/16 22:12 Midodrine (Proamatine) 10 mg TID@07,12,17 PO 09/23/16 12:00 09/24/16 06:17 Lactulose (Lactulose Liq) 30 ml DAILY PO 09/23/16 11:00 09/23/16 11:46 Objective Remarks GENERAL: Cachectic, weak. SKIN: Warm and dry. HEAD: Normocephalic. EYES: No scleral icterus. No injection or drainage. NECK: Supple, trachea midline. No JVD or lymphadenopathy. LYMPHATIC: No adenopathy. CARDIOVASCULAR: Regular rate and rhythm without murmurs. RESPIRATORY: Breath sounds equal bilaterally. No accessory muscle use. GASTROINTESTINAL: Abdomen soft, tender HENRI, RUQ, +BS EXTREMITIES: No cyanosis, or edema. MUSCULOSKELETAL: Adequate muscle tone. NEUROLOGICAL: No obvious focal deficit. Awake, alert, and oriented x3. PSYCHIATRIC: Appropriate mood and affect; insight and judgment normal. Assessment/Plan Assessment 1. Liver mass with intra-abdominal adenopathy. He has history of alcohol-induced cirrhosis. The CT finding is suspicious for malignancy. This could be a primary hepatocellular carcinoma with metastatic adenopathy versus metastatic disease from other GI tract. CT chest showed a right lower lobe lung mass and circumferential wall thickening of lower thoracic esophagus. AFP and Ca 19-9 slighyly elevated but non specific. Clinically he has shortness S/p biopsy of liver lesion, path pending. 09/24 Path showed hepatocellular carcinoma. Prognosis is poor. Unusual mets pattern to lung. CT showed thickened esophageal wall and that may be the cause of his HENRI pain. Await EGD today. 2. Pneumonia. Chest x-ray showed right lung base consolidation with small right pleural effusion. He has had increased shortness of breath and productive cough for about a week. He was started on antibiotic. Improving. 3. Alcohol-induced cirrhosis. He still drinks one to two beers a day. He has history of portal hypertension with varices but no history of GI bleed. CT of the abdomen also showed ascites and sign of portal hypertension. Hep C positive. Plan Plan: 1. Review path with patient. Prognosis is poor for metastatic hepatocellular carcinoma. Discussed hospice care or trial of Sorafenib. I told patient that treatment are usually not very effective. I have also discussed case with palliative care medicine. He and his family will meet with palliative care med today. 2. Await EGD today. He need EGD to evaluate the esophageal wall thickening noted on chest CT. Ranjit Franz MD Sep 24, 2016 08:07
[2016-09-24] MEDS ORDERED: PROPOFOL 200 MG/20 ML AMP IV ONE (10:32)
[2016-09-24] MEDS: SODIUM CHLORIDE 0.9% FLUSH 5 ML FLUSH FLUSH SCH ×2 (11:44→22:55)
[2016-09-24] MEDS: ALBUMIN HUMAN 5% 25 GM/500 ML BOTTLE IV SCH ×2 (11:44→22:46)
[2016-09-24] MEDS: SPIRONOLACTONE 25 MG TAB PO SCH ×2 (11:50→23:01)
[2016-09-24] MEDS: predniSONE 20 MG TAB PO SCH (11:51)
[2016-09-24] MEDS: THIAMINE HCL 100 MG TAB PO SCH (11:51)
[2016-09-24] MEDS: LACTULOSE SYRUP 20 GM/30 ML CUP PO SCH (11:51)
[2016-09-24] MEDS: FUROSEMIDE 20 MG TAB PO SCH (11:51)
[2016-09-24] MEDS: PANTOPRAZOLE SOD 40 MG DELAYED RELEASE TAB PO SCH (11:51)
[2016-09-24] MEDS: FOLIC ACID 1 MG TAB PO SCH (11:51)
--- NOTE | 2016-09-24 12:09 | HHI.HCPN ---
Pt was undergoing endoscopy. I did meet with son and Dr. Patel with family meeting. Son is proxy, and pt had expressed it was amenable for son to act as decision maker if pt become incapacitated in my past conversation with patient. Updated pt's son Shelton on biopsy results, and the poor prognosis. Given poor prognosis I recommend and offered transition to comfort measures to son for patient. Son is appreciative, and would like today to discuss results with father. He is amenable for Family medicine to follow up tomorrow with patient and son after their own private conversation. If family and pt amenable, primary medical team can place hospice consult. Fidel Hudson MD Sep 24, 2016 12:08
--- NOTE | 2016-09-24 12:55 | HHI.FPPN ---
Subjective Remarks Mr. Watkins was afebrile with HTN overnight. Patient was seen this morning and was in poor mood; requesting to leave the hospital after endoscopy. It was discussed with patient that we would meet with his son for a palliative meeting this afternoon. (Shaheen Patel MD R2) Objective Vitals Vital Signs Date Time Temp Pulse Resp B/P Pulse Ox O2 Delivery O2 Flow Rate FiO2 09/24/16 12:00 98.3 98 20 97/59 94 09/24/16 10:49 95 16 96/67 94 09/24/16 10:44 109 16 94/63 94 09/24/16 10:39 Nasal Cannula 3 09/24/16 10:39 97.6 110 16 89/56 91 09/24/16 10:10 98.2 104 16 102/65 94 09/24/16 08:00 98.3 101 20 84/50 94 09/24/16 05:30 84/51 92 09/24/16 04:38 98.1 97 20 79/50 90 09/24/16 00:03 97/58 09/24/16 00:00 Room Air 09/23/16 23:17 98.3 97 18 97/58 93 09/23/16 20:38 98.0 96 18 109/68 95 09/23/16 20:15 115 09/23/16 20:00 Room Air 09/23/16 18:17 86 09/23/16 16:00 97.4 97 18 91/64 93 09/23/16 12:52 18 I/O 09/23/16 09/23/16 09/23/16 09/24/16 09/24/16 09/24/16 07:00 15:00 23:00 07:00 15:00 23:00 Intake Total 720 ml 840 ml 480 ml 0 ml 200 ml Output Total 250 ml 550 ml 400 ml 1075 ml Balance 470 ml 290 ml 80 ml -1075 ml 200 ml Intake Oral 720 ml 840 ml 480 ml 0 ml IV Total 200 ml Output Urine Total 250 ml 550 ml 400 ml 1075 ml Stool Total 0 ml # Bowel Movements 0 0 0 (Shaheen Patel MD R2) Result Diagram: 09/24/16 0446 09/24/16 0446 Imaging Last Impressions Liver Biopsy CT 09/22/16 0000 Signed Impressions: Service Date/Time: Thursday, September 22, 2016 10:49 - CONCLUSION: Uncomplicated CT guided biopsy. Saroj Martinez MD CT Angiography 09/22/16 0000 Signed Impressions: Service Date/Time: Thursday, September 22, 2016 10:49 - CONCLUSION: 1. Right lower lobe pulmonary mass measuring 3.6 x 2.6 cm. This would be amenable to percutaneous biopsy if clinically warranted. 2. Circumferential wall thickening involving the lower thoracic esophagus with some dilatation of the more proximal esophagus. I cannot exclude an infiltrating process such as malignancy. 3. No pulmonary embolus. 4. Pronounced emphysematous changes. 5. Tiny bilateral pleural effusions. Ruben Hannon Jr., MD Abdomen Ultrasound 09/22/16 0000 Signed Impressions: Service Date/Time: Thursday, September 22, 2016 11:32 - CONCLUSION: Trace of ascites. Insufficient for drainage. Saroj Martinez MD Abdomen/Pelvis CT 09/21/16 1049 Signed Impressions: Service Date/Time: Wednesday, September 21, 2016 12:51 - CONCLUSION: Persistent findings of cirrhosis hepatocellular disease splenomegaly varices portal hypertension and ascites. Significant change with multiple low density lesions ill-defined in the liver as well as intra-abdominal adenopathy at the bernie hepatis as well as retroperitoneal up to 5 cm in size. Findings are highly suggestive of malignancy such as hepatocellular carcinoma or metastatic disease. Mello Zelaya MD Chest X-Ray 09/21/16 1010 Signed Impressions: Service Date/Time: Wednesday, September 21, 2016 10:07 - CONCLUSION: There is a small focal area of parenchymal consolidation in the right lung base along with a small right effusion. Focal right lower lung pneumonia is the primary consideration. Recommend a followup chest x-ray in 2-3 weeks after appropriate medical therapy to ensure resolution. If this has not resolved after appropriate medical therapy, then a noncontrast CT thorax can be performed for further evaluation on a nonemergent outpatient basis.. Saroj Martinez MD Objective Remarks GENERAL: Very pleasant WDWN adult white male lying in bed in no acute distress SKIN: No stigmata of chronic liver disease except very mild jaundice. CARDIOVASCULAR: Grossly normal perfusion. Exam deferred at this time due to patient mood/anxiety. RESPIRATORY: Regular rate; no visible distress. Exam deferred at this time due to patient mood/anxiety. GASTROINTESTINAL: Exam deferred at this time due to patient mood/anxiety. MUSCULOSKELETAL: Grossly normal motor function range of motion NEUROLOGICAL: Awake and alert once awoken from sleep. Cranial nerves grossly intact. Grossly normal peripheral motor function. Normal speech. Procedures 09/22 - CT guided liver Bx (Shaheen Patel MD R2) A/P Assessment and Plan 60 year old male with PMH of cirrhosis presenting with: Discharge Planning Unclear at this time; pending work-up of malignancy and discussions with palliative care (Shaheen Patel MD R2) Attending Attestation Patient seen and examined. Case reviewed and discussed Agree with plan of care as discussed with me and documented in the resident note. (Naty Man MD) Problem List: (1) Hepatocellular carcinoma Status: Acute Plan: -Oncology consulted, appreciate their recommendations -Hospice versus trial of sorafenib; poor prognosis -Plan for EGD -GI consulted, appreciate their recommendations -EGD 09/24 -Colonoscopy once stable -Palliative care consulted to address goals of care and disposition planning ( CM to assist as well, patient lives in [place], son is local) -Dr. Hudson met with son 09/24; poor prognosis explained to son Pain Control: -Ibuprofen and oxycodone as needed for pain -Dilaudid and milligram IV every 3 hours for breakthrough pain Impression: Highly suspicious for malignancy by CT. CTA chest showing approx 3x3 cm lung mass, could be primary or met; CTA with portal hypertension, ascites , esophageal thickening which could also be primary cancer source AFP elevated to 131.7, CA 19-9 elevated to 45.1, CEA Ag normal (2.8) Biopsy: Active cirrhosis with focal moderately differentiated hepatocellular carcinoma (2) Sepsis syndrome Status: Acute Plan: ID consulted: -Continue to follow cultures -Continue Rocephin; increase dose to 2gm IV q24hrs -Check CRP-4.6 -EGD for esophogeal mass -Continue to monitor lactic acid -Continue light IV fluids at 42ml/hr Impression: Patient met sepsis criteria during hospitalization (Hypotension, tachycardia); however, patient has history of chronic hypotension presumably secondary to cirrhosis. Lactic acid initially wnl; subsequently increased to 3.7 09/22 Patient with CXR suggestive of pneumonia 2D echo not suggestive of endocarditis Abdominal U/S showing small ascites but insufficient to obtain paracentesis sample Liver biopsy: gram stain, AFB, fungal stain negative Cultures: Blood culture drawn 09/22 - 1 bottle growing E. coli; other negative to date Sputum- pending Antibiotic History: Flagyl x5 doses Azithromycin x1 dose Zosyn x1 dose (3) Pneumonia Status: Acute Plan: -Continue management for sepsis criteria as above -Continue Prednisone 40mg daily Impression: Chest x-ray suspicious for right lower lobe pneumonia. In setting of likely cancer, this could either be a primary with obstruction versus solely malignancy versus separate community-acquired pneumonia. CTA chest showing 3x3 cm mass and emphysematous changes Legionella urine antigen, Pneumococcal urine antigen negative Sputum Gram stain negative, culture pending Influenza negative (4) Liver cirrhosis Status: Chronic Plan: GI Consulted: - Cont. Aldactone 12.5mg BID - Hold Furosemide 20mg - Cont. Albumin 25mg IV q12hrs -Hepatic dosing Impression: Well compensated at present. MELD 9 (5) Hyponatremia Status: Resolved Plan: Likely chronic * Encourage salty foods * Monitor BMP * Hold IVF due to cirrhosis (6) Anemia of chronic disease Status: Chronic Plan: Stable at present * Monitor H/H (7) Depression Status: Chronic Plan: Stable * Continue home Seroquel, Elavil (8) GERD (gastroesophageal reflux disease) Status: Chronic Plan: Stable * Continue home Protonix (9) Alcohol abuse Status: Chronic Plan: Does not drink very much at present, however has severe cirrhosis * CIWA protocol (10) Tobacco abuse Status: Chronic Plan: Nicotine patch if patient requests (11) FEN/PPX Status: Acute Plan: Fluids: NS @ 42 cc/hr Elecs: Monitor and replete PRN Nutrition: Diet regular basic DVT: SCDs to BLE; add Enoxaparin 40mg daily Pain: As above GI: On Protonix 40 mg daily (Shaheen Patel MD R2) Problem Qualifiers (1) Pneumonia: Qualified Code: J18.1 - Pneumonia of right lower lobe due to infectious organism (2) Liver cirrhosis: Qualified Code: K70.30 - Alcoholic cirrhosis of liver without ascites Shaheen Patel MD R2 Sep 24, 2016 12:55 Naty Man MD Sep 28, 2016 15:32 Shaheen Patel MD R2 Sep 24, 2016 12:55
[2016-09-24] MEDS: ENOXAPARIN SODIUM 40 MG/0.4 ML SYRINGE SQ SCH (13:04)
[2016-09-24] MEDS: cefTRIAXone INJ 2,000 MG in SODIUM CHLORIDE 0.9% INJ 100 ML IV SCH (13:05)
--- NOTE | 2016-09-24 13:58 | HHI.IDPN ---
Subjective Subjective Remarks ID COVERAGE Chart reviewed is a 60 y/o male with extensive history of smoking, cirrhosis of the liver thought to be due to prior alcohol use. Liver biopsy with cirrhosis and hepatocellular CA Has BC with E coli Notes reviewed Temps ok C/O abdominal pain Also having vomiting today Antibiotics Rocephin Lines Line sites with no e/o infection. Past Medical History reviewed Allergies: Coded Allergies: *MDRO Multi-Drug Resistant Organism (Verified Allergy, Unknown, 09/21/16) MDR Streptococcus pneumoniae Objective . Vital Signs Date Time Temp Pulse Resp B/P Pulse Ox O2 Delivery O2 Flow Rate FiO2 09/24/16 13:37 94 Nasal Cannula 2.00 09/24/16 12:00 98.3 98 20 97/59 94 09/24/16 10:49 95 16 96/67 94 09/24/16 10:44 109 16 94/63 94 09/24/16 10:39 Nasal Cannula 3 09/24/16 10:39 97.6 110 16 89/56 91 09/24/16 10:10 98.2 104 16 102/65 94 09/24/16 08:00 98.3 101 20 84/50 94 09/24/16 05:30 84/51 92 09/24/16 04:38 98.1 97 20 79/50 90 09/24/16 00:03 97/58 09/24/16 00:00 Room Air 09/23/16 23:17 98.3 97 18 97/58 93 09/23/16 20:38 98.0 96 18 109/68 95 09/23/16 20:15 115 09/23/16 20:00 Room Air 09/23/16 18:17 86 09/23/16 16:00 97.4 97 18 91/64 93 09/23/16 09/23/16 09/24/16 15:00 23:00 07:00 Intake Total 840 ml 480 ml 0 ml Output Total 550 ml 400 ml 1075 ml Balance 290 ml 80 ml -1075 ml Intake Oral 840 ml 480 ml 0 ml Output Urine Total 550 ml 400 ml 1075 ml Stool Total 0 ml # Bowel Movements 0 0 . Laboratory Tests Test 09/23/16 09/24/16 08:13 04:46 White Blood Count 7.8 TH/MM3 5.8 TH/MM3 Red Blood Count 3.20 MIL/MM3 2.72 MIL/MM3 Hemoglobin 9.8 GM/DL 8.4 GM/DL Hematocrit 29.4 % 24.7 % Mean Corpuscular Volume 91.9 FL 90.7 FL Mean Corpuscular Hemoglobin 30.5 PG 30.8 PG Mean Corpuscular Hemoglobin 33.2 % 34.0 % Concent Red Cell Distribution Width 17.3 % 16.6 % Platelet Count 160 TH/MM3 130 TH/MM3 Mean Platelet Volume 7.8 FL 7.5 FL Neutrophils (%) (Auto) 80.9 % 74.5 % Lymphocytes (%) (Auto) 10.2 % 12.0 % Monocytes (%) (Auto) 8.8 % 12.4 % Eosinophils (%) (Auto) 0.0 % 0.0 % Basophils (%) (Auto) 0.1 % 1.1 % Neutrophils # (Auto) 6.3 TH/MM3 4.3 TH/MM3 Lymphocytes # (Auto) 0.8 TH/MM3 0.7 TH/MM3 Monocytes # (Auto) 0.7 TH/MM3 0.7 TH/MM3 Eosinophils # (Auto) 0.0 TH/MM3 0.0 TH/MM3 Basophils # (Auto) 0.0 TH/MM3 0.1 TH/MM3 CBC Comment DIFF FINAL DIFF FINAL Differential Comment Laboratory Tests Test 09/22/16 09/23/16 09/23/16 09/23/16 16:20 08:12 14:05 18:40 Lactic Acid Level 3.7 mmol/L 3.3 mmol/L 1.9 mmol/L Sodium Level 132 MEQ/L Potassium Level 3.7 MEQ/L Chloride Level 100 MEQ/L Carbon Dioxide Level 23.0 MEQ/L Anion Gap 9 MEQ/L Blood Urea Nitrogen 13 MG/DL Creatinine 0.90 MG/DL Estimat Glomerular Filtration 87 ML/MIN Rate Random Glucose 101 MG/DL Calcium Level 7.8 MG/DL Total Bilirubin 0.5 MG/DL Aspartate Amino Transf 45 U/L (AST/SGOT) Alanine Aminotransferase 22 U/L (ALT/SGPT) Alkaline Phosphatase 137 U/L Total Protein 7.7 GM/DL Albumin 2.6 GM/DL Test 09/24/16 04:46 Sodium Level 139 MEQ/L Potassium Level 4.2 MEQ/L Chloride Level 106 MEQ/L Carbon Dioxide Level 23.8 MEQ/L Anion Gap 9 MEQ/L Blood Urea Nitrogen 11 MG/DL Creatinine 0.67 MG/DL Estimat Glomerular Filtration 122 ML/MIN Rate Random Glucose 103 MG/DL Calcium Level 8.2 MG/DL Total Bilirubin 0.5 MG/DL Aspartate Amino Transf 35 U/L (AST/SGOT) Alanine Aminotransferase 20 U/L (ALT/SGPT) Alkaline Phosphatase 107 U/L Total Protein 6.7 GM/DL Albumin 2.7 GM/DL Microbiology Date/Time Procedure Status Source Growth 09/22/16 07:10 Cancelled Sputum Expectorated Sputum 09/22/16 13:34 Aerobic Blood Culture - Preliminary Resulted Blood Peripheral NO GROWTH IN 2 DAYS 09/22/16 13:34 Anaerobic Blood Culture - Preliminary Resulted Blood Peripheral NO GROWTH IN 2 DAYS 09/22/16 13:42 Aerobic Blood Culture - Preliminary Resulted Blood Peripheral NO GROWTH IN 2 DAYS 09/22/16 13:42 Anaerobic Blood Culture - Preliminary Resulted Blood Peripheral NO GROWTH IN 2 DAYS 09/22/16 22:45 Gram Stain - Final Resulted Sputum Expectorated Sputum 09/22/16 22:45 Sputum Culture Resulted Sputum Expectorated Sputum Pending Imaging Last Impressions Liver Biopsy CT 09/22/16 0000 Signed Impressions: Service Date/Time: Thursday, September 22, 2016 10:49 - CONCLUSION: Uncomplicated CT guided biopsy. Saroj Martinez MD CT Angiography 09/22/16 0000 Signed Impressions: Service Date/Time: Thursday, September 22, 2016 10:49 - CONCLUSION: 1. Right lower lobe pulmonary mass measuring 3.6 x 2.6 cm. This would be amenable to percutaneous biopsy if clinically warranted. 2. Circumferential wall thickening involving the lower thoracic esophagus with some dilatation of the more proximal esophagus. I cannot exclude an infiltrating process such as malignancy. 3. No pulmonary embolus. 4. Pronounced emphysematous changes. 5. Tiny bilateral pleural effusions. Ruben Hannon Jr., MD Abdomen Ultrasound 09/22/16 0000 Signed Impressions: Service Date/Time: Thursday, September 22, 2016 11:32 - CONCLUSION: Trace of ascites. Insufficient for drainage. Saroj Martinez MD Abdomen/Pelvis CT 09/21/16 1049 Signed Impressions: Service Date/Time: Wednesday, September 21, 2016 12:51 - CONCLUSION: Persistent findings of cirrhosis hepatocellular disease splenomegaly varices portal hypertension and ascites. Significant change with multiple low density lesions ill-defined in the liver as well as intra-abdominal adenopathy at the bernie hepatis as well as retroperitoneal up to 5 cm in size. Findings are highly suggestive of malignancy such as hepatocellular carcinoma or metastatic disease. Mello Zelaya MD Chest X-Ray 09/21/16 1010 Signed Impressions: Service Date/Time: Wednesday, September 21, 2016 10:07 - CONCLUSION: There is a small focal area of parenchymal consolidation in the right lung base along with a small right effusion. Focal right lower lung pneumonia is the primary consideration. Recommend a followup chest x-ray in 2-3 weeks after appropriate medical therapy to ensure resolution. If this has not resolved after appropriate medical therapy, then a noncontrast CT thorax can be performed for further evaluation on a nonemergent outpatient basis.. Saroj Martinez MD Physical Exam GENERAL: Thin built cachectic appearing male patient, NAD SKIN: No rashes but bruising and spider naevi noted on neck and chest wall HEENT: Pupils equal round and reactive. No scleral icterus. No injection or drainage. Moist mucosa NECK: Trachea midline. Supple, nontender, no meningeal signs. CARDIOVASCULAR: HS audible. RESPIRATORY: Clear to auscultation. Breath sounds equal bilaterally. GASTROINTESTINAL: Abdomen distended, with diffuse tenderness MUSCULOSKELETAL: Extremities without clubbing, cyanosis, or edema. No calf tenderness. Negative Homans sign bilaterally. NEUROLOGICAL: Awake and alert. Cranial nerves II through XII intact. Motor and sensory grossly within normal limits. Five out of 5 muscle strength in all muscle groups. Normal speech. Psych cooperative IV line sites with no e.o infection. Assessment & Plan Remarks Sepsis E.coli bacteremia Pneumonia vs septic emboli. Hepatitis C antibody positive. Hepatocellular carcinoma in a patient with HCV positive. Ascites with tiny pleural effusions. Esophageal mass needs EGD. Recs Continue Rocephin Follow C/S Monitor progress 2D ECHO to r.o endocarditis in view of multiple system lesions ? septic emboli D/W Eden Zacarias MD Sep 24, 2016 13:58
[2016-09-24] MEDS: AMITRIPTYLINE HCL 50 MG TAB PO SCH (23:00)
[2016-09-24] MEDS: QUEtiapine FUMARATE 50 MG EXTENDED RELEASE TABLET PO SCH (23:01)
[2016-09-25] VITALS (7 sets, daily range): BP systolic 90–100; BP diastolic 57–64; PULSE 64–107; RESP 16–20; TEMP 97.3–99.5; O2SAT 91–98
[2016-09-25] MEDS: MIDODRINE 5 MG TAB PO SCH ×3 (05:53→17:50)
[2016-09-25] MEDS: LACTULOSE SYRUP 20 GM/30 ML CUP PO SCH (09:00)
--- NOTE | 2016-09-25 09:08 | HHI.FPPN ---
Subjective Remarks No acute events overnight. Afebrile. BPs still running low but stable at 90-100/ ~60. SOB stable, cough stable, pleuritic CP mild and stable. Objective Vitals Vital Signs Date Time Temp Pulse Resp B/P Pulse Ox O2 Delivery O2 Flow Rate FiO2 09/25/16 08:00 97.4 101 18 90/57 93 09/25/16 04:00 97.3 92 16 100/61 95 09/25/16 00:09 99.5 107 20 92/57 95 09/24/16 20:00 98.3 103 20 105/59 94 09/24/16 20:00 Nasal Cannula 2.00 09/24/16 16:00 98.3 105 22 91/57 91 09/24/16 13:37 94 Nasal Cannula 2.00 09/24/16 12:00 98.3 98 20 97/59 94 09/24/16 10:49 95 16 96/67 94 09/24/16 10:44 109 16 94/63 94 09/24/16 10:39 Nasal Cannula 3 09/24/16 10:39 97.6 110 16 89/56 91 09/24/16 10:10 98.2 104 16 102/65 94 I/O 09/24/16 09/24/16 09/24/16 09/25/16 09/25/16 09/25/16 06:59 14:59 22:59 06:59 14:59 22:59 Intake Total 0 ml 680 ml 240 ml 240 ml Output Total 1075 ml 400 ml 475 ml 200 ml Balance -1075 ml 280 ml -235 ml 40 ml Intake Oral 0 ml 480 ml 240 ml 240 ml IV Total 200 ml Output Urine Total 1075 ml 400 ml 475 ml 200 ml # Bowel Movements 0 1 Result Diagram: 09/24/16 0446 09/24/16 0446 Imaging Last Impressions Liver Biopsy CT 09/22/16 0000 Signed Impressions: Service Date/Time: Thursday, September 22, 2016 10:49 - CONCLUSION: Uncomplicated CT guided biopsy. Saroj Martinez MD CT Angiography 09/22/16 0000 Signed Impressions: Service Date/Time: Thursday, September 22, 2016 10:49 - CONCLUSION: 1. Right lower lobe pulmonary mass measuring 3.6 x 2.6 cm. This would be amenable to percutaneous biopsy if clinically warranted. 2. Circumferential wall thickening involving the lower thoracic esophagus with some dilatation of the more proximal esophagus. I cannot exclude an infiltrating process such as malignancy. 3. No pulmonary embolus. 4. Pronounced emphysematous changes. 5. Tiny bilateral pleural effusions. Ruben Hannon Jr., MD Abdomen Ultrasound 09/22/16 0000 Signed Impressions: Service Date/Time: Thursday, September 22, 2016 11:32 - CONCLUSION: Trace of ascites. Insufficient for drainage. Saroj Martinez MD Abdomen/Pelvis CT 09/21/16 1049 Signed Impressions: Service Date/Time: Wednesday, September 21, 2016 12:51 - CONCLUSION: Persistent findings of cirrhosis hepatocellular disease splenomegaly varices portal hypertension and ascites. Significant change with multiple low density lesions ill-defined in the liver as well as intra-abdominal adenopathy at the bernie hepatis as well as retroperitoneal up to 5 cm in size. Findings are highly suggestive of malignancy such as hepatocellular carcinoma or metastatic disease. Mello Zelaya MD Chest X-Ray 09/21/16 1010 Signed Impressions: Service Date/Time: Wednesday, September 21, 2016 10:07 - CONCLUSION: There is a small focal area of parenchymal consolidation in the right lung base along with a small right effusion. Focal right lower lung pneumonia is the primary consideration. Recommend a followup chest x-ray in 2-3 weeks after appropriate medical therapy to ensure resolution. If this has not resolved after appropriate medical therapy, then a noncontrast CT thorax can be performed for further evaluation on a nonemergent outpatient basis.. Saroj Martinez MD Objective Remarks GENERAL: Very pleasant cachectic adult white male lying in bed in no acute distress SKIN: No stigmata of chronic liver disease except very mild jaundice. CARDIOVASCULAR: Heart sounds distant. NRRR, normal S1/S2, no MRG RESPIRATORY: Clear breath sounds anteriorly. GASTROINTESTINAL: Abdomen non-distended. MUSCULOSKELETAL: Grossly normal motor function range of motion NEUROLOGICAL: Awake and alert once awoken from sleep. Grossly nonfocal. Normal speech. Procedures 09/22 - CT guided liver Bx Medications and IVs Current Medications Medications (Trade) Dose Ordered Sig/Bashir Route Start Time Stop Time Status Last Admin (NS Flush) 2 ml UNSCH PRN FLUSH 09/21/16 14:30 (NS Flush) 2 ml BID FLUSH 09/21/16 21:00 12/30/16 22:55 (Motrin) 400 mg Q6H PRN PO 09/21/16 14:30 (Roxicodone) 10 mg Q4H PRN PO 09/21/16 14:30 09/25/16 05:54 (Dilaudid Pf Inj) 1 mg Q3H PRN IV 09/21/16 14:30 09/23/16 11:48 (Roxicodone) 5 mg Q4H PRN PO 09/21/16 14:30 (Ativan) 1 mg Q4H PRN PO 09/21/16 14:45 (Ativan Inj) 1 mg Q4H PRN IV PUSH 09/21/16 14:45 (Ativan) 2 mg Q2H PRN PO 09/21/16 14:45 (Ativan Inj) 2 mg Q2H PRN IV PUSH 09/21/16 14:45 (Ativan Inj) 2 mg Q1H PRN IV PUSH 09/21/16 14:45 (Ativan Inj) 2 mg Q15M PRN IV PUSH 09/21/16 14:45 (Deltasone) 40 mg DAILY PO 09/22/16 09:00 09/24/16 11:51 (Protonix) 40 mg DAILY PO 09/22/16 09:00 09/24/16 11:51 (Elavil) 50 mg HS PO 09/21/16 21:00 09/24/16 23:00 (Folate) 1 mg DAILY PO 09/22/16 09:00 09/24/16 11:51 (Lasix) 20 mg DAILY PO 09/22/16 09:00 Hold 09/24/16 11:51 (Vitamin B1) 100 mg DAILY PO 09/22/16 09:00 09/24/16 11:51 (SEROquel XR) 50 mg HS PO 09/21/16 21:00 09/24/16 23:01 (Albumin 5% Inj) 25 gm Q12H IV 09/22/16 09:00 09/24/16 22:46 (Proamatine) 10 mg TID@07,12,17 PO 09/23/16 12:00 09/25/16 05:53 (Lactulose Liq) 30 ml DAILY PO 09/23/16 11:00 09/24/16 11:51 (Pill Splitter) 1 ea UNSCH PRN OTHER 09/23/16 11:15 Spironolactone 12.5 mg 12.5 mg BID PO 09/24/16 09:00 09/24/16 23:01 (Rocephin Inj/NS Inj) 100 ml @ 200 mls/hr Q24H IV 09/24/16 14:00 09/24/16 13:05 (Lovenox Inj) 40 mg Q24H SQ 09/24/16 12:00 09/24/16 13:04 A/P Assessment and Plan 60 year old male with PMH of cirrhosis presenting with: Discharge Planning Unclear at this time; pending work-up of malignancy and discussions with palliative care Problem List: (1) Hepatocellular carcinoma Status: Acute Plan: Highly suspicious for malignancy by CT. CTA chest showing approx 3x3 cm lung mass, could be primary or met; CTA with portal hypertension, ascites, esophageal thickening which could also be primary cancer source AFP elevated to 131.7, CA 19-9 elevated to 45.1, CEA Ag normal (2.8) Biopsy: Active cirrhosis with focal moderately differentiated hepatocellular carcinoma -Oncology consulted, appreciate their recommendations -Hospice versus trial of sorafenib; poor prognosis -GI consulted, appreciate their recommendations -EGD 09/24 showing esophageal varices -Colonoscopy once stable -Palliative care consulted to address goals of care and disposition planning ( CM to assist as well, patient lives in [place], son is local) -Dr. Hudson met with son 09/24; poor prognosis explained to son -Patient to discuss with son about hospice versus trial of sorafenib; will place hospice consult pending family decision Pain Control: -Ibuprofen and oxycodone as needed for pain -Dilaudid and milligram IV every 3 hours for breakthrough pain (2) Sepsis syndrome Status: Acute Plan: Patient met sepsis criteria during hospitalization (Hypotension, tachycardia); however, patient has history of chronic hypotension presumably secondary to cirrhosis. Lactic acid initially wnl; subsequently increased to 3.7 09/22 Patient with CXR suggestive of pneumonia 2D echo not suggestive of endocarditis Abdominal U/S showing small ascites but insufficient to obtain paracentesis sample Liver biopsy: gram stain, AFB, fungal stain negative ID consulted: -Continue to follow cultures -Continue Rocephin; increase dose to 2gm IV q24hrs -Continue to monitor lactic acid Cultures: Blood culture drawn 09/22 - 1 bottle growing E. coli; other negative to date Sputum- heavy growth normal respiratory adam Antibiotic History: Flagyl x5 doses Azithromycin x1 dose Zosyn x1 dose (3) Pneumonia Status: Acute Plan: Chest x-ray suspicious for right lower lobe pneumonia. In setting of likely cancer, this could either be a primary with obstruction versus solely malignancy versus separate community-acquired pneumonia. CTA chest showing 3x3 cm mass and emphysematous changes Legionella urine antigen, Pneumococcal urine antigen negative Sputum Gram stain negative, culture growing normal respiratory adam Influenza negative -Continue management for sepsis criteria as above -Continue Prednisone 40mg daily (4) Liver cirrhosis Status: Chronic Plan: Well compensated at present. MELD 9 GI Consulted: - Cont. Aldactone 12.5mg BID - Hold Furosemide 20mg - Cont. Albumin 25mg IV q12hrs - Cont. Lactulose 30 mL daily to prevent hepatic encephalopathy -Hepatic dosing of meds (5) Hyponatremia Status: Resolved Plan: Likely chronic Na 139 on 09/24 * Encourage salty foods * Monitor BMP (6) Anemia of chronic disease Status: Chronic Plan: Stable at present * Monitor H/H (7) Depression Status: Chronic Plan: Stable * Continue home Seroquel, Elavil (8) GERD (gastroesophageal reflux disease) Status: Chronic Plan: Stable * Continue home Protonix (9) Alcohol abuse Status: Chronic Plan: Does not drink very much at present, however has severe cirrhosis * CIWA protocol (10) Tobacco abuse Status: Chronic Plan: Nicotine patch if patient requests (11) FEN/PPX Status: Acute Plan: Fluids: PO only except with IV meds Elecs: Monitor and replete PRN Nutrition: Diet regular basic DVT: SCDs to BLE; add Enoxaparin 40mg daily Pain: As above GI: On Protonix 40 mg daily Problem Qualifiers (1) Pneumonia: Qualified Code: J18.1 - Pneumonia of right lower lobe due to infectious organism (2) Liver cirrhosis: Qualified Code: K70.30 - Alcoholic cirrhosis of liver without ascites Delmar Dumont MD R1 Sep 25, 2016 9:08 am
[2016-09-25] MEDS: THIAMINE HCL 100 MG TAB PO SCH (09:57)
[2016-09-25] MEDS: SPIRONOLACTONE 25 MG TAB PO SCH ×2 (09:57→21:25)
[2016-09-25] MEDS: FOLIC ACID 1 MG TAB PO SCH (09:57)
[2016-09-25] MEDS: PANTOPRAZOLE SOD 40 MG DELAYED RELEASE TAB PO SCH (09:57)
[2016-09-25] MEDS: predniSONE 20 MG TAB PO SCH (09:57)
[2016-09-25] MEDS: SODIUM CHLORIDE 0.9% FLUSH 5 ML FLUSH FLUSH SCH ×2 (10:00→21:00)
[2016-09-25] MEDS: ALBUMIN HUMAN 5% 25 GM/500 ML BOTTLE IV SCH ×2 (10:00→21:26)
[2016-09-25] MEDS: ENOXAPARIN SODIUM 40 MG/0.4 ML SYRINGE SQ SCH (12:00)
[2016-09-25 12:55] LABS: AUTOMATED NEUTROPHIL # 4.6 TH/MM3 (1.8-7.7); BASOPHIL % 0.4 % (0.0-2.0); EOSINOPHIL % 0.5 % (0.0-4.0); HEMATOCRIT 24.1 % (39.0-51.0); HEMO FLAGS DIFF FINAL; LYMPH % 11.6 % (9.0-44.0); LYMPHOCYTE # 0.7 TH/MM3 (1.0-4.8); MEAN CELL VOLUME 91.2 FL (80.0-100.0); MEAN CORPUSCULAR HEMOGLOBIN 30.6 PG (27.0-34.0); MEAN CORPUSCULAR HGB CONC 33.5 % (32.0-36.0); MONO % 12.4 % (0.0-8.0); NEUT % 75.1 % (16.0-70.0); PLATELET COUNT 122 TH/MM3 (150-450); RED BLOOD COUNT 2.64 MIL/MM3 (4.50-5.90); RED CELL DISTRIBUTION WIDTH 17.1 % (11.6-17.2); WHITE BLOOD COUNT 6.2 TH/MM3 (4.0-11.0)
[2016-09-25 13:26] LABS: ALKALINE PHOSPHATASE 84 U/L (45-117); ALT (GPT) 17 U/L (12-78); ANION GAP 10 MEQ/L (5-15); AST (GOT) 20 U/L (15-37); BICARBONATE 23.7 MEQ/L (21.0-32.0); BLOOD UREA NITROGEN 10 MG/DL (7-18); CHLORIDE 102 MEQ/L (98-107); GLOMERULAR FILTRATION RATE 116 ML/MIN (>89); POTASSIUM 3.4 MEQ/L (3.5-5.1); SODIUM (NA) 136 MEQ/L (136-145); TOTAL BILIRUBIN ADULT 0.8 MG/DL (0.2-1.0)
--- NOTE | 2016-09-25 13:35 | PD.ONC.PN ---
Subjective Subjective Remarks Afebrile overnight. Pt has some abdominal pain but it is controlled with medications. He has some SOB with activity. He had a BM today. No other complaints. Objective Data Date Time Temp Pulse Resp B/P Pulse Ox O2 Delivery O2 Flow Rate FiO2 09/25/16 12:00 98.1 93 18 99/57 91 09/25/16 08:00 97.4 101 18 90/57 93 09/25/16 04:00 97.3 92 16 100/61 95 09/25/16 00:09 99.5 107 20 92/57 95 09/24/16 20:00 98.3 103 20 105/59 94 09/24/16 20:00 Nasal Cannula 2.00 09/24/16 16:00 98.3 105 22 91/57 91 09/24/16 13:37 94 Nasal Cannula 2.00 09/25/16 09/25/16 09/25/16 07:00 15:00 23:00 Intake Total 240 ml Output Total 200 ml Balance 40 ml Result Diagram: 09/25/16 1148 09/24/16 0446 Laboratory Results Laboratory Tests Test 09/25/16 11:48 White Blood Count 6.2 TH/MM3 Red Blood Count 2.64 MIL/MM3 Hemoglobin 8.1 GM/DL Hematocrit 24.1 % Mean Corpuscular Volume 91.2 FL Mean Corpuscular Hemoglobin 30.6 PG Mean Corpuscular Hemoglobin 33.5 % Concent Red Cell Distribution Width 17.1 % Platelet Count 122 TH/MM3 Mean Platelet Volume 7.9 FL Neutrophils (%) (Auto) 75.1 % Lymphocytes (%) (Auto) 11.6 % Monocytes (%) (Auto) 12.4 % Eosinophils (%) (Auto) 0.5 % Basophils (%) (Auto) 0.4 % Neutrophils # (Auto) 4.6 TH/MM3 Lymphocytes # (Auto) 0.7 TH/MM3 Monocytes # (Auto) 0.8 TH/MM3 Eosinophils # (Auto) 0.0 TH/MM3 Basophils # (Auto) 0.0 TH/MM3 CBC Comment DIFF FINAL Differential Comment Culture Results Microbiology Date/Time Procedure Status Source Growth 09/22/16 13:34 Aerobic Blood Culture - Preliminary Resulted Blood Peripheral NO GROWTH IN 3 DAYS 09/22/16 13:34 Anaerobic Blood Culture - Preliminary Resulted Blood Peripheral NO GROWTH IN 3 DAYS 09/22/16 13:42 Aerobic Blood Culture - Preliminary Resulted Blood Peripheral NO GROWTH IN 3 DAYS 09/22/16 13:42 Anaerobic Blood Culture - Preliminary Resulted Blood Peripheral NO GROWTH IN 3 DAYS 09/22/16 22:45 Gram Stain - Final Complete Sputum Expectorated Sputum 09/22/16 22:45 Sputum Culture - Final Complete Sputum Expectorated Sputum HEAVY GROWTH NORMAL RESPIRATORY FRANCA Administered Medications Medications (Trade) Dose Ordered Sig/Bashir Route PRN Reason Start Time Stop Time Status Last Admin Dose Admin IV Flush (NS Flush) 2 ml BID FLUSH 09/21/16 21:00 09/25/16 10:00 Oxycodone HCl (Roxicodone) 10 mg Q4H PRN PO PAIN SCALE 6 TO 10 09/21/16 14:30 09/25/16 09:57 Hydromorphone HCl (Dilaudid Pf Inj) 1 mg Q3H PRN IV BREAKTHROUGH PAIN 09/21/16 14:30 09/23/16 11:48 Prednisone (Deltasone) 40 mg DAILY PO 09/22/16 09:00 09/25/16 09:57 Pantoprazole Sodium (Protonix) 40 mg DAILY PO 09/22/16 09:00 09/25/16 09:57 Amitriptyline HCl (Elavil) 50 mg HS PO 09/21/16 21:00 09/24/16 23:00 Folic Acid (Folate) 1 mg DAILY PO 09/22/16 09:00 09/25/16 09:57 Furosemide (Lasix) 20 mg DAILY PO 09/22/16 09:00 Hold 09/24/16 11:51 Thiamine HCl (Vitamin B1) 100 mg DAILY PO 09/22/16 09:00 09/25/16 09:57 Quetiapine Fumarate (SEROquel XR) 50 mg HS PO 09/21/16 21:00 09/24/16 23:01 Albumin Human (Albumin 5% Inj) 25 gm Q12H IV 09/22/16 09:00 09/25/16 10:00 Midodrine (Proamatine) 10 mg TID@07,12,17 PO 09/23/16 12:00 09/25/16 05:53 Lactulose (Lactulose Liq) 30 ml DAILY PO 09/23/16 11:00 09/24/16 11:51 Spironolactone 12.5 mg 12.5 mg BID PO 09/24/16 09:00 09/25/16 09:57 Ceftriaxone Sodium/Sodium Chloride (Rocephin Inj/NS Inj) 100 ml @ 200 mls/hr Q24H IV 09/24/16 14:00 09/24/16 13:05 Enoxaparin Sodium (Lovenox Inj) 40 mg Q24H SQ 09/24/16 12:00 09/24/16 13:04 Objective Remarks GENERAL: Chronically ill appearing male, lying in bed in no distress. SKIN: Warm and dry. HEAD: Normocephalic. EYES: No scleral icterus. No injection or drainage. NECK: Supple, trachea midline. No JVD or lymphadenopathy. LYMPHATIC: No adenopathy. CARDIOVASCULAR: Regular rate and rhythm without murmurs. RESPIRATORY: On 3L NC. Lungs clear, diminished in the bases. GASTROINTESTINAL: Abdomen soft, protuberant. Mildly tender to palpation. EXTREMITIES: No edema. MUSCULOSKELETAL: Generalized weakness. NEUROLOGICAL: No obvious focal deficit. Awake, alert, and oriented x3. Assessment/Plan Assessment 1. Moderately differentiated hepatocellular carcinoma. CT showed Liver mass with intra-abdominal adenopathy. He has history of alcohol-induced cirrhosis. - CT chest showed a right lower lobe lung mass and circumferential wall thickening of lower thoracic esophagus. -AFP and Ca 19-9 slighyly elevated but non specific. 09/24 Path showed hepatocellular carcinoma. Prognosis is poor. Unusual mets pattern to lung. CT showed thickened esophageal wall and that may be the cause of his HENRI pain. -EGD on 09/14/16 showed esophageal varices with retained food. 2. Pneumonia. Chest x-ray showed right lung base consolidation with small right pleural effusion. He has had increased shortness of breath and productive cough for about a week. He was started on antibiotic. Improving. 3. Alcohol-induced cirrhosis. He still drinks one to two beers a day. He has history of portal hypertension with varices but no history of GI bleed. CT of the abdomen also showed ascites and sign of portal hypertension. Hep C positive. Plan Plan: 1. We will continue supportive care for now.The patient states he has not yet spoken with his son on a coarse of treatment for the hepatocellular carcinoma. The prognosis would be poor with only a slight chance of improvement with the sorafenib. He is planning on speaking with his son yue. 2. Daily CBC. With the esophageal varices he will need to be closely monitored. 3. Supportive care. Attending Statement The exam, history, and the medical decision-making described in the above note were completed with the assistance of the mid-level provider. I reviewed and agree with the findings presented. I attest that I had a [id number] encounter with the patient on the same day, and personally performed and documented my assessment and findings in the medical record. HENRI pain better controlled. EGD showed varices and no mass. He has mets hepatocellular carcinoma and prognosis is poor. He is going to discuss with family and decide whether to try sorafenib vs hospice care. Violet Solitario Sep 25, 2016 13:35 Ranjit Franz MD Sep 25, 2016 14:04
--- NOTE | 2016-09-25 14:41 | EKG ---
Date Performed: 09/23/2016 Time Performed: 18:33:30 PTAGE: 60 years EKG: Sinus rhythm with PVC(s) Lateral T wave changes are nonspecific Generalized low QRS voltages Marked baseline rocío fact, the tracing should be repeated. Except for the low limb lead voltage it is probably within norm al limits. Compared to previous tracing, the diffuse nonspecific ST-T wave changes have resolved. Bor derline ECG PREVIOUS TRACING : 09/21/2016 14.55.21 DOCTOR: Flor Pritchard Interpretating Date/Time 09/25/2016 14:40:45
--- NOTE | 2016-09-25 14:50 | HHI.GIFU ---
Subjective Remarks Has some mild abdominal discomfort, denies N/V, had BM today (Christal Waterman) Objective Vitals I&O Vital Signs Date Time Temp Pulse Resp B/P Pulse Ox O2 Delivery O2 Flow Rate FiO2 09/25/16 12:00 98.1 93 18 99/57 91 09/25/16 08:00 97.4 101 18 90/57 93 09/25/16 04:00 97.3 92 16 100/61 95 09/25/16 00:09 99.5 107 20 92/57 95 09/24/16 20:00 98.3 103 20 105/59 94 09/24/16 20:00 Nasal Cannula 2.00 09/24/16 16:00 98.3 105 22 91/57 91 I/O 09/24/16 09/24/16 09/24/16 09/25/16 09/25/16 09/25/16 07:00 15:00 23:00 07:00 15:00 23:00 Intake Total 0 ml 680 ml 240 ml 240 ml Output Total 1075 ml 400 ml 475 ml 200 ml Balance -1075 ml 280 ml -235 ml 40 ml Intake Oral 0 ml 480 ml 240 ml 240 ml IV Total 200 ml Output Urine Total 1075 ml 400 ml 475 ml 200 ml # Bowel Movements 0 1 Laboratory Laboratory Tests Test 09/25/16 11:48 White Blood Count 6.2 Red Blood Count 2.64 Hemoglobin 8.1 Hematocrit 24.1 Mean Corpuscular Volume 91.2 Mean Corpuscular Hemoglobin 30.6 Mean Corpuscular Hemoglobin 33.5 Concent Red Cell Distribution Width 17.1 Platelet Count 122 Mean Platelet Volume 7.9 Neutrophils (%) (Auto) 75.1 Lymphocytes (%) (Auto) 11.6 Monocytes (%) (Auto) 12.4 Eosinophils (%) (Auto) 0.5 Basophils (%) (Auto) 0.4 Neutrophils # (Auto) 4.6 Lymphocytes # (Auto) 0.7 Monocytes # (Auto) 0.8 Eosinophils # (Auto) 0.0 Basophils # (Auto) 0.0 CBC Comment DIFF FINAL Differential Comment Sodium Level 136 Potassium Level 3.4 Chloride Level 102 Carbon Dioxide Level 23.7 Anion Gap 10 Blood Urea Nitrogen 10 Creatinine 0.70 Estimat Glomerular Filtration 116 Rate Random Glucose 124 Calcium Level 8.2 Total Bilirubin 0.8 Aspartate Amino Transf 20 (AST/SGOT) Alanine Aminotransferase 17 (ALT/SGPT) Alkaline Phosphatase 84 Total Protein 6.8 Albumin 3.2 Date/Time Procedure Status Source Growth 09/22/16 22:45 Gram Stain - Final Complete Sputum Expectorated Sputum 09/22/16 22:45 Sputum Culture - Final Complete Sputum Expectorated Sputum HEAVY GROWTH NORMAL RESPIRATORY FRANCA 09/22/16 13:42 Aerobic Blood Culture - Preliminary Resulted Blood Peripheral NO GROWTH IN 3 DAYS 09/22/16 13:42 Anaerobic Blood Culture - Preliminary Resulted Blood Peripheral NO GROWTH IN 3 DAYS 09/22/16 07:10 Cancelled Sputum Expectorated Sputum 09/21/16 10:45 Influenza Types A,B Antigen (KASEY) - Final Complete Nasal Washing NEGATIVE FOR FLU A AND B ANTIGEN.... Physical Exam HEENT: Normocephalic; atraumatic; no jaundice. CHEST: CTA, diminished CARDIAC: RRR ABDOMEN: Soft, distended, mild diffuse tenderness; hepatosplenomegaly; bowel sounds are present in all four quadrants. EXTREMITIES: No clubbing, cyanosis, or edema. SKIN: Multiple ecchymotic areas. LO[employer] WORK[employer]IC[employer]: No focal deficits; alert and oriented times three. (Christal Waterman) Assessment and Plan Plan ASSESSMENT: - Liver mass with intra-abdominal adenopathy and elevated tumor markers. Abdomen/Pelvis CT (09/21/16)-----> Persistent findings of cirrhosis hepatocellular disease splenomegaly varices portal hypertension and ascites. Significant change with multiple low density lesions ill-defined in the liver as well as intra-abdominal adenopathy at the bernie hepatis as well as retroperitoneal up to 5 cm in size. Findings are highly suggestive of malignancy such as hepatocellular carcinoma or metastatic disease. AFP 131.7, CEA 2.8, Ca19-[address] guided liver biopsy pending. Suspicious for HCC vs. other primary. Spoke to Dr. Franz, suspects that this could be GI primary. Recommends endoscopic evaluation. Spoke to patient re: egd vs. egd/colonoscopy. He does not wish to have the colonoscopy at this time, but did agree to EGD. Will schedule for tomorrow. - Esophageal thickening involving the lower thoracic esophagus with some dilatation of the more proximal esophagus on CTA. EGD in am. - RLL Pulmonary mass measuring 3.6 x 2.6. - Alcoholic cirrhosis- He continue to drink, has been stable with Lasix, Aldactone and Pepcid, no recent EGD Records indicated EGD on (12/20/13) ----> grade 1 esophageal varices. - Ascites. US with trace ascites, insufficient for safe drainage - Chronic anemia. 9.8/29.4 - History of Varices- EGD in 2013, no bleeding reported - Pneumonia- Chest x-ray suggesting pneumonia, abx - Hyponatremia, hypokalemia per attending - Hepatitis C antibodies. Will check viral load and genotype 09/25/16-Had EGD, showed esophageal varices, food residual, still deciding about colonoscopy. Pathology from liver Bx showed active cirrhosis, Hepatocellular carcinoma, oncology is following, prognosis is poor. Plan: - Still considering colonoscopy wants to talk to son - HCV Genotype and viral load pending - Cont. Ceftriaxone - Cont. Spironolactone - Cont. Lactulose - Cont. Lasix - Cont. Albumin - Monitor labs - Supportive care - Further recommendations to follow based on results of above - Patient seen and examined by Dr. Ochoa and myself and this note is written on his behalf. (Christal Waterman) Physician Comments Seen and examined, plan as above, will follow up with you. (Chen Ochoa MD) Christal Waterman Sep 25, 2016 14:50 Chen Ochoa MD Sep 26, 2016 09:47
[2016-09-25] MEDS: cefTRIAXone INJ 2,000 MG in SODIUM CHLORIDE 0.9% INJ 100 ML IV SCH (14:53)
[2016-09-25] MEDS: AMITRIPTYLINE HCL 50 MG TAB PO SCH (21:25)
[2016-09-25] MEDS: QUEtiapine FUMARATE 50 MG EXTENDED RELEASE TABLET PO SCH (21:25)
[2016-09-26] VITALS (11 sets, daily range): BP systolic 96–109; BP diastolic 55–73; PULSE 86–101; RESP 16–20; TEMP 97.7–98.3; O2SAT 92–98
[2016-09-26] MEDS: MIDODRINE 5 MG TAB PO SCH ×3 (06:21→17:17)
[2016-09-26 07:01] LABS: ALT (GPT) 19 U/L (12-78); ANION GAP 10 MEQ/L (5-15); BICARBONATE 23.1 MEQ/L (21.0-32.0); BLOOD UREA NITROGEN 10 MG/DL (7-18); CHLORIDE 105 MEQ/L (98-107); SODIUM (NA) 138 MEQ/L (136-145)
[2016-09-26 07:02] LABS: ALKALINE PHOSPHATASE 105 U/L (45-117); AST (GOT) 27 U/L (15-37); GLOMERULAR FILTRATION RATE 118 ML/MIN (>89); TOTAL BILIRUBIN ADULT 0.7 MG/DL (0.2-1.0)
[2016-09-26 07:16] LABS: AUTOMATED NEUTROPHIL # 4.2 TH/MM3 (1.8-7.7); BASOPHIL % 0.3 % (0.0-2.0); EOSINOPHIL % 0.4 % (0.0-4.0); HEMATOCRIT 24.1 % (39.0-51.0); HEMO FLAGS DIFF FINAL; LYMPH % 10.6 % (9.0-44.0); LYMPHOCYTE # 0.6 TH/MM3 (1.0-4.8); MEAN CELL VOLUME 90.4 FL (80.0-100.0); MEAN CORPUSCULAR HEMOGLOBIN 30.6 PG (27.0-34.0); MEAN CORPUSCULAR HGB CONC 33.9 % (32.0-36.0); NEUT % 75.7 % (16.0-70.0); PLATELET COUNT 112 TH/MM3 (150-450); RED BLOOD COUNT 2.67 MIL/MM3 (4.50-5.90); RED CELL DISTRIBUTION WIDTH 17.1 % (11.6-17.2); WHITE BLOOD COUNT 5.5 TH/MM3 (4.0-11.0)
[2016-09-26] MEDS: SODIUM CHLORIDE 0.9% FLUSH 5 ML FLUSH FLUSH SCH ×2 (09:00→21:11)
[2016-09-26] MEDS: FOLIC ACID 1 MG TAB PO SCH (10:10)
[2016-09-26] MEDS: predniSONE 20 MG TAB PO SCH (10:10)
[2016-09-26] MEDS: LACTULOSE SYRUP 20 GM/30 ML CUP PO SCH (10:10)
[2016-09-26] MEDS: PANTOPRAZOLE SOD 40 MG DELAYED RELEASE TAB PO SCH (10:11)
[2016-09-26] MEDS: THIAMINE HCL 100 MG TAB PO SCH (10:11)
[2016-09-26] MEDS: SPIRONOLACTONE 25 MG TAB PO SCH ×2 (10:24→22:21)
[2016-09-26] MEDS: ALBUMIN HUMAN 5% 25 GM/500 ML BOTTLE IV SCH ×2 (11:30→21:11)
--- NOTE | 2016-09-26 11:57 | PD.ONC.PN ---
Subjective Subjective Remarks Afebrile overnight. Pt asleep in bed on approach. Awakens easily to verbal stimuli. He states he is feeling a litter better and his pain is improving. Objective Data Date Time Temp Pulse Resp B/P Pulse Ox O2 Delivery O2 Flow Rate FiO2 09/26/16 08:01 98.1 86 19 99/62 94 09/26/16 07:54 95 21 09/26/16 04:00 98.3 89 16 100/57 92 09/26/16 00:00 98.2 92 17 96/55 94 09/25/16 20:15 98.2 64 16 99/64 98 09/25/16 20:00 Nasal Cannula 2.00 21 09/25/16 20:00 90 09/25/16 16:02 98.1 91 18 97/59 96 09/25/16 12:00 98.1 93 18 99/57 91 09/26/16 09/26/16 09/26/16 07:00 15:00 23:00 Intake Total 180 ml Balance 180 ml Result Diagram: 09/26/16 0423 09/26/16 0423 Laboratory Results Laboratory Tests Test 09/26/16 04:23 White Blood Count 5.5 TH/MM3 Red Blood Count 2.67 MIL/MM3 Hemoglobin 8.2 GM/DL Hematocrit 24.1 % Mean Corpuscular Volume 90.4 FL Mean Corpuscular Hemoglobin 30.6 PG Mean Corpuscular Hemoglobin 33.9 % Concent Red Cell Distribution Width 17.1 % Platelet Count 112 TH/MM3 Mean Platelet Volume 8.0 FL Neutrophils (%) (Auto) 75.7 % Lymphocytes (%) (Auto) 10.6 % Monocytes (%) (Auto) 13.0 % Eosinophils (%) (Auto) 0.4 % Basophils (%) (Auto) 0.3 % Neutrophils # (Auto) 4.2 TH/MM3 Lymphocytes # (Auto) 0.6 TH/MM3 Monocytes # (Auto) 0.7 TH/MM3 Eosinophils # (Auto) 0.0 TH/MM3 Basophils # (Auto) 0.0 TH/MM3 CBC Comment DIFF FINAL Differential Comment Sodium Level 138 MEQ/L Potassium Level 4.0 MEQ/L Chloride Level 105 MEQ/L Carbon Dioxide Level 23.1 MEQ/L Anion Gap 10 MEQ/L Blood Urea Nitrogen 10 MG/DL Creatinine 0.69 MG/DL Estimat Glomerular Filtration 118 ML/MIN Rate Random Glucose 101 MG/DL Calcium Level 8.4 MG/DL Total Bilirubin 0.7 MG/DL Aspartate Amino Transf 27 U/L (AST/SGOT) Alanine Aminotransferase 19 U/L (ALT/SGPT) Alkaline Phosphatase 105 U/L Total Protein 6.4 GM/DL Albumin 3.1 GM/DL Administered Medications Medications (Trade) Dose Ordered Sig/Bashir Route PRN Reason Start Time Stop Time Status Last Admin Dose Admin IV Flush (NS Flush) 2 ml BID FLUSH 09/21/16 21:00 09/25/16 21:00 Oxycodone HCl (Roxicodone) 10 mg Q4H PRN PO PAIN SCALE 6 TO 10 09/21/16 14:30 09/26/16 10:11 Hydromorphone HCl (Dilaudid Pf Inj) 1 mg Q3H PRN IV BREAKTHROUGH PAIN 09/21/16 14:30 09/23/16 11:48 Prednisone (Deltasone) 40 mg DAILY PO 09/22/16 09:00 09/26/16 10:10 Pantoprazole Sodium (Protonix) 40 mg DAILY PO 09/22/16 09:00 09/26/16 10:11 Amitriptyline HCl (Elavil) 50 mg HS PO 09/21/16 21:00 09/25/16 21:25 Folic Acid (Folate) 1 mg DAILY PO 09/22/16 09:00 09/26/16 10:10 Furosemide (Lasix) 20 mg DAILY PO 09/22/16 09:00 Hold 09/24/16 11:51 Thiamine HCl (Vitamin B1) 100 mg DAILY PO 09/22/16 09:00 09/26/16 10:11 Quetiapine Fumarate (SEROquel XR) 50 mg HS PO 09/21/16 21:00 09/25/16 21:25 Albumin Human (Albumin 5% Inj) 25 gm Q12H IV 09/22/16 09:00 09/26/16 11:30 Midodrine (Proamatine) 10 mg TID@07,12,17 PO 09/23/16 12:00 09/26/16 10:11 Lactulose (Lactulose Liq) 30 ml DAILY PO 09/23/16 11:00 09/26/16 10:10 Spironolactone 12.5 mg 12.5 mg BID PO 09/24/16 09:00 09/26/16 10:24 Ceftriaxone Sodium/Sodium Chloride (Rocephin Inj/NS Inj) 100 ml @ 200 mls/hr Q24H IV 09/24/16 14:00 09/25/16 14:53 Enoxaparin Sodium (Lovenox Inj) 40 mg Q24H SQ 09/24/16 12:00 09/25/16 12:00 Objective Remarks GENERAL: Chronically ill appearing male, in no acute distress. SKIN: Warm and dry. HEAD: Normocephalic. EYES: No injection or drainage. NECK: Supple, trachea midline. CARDIOVASCULAR: +S1/S2. No murmur appreciated. RESPIRATORY: Lungs clear throughout. GASTROINTESTINAL: +BS. Mildly tender to palpation. EXTREMITIES: No cyanosis, or edema. MUSCULOSKELETAL: Decreased muscle tone. NEUROLOGICAL: Somewhat lethargic. Normal speech. Moving all extremities independently. Assessment/Plan Assessment 1. Moderately differentiated hepatocellular carcinoma. CT showed Liver mass with intra-abdominal adenopathy. He has history of alcohol-induced cirrhosis. - CT chest showed a right lower lobe lung mass and circumferential wall thickening of lower thoracic esophagus. -AFP and Ca 19-9 slightly elevated but non specific. 09/24 Path showed hepatocellular carcinoma. Prognosis is poor. Unusual mets pattern to lung. CT showed thickened esophageal wall and that may be the cause of his HENRI pain. -EGD on 09/14/16 showed esophageal varices with retained food. 2. Pneumonia. Chest x-ray showed right lung base consolidation with small right pleural effusion. He has had increased shortness of breath and productive cough for about a week. He was started on antibiotic. Improving. 3. Alcohol-induced cirrhosis. He still drinks one to two beers a day. He has history of portal hypertension with varices but no history of GI bleed. CT of the abdomen also showed ascites and sign of portal hypertension. Hep C positive. Plan Plan: 1. Continue supportive care for now. His prognosis is poor, even with a slight chance of temporary improvement with the Sorafenib. We will give him some time to speak with his family about his wishes for treatment. 2. Daily CBC to watch for bleeding from esophageal varices. 3. Supportive care. Attending Statement The exam, history, and the medical decision-making described in the above note were completed with the assistance of the mid-level provider. I reviewed and agree with the findings presented. I attest that I had a [id number] encounter with the patient on the same day, and personally performed and documented my assessment and findings in the medical record. Abdominal pain is controlled. EGD showed no other mass. Prognosis is poor with HCC. Patient has not talked to the son yet. His sister is coming from [place]. Patient still trying to decide to stay in [place] with his son or going home. Violet Solitario Sep 26, 2016 11:57 Ranjit Franz MD Sep 26, 2016 12:01
[2016-09-26] MEDS: ENOXAPARIN SODIUM 40 MG/0.4 ML SYRINGE SQ SCH (12:00)
--- NOTE | 2016-09-26 12:52 | HHI.FPPN ---
Subjective Remarks No acute events overnight. BP still running low (95-100/55-65) but stable. SOB improved per patient from yesterday. No CP, abdominal pain. Slept a bit better yesterday. (Delmar Dumont MD R1) Objective Vitals Vital Signs Date Time Temp Pulse Resp B/P Pulse Ox O2 Delivery O2 Flow Rate FiO2 09/26/16 09:00 Nasal Cannula 2.00 21 09/26/16 08:01 98.1 86 19 99/62 94 09/26/16 07:55 101 09/26/16 07:54 95 21 09/26/16 04:00 98.3 89 16 100/57 92 09/26/16 00:00 98.2 92 17 96/55 94 09/25/16 20:15 98.2 64 16 99/64 98 09/25/16 20:00 Nasal Cannula 2.00 21 09/25/16 20:00 90 09/25/16 16:02 98.1 91 18 97/59 96 I/O 09/25/16 09/25/16 09/25/16 09/26/16 09/26/16 09/26/16 06:59 14:59 22:59 06:59 14:59 22:59 Intake Total 240 ml 980 ml 240 ml 180 ml Output Total 200 ml 400 ml 100 ml Balance 40 ml 580 ml 140 ml 180 ml Intake Oral 240 ml 980 ml 240 ml 180 ml Output Urine Total 200 ml 400 ml 100 ml # Voids 2 # Bowel Movements 1 (Delmar Dumont MD R1) Result Diagram: 09/26/163 09/26/16 0423 Imaging Last Impressions Liver Biopsy CT 09/22/16 0000 Signed Impressions: Service Date/Time: Thursday, September 22, 2016 10:49 - CONCLUSION: Uncomplicated CT guided biopsy. Saroj Martinez MD CT Angiography 09/22/16 0000 Signed Impressions: Service Date/Time: Thursday, September 22, 2016 10:49 - CONCLUSION: 1. Right lower lobe pulmonary mass measuring 3.6 x 2.6 cm. This would be amenable to percutaneous biopsy if clinically warranted. 2. Circumferential wall thickening involving the lower thoracic esophagus with some dilatation of the more proximal esophagus. I cannot exclude an infiltrating process such as malignancy. 3. No pulmonary embolus. 4. Pronounced emphysematous changes. 5. Tiny bilateral pleural effusions. Ruben Hannon Jr., MD Abdomen Ultrasound 09/22/16 0000 Signed Impressions: Service Date/Time: Thursday, September 22, 2016 11:32 - CONCLUSION: Trace of ascites. Insufficient for drainage. Saroj Martinez MD Abdomen/Pelvis CT 09/21/16 1049 Signed Impressions: Service Date/Time: Wednesday, September 21, 2016 12:51 - CONCLUSION: Persistent findings of cirrhosis hepatocellular disease splenomegaly varices portal hypertension and ascites. Significant change with multiple low density lesions ill-defined in the liver as well as intra-abdominal adenopathy at the bernie hepatis as well as retroperitoneal up to 5 cm in size. Findings are highly suggestive of malignancy such as hepatocellular carcinoma or metastatic disease. Mello Zelaya MD Chest X-Ray 09/21/16 1010 Signed Impressions: Service Date/Time: Wednesday, September 21, 2016 10:07 - CONCLUSION: There is a small focal area of parenchymal consolidation in the right lung base along with a small right effusion. Focal right lower lung pneumonia is the primary consideration. Recommend a followup chest x-ray in 2-3 weeks after appropriate medical therapy to ensure resolution. If this has not resolved after appropriate medical therapy, then a noncontrast CT thorax can be performed for further evaluation on a nonemergent outpatient basis.. Saroj Martinez MD Objective Remarks GENERAL: Very pleasant cachectic adult white male sitting up in bed in no acute distress SKIN: No stigmata of chronic liver disease except very mild jaundice. CARDIOVASCULAR: Heart sounds distant. NRRR, normal S1/S2, no MRG RESPIRATORY: Clear breath sounds anteriorly. GASTROINTESTINAL: Abdomen non-distended. MUSCULOSKELETAL: Grossly normal motor function range of motion NEUROLOGICAL: Awake and alert. Grossly nonfocal. Normal speech. Procedures 09/22 - CT guided liver Bx Medications and IVs Current Medications Medications (Trade) Dose Ordered Sig/Bashir Route Start Time Stop Time Status Last Admin (NS Flush) 2 ml UNSCH PRN FLUSH 09/21/16 14:30 (NS Flush) 2 ml BID FLUSH 09/21/16 21:00 09/25/16 21:00 (Motrin) 400 mg Q6H PRN PO 09/21/16 14:30 (Roxicodone) 10 mg Q4H PRN PO 09/21/16 14:30 09/26/16 10:11 (Dilaudid Pf Inj) 1 mg Q3H PRN IV 09/21/16 14:30 09/23/16 11:48 (Roxicodone) 5 mg Q4H PRN PO 09/21/16 14:30 (Ativan) 1 mg Q4H PRN PO 09/21/16 14:45 (Ativan Inj) 1 mg Q4H PRN IV PUSH 09/21/16 14:45 (Ativan) 2 mg Q2H PRN PO 09/21/16 14:45 (Ativan Inj) 2 mg Q2H PRN IV PUSH 09/21/16 14:45 (Ativan Inj) 2 mg Q1H PRN IV PUSH 09/21/16 14:45 (Ativan Inj) 2 mg Q15M PRN IV PUSH 09/21/16 14:45 (Deltasone) 40 mg DAILY PO 09/22/16 09:00 09/26/16 10:10 (Protonix) 40 mg DAILY PO 09/22/16 09:00 09/26/16 10:11 (Elavil) 50 mg HS PO 09/21/16 21:00 09/25/16 21:25 (Folate) 1 mg DAILY PO 09/22/16 09:00 09/26/16 10:10 (Lasix) 20 mg DAILY PO 09/22/16 09:00 Hold 09/24/16 11:51 (Vitamin B1) 100 mg DAILY PO 09/22/16 09:00 09/26/16 10:11 (SEROquel XR) 50 mg HS PO 09/21/16 21:00 09/25/16 21:25 (Albumin 5% Inj) 25 gm Q12H IV 09/22/16 09:00 09/26/16 11:30 (Proamatine) 10 mg TID@,12,17 PO 09/23/16 12:00 09/26/16 10:11 (Lactulose Liq) 30 ml DAILY PO 09/23/16 11:00 09/26/16 10:10 (Pill Splitter) 1 ea UNSCH PRN OTHER 09/23/16 11:15 Spironolactone 12.5 mg 12.5 mg BID PO 09/24/16 09:00 09/26/16 10:24 (Rocephin Inj/NS Inj) 100 ml @ 200 mls/hr Q24H IV 09/24/16 14:00 09/25/16 14:53 (Lovenox Inj) 40 mg Q24H SQ 09/24/16 12:00 09/25/16 12:00 (Delmar Dumont MD R1) A/P Assessment and Plan 60 year old male with PMH of cirrhosis presenting with: Discharge Planning Unclear at this time; pending work-up of malignancy and discussions with palliative care (Delmar Dumont MD R1) Attending Attestation Patient seen and examined. Case reviewed and discussed Agree with plan of care as discussed with me and documented in the resident note. (Naty Man MD) Problem List: (1) Hepatocellular carcinoma Status: Acute Plan: Highly suspicious for malignancy by CT. CTA chest showing approx 3x3 cm lung mass, could be primary or met; CTA with portal hypertension, ascites, esophageal thickening which could also be primary cancer source AFP elevated to 131.7, CA 19-9 elevated to 45.1, CEA Ag normal (2.8) Biopsy: Active cirrhosis with focal moderately differentiated hepatocellular carcinoma -Oncology consulted, appreciate their recommendations -Hospice versus trial of sorafenib; poor prognosis -Patient to discuss with son; will place hospice consult pending their discussion -GI consulted, appreciate their recommendations -EGD 09/24 showing esophageal varices -Colonoscopy once stable unless transitioned to hospice -Palliative care consulted to address goals of care and disposition planning ( CM to assist as well, patient lives in [place], son is local) -Dr. Hudson met with son 09/24; poor prognosis explained to son -Patient to discuss with son about hospice versus trial of sorafenib; will place hospice consult pending family decision Pain Control: -Ibuprofen and oxycodone as needed for pain -Dilaudid 1 mg IV every 3 hours for breakthrough pain (2) Sepsis syndrome Status: Acute Plan: Patient met sepsis criteria during hospitalization (Hypotension, tachycardia); however, patient has history of chronic hypotension presumably secondary to cirrhosis. Lactic acid initially wnl; subsequently increased to 3.7 09/22 Patient with CXR suggestive of pneumonia 2D echo not suggestive of endocarditis Abdominal U/S showing small ascites but insufficient to obtain paracentesis sample Liver biopsy: gram stain, AFB, fungal stain negative ID consulted: -Continue to follow cultures -Continue Rocephin; increase dose to 2gm IV q24hrs -Continue to monitor lactic acid Cultures: Blood culture drawn 09/22 - 1 bottle growing E. coli; other negative to date Sputum- heavy growth normal respiratory adam Antibiotic History: Flagyl x5 doses Azithromycin x1 dose Zosyn x1 dose (3) Pneumonia Status: Acute Plan: Chest x-ray suspicious for right lower lobe pneumonia. In setting of likely cancer, this could either be a primary with obstruction versus solely malignancy versus separate community-acquired pneumonia. CTA chest showing 3x3 cm mass and emphysematous changes Legionella urine antigen, Pneumococcal urine antigen negative Sputum Gram stain negative, culture growing normal respiratory adam Influenza negative -Continue management for sepsis criteria as above -Continue Prednisone 40mg daily (4) Liver cirrhosis Status: Chronic Plan: Well compensated at present. MELD 9 GI Consulted: - Cont. Aldactone 12.5mg BID - Hold Furosemide 20mg - Cont. Albumin 25mg IV q12hrs - Cont. Lactulose 30 mL daily to prevent hepatic encephalopathy - Hepatic dosing of meds (5) Hyponatremia Status: Resolved Plan: Likely chronic Na 139 on 09/24 * Encourage salty foods * Monitor BMP (6) Anemia of chronic disease Status: Chronic Plan: Stable at present * Monitor H/H (7) Depression Status: Chronic Plan: Stable * Continue home Seroquel, Elavil (8) GERD (gastroesophageal reflux disease) Status: Chronic Plan: Stable * Continue home Protonix (9) Alcohol abuse Status: Chronic Plan: Does not drink very much at present, however has severe cirrhosis * [facility] protocol (10) Tobacco abuse Status: Chronic Plan: Nicotine patch if patient requests (11) FEN/PPX Status: Acute Plan: Fluids: PO only except with IV meds Elecs: Monitor and replete PRN Nutrition: Diet regular basic DVT: SCDs to BLE; add Enoxaparin 40mg daily Pain: As above GI: On Protonix 40 mg daily (Delmar Dumont MD R1) Problem Qualifiers (1) Pneumonia: Qualified Code: J18.1 - Pneumonia of right lower lobe due to infectious organism (2) Liver cirrhosis: Qualified Code: K70.30 - Alcoholic cirrhosis of liver without ascites Delmar Dumont MD R1 Sep 26, 2016 12:52 Naty Man MD Sep 28, 2016 17:01
[2016-09-26] MEDS: cefTRIAXone INJ 2,000 MG in SODIUM CHLORIDE 0.9% INJ 100 ML IV SCH (14:07)
[2016-09-26] MEDS: SODIUM CHLORIDE 0.9% FLUSH 5 ML FLUSH FLUSH PRN (21:11)
[2016-09-26] MEDS: QUEtiapine FUMARATE 50 MG EXTENDED RELEASE TABLET PO SCH (21:12)
[2016-09-26] MEDS: AMITRIPTYLINE HCL 50 MG TAB PO SCH (21:12)
[2016-09-27] VITALS (7 sets, daily range): BP systolic 102–129; BP diastolic 58–93; PULSE 20–100; RESP 18–22; TEMP 96.8–100; O2SAT 92–94
[2016-09-27] MEDS: MIDODRINE 5 MG TAB PO SCH ×3 (06:28→16:00)
[2016-09-27 09:12] LABS: AUTOMATED NEUTROPHIL # 5.6 TH/MM3 (1.8-7.7); BASOPHIL % 0.2 % (0.0-2.0); EOSINOPHIL % 0.1 % (0.0-4.0); HEMATOCRIT 25.6 % (39.0-51.0); HEMO FLAGS DIFF FINAL; LYMPH % 11.9 % (9.0-44.0); LYMPHOCYTE # 0.9 TH/MM3 (1.0-4.8); MEAN CORPUSCULAR HEMOGLOBIN 30.7 PG (27.0-34.0); MEAN CORPUSCULAR HGB CONC 34.1 % (32.0-36.0); MONO % 12.2 % (0.0-8.0); NEUT % 75.6 % (16.0-70.0); PLATELET COUNT 121 TH/MM3 (150-450); RED BLOOD COUNT 2.84 MIL/MM3 (4.50-5.90); RED CELL DISTRIBUTION WIDTH 17.4 % (11.6-17.2); WHITE BLOOD COUNT 7.4 TH/MM3 (4.0-11.0)
--- NOTE | 2016-09-27 10:12 | HHI.IDPN ---
Subjective Subjective Remarks ID COVERAGE Notes reviewed Temps ok Abdominal pain better C/O loose stool since yesterday - one yesterday and one today so far Meds reviewed - on lactulose Not SOB, not coughing Echo ok is a 60 y/o male with extensive history of smoking, cirrhosis of the liver thought to be due to prior alcohol use. Liver biopsy with cirrhosis and hepatocellular CA Has BC with E coli Antibiotics Rocephin Lines Line sites with no e/o infection. Past Medical History reviewed Allergies: Coded Allergies: *MDRO Multi-Drug Resistant Organism (Verified Allergy, Unknown, 09/21/16) MDR Streptococcus pneumoniae Objective . Vital Signs Date Time Temp Pulse Resp B/P Pulse Ox O2 Delivery O2 Flow Rate FiO2 09/27/16 05:10 97.7 80 18 106/68 93 09/27/16 00:27 96.8 86 18 129/68 92 09/26/16 22:20 96 103/63 09/26/16 21:20 Room Air 09/26/16 21:17 97/63 09/26/16 20:40 98.2 92 20 97/64 92 09/26/16 20:05 86 09/26/16 16:01 97.7 89 18 109/73 98 09/26/16 12:01 97.9 92 19 108/70 96 09/26/16 11:11 20 09/26/16 09/26/16 09/27/16 15:00 23:00 07:00 Intake Total 280 ml 550 ml Output Total 500 ml 600 ml Balance -220 ml -50 ml Intake Oral 280 ml IV Total 50 ml Albumin 500 ml Output Urine Total 500 ml 600 ml # Voids 3 # Bowel Movements 1 0 . Laboratory Tests Test 09/25/16 09/26/16 09/27/16 11:48 04:23 08:27 White Blood Count 6.2 TH/MM3 5.5 TH/MM3 7.4 TH/MM3 Red Blood Count 2.64 MIL/MM3 2.67 MIL/MM3 2.84 MIL/MM3 Hemoglobin 8.1 GM/DL 8.2 GM/DL 8.7 GM/DL Hematocrit 24.1 % 24.1 % 25.6 % Mean Corpuscular Volume 91.2 FL 90.4 FL 90.0 FL Mean Corpuscular Hemoglobin 30.6 PG 30.6 PG 30.7 PG Mean Corpuscular Hemoglobin 33.5 % 33.9 % 34.1 % Concent Red Cell Distribution Width 17.1 % 17.1 % 17.4 % Platelet Count 122 TH/MM3 112 TH/MM3 121 TH/MM3 Mean Platelet Volume 7.9 FL 8.0 FL 8.0 FL Neutrophils (%) (Auto) 75.1 % 75.7 % 75.6 % Lymphocytes (%) (Auto) 11.6 % 10.6 % 11.9 % Monocytes (%) (Auto) 12.4 % 13.0 % 12.2 % Eosinophils (%) (Auto) 0.5 % 0.4 % 0.1 % Basophils (%) (Auto) 0.4 % 0.3 % 0.2 % Neutrophils # (Auto) 4.6 TH/MM3 4.2 TH/MM3 5.6 TH/MM3 Lymphocytes # (Auto) 0.7 TH/MM3 0.6 TH/MM3 0.9 TH/MM3 Monocytes # (Auto) 0.8 TH/MM3 0.7 TH/MM3 0.9 TH/MM3 Eosinophils # (Auto) 0.0 TH/MM3 0.0 TH/MM3 0.0 TH/MM3 Basophils # (Auto) 0.0 TH/MM3 0.0 TH/MM3 0.0 TH/MM3 CBC Comment DIFF FINAL DIFF FINAL DIFF FINAL Differential Comment Laboratory Tests Test 09/25/16 09/26/16 11:48 04:23 Sodium Level 136 MEQ/L 138 MEQ/L Potassium Level 3.4 MEQ/L 4.0 MEQ/L Chloride Level 102 MEQ/L 105 MEQ/L Carbon Dioxide Level 23.7 MEQ/L 23.1 MEQ/L Anion Gap 10 MEQ/L 10 MEQ/L Blood Urea Nitrogen 10 MG/DL 10 MG/DL Creatinine 0.70 MG/DL 0.69 MG/DL Estimat Glomerular Filtration 116 ML/MIN 118 ML/MIN Rate Random Glucose 124 MG/DL 101 MG/DL Calcium Level 8.2 MG/DL 8.4 MG/DL Total Bilirubin 0.8 MG/DL 0.7 MG/DL Aspartate Amino Transf 20 U/L 27 U/L (AST/SGOT) Alanine Aminotransferase 17 U/L 19 U/L (ALT/SGPT) Alkaline Phosphatase 84 U/L 105 U/L Total Protein 6.8 GM/DL 6.4 GM/DL Albumin 3.2 GM/DL 3.1 GM/DL Imaging Last Impressions Liver Biopsy CT 09/22/16 0000 Signed Impressions: Service Date/Time: Thursday, September 22, 2016 10:49 - CONCLUSION: Uncomplicated CT guided biopsy. Saroj Martinez MD CT Angiography 09/22/16 0000 Signed Impressions: Service Date/Time: Thursday, September 22, 2016 10:49 - CONCLUSION: 1. Right lower lobe pulmonary mass measuring 3.6 x 2.6 cm. This would be amenable to percutaneous biopsy if clinically warranted. 2. Circumferential wall thickening involving the lower thoracic esophagus with some dilatation of the more proximal esophagus. I cannot exclude an infiltrating process such as malignancy. 3. No pulmonary embolus. 4. Pronounced emphysematous changes. 5. Tiny bilateral pleural effusions. Ruben Hannon Jr., MD Abdomen Ultrasound 09/22/16 0000 Signed Impressions: Service Date/Time: Thursday, September 22, 2016 11:32 - CONCLUSION: Trace of ascites. Insufficient for drainage. Saroj Martinez MD Abdomen/Pelvis CT 09/21/16 1049 Signed Impressions: Service Date/Time: Wednesday, September 21, 2016 12:51 - CONCLUSION: Persistent findings of cirrhosis hepatocellular disease splenomegaly varices portal hypertension and ascites. Significant change with multiple low density lesions ill-defined in the liver as well as intra-abdominal adenopathy at the bernie hepatis as well as retroperitoneal up to 5 cm in size. Findings are highly suggestive of malignancy such as hepatocellular carcinoma or metastatic disease. Mello Zelaya MD Chest X-Ray 09/21/16 1010 Signed Impressions: Service Date/Time: Wednesday, September 21, 2016 10:07 - CONCLUSION: There is a small focal area of parenchymal consolidation in the right lung base along with a small right effusion. Focal right lower lung pneumonia is the primary consideration. Recommend a followup chest x-ray in 2-3 weeks after appropriate medical therapy to ensure resolution. If this has not resolved after appropriate medical therapy, then a noncontrast CT thorax can be performed for further evaluation on a nonemergent outpatient basis.. Saroj Martinez MD Physical Exam GENERAL: Thin male, awake and alert, NAD SKIN: No generalized rashes, cool and dry HEENT: Pupils equal round and reactive. No scleral icterus. No injection or drainage. Moist mucosa NECK: Trachea midline. Supple, nontender, no meningeal signs. CARDIOVASCULAR: HS audible. RESPIRATORY: Clear to auscultation. Breath sounds equal bilaterally. GASTROINTESTINAL: Abdomen distended, with diffuse tenderness MUSCULOSKELETAL: Extremities without clubbing, cyanosis, or edema. No calf tenderness. NEUROLOGICAL: Non-focal Psych cooperative IV line sites with no e.o infection. Assessment & Plan Remarks Sepsis E.coli bacteremia Pneumonia vs septic emboli. Hepatitis C antibody positive. Hepatocellular carcinoma in a patient with HCV positive. Ascites with tiny pleural effusions. Esophageal mass needs EGD. Recs Continue Rocephin Follow C/S Monitor progress Fup CXR - if stable, possible switch to oral Abx Eden Meneses MD Sep 27, 2016 10:12
[2016-09-27] MEDS: FOLIC ACID 1 MG TAB PO SCH (10:34)
[2016-09-27] MEDS: SPIRONOLACTONE 25 MG TAB PO SCH ×2 (10:34→22:36)
[2016-09-27] MEDS: LACTULOSE SYRUP 20 GM/30 ML CUP PO SCH (10:34)
[2016-09-27] MEDS: THIAMINE HCL 100 MG TAB PO SCH (10:34)
[2016-09-27] MEDS: PANTOPRAZOLE SOD 40 MG DELAYED RELEASE TAB PO SCH (10:34)
[2016-09-27] MEDS: predniSONE 20 MG TAB PO SCH (10:35)
[2016-09-27] MEDS: SODIUM CHLORIDE 0.9% FLUSH 5 ML FLUSH FLUSH SCH ×2 (10:36→22:37)
--- NOTE | 2016-09-27 11:14 | RADRPT ---
EXAM DATE/TIME: 09/27/2016 10:46 [facility] COMPARISON: CHEST PA & LAT, October 24, 2013, 21:09. INDICATIONS : Shortness of breath. MEDICAL HISTORY : Ascites. SURGICAL HISTORY : None. ENCOUNTER: Subsequent ACUITY: 1 week PAIN SCORE: 0/10 LOCATION: Bilateral chest FINDINGS: Moderate right and left pleural effusions and basilar consolidation. Cardiomegaly. Osseous structures are intact. CONCLUSION: Bilateral lower lobe consolidation and effusions. Sg Win MD on September 27, 2016 at 11:12 Board Certified Radiologist. This report was verified electronically.
--- NOTE | 2016-09-27 11:28 | PD.ONC.PN ---
Subjective Subjective Remarks Still has HENRI pain but controlled. SOB improved. Objective Data Date Time Temp Pulse Resp B/P Pulse Ox O2 Delivery O2 Flow Rate FiO2 09/27/16 05:10 97.7 80 18 106/68 93 09/27/16 00:27 96.8 86 18 129/68 92 09/26/16 22:20 96 103/63 09/26/16 21:20 Room Air 09/26/16 21:17 97/63 09/26/16 20:40 98.2 92 20 97/64 92 09/26/16 20:05 86 09/26/16 16:01 97.7 89 18 109/73 98 09/26/16 12:01 97.9 92 19 108/70 96 09/27/16 09/27/16 09/27/16 07:00 15:00 23:00 Intake Total 550 ml Output Total 600 ml Balance -50 ml Result Diagram: 09/27/16 0827 09/26/16 0423 Laboratory Results Laboratory Tests Test 09/27/16 08:27 White Blood Count 7.4 TH/MM3 Red Blood Count 2.84 MIL/MM3 Hemoglobin 8.7 GM/DL Hematocrit 25.6 % Mean Corpuscular Volume 90.0 FL Mean Corpuscular Hemoglobin 30.7 PG Mean Corpuscular Hemoglobin 34.1 % Concent Red Cell Distribution Width 17.4 % Platelet Count 121 TH/MM3 Mean Platelet Volume 8.0 FL Neutrophils (%) (Auto) 75.6 % Lymphocytes (%) (Auto) 11.9 % Monocytes (%) (Auto) 12.2 % Eosinophils (%) (Auto) 0.1 % Basophils (%) (Auto) 0.2 % Neutrophils # (Auto) 5.6 TH/MM3 Lymphocytes # (Auto) 0.9 TH/MM3 Monocytes # (Auto) 0.9 TH/MM3 Eosinophils # (Auto) 0.0 TH/MM3 Basophils # (Auto) 0.0 TH/MM3 CBC Comment DIFF FINAL Differential Comment Administered Medications Medications (Trade) Dose Ordered Sig/Bashir Route PRN Reason Start Time Stop Time Status Last Admin Dose Admin IV Flush (NS Flush) 2 ml UNSCH PRN FLUSH FLUSH AFTER USING IV ACCESS 09/21/16 14:30 09/26/16 21:11 IV Flush (NS Flush) 2 ml BID FLUSH 09/21/16 21:00 09/27/16 10:36 Oxycodone HCl (Roxicodone) 10 mg Q4H PRN PO PAIN SCALE 6 TO 10 09/21/16 14:30 09/26/16 10:11 Hydromorphone HCl (Dilaudid Pf Inj) 1 mg Q3H PRN IV BREAKTHROUGH PAIN 09/21/16 14:30 09/23/16 11:48 Prednisone (Deltasone) 40 mg DAILY PO 09/22/16 09:00 09/27/16 10:35 Pantoprazole Sodium (Protonix) 40 mg DAILY PO 09/22/16 09:00 09/27/16 10:34 Amitriptyline HCl (Elavil) 50 mg HS PO 09/21/16 21:00 09/26/16 21:12 Folic Acid (Folate) 1 mg DAILY PO 09/22/16 09:00 09/27/16 10:34 Furosemide (Lasix) 20 mg DAILY PO 09/22/16 09:00 Hold 09/24/16 11:51 Thiamine HCl (Vitamin B1) 100 mg DAILY PO 09/22/16 09:00 09/27/16 10:34 Quetiapine Fumarate (SEROquel XR) 50 mg HS PO 09/21/16 21:00 09/26/16 21:12 Albumin Human (Albumin 5% Inj) 25 gm Q12H IV 09/22/16 09:00 09/26/16 21:11 Midodrine (Proamatine) 10 mg TID@07,12,17 PO 09/23/16 12:00 09/27/16 06:28 Lactulose (Lactulose Liq) 30 ml DAILY PO 09/23/16 11:00 09/27/16 10:34 Spironolactone 12.5 mg 12.5 mg BID PO 09/24/16 09:00 09/27/16 10:34 Ceftriaxone Sodium/Sodium Chloride (Rocephin Inj/NS Inj) 100 ml @ 200 mls/hr Q24H IV 09/24/16 14:00 09/26/16 14:07 Enoxaparin Sodium (Lovenox Inj) 40 mg Q24H SQ 09/24/16 12:00 09/26/16 12:00 Objective Remarks GENERAL: Well-nourished, well-developed patient. SKIN: Warm and dry. HEAD: Normocephalic. EYES: No scleral icterus. No injection or drainage. NECK: Supple, trachea midline. No JVD or lymphadenopathy. LYMPHATIC: No adenopathy. CARDIOVASCULAR: Regular rate and rhythm without murmurs. RESPIRATORY: Decreased BS bilateral lung bases. No accessory muscle use. GASTROINTESTINAL: Abdomen soft, more distended, tender HENRI. EXTREMITIES: No cyanosis, or edema. MUSCULOSKELETAL: Adequate muscle tone. NEUROLOGICAL: No obvious focal deficit. Awake, alert, and oriented x3. PSYCHIATRIC: Appropriate mood and affect; insight and judgment normal. Assessment/Plan Assessment 1. Moderately differentiated hepatocellular carcinoma. CT showed Liver mass with intra-abdominal adenopathy. He has history of alcohol-induced and hep C cirrhosis. - CT chest showed a right lower lobe lung mass and circumferential wall thickening of lower thoracic esophagus. -AFP and Ca 19-9 slightly elevated but non specific. 09/24 Path showed hepatocellular carcinoma. Prognosis is poor. Unusual mets pattern to lung. CT showed thickened esophageal wall and that may be the cause of his HENRI pain. -EGD on 09/14/16 showed esophageal varices with retained food. 2. Pneumonia. Chest x-ray showed right lung base consolidation with small right pleural effusion. He has had increased shortness of breath and productive cough for about a week. He was started on antibiotic. Improving. 3. Alcohol-induced cirrhosis. He still drinks one to two beers a day. He has history of portal hypertension with varices but no history of GI bleed. CT of the abdomen also showed ascites and sign of portal hypertension. Hep C positive. Plan Plan: 1. Continue supportive care for now. His prognosis is poor, even with a slight chance of temporary improvement with the Sorafenib. He still has not talked to his son regarding his decision. Palliative care meds following. He is appropriate for hospice if he does not want to try Sorafenib. 2. Supportive care. Ranjit Franz MD Sep 27, 2016 11:28
[2016-09-27] MEDS: ENOXAPARIN SODIUM 40 MG/0.4 ML SYRINGE SQ SCH (12:22)
--- NOTE | 2016-09-27 13:47 | HHI.HCPN ---
Reason for visit a. To assist with evaluation and management of symptoms including:pain b. To assist medical decision maker(s) with: better understanding of current medical conditions; weighing benefits/burdens of medical treatment options; making medical treatment decisions. Subjective/Interval History Pt was sleeping on my visit, easily arousable but visibly fatigued. He denies pain on my visit, just "feeling tired." I spoke with him and, he said he will speak with his son sometime tonight or this afternoon about weather to continue palliative chemo or hospice. I reiterated that his performance status is poor, and it was noted in oncology, even with the chemo, prognosis is poor. I told him I worry he may get most of the side effects and none of the benefits. Told him if he feels his focus on quality, spending time with family, hospice is available. He stated he is leaning towards that. He states he will speak with son privately. Family/friend interactions I have called pt's son, Shelton. It been a difficult process, and he states he will speak with patient. I reiterated what I told pt earlier, and pt's understand pt's poor prognosis. Offered support, and he welcomes it. He is concern about his son (pt's grandson) who pt is very close with. Pt's son Shelton also has lost his mother early as a child. Offered pt's son social welfare clerk contacted him to provide him support for him and his son, which he welcomed. Advance Directives Living Will: Never completed Objective Vital Signs Date Time Temp Pulse Resp B/P Pulse Ox O2 Delivery O2 Flow Rate FiO2 09/27/16 12:00 97.8 95 20 102/93 93 09/27/16 08:00 100.0 20 09/27/16 05:10 97.7 80 18 106/68 93 09/27/16 00:27 96.8 86 18 129/68 92 09/26/16 22:20 96 103/63 09/26/16 21:20 Room Air 09/26/16 21:17 97/63 09/26/16 20:40 98.2 92 20 97/64 92 09/26/16 20:05 86 09/26/16 16:01 97.7 89 18 109/73 98 Intake & Output 09/27/16 09/27/16 07:00 19:00 Intake Total 550 ml Output Total 600 ml Balance -50 ml IV Total 50 ml Albumin 500 ml Output Urine Total 600 ml # Voids 3 # Bowel Movements 0 Physical Exam CONSTITUTIONAL/GENERAL: This is a thin middle age male. Fatigued SKIN: Jaundice. Ecchymoses on upper extremities. No wounds seen anteriorly. Skin temperature appropriate. Not diaphoretic. HEAD: Atraumatic. Normocephalic. EYES: Pupils equal and round and reactive. Extraocular motions intact. No scleral icterus. No injection or drainage. Fundi not examined. ENT: Hearing grossly normal. Nose without bleeding or purulent drainage. Throat without visible erythema, exudates, masses, or lesions. NECK: Trachea midline. Supple, nontender. No palpable thyroid enlargement or nodularity. CARDIOVASCULAR: Regular rate and rhythm without murmurs, gallops, or rubs. No JVD. Peripheral pulses symmetric. RESPIRATORY/CHEST: Symmetric, unlabored respirations. Clear to auscultation. Breath sounds equal bilaterally. No wheezes, rales, or rhonchi. GASTROINTESTINAL: Abdomen soft, somewhat distended. No guarding. Bowel sounds present. GENITOURINARY: Without palpable bladder distension. Christopher catheter in place. MUSCULOSKELETAL: Extremities without clubbing, cyanosis, or edema. LYMPHATICS: No palpable cervical or supraclavicular adenopathy. NEUROLOGICAL: Awake and alert. Motor and sensory grossly within normal limits. Follows commands. Cognitively sharp. Moves all extremities. Diagnostic Tests Laboratory Laboratory Tests Test 09/25/16 09/26/16 09/27/16 11:48 04:23 08:27 White Blood Count 6.2 TH/MM3 5.5 TH/MM3 7.4 TH/MM3 (4.0-11.0) (4.0-11.0) (4.0-11.0) Red Blood Count 2.64 MIL/MM3 2.67 MIL/MM3 2.84 MIL/MM3 (4.50-5.90) (4.50-5.90) (4.50-5.90) Hemoglobin 8.1 GM/DL 8.2 GM/DL 8.7 GM/DL (13.0-17.0) (13.0-17.0) (13.0-17.0) Hematocrit 24.1 % 24.1 % 25.6 % (39.0-51.0) (39.0-51.0) (39.0-51.0) Mean Corpuscular Volume 91.2 FL 90.4 FL 90.0 FL (80.0-100.0) (80.0-100.0) (80.0-100.0) Mean Corpuscular Hemoglobin 30.6 PG 30.6 PG 30.7 PG (27.0-34.0) (27.0-34.0) (27.0-34.0) Mean Corpuscular Hemoglobin 33.5 % 33.9 % 34.1 % Concent (32.0-36.0) (32.0-36.0) (32.0-36.0) Red Cell Distribution Width 17.1 % 17.1 % 17.4 % (11.6-17.2) (11.6-17.2) (11.6-17.2) Platelet Count 122 TH/MM3 112 TH/MM3 121 TH/MM3 (150-450) (150-450) (150-450) Mean Platelet Volume 7.9 FL 8.0 FL 8.0 FL (7.0-11.0) (7.0-11.0) (7.0-11.0) Neutrophils (%) (Auto) 75.1 % 75.7 % 75.6 % (16.0-70.0) (16.0-70.0) (16.0-70.0) Lymphocytes (%) (Auto) 11.6 % 10.6 % 11.9 % (9.0-44.0) (9.0-44.0) (9.0-44.0) Monocytes (%) (Auto) 12.4 % 13.0 % 12.2 % (0.0-8.0) (0.0-8.0) (0.0-8.0) Eosinophils (%) (Auto) 0.5 % (0.0-4.0) 0.4 % (0.0-4.0) 0.1 % (0.0-4.0) Basophils (%) (Auto) 0.4 % (0.0-2.0) 0.3 % (0.0-2.0) 0.2 % (0.0-2.0) Neutrophils # (Auto) 4.6 TH/MM3 4.2 TH/MM3 5.6 TH/MM3 (1.8-7.7) (1.8-7.7) (1.8-7.7) Lymphocytes # (Auto) 0.7 TH/MM3 0.6 TH/MM3 0.9 TH/MM3 (1.0-4.8) (1.0-4.8) (1.0-4.8) Monocytes # (Auto) 0.8 TH/MM3 0.7 TH/MM3 0.9 TH/MM3 (0-0.9) (0-0.9) (0-0.9) Eosinophils # (Auto) 0.0 TH/MM3 0.0 TH/MM3 0.0 TH/MM3 (0-0.4) (0-0.4) (0-0.4) Basophils # (Auto) 0.0 TH/MM3 0.0 TH/MM3 0.0 TH/MM3 (0-0.2) (0-0.2) (0-0.2) CBC Comment DIFF FINAL DIFF FINAL DIFF FINAL Differential Comment Sodium Level 136 MEQ/L 138 MEQ/L (136-145) (136-145) Potassium Level 3.4 MEQ/L 4.0 MEQ/L (3.5-5.1) (3.5-5.1) Chloride Level 102 MEQ/L 105 MEQ/L (98-107) (98-107) Carbon Dioxide Level 23.7 MEQ/L 23.1 MEQ/L (21.0-32.0) (21.0-32.0) Anion Gap 10 MEQ/L (5-15) 10 MEQ/L (5-15) Blood Urea Nitrogen 10 MG/DL (7-18) 10 MG/DL (7-18) Creatinine 0.70 MG/DL 0.69 MG/DL (0.60-1.30) (0.60-1.30) Estimat Glomerular Filtration 116 ML/MIN 118 ML/MIN Rate (>89) (>89) Random Glucose 124 MG/DL 101 MG/DL (74-106) (74-106) Calcium Level 8.2 MG/DL 8.4 MG/DL (8.5-10.1) (8.5-10.1) Total Bilirubin 0.8 MG/DL 0.7 MG/DL (0.2-1.0) (0.2-1.0) Aspartate Amino Transf 20 U/L (15-37) 27 U/L (15-37) (AST/SGOT) Alanine Aminotransferase 17 U/L (12-78) 19 U/L (12-78) (ALT/SGPT) Alkaline Phosphatase 84 U/L (45-117) 105 U/L (45-117) Total Protein 6.8 GM/DL 6.4 GM/DL (6.4-8.2) (6.4-8.2) Albumin 3.2 GM/DL 3.1 GM/DL (3.4-5.0) (3.4-5.0) Result Diagram: 09/27/16 0827 09/26/16 0423 Imaging Last Impressions Liver Biopsy CT 09/22/16 0000 Signed Impressions: Service Date/Time: Thursday, September 22, 2016 10:49 - CONCLUSION: Uncomplicated CT guided biopsy. Saroj Martinez MD CT Angiography 09/22/16 0000 Signed Impressions: Service Date/Time: Thursday, September 22, 2016 10:49 - CONCLUSION: 1. Right lower lobe pulmonary mass measuring 3.6 x 2.6 cm. This would be amenable to percutaneous biopsy if clinically warranted. 2. Circumferential wall thickening involving the lower thoracic esophagus with some dilatation of the more proximal esophagus. I cannot exclude an infiltrating process such as malignancy. 3. No pulmonary embolus. 4. Pronounced emphysematous changes. 5. Tiny bilateral pleural effusions. Ruben Hannon Jr., MD Abdomen Ultrasound 09/22/16 0000 Signed Impressions: Service Date/Time: Thursday, September 22, 2016 11:32 - CONCLUSION: Trace of ascites. Insufficient for drainage. Saroj Martinez MD Abdomen/Pelvis CT 09/21/16 1049 Signed Impressions: Service Date/Time: Wednesday, September 21, 2016 12:51 - CONCLUSION: Persistent findings of cirrhosis hepatocellular disease splenomegaly varices portal hypertension and ascites. Significant change with multiple low density lesions ill-defined in the liver as well as intra-abdominal adenopathy at the bernie hepatis as well as retroperitoneal up to 5 cm in size. Findings are highly suggestive of malignancy such as hepatocellular carcinoma or metastatic disease. Mello Zelaya MD Chest X-Ray 09/21/16 1010 Signed Impressions: Service Date/Time: Wednesday, September 21, 2016 10:07 - CONCLUSION: There is a small focal area of parenchymal consolidation in the right lung base along with a small right effusion. Focal right lower lung pneumonia is the primary consideration. Recommend a followup chest x-ray in 2-3 weeks after appropriate medical therapy to ensure resolution. If this has not resolved after appropriate medical therapy, then a noncontrast CT thorax can be performed for further evaluation on a nonemergent outpatient basis.. Saroj Martinez MD Assessment and Plan Disease Oriented Problem List: (1) End-stage liver disease (2) Liver cirrhosis (3) Pneumonia (4) GERD (gastroesophageal reflux disease) (5) Sepsis syndrome Symptom Scale: Pertinent Non-Medical Issues Psychosocial: Spiritual: Legal: Ethical issues impacting care: Important Contacts son Prognosis Primliminary report is hepatocellular carcinoma. Spoke with Dr. Franz oncology, if that is the case, prognosis is poor. Code Status: No Code Plan == dnr/dni no code. == goals: still pending. Pt and son will discuss more today. I spoke pt, he said he will speak with his son sometime tonight or this afternoon about weather to continue palliative chemo or hospice. I reiterated that his performace status is poor, and it was noted in oncology, even with the chemo, prognosis is poor. I told him I worry he may get most of the side effects and none of the benefits. Told him if he feels his focus is on quality , spending time with family, hospice is available. Recommended hospice. He stated he is leaning towards that. He states he will speak with son privately. I have called pt's son It been a difficult process for him, and he states he will speak with patient. I reiterated what I told pt earlier, and he understand pt's poor prognosis. Offered support, and he welcomes it. He is concern about his son (pt's grandson who is 8 years old) with whom pt is very close with. Pt's son, Shelton also has lost his mother early as a child. Ask pt' s son, if he is amenable for social welfare clerk to contacted him to provide him support for him and his son, which he welcomed. == pain-denies pain today. == palliative care will cont to follow up. == case was d/w with family medicine. Time Spent Total Floor Time (mins): 35 Face to Face Time (mins): 25 Attestation To help prompt me to consider important information that might be impacting today's encounter and assessment, information from prior notes written by myself or my colleagues may have been "brought forward" into today's note. My signature on this note, however, is an attestation that I personally performed the exam, history, and/or decision-making noted today, and, unless otherwise indicated, the interactions with patient, family, and staff as well as the review of records all occurred today. I also attest that the listed assessment and stated plan reflect my best clinical judgment today based on the combination of historical information, prior notes, and today's exam/ interactions. When time spent is documented, it refers only to time spent today by the signer, or if indicated, combined time spent today by collaborating physician/nurse practitioner. Fidel Hudson MD Sep 27, 2016 13:47
[2016-09-27] MEDS: cefTRIAXone INJ 2,000 MG in SODIUM CHLORIDE 0.9% INJ 100 ML IV SCH (16:00)
--- NOTE | 2016-09-27 16:14 | HHI.FPPN ---
Subjective Remarks Mr. Watkins had Tmax of 100.0 F this morning; O2 saturation ~92% on RA, BP stable. Per EMR, patient 42 and stooling adequately. Patient awoken from sleep when interviewed this morning. No new complaints reported. He states he is still having some chest and abdominal pain which is relatively unchanged. Patient does not report shortness of breath. Patient states that he was unable to visit with his son last night due to his son having to stay at work late. Patient states he has not made any definitive plans regarding hospice or further treatment. Objective Vitals Vital Signs Date Time Temp Pulse Resp B/P Pulse Ox O2 Delivery O2 Flow Rate FiO2 09/27/16 12:00 97.8 95 20 102/93 93 09/27/16 08:00 100.0 20 09/27/16 05:10 97.7 80 18 106/68 93 09/27/16 00:27 96.8 86 18 129/68 92 09/26/16 22:20 96 103/63 09/26/16 21:20 Room Air 09/26/16 21:17 97/63 09/26/16 20:40 98.2 92 20 97/64 92 09/26/16 20:05 86 I/O 09/26/16 09/26/16 09/26/16 09/27/16 09/27/16 09/27/16 06:59 14:59 22:59 06:59 14:59 22:59 Intake Total 180 ml 280 ml 550 ml Output Total 500 ml 600 ml Balance 180 ml -220 ml -50 ml Intake Oral 180 ml 280 ml IV Total 50 ml Albumin 500 ml Output Urine Total 500 ml 600 ml # Voids 2 3 # Bowel Movements 1 1 0 Result Diagram: 09/27/16 0827 09/26/16 0423 Imaging Last Impressions Liver Biopsy CT 09/22/16 0000 Signed Impressions: Service Date/Time: Thursday, September 22, 2016 10:49 - CONCLUSION: Uncomplicated CT guided biopsy. Saroj Martinez MD CT Angiography 09/22/16 0000 Signed Impressions: Service Date/Time: Thursday, September 22, 2016 10:49 - CONCLUSION: 1. Right lower lobe pulmonary mass measuring 3.6 x 2.6 cm. This would be amenable to percutaneous biopsy if clinically warranted. 2. Circumferential wall thickening involving the lower thoracic esophagus with some dilatation of the more proximal esophagus. I cannot exclude an infiltrating process such as malignancy. 3. No pulmonary embolus. 4. Pronounced emphysematous changes. 5. Tiny bilateral pleural effusions. Ruben Hannon Jr., MD Abdomen Ultrasound 09/22/16 0000 Signed Impressions: Service Date/Time: Thursday, September 22, 2016 11:32 - CONCLUSION: Trace of ascites. Insufficient for drainage. Saroj Martinez MD Abdomen/Pelvis CT 09/21/16 1049 Signed Impressions: Service Date/Time: Wednesday, September 21, 2016 12:51 - CONCLUSION: Persistent findings of cirrhosis hepatocellular disease splenomegaly varices portal hypertension and ascites. Significant change with multiple low density lesions ill-defined in the liver as well as intra-abdominal adenopathy at the bernie hepatis as well as retroperitoneal up to 5 cm in size. Findings are highly suggestive of malignancy such as hepatocellular carcinoma or metastatic disease. Mello Zelaya MD Chest X-Ray 09/21/16 1010 Signed Impressions: Service Date/Time: Wednesday, September 21, 2016 10:07 - CONCLUSION: There is a small focal area of parenchymal consolidation in the right lung base along with a small right effusion. Focal right lower lung pneumonia is the primary consideration. Recommend a followup chest x-ray in 2-3 weeks after appropriate medical therapy to ensure resolution. If this has not resolved after appropriate medical therapy, then a noncontrast CT thorax can be performed for further evaluation on a nonemergent outpatient basis.. Saroj Martinez MD Objective Remarks GENERAL: Very pleasant cachectic adult white male in no acute distress SKIN: No stigmata of chronic liver disease except very mild jaundice. CARDIOVASCULAR: Heart sounds distant. NRRR, normal S1/S2, no MRG RESPIRATORY: Normal rate. Clear to auscultation bilaterally: No appreciated congestion or wheezing GASTROINTESTINAL: Abdomen non-distended. Normal bowel sounds. MUSCULOSKELETAL: Grossly normal motor function and range of motion NEUROLOGICAL: Alert upon awakening. Pursue normal cranial nerves and peripheral motor and sensory function. Normal speech. Procedures 09/22 - CT guided liver Bx A/P Assessment and Plan 60 year old male with PMH of cirrhosis presenting with: Discharge Planning Unclear at this time; pending work-up of malignancy and discussions with palliative care Problem List: (1) Hepatocellular carcinoma Status: Acute Plan: Impression: Highly suspicious for malignancy by CT. CTA chest showing approx 3x3 cm lung mass, could be primary or met; CTA with portal hypertension, ascites, esophageal thickening which could also be primary cancer source AFP elevated to 131.7, CA 19-9 elevated to 45.1, CEA Ag normal (2.8) Biopsy: Active cirrhosis with focal moderately differentiated hepatocellular carcinoma -Oncology consulted, appreciate their recommendations -Hospice versus trial of sorafenib; poor prognosis -Patient to discuss with son; will place hospice consult pending their discussion -GI consulted, appreciate their recommendations -EGD 09/24 showing esophageal varices -Colonoscopy once stable unless transitioned to hospice -Palliative care (Dr. Hudson) consulted to address goals of care and disposition planning (CM to assist as well, patient lives in [place], son is local) -Patient/his son still deciding regarding options; patient's son has some fears regarding his grandson -Patient to discuss with son again this evening about hospice versus trial of sorafenib; will place hospice consult pending family decision -Arrange for licensed master social worker to provide support to grandson Pain Control: - Pain scale: Ibuprofen (PA 1-2) and oxycodone 5mg / 10mg (PA 3-5 / 6-10) as needed for pain -Dilaudid 1 mg IV every 3 hours for breakthrough pain (2) Sepsis syndrome Status: Acute Plan: Patient met sepsis criteria during hospitalization (Hypotension, tachycardia); however, patient has history of chronic hypotension presumably secondary to cirrhosis. Lactic acid initially wnl; subsequently increased to 3.7 09/22 Patient with CXR suggestive of pneumonia 2D echo not suggestive of endocarditis Abdominal U/S showing small ascites but insufficient to obtain paracentesis sample Liver biopsy: gram stain, AFB, fungal stain negative ID consulted: -Continue to follow cultures -Continue Rocephin 2gm IV q24hrs -Recheck CXR; consider oral antibiotics based on results -Bilateral LL consolidation/effusions Cultures: Blood cultures 09/22 : 1 bottle growing E. coli (resistant to ampicillin, Unasyn, Bactrim) -Other blood cultures drawn 09/22 negative to date Sputum- heavy growth normal respiratory adam Antibiotic History: Flagyl x5 doses Azithromycin x1 dose Zosyn x1 dose (3) Pneumonia Status: Acute Plan: -Continue management per ID as above -Continue Rocephin 2gm daily -Repeat CXR 09/27- bilateral LL consolidation and effusions -Continue Prednisone 40mg daily Impression: CXR 09/21 suspicious for right lower lobe pneumonia. In setting of likely cancer, this could either be a primary with obstruction versus solely malignancy versus separate community-acquired pneumonia. CTA chest showing 3x3 cm mass and emphysematous changes Legionella urine antigen, Pneumococcal urine antigen negative Sputum Gram stain negative, culture growing normal respiratory adam Influenza negative (4) Liver cirrhosis Status: Chronic Plan: Well compensated at present. MELD 9 -GI Consulted - Cont. Aldactone 12.5mg BID - Hold Furosemide 20mg - Cont. Albumin 25mg IV q12hrs - Hepatic dosing of meds (5) Hyponatremia Status: Resolved Plan: Likely chronic Na 139 on 09/24 * Encourage salty foods * Monitor BMP (6) Anemia of chronic disease Status: Chronic Plan: Stable at present * Monitor H/H (7) Depression Status: Chronic Plan: Stable * Continue home Seroquel, Elavil (8) GERD (gastroesophageal reflux disease) Status: Chronic Plan: Stable * Continue home Protonix (9) Alcohol abuse Status: Chronic Plan: Does not drink very much at present, however has severe cirrhosis * [facility] protocol * Continue vitamin supplementation with thiamine, folic acid, B12 (10) Tobacco abuse Status: Chronic Plan: Nicotine patch if patient requests (11) FEN/PPX Status: Acute Plan: Fluids: PO only except with IV meds Elecs: Monitor and replete PRN Nutrition: Diet regular basic DVT: SCDs to BLE; Enoxaparin 40mg daily Pain: As above GI: On Protonix 40 mg daily Problem Qualifiers (1) Pneumonia: Qualified Code: J18.1 - Pneumonia of right lower lobe due to infectious organism (2) Liver cirrhosis: Qualified Code: K70.30 - Alcoholic cirrhosis of liver without ascites Shaheen Patel MD R2 Sep 27, 2016 16:14
[2016-09-27] MEDS: ALBUMIN HUMAN 5% 25 GM/500 ML BOTTLE IV SCH ×2 (16:22→22:36)
[2016-09-27] MEDS: AMITRIPTYLINE HCL 50 MG TAB PO SCH (22:36)
[2016-09-27] MEDS: QUEtiapine FUMARATE 50 MG EXTENDED RELEASE TABLET PO SCH (22:36)
[2016-09-28] VITALS (7 sets, daily range): BP systolic 100–119; BP diastolic 59–75; PULSE 82–95; RESP 16–20; TEMP 97.6–98.2; O2SAT 91–95
[2016-09-28] MEDS: MIDODRINE 5 MG TAB PO SCH ×3 (06:35→16:42)
[2016-09-28] MEDS: FOLIC ACID 1 MG TAB PO SCH (09:05)
[2016-09-28] MEDS: MULTIVITAMIN TAB PO SCH (09:05)
[2016-09-28] MEDS: SPIRONOLACTONE 25 MG TAB PO SCH ×2 (09:05→22:14)
[2016-09-28] MEDS: THIAMINE HCL 100 MG TAB PO SCH (09:05)
[2016-09-28] MEDS: PANTOPRAZOLE SOD 40 MG DELAYED RELEASE TAB PO SCH (09:05)
[2016-09-28] MEDS: CYANOCOBALAMIN 100 MCG TAB PO SCH (09:05)
[2016-09-28] MEDS: predniSONE 20 MG TAB PO SCH (09:05)
[2016-09-28] MEDS: LACTULOSE SYRUP 20 GM/30 ML CUP PO SCH (09:05)
[2016-09-28] MEDS: SODIUM CHLORIDE 0.9% FLUSH 5 ML FLUSH FLUSH SCH ×2 (09:06→22:15)
[2016-09-28] MEDS: ALBUMIN HUMAN 5% 25 GM/500 ML BOTTLE IV SCH ×2 (09:15→22:14)
--- NOTE | 2016-09-28 11:27 | PD.ONC.PN ---
Subjective Subjective Remarks Afebrile overnight. Patient resting comfortably without complaint. Objective Data Date Time Temp Pulse Resp B/P Pulse Ox O2 Delivery O2 Flow Rate FiO2 09/28/16 08:00 97.8 82 16 100/62 92 09/28/16 04:00 97.6 85 20 100/64 92 09/28/16 00:26 98.2 93 20 112/67 92 09/27/16 20:45 98.3 100 22 123/69 93 09/27/16 20:30 Room Air 09/27/16 19:46 100 09/27/16 16:00 98.7 95 20 113/58 94 09/27/16 12:00 97.8 95 20 102/93 93 09/28/16 09/28/16 09/28/16 07:00 15:00 23:00 Intake Total 240 ml Output Total 200 ml Balance 40 ml Result Diagram: 09/27/1627 09/26/16 0423 Administered Medications Medications (Trade) Dose Ordered Sig/Bashir Route PRN Reason Start Time Stop Time Status Last Admin Dose Admin IV Flush (NS Flush) 2 ml UNSCH PRN FLUSH FLUSH AFTER USING IV ACCESS 09/21/16 14:30 09/26/16 21:11 IV Flush (NS Flush) 2 ml BID FLUSH 09/21/16 21:00 09/28/16 09:06 Oxycodone HCl (Roxicodone) 10 mg Q4H PRN PO PAIN SCALE 6 TO 10 09/21/16 14:30 09/28/16 09:13 Hydromorphone HCl (Dilaudid Pf Inj) 1 mg Q3H PRN IV BREAKTHROUGH PAIN 09/21/16 14:30 09/23/16 11:48 Prednisone (Deltasone) 40 mg DAILY PO 09/22/16 09:00 09/28/16 09:05 Pantoprazole Sodium (Protonix) 40 mg DAILY PO 09/22/16 09:00 09/28/16 09:05 Amitriptyline HCl (Elavil) 50 mg HS PO 09/21/16 21:00 09/27/16 22:36 Folic Acid (Folate) 1 mg DAILY PO 09/22/16 09:00 09/28/16 09:05 Furosemide (Lasix) 20 mg DAILY PO 12/28/16 09:00 Hold 09/24/16 11:51 Thiamine HCl (Vitamin B1) 100 mg DAILY PO 09/22/16 09:00 09/28/16 09:05 Quetiapine Fumarate (SEROquel XR) 50 mg HS PO 09/21/16 21:00 09/27/16 22:36 Albumin Human (Albumin 5% Inj) 25 gm Q12H IV 09/22/16 09:00 09/28/16 09:15 Midodrine (Proamatine) 10 mg TID@,, PO 09/23/16 12:00 09/28/16 06:35 Lactulose (Lactulose Liq) 30 ml DAILY PO 09/23/16 11:00 09/28/16 09:05 Spironolactone 12.5 mg 12.5 mg BID PO 09/24/16 09:00 09/28/16 09:05 Ceftriaxone Sodium/Sodium Chloride (Rocephin Inj/NS Inj) 100 ml @ 200 mls/hr Q24H IV 09/24/16 14:00 09/27/16 16:00 Enoxaparin Sodium (Lovenox Inj) 40 mg Q24H SQ 09/24/16 12:00 09/27/16 12:22 Multivitamins (Theragran) 1 tab DAILY PO 09/28/16 09:00 09/28/16 09:05 Cyanocobalamin (Vitamin B12) 100 mcg DAILY PO 09/28/16 09:00 09/28/16 09:05 Objective Remarks GENERAL: Middle aged male, sitting up in bed in [facility]. SKIN: Warm and dry. HEAD: Normocephalic. EYES: No scleral icterus. No injection or drainage. NECK: Supple, trachea midline. CARDIOVASCULAR: Regular rate and rhythm RESPIRATORY: Breath sounds equal bilaterally. No accessory muscle use. GASTROINTESTINAL: Abdomen soft, non-tender, nondistended. EXTREMITIES: No cyanosis NEUROLOGICAL: No obvious focal deficit. Awake, alert, and oriented x3. Assessment/Plan Problem List: (1) Liver cirrhosis Status: Chronic Plan: --still drinks one to two beers a day. -- history of portal hypertension with varices but no history of GI bleed. --CT abdomen also showed ascites and sign of portal hypertension. --Hep C positive. (2) Hepatocellular carcinoma Status: Acute Plan: --Moderately differentiated hepatocellular carcinoma. --CT showed Liver mass with intra-abdominal adenopathy. --history of alcohol-induced and hep C cirrhosis. - CT chest showed a right lower lobe lung mass and circumferential wall thickening of lower thoracic esophagus. --AFP and Ca 19-9 slightly elevated but non specific. --09/24 Path showed hepatocellular carcinoma. Prognosis is poor. Unusual mets pattern to lung. --CT showed thickened esophageal wall and that may be the cause of his HENRI pain. -EGD showed esophageal varices with retained food. (3) Pneumonia Status: Acute Plan: -- Chest x-ray showed right lung base consolidation with small right pleural effusion. --on abx Assessment 60y/o male with hepatocellular carcinoma. Plan 1. continue supportive care. 2. await patient decision on hospice vs treatment with Sorafenib. Attending Statement The exam, history, and the medical decision-making described in the above note were completed with the assistance of the mid-level provider. I reviewed and agree with the findings presented. I attest that I had a [id number] encounter with the patient on the same day, and personally performed and documented my assessment and findings in the medical record. HENRI pain controlled. Has not decided whether he wants treatment vs hospice yet. He stated that his son is off from workl today and they will have time to talk about the plan. Problem Qualifiers (1) Liver cirrhosis: Qualified Code: K70.30 - Alcoholic cirrhosis of liver without ascites (2) Pneumonia: Qualified Code: J18.1 - Pneumonia of right lower lobe due to infectious organism Kary Montgomery Sep 28, 2016 11:27 Ranjit Franz MD Sep 28, 2016 15:47
--- NOTE | 2016-09-28 12:42 | HHI.GIFU ---
Subjective Remarks Resting in bed. Has not made a decision re: hospice vs. chemotherapy. States he was up all night because there was a lady screaming down the [place] last night. States he does not want to think about anything at this time, just wants to try to sleep. Pain controlled (Abbie Johns) Objective Vitals I&O Vital Signs Date Time Temp Pulse Resp B/P Pulse Ox O2 Delivery O2 Flow Rate FiO2 09/28/16 11:47 Room Air 21 09/28/16 08:00 97.8 82 16 100/62 92 09/28/16 04:00 97.6 85 20 100/64 92 09/28/16 00:26 98.2 93 20 112/67 92 09/27/16 20:45 98.3 100 22 123/69 93 09/27/16 20:30 Room Air 09/27/16 19:46 100 09/27/16 16:00 98.7 95 20 113/58 94 I/O 09/27/16 09/27/16 09/27/16 09/28/16 09/28/16 09/28/16 06:59 14:59 22:59 06:59 14:59 22:59 Intake Total 550 ml 480 ml 720 ml 240 ml Output Total 600 ml 600 ml 200 ml Balance -50 ml -120 ml 720 ml 40 ml Intake Oral 480 ml 720 ml 240 ml IV Total 50 ml Albumin 500 ml Output Urine Total 600 ml 600 ml 200 ml # Voids 3 # Bowel Movements 0 1 0 Imaging Last Impressions Chest X-Ray 09/27/16 0000 Signed Impressions: Service Date/Time: Tuesday, September 27, 2016 10:46 - CONCLUSION: Bilateral lower lobe consolidation and effusions. Sg Win MD Liver Biopsy CT 09/22/16 0000 Signed Impressions: Service Date/Time: Thursday, September 22, 2016 10:49 - CONCLUSION: Uncomplicated CT guided biopsy. Saroj Martinez MD CT Angiography 09/22/16 0000 Signed Impressions: Service Date/Time: Thursday, September 22, 2016 10:49 - CONCLUSION: 1. Right lower lobe pulmonary mass measuring 3.6 x 2.6 cm. This would be amenable to percutaneous biopsy if clinically warranted. 2. Circumferential wall thickening involving the lower thoracic esophagus with some dilatation of the more proximal esophagus. I cannot exclude an infiltrating process such as malignancy. 3. No pulmonary embolus. 4. Pronounced emphysematous changes. 5. Tiny bilateral pleural effusions. Ruben Hannon Jr., MD Abdomen Ultrasound 09/22/16 0000 Signed Impressions: Service Date/Time: Thursday, September 22, 2016 11:32 - CONCLUSION: Trace of ascites. Insufficient for drainage. Saroj Martinez MD Abdomen/Pelvis CT 09/21/16 1049 Signed Impressions: Service Date/Time: Wednesday, September 21, 2016 12:51 - CONCLUSION: Persistent findings of cirrhosis hepatocellular disease splenomegaly varices portal hypertension and ascites. Significant change with multiple low density lesions ill-defined in the liver as well as intra-abdominal adenopathy at the bernie hepatis as well as retroperitoneal up to 5 cm in size. Findings are highly suggestive of malignancy such as hepatocellular carcinoma or metastatic disease. Mello Zelaya MD Physical Exam HEENT: Normocephalic; atraumatic; no jaundice. CHEST: CTA, diminished CARDIAC: RRR ABDOMEN: Soft, distended, mild diffuse tenderness; hepatosplenomegaly; bowel sounds are present in all four quadrants. EXTREMITIES: No clubbing, cyanosis, or edema. SKIN: Multiple ecchymotic areas. MAGNETIC TESTING TECHNICIAN: No focal deficits; alert and oriented times three. (Abbie Johns) Assessment and Plan Plan ASSESSMENT: - Liver mass with intra-abdominal adenopathy and elevated tumor markers. Abdomen/Pelvis CT (09/21/16)-----> Persistent findings of cirrhosis hepatocellular disease splenomegaly varices portal hypertension and ascites. Significant change with multiple low density lesions ill-defined in the liver as well as intra-abdominal adenopathy at the bernie hepatis as well as retroperitoneal up to 5 cm in size. Findings are highly suggestive of malignancy such as hepatocellular carcinoma or metastatic disease. AFP 131.7, CEA 2.8, Ca19-[address] guided liver biopsy with acitve cirrhosis with focal moderately differentiated hepatocellular carcinoma. S/P EGD (09/24/16)-----> medium esophageal varices, there was a large amount of residual food seen in the distal esophagus and mid esophagus, food residue in the entire examined stomach, retroflexion was not performed. It was recommended that he had EGD with prolonged NPO period , possibly in conjunction with colonoscopy if patient agrees. He is not wanting to pursue this at this time. Oncology following----> poor prognosis, patient considering Hospice vs. Chemotherapy. Has not made his decision yet. - Esophageal thickening involving the lower thoracic esophagus with some dilatation of the more proximal esophagus on CTA. S/P EGD as above. Pt does not want repeat EGD at this time. - RLL Pulmonary mass measuring 3.6 x 2.6. - Alcoholic cirrhosis- He continue to drink, has been stable with Lasix, Aldactone and Pepcid - Ascites. US with trace ascites, insufficient for safe drainage - Chronic anemia. HH 8.7/25.6. - History of Varices- EGD in 2013, no bleeding reported - Pneumonia- Chest x-ray suggesting pneumonia, abx - Hyponatremia, hypokalemia per attending - Hepatitis C antibodies. Viral load and genotype pending. Plan: - [place], Heart healthy - Cont. Ceftriaxone - Cont. Spironolactone - Cont. Lactulose - Cont. Lasix - Cont. Albumin - Monitor labs - Supportive care - Oncology following, poor prognosis, recommends Hospice- pt still deciding on chemo vs. hospice. - Pt does not want repeat EGD +/- Colonoscopy at this time. - Further recommendations to follow based on results of above - Patient seen and examined by Dr. Scruggs and myself and this note is written on his behalf. (Abbie Johns) Physician Comments Patient was seen and examined, agree with above note. we will check labs, continue supportive care. patient does not want any procedures, he is considering hospice. (Stella Scruggs MD) Abbie Johns Sep 28, 2016 12:42 Stella Scruggs MD Sep 28, 2016 21:53
[2016-09-28] MEDS: cefTRIAXone INJ 2,000 MG in SODIUM CHLORIDE 0.9% INJ 100 ML IV SCH (12:48)
[2016-09-28] MEDS: ENOXAPARIN SODIUM 40 MG/0.4 ML SYRINGE SQ SCH (12:49)
--- NOTE | 2016-09-28 15:22 | HHI.HCPN ---
Reason for visit a. To assist with evaluation and management of symptoms including:pain b. To assist medical decision maker(s) with: better understanding of current medical conditions; weighing benefits/burdens of medical treatment options; making medical treatment decisions. (Kaitlin Pruett) Subjective/Interval History Is seen today to follow-up on comfort as well as goals with patient, family. Patient has had multiple conversations with palliative as well as oncology in the past day or so regarding pathology and limited treatment options. Patient seen in room with no visitors present. He seems to have a good understanding of general prognosis and possibility of palliative chemotherapy versus hospice. Indicates this is a difficult discussion he is having with his son, and that he has worries about his very young grandson who is 8, and he is very close with. He is going to talk more with his son yue in hopes to make a decision in the next day or so. He shares with me that he wishes he knew that there is a way to know how he would do once he started chemotherapy. He expresses that he is fearful of starting chemotherapy becoming ill and "then dying in the hospital anyway". Explore with him that he could experience significant side effects from the chemotherapy that lead to hospitalization, and possible decline until his in the hospital; conversely he could experience decline with or without chemotherapy, he could elect hospice services to help him stay at home until his time of . Explore that if he does wish to pursue palliative chemotherapy would recommend he start that as soon as possible. He is not ready to make a decision today. he does not want me to call any family. He does want to get out of bed, he expresses frustration with being "stuck in bed "not being able to get around and maintain what strength he does have. Her and to get out of bed more. Would request PT evaluate and treat as needed. He indicates he does not need physical therapy he just needs a walker, exploratory that PT would fit him with the appropriate assistive device to ensure that he is safely ambulating. He is in agreement with this. As I'm in completing exam/visit he receives a phone call which then concludes our visit. Discuss with oncology. (Kaitlin Pruett) Advance Directives Living Will: Never completed (Kaitlin Pruett) Objective Vital Signs Date Time Temp Pulse Resp B/P Pulse Ox O2 Delivery O2 Flow Rate FiO2 09/28/16 12:00 97.7 95 16 103/59 91 09/28/16 11:47 Room Air 21 09/28/16 08:00 97.8 82 16 100/62 92 09/28/16 04:00 97.6 85 20 100/64 92 09/28/16 00:26 98.2 93 20 112/67 92 09/27/16 20:45 98.3 100 22 123/69 93 09/27/16 20:30 Room Air 09/27/16 19:46 100 09/27/16 16:00 98.7 95 20 113/58 94 Intake & Output 09/28/16 09/28/16 07:00 19:00 Intake Total 960 ml 480 ml Output Total 200 ml 100 ml Balance 760 ml 380 ml Intake Oral 960 ml 480 ml Output Urine Total 200 ml 100 ml # Voids 3 # Bowel Movements 1 0 Physical Exam CONSTITUTIONAL/GENERAL: This is a thin frail appearing middle-aged man. fatigues with conversation. SKIN: Jaundice. Ecchymoses on upper extremities. No wounds seen anteriorly. RESPIRATORY/CHEST: Symmetric, unlabored respirations on room air. Clear to auscultation. GASTROINTESTINAL: Abdomen soft, somewhat distended. No guarding. Bowel sounds present. MUSCULOSKELETAL: Extremities without clubbing, cyanosis, or edema. + Muscle atrophy 4. NEUROLOGICAL: Awake and alert. Oriented 3, appropriate. Appears to have good insight to hospitalization, diagnoses and prognosis. moves all 4 extremities. ( Kaitlin Pruett) Diagnostic Tests Laboratory Laboratory Tests Test 09/26/16 09/27/16 04:23 08:27 White Blood Count 5.5 TH/MM3 7.4 TH/MM3 (4.0-11.0) (4.0-11.0) Red Blood Count 2.67 MIL/MM3 2.84 MIL/MM3 (4.50-5.90) (4.50-5.90) Hemoglobin 8.2 GM/DL 8.7 GM/DL (13.0-17.0) (13.0-17.0) Hematocrit 24.1 % 25.6 % (39.0-51.0) (39.0-51.0) Mean Corpuscular Volume 90.4 FL 90.0 FL (80.0-100.0) (80.0-100.0) Mean Corpuscular Hemoglobin 30.6 PG 30.7 PG (27.0-34.0) (27.0-34.0) Mean Corpuscular Hemoglobin 33.9 % 34.1 % Concent (32.0-36.0) (32.0-36.0) Red Cell Distribution Width 17.1 % 17.4 % (11.6-17.2) (11.6-17.2) Platelet Count 112 TH/MM3 121 TH/MM3 (150-450) (150-450) Mean Platelet Volume 8.0 FL 8.0 FL (7.0-11.0) (7.0-11.0) Neutrophils (%) (Auto) 75.7 % 75.6 % (16.0-70.0) (16.0-70.0) Lymphocytes (%) (Auto) 10.6 % 11.9 % (9.0-44.0) (9.0-44.0) Monocytes (%) (Auto) 13.0 % 12.2 % (0.0-8.0) (0.0-8.0) Eosinophils (%) (Auto) 0.4 % (0.0-4.0) 0.1 % (0.0-4.0) Basophils (%) (Auto) 0.3 % (0.0-2.0) 0.2 % (0.0-2.0) Neutrophils # (Auto) 4.2 TH/MM3 5.6 TH/MM3 (1.8-7.7) (1.8-7.7) Lymphocytes # (Auto) 0.6 TH/MM3 0.9 TH/MM3 (1.0-4.8) (1.0-4.8) Monocytes # (Auto) 0.7 TH/MM3 0.9 TH/MM3 (0-0.9) (0-0.9) Eosinophils # (Auto) 0.0 TH/MM3 0.0 TH/MM3 (0-0.4) (0-0.4) Basophils # (Auto) 0.0 TH/MM3 0.0 TH/MM3 (0-0.2) (0-0.2) CBC Comment DIFF FINAL DIFF FINAL Differential Comment Sodium Level 138 MEQ/L (136-145) Potassium Level 4.0 MEQ/L (3.5-5.1) Chloride Level 105 MEQ/L (98-107) Carbon Dioxide Level 23.1 MEQ/L (21.0-32.0) Anion Gap 10 MEQ/L (5-15) Blood Urea Nitrogen 10 MG/DL (7-18) Creatinine 0.69 MG/DL (0.60-1.30) Estimat Glomerular Filtration 118 ML/MIN Rate (>89) Random Glucose 101 MG/DL (74-106) Calcium Level 8.4 MG/DL (8.5-10.1) Total Bilirubin 0.7 MG/DL (0.2-1.0) Aspartate Amino Transf 27 U/L (15-37) (AST/SGOT) Alanine Aminotransferase 19 U/L (12-78) (ALT/SGPT) Alkaline Phosphatase 105 U/L (45-117) Total Protein 6.4 GM/DL (6.4-8.2) Albumin 3.1 GM/DL (3.4-5.0) (Kaitlin Pruett) Result Diagram: 09/27/16 0827 09/26/16 0423 Assessment and Plan Disease Oriented Problem List: (1) End-stage liver disease (2) Liver cirrhosis (3) Pneumonia (4) GERD (gastroesophageal reflux disease) (5) Sepsis syndrome Symptom Scale: (1) Malnutrition (2) Pain Pertinent Non-Medical Issues Psychosocial: Virtually from [place]. Not . Supported by one son, as well as [id number] grandson these very close with. 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 Spiritual: Legal: Patient appears capacitated and able to make his own decisions though does involve his son Shelton. Per [place] statutes if patient became incapacitated his son would be legal decision maker. Ethical issues impacting care: Important Contacts son Shelton Watt [phone] Prognosis Admitted for coughing, shortness of breath as well as epigastric pain. Abdominal CT findings of significant hepatocellular disease. Biopsy obtained positive for moderately differentiated hepatocellular carcinoma. Per oncology poor prognosis overall could consider palliative chemotherapy otherwise hospice recommended. Code Status: No Code Plan * CODE STATUS dnr/dni no code. * Goals still pending. Patient is still discussing palliative chemotherapy versus hospice with his son. He has not made a decision yet though indicates he plans to discuss more with his son yue and will make a decision in the next day or so. He is also very worried about his 8-year-old grandson coping with his illness. Patient does want to maintain his physical activity level regardless of decisions, while here in the hospital, he requests out of bed with walker to maintain his activity. Pt request increase activity level, PT to evaluate and treat--upon entering this order noted that medical attending has entered the same prior to my visit *Palliative to continue to provide support/assistance with 8-year-old grandson * SYMPTOMS: --Pain-denies any pain or discomfort today. He has intermittently endorse pain to chest, back to nursing. has prn oxycodone (last dose required 9 AM today ), as well as prn hydromorphone (last dose required 09/23 ) We'll continue to evaluate --Malnutritionalbumin low, 3.1. Chronic, likely secondary to disease process. Eating 100% of meals in the past day or so however at presentation reported poor intake for the prior week or so. * Palliative care will continue to follow during hospital course as condition evolves, to assist patient/decision-maker with understanding of medical conditions, weighing benefits/burdens of treatment options, for clarification of goals of treatment. Additionally will assist with any symptoms of palliative concern (Kaitlin Pruett) Time Spent Total Floor Time (mins): 20 >50% Counseling/Coord of Care: Yes (d/w oncology PA) (Kaitlin Pruett) Attestation To help prompt me to consider important information that might be impacting today's encounter and assessment, information from prior notes written by myself or my colleagues may have been "brought forward" into today's note. My signature on this note, however, is an attestation that I personally performed the exam, history, and/or decision-making noted today, and, unless otherwise indicated, the interactions with patient, family, and staff as well as the review of records all occurred today. I also attest that the listed assessment and stated plan reflect my best clinical judgment today based on the combination of historical information, prior notes, and today's exam/ interactions. When time spent is documented, it refers only to time spent today by the signer, or if indicated, combined time spent today by collaborating physician/nurse practitioner. (Kaitlin Pruett) Collaborating MD Comments Chart reviewed. Case discussed with palliative care SUPPLY CHAIN DESIGN MANAGER. I have reviewed above SUPPLY CHAIN DESIGN MANAGER note and I concur. . (Juarez Laurent MD) Kaitlin Pruett Sep 28, 2016 15:22 Juarez Laurent MD Nov 13, 2016 13:22
--- NOTE | 2016-09-28 15:54 | HHI.FPPN ---
Subjective Remarks No acute events overnight. AF, VS wnl and stable. Had a tough time sleeping last night due to all the vitals checks and needle sticks. No CP. SOB somewhat worsened today. No abdominal pain. (Delmar Dumont MD R1) Objective Vitals Vital Signs Date Time Temp Pulse Resp B/P Pulse Ox O2 Delivery O2 Flow Rate FiO2 09/28/16 12:00 97.7 95 16 103/59 91 09/28/16 11:47 Room Air 21 09/28/16 08:00 97.8 82 16 100/62 92 09/28/16 04:00 97.6 85 20 100/64 92 09/28/16 00:26 98.2 93 20 112/67 92 09/27/16 20:45 98.3 100 22 123/69 93 09/27/16 20:30 Room Air 09/27/16 19:46 100 09/27/16 16:00 98.7 95 20 113/58 94 I/O 09/27/16 09/27/16 09/27/16 09/28/16 09/28/16 09/28/16 07:00 15:00 23:00 07:00 15:00 23:00 Intake Total 550 ml 480 ml 720 ml 240 ml 480 ml Output Total 600 ml 600 ml 200 ml 100 ml Balance -50 ml -120 ml 720 ml 40 ml 380 ml Intake Oral 480 ml 720 ml 240 ml 480 ml IV Total 50 ml Albumin 500 ml Output Urine Total 600 ml 600 ml 200 ml 100 ml # Voids 3 # Bowel Movements 0 1 0 0 (Delmar Dumont MD R1) Result Diagram: 09/27/16 0827 09/26/16 0423 Imaging Last Impressions Chest X-Ray 09/27/16 0000 Signed Impressions: Service Date/Time: Tuesday, September 27, 2016 10:46 - CONCLUSION: Bilateral lower lobe consolidation and effusions. Sg Win MD Liver Biopsy CT 09/22/16 0000 Signed Impressions: Service Date/Time: Thursday, September 22, 2016 10:49 - CONCLUSION: Uncomplicated CT guided biopsy. Saroj Martinez MD CT Angiography 09/22/16 0000 Signed Impressions: Service Date/Time: Thursday, September 22, 2016 10:49 - CONCLUSION: 1. Right lower lobe pulmonary mass measuring 3.6 x 2.6 cm. This would be amenable to percutaneous biopsy if clinically warranted. 2. Circumferential wall thickening involving the lower thoracic esophagus with some dilatation of the more proximal esophagus. I cannot exclude an infiltrating process such as malignancy. 3. No pulmonary embolus. 4. Pronounced emphysematous changes. 5. Tiny bilateral pleural effusions. Ruben Hannon Jr., MD Abdomen Ultrasound 09/22/16 0000 Signed Impressions: Service Date/Time: Thursday, September 22, 2016 11:32 - CONCLUSION: Trace of ascites. Insufficient for drainage. Saroj Martinez MD Abdomen/Pelvis CT 09/21/16 1049 Signed Impressions: Service Date/Time: Wednesday, September 21, 2016 12:51 - CONCLUSION: Persistent findings of cirrhosis hepatocellular disease splenomegaly varices portal hypertension and ascites. Significant change with multiple low density lesions ill-defined in the liver as well as intra-abdominal adenopathy at the bernie hepatis as well as retroperitoneal up to 5 cm in size. Findings are highly suggestive of malignancy such as hepatocellular carcinoma or metastatic disease. Mello Zelaya MD Objective Remarks GENERAL: Very pleasant cachectic adult white male sitting up in bed in no acute distress SKIN: No stigmata of chronic liver disease except very mild jaundice. CARDIOVASCULAR: Heart sounds distant. NRRR, normal S1/S2, no MRG RESPIRATORY: Normal rate. Intermittent cough. Clear to auscultation bilaterally : No crackles or wheezes. GASTROINTESTINAL: Abdomen non-distended. MUSCULOSKELETAL: Grossly normal motor function and range of motion NEUROLOGICAL: Awake, alert. Grossly nonfocal. Normal speech. Procedures 09/22 - CT guided liver Bx Medications and IVs Current Medications Medications (Trade) Dose Ordered Sig/Bashir Route Start Time Stop Time Status Last Admin (NS Flush) 2 ml UNSCH PRN FLUSH 09/21/16 14:30 09/26/16 21:11 (NS Flush) 2 ml BID FLUSH 09/21/16 21:00 09/28/16 09:06 (Motrin) 400 mg Q6H PRN PO 09/21/16 14:30 (Roxicodone) 10 mg Q4H PRN PO 09/21/16 14:30 09/28/16 09:13 (Dilaudid Pf Inj) 1 mg Q3H PRN IV 09/21/16 14:30 12/29/16 11:48 (Roxicodone) 5 mg Q4H PRN PO 09/21/16 14:30 (Ativan) 1 mg Q4H PRN PO 09/21/16 14:45 (Ativan Inj) 1 mg Q4H PRN IV PUSH 09/21/16 14:45 (Ativan) 2 mg Q2H PRN PO 09/21/16 14:45 (Ativan Inj) 2 mg Q2H PRN IV PUSH 09/21/16 14:45 (Ativan Inj) 2 mg Q1H PRN IV PUSH 09/21/16 14:45 (Ativan Inj) 2 mg Q15M PRN IV PUSH 09/21/16 14:45 (Deltasone) 40 mg DAILY PO 09/22/16 09:00 09/28/16 09:05 (Protonix) 40 mg DAILY PO 09/22/16 09:00 09/28/16 09:05 (Elavil) 50 mg HS PO 09/21/16 21:00 09/27/16 22:36 (Folate) 1 mg DAILY PO 09/22/16 09:00 09/28/16 09:05 (Lasix) 20 mg DAILY PO 09/22/16 09:00 Hold 09/24/16 11:51 (Vitamin B1) 100 mg DAILY PO 09/22/16 09:00 09/28/16 09:05 (SEROquel XR) 50 mg HS PO 09/21/16 21:00 09/27/16 22:36 (Albumin 5% Inj) 25 gm Q12H IV 09/22/16 09:00 09/28/16 09:15 (Proamatine) 10 mg TID@07,12,17 PO 09/23/16 12:00 09/28/16 12:49 (Lactulose Liq) 30 ml DAILY PO 09/23/16 11:00 09/28/16 09:05 (Pill Splitter) 1 ea UNSCH PRN OTHER 09/23/16 11:15 Spironolactone 12.5 mg 12.5 mg BID PO 09/24/16 09:00 09/28/16 09:05 (Rocephin Inj/NS Inj) 100 ml @ 200 mls/hr Q24H IV 09/24/16 14:00 09/28/16 12:48 (Lovenox Inj) 40 mg Q24H SQ 09/24/16 12:00 09/28/16 12:49 (Theragran) 1 tab DAILY PO 09/28/16 09:00 09/28/16 09:05 (Vitamin B12) 100 mcg DAILY PO 09/28/16 09:00 09/28/16 09:05 (Delmar Dumont MD R1) A/P Assessment and Plan 60 year old male with PMH of cirrhosis presenting with: Discharge Planning Unclear at this time; pending work-up of malignancy and discussions with palliative care (Delmar Dumont MD R1) Attending Attestation Patient seen and examined. Case reviewed and discussed Agree with plan of care as discussed with me and documented in the resident note. (Naty Man MD) Problem List: (1) Hepatocellular carcinoma Status: Acute Plan: Impression: Highly suspicious for malignancy by CT. CTA chest showing approx 3x3 cm lung mass, could be primary or met; CTA with portal hypertension, ascites, esophageal thickening which could also be primary cancer source AFP elevated to 131.7, CA 19-9 elevated to 45.1, CEA Ag normal (2.8) Biopsy: Active cirrhosis with focal moderately differentiated hepatocellular carcinoma -Oncology consulted, appreciate their recommendations -Hospice versus trial of sorafenib; poor prognosis -Patient to discuss with son this evening (yesterday had brought 8 yo grandson, patient did not wish to discuss with him in room) -Will place hospice consult pending their discussion -GI consulted, appreciate their recommendations -EGD 09/24 showing esophageal varices -Colonoscopy once stable unless transitioned to hospice -Palliative care (Dr. Hudson) consulted to address goals of care and disposition planning (CM to assist as well, patient lives in [place], son is local) -Patient/his son still deciding regarding options; patient's son has some fears regarding his grandson -Patient to discuss with son again this evening about hospice versus trial of sorafenib; will place hospice consult pending family decision -Arrange for social science manager to provide support to grandson Pain Control: -Pain scale: Ibuprofen (PA 1-2) and oxycodone 5mg / 10mg (PA 3-5 / 6-10) as needed for pain -Dilaudid 1 mg IV every 3 hours for breakthrough pain PT to assess for weakness/deconditioning and safety of discharge home (2) Sepsis syndrome Status: Acute Plan: Patient met sepsis criteria during hospitalization (Hypotension, tachycardia); however, patient has history of chronic hypotension presumably secondary to cirrhosis. Lactic acid initially wnl; subsequently increased to 3.7 09/22 Patient with CXR suggestive of pneumonia 2D echo not suggestive of endocarditis Abdominal U/S showing small ascites but insufficient to obtain paracentesis sample Liver biopsy: gram stain, AFB, fungal stain negative ID consulted: -Continue to follow cultures -Continue Rocephin 2gm IV q24hrs -Recheck CXR; consider oral antibiotics based on results -Bilateral LL consolidation/effusions Cultures: Blood cultures 09/22 : 1 bottle growing E. coli (resistant to ampicillin, Unasyn, Bactrim) -Other blood cultures drawn 09/22 negative to date Sputum- heavy growth normal respiratory adam Antibiotic History: Flagyl x5 doses Azithromycin x1 dose Zosyn x1 dose (3) Pneumonia Status: Acute Plan: -Continue management per ID as above -Continue Rocephin 2gm daily -Repeat CXR 09/27- bilateral LL consolidation and effusions -Continue Prednisone 40mg daily Impression: CXR 09/21 suspicious for right lower lobe pneumonia. In setting of likely cancer, this could either be a primary with obstruction versus solely malignancy versus separate community-acquired pneumonia. CTA chest showing 3x3 cm mass and emphysematous changes Legionella urine antigen, Pneumococcal urine antigen negative Sputum Gram stain negative, culture growing normal respiratory adam Influenza negative (4) Liver cirrhosis Status: Chronic Plan: Well compensated at present -GI Consulted, appreciate their recs - Cont. Aldactone 12.5mg BID - Hold Furosemide 20mg - Cont. Albumin 25mg IV q12hrs - Hepatic dosing of meds (5) Hyponatremia Status: Resolved Plan: Likely chronic Na 139 on 09/24 * Encourage salty foods * Monitor BMP (6) Anemia of chronic disease Status: Chronic Plan: Stable at present * Monitor H/H (7) Depression Status: Chronic Plan: Stable * Continue home Seroquel, Elavil (8) GERD (gastroesophageal reflux disease) Status: Chronic Plan: Stable * Continue home Protonix (9) Alcohol abuse Status: Chronic Plan: Does not drink very much at present, however has severe cirrhosis * [facility] protocol * Continue vitamin supplementation with thiamine, folic acid, B12 (10) Tobacco abuse Status: Chronic Plan: Nicotine patch if patient requests (11) FEN/PPX Status: Acute Plan: Fluids: PO only except with IV meds Elecs: Monitor and replete PRN Nutrition: Diet regular basic DVT: SCDs to BLE; Enoxaparin 40mg daily Pain: As above GI: On Protonix 40 mg daily (Delmar Dumont MD R1) Problem Qualifiers (1) Pneumonia: Qualified Code: J18.1 - Pneumonia of right lower lobe due to infectious organism (2) Liver cirrhosis: Qualified Code: K70.30 - Alcoholic cirrhosis of liver without ascites Delmar Dumont MD R1 Sep 28, 2016 15:54 Naty Man MD Sep 28, 2016 17:09
[2016-09-28] MEDS: AMITRIPTYLINE HCL 50 MG TAB PO SCH (22:14)
[2016-09-28] MEDS: QUEtiapine FUMARATE 50 MG EXTENDED RELEASE TABLET PO SCH (22:14)
[2016-09-29] VITALS (9 sets, daily range): BP systolic 102–135; BP diastolic 60–92; PULSE 90–102; RESP 16–22; TEMP 97.4–98.5; O2SAT 90–98
[2016-09-29] MEDS: RESP: ALBUTEROL 2.5 MG/IPRATROPIUM 0.5 MG NEB (PRN) NEB (04:52)
[2016-09-29] MEDS: MIDODRINE 5 MG TAB PO SCH ×3 (06:36→16:13)
[2016-09-29] MEDS: LACTULOSE SYRUP 20 GM/30 ML CUP PO SCH (08:12)
[2016-09-29] MEDS: ALBUMIN HUMAN 5% 25 GM/500 ML BOTTLE IV SCH (08:12)
[2016-09-29] MEDS: THIAMINE HCL 100 MG TAB PO SCH (08:12)
[2016-09-29] MEDS: predniSONE 20 MG TAB PO SCH (08:13)
[2016-09-29] MEDS: CYANOCOBALAMIN 100 MCG TAB PO SCH (08:13)
[2016-09-29] MEDS: SPIRONOLACTONE 25 MG TAB PO SCH ×2 (08:13→23:02)
[2016-09-29] MEDS: PANTOPRAZOLE SOD 40 MG DELAYED RELEASE TAB PO SCH (08:13)
[2016-09-29] MEDS: MULTIVITAMIN TAB PO SCH (08:13)
[2016-09-29] MEDS: SODIUM CHLORIDE 0.9% FLUSH 5 ML FLUSH FLUSH SCH ×2 (08:13→23:03)
[2016-09-29] MEDS: FOLIC ACID 1 MG TAB PO SCH (08:13)
[2016-09-29] MEDS: ENOXAPARIN SODIUM 40 MG/0.4 ML SYRINGE SQ SCH (11:44)
--- NOTE | 2016-09-29 12:32 | PD.ONC.PN ---
Subjective Subjective Remarks Had SOB last night but has improved. Still has HENRI/RUQ pain. Objective Data Date Time Temp Pulse Resp B/P Pulse Ox O2 Delivery O2 Flow Rate FiO2 09/29/16 09:21 Room Air 21 09/29/16 08:00 97.4 94 16 108/76 90 09/29/16 04:00 98.0 90 20 102/60 98 09/29/16 00:00 98.0 97 22 109/65 95 09/28/16 20:45 Room Air 09/28/16 20:00 98.0 93 20 119/75 94 09/28/16 16:00 97.7 93 16 106/64 95 09/29/16 09/29/16 09/29/16 07:00 15:00 23:00 Intake Total 587 ml Output Total 220 ml Balance 367 ml Result Diagram: 09/27/1627 09/26/16 0423 Administered Medications Medications (Trade) Dose Ordered Sig/Bashir Route PRN Reason Start Time Stop Time Status Last Admin Dose Admin IV Flush (NS Flush) 2 ml UNSCH PRN FLUSH FLUSH AFTER USING IV ACCESS 09/21/16 14:30 09/26/16 21:11 IV Flush (NS Flush) 2 ml BID FLUSH 09/21/16 21:00 09/29/16 08:13 Oxycodone HCl (Roxicodone) 10 mg Q4H PRN PO PAIN SCALE 6 TO 10 09/21/16 14:30 09/29/16 06:35 Hydromorphone HCl (Dilaudid Pf Inj) 1 mg Q3H PRN IV BREAKTHROUGH PAIN 09/21/16 14:30 09/23/16 11:48 Prednisone (Deltasone) 40 mg DAILY PO 09/22/16 09:00 09/29/16 08:13 Pantoprazole Sodium (Protonix) 40 mg DAILY PO 09/22/16 09:00 09/29/16 08:13 Amitriptyline HCl (Elavil) 50 mg HS PO 09/21/16 21:00 09/28/16 22:14 Folic Acid (Folate) 1 mg DAILY PO 09/22/16 09:00 09/29/16 08:13 Furosemide (Lasix) 20 mg DAILY PO 09/22/16 09:00 Hold 09/24/16 11:51 Thiamine HCl (Vitamin B1) 100 mg DAILY PO 09/22/16 09:00 09/29/16 08:12 Quetiapine Fumarate (SEROquel XR) 50 mg HS PO 09/21/16 21:00 09/28/16 22:14 Albumin Human (Albumin 5% Inj) 25 gm Q12H IV 09/22/16 09:00 09/29/16 08:12 Midodrine (Proamatine) 10 mg TID@07,, PO 09/23/16 12:00 09/29/16 11:44 Lactulose (Lactulose Liq) 30 ml DAILY PO 09/23/16 11:00 09/29/16 08:12 Spironolactone 12.5 mg 12.5 mg BID PO 09/24/16 09:00 09/29/16 08:13 Ceftriaxone Sodium/Sodium Chloride (Rocephin Inj/NS Inj) 100 ml @ 200 mls/hr Q24H IV 09/24/16 14:00 09/28/16 12:48 Enoxaparin Sodium (Lovenox Inj) 40 mg Q24H SQ 09/24/16 12:00 09/29/16 11:44 Multivitamins (Theragran) 1 tab DAILY PO 09/28/16 09:00 09/29/16 08:13 Cyanocobalamin (Vitamin B12) 100 mcg DAILY PO 09/28/16 09:00 09/29/16 08:13 Objective Remarks GENERAL: Well-nourished, well-developed patient. Weak SKIN: Warm and dry. HEAD: Normocephalic. EYES: No scleral icterus. No injection or drainage. NECK: Supple, trachea midline. No JVD or lymphadenopathy. LYMPHATIC: No adenopathy. CARDIOVASCULAR: Regular rate and rhythm without murmurs. RESPIRATORY: Breath sounds equal bilaterally. No accessory muscle use. GASTROINTESTINAL: Abdomen soft, more distended, Tender HENRI/RUQ, +BS EXTREMITIES: No cyanosis, or edema. MUSCULOSKELETAL: Adequate muscle tone. NEUROLOGICAL: No obvious focal deficit. Awake, alert, and oriented x3. PSYCHIATRIC: Appropriate mood and affect; insight and judgment normal. Assessment/Plan Problem List: (1) Liver cirrhosis Status: Chronic Plan: --still drinks one to two beers a day. -- history of portal hypertension with varices but no history of GI bleed. --CT abdomen also showed ascites and sign of portal hypertension. --Hep C positive. (2) Hepatocellular carcinoma Status: Acute Plan: --Moderately differentiated hepatocellular carcinoma. --CT showed Liver mass with intra-abdominal adenopathy. --history of alcohol-induced and hep C cirrhosis. - CT chest showed a right lower lobe lung mass and circumferential wall thickening of lower thoracic esophagus. --AFP and Ca 19-9 slightly elevated but non specific. --09/24 Path showed hepatocellular carcinoma. Prognosis is poor. Unusual mets pattern to lung. --CT showed thickened esophageal wall and that may be the cause of his HENRI pain. -EGD showed esophageal varices with retained food. (3) Pneumonia Status: Acute Plan: -- Chest x-ray showed right lung base consolidation with small right pleural effusion. --on abx Assessment 60y/o male with hepatocellular carcinoma. Plan 1. continue supportive care. 2. He is leaning towards hospice care. He wants more info about hospice. Consult hospice. Problem Qualifiers (1) Liver cirrhosis: Qualified Code: K70.30 - Alcoholic cirrhosis of liver without ascites (2) Pneumonia: Qualified Code: J18.1 - Pneumonia of right lower lobe due to infectious organism Ranjit Franz MD Sep 29, 2016 12:32
--- NOTE | 2016-09-29 13:31 | HHI.IDPN ---
Subjective Subjective Remarks ID COVERAGE Notes reviewed Temps ok Some SOB earlier Echo ok is a 60 y/o male with extensive history of smoking, cirrhosis of the liver thought to be due to prior alcohol use. Liver biopsy with cirrhosis and hepatocellular CA Has BC with E coli Antibiotics Rocephin Lines Line sites with no e/o infection. Past Medical History reviewed Allergies: Coded Allergies: *MDRO Multi-Drug Resistant Organism (Verified Allergy, Unknown, 09/21/16) MDR Streptococcus pneumoniae Objective . Vital Signs Date Time Temp Pulse Resp B/P Pulse Ox O2 Delivery O2 Flow Rate FiO2 09/29/16 12:00 97.6 99 16 122/83 90 09/29/16 09:21 Room Air 21 09/29/16 08:00 97.4 94 16 108/76 90 09/29/16 04:00 98.0 90 20 102/60 98 09/29/16 00:00 98.0 97 22 109/65 95 09/28/16 20:45 Room Air 09/28/16 20:00 98.0 93 20 119/75 94 09/28/16 16:00 97.7 93 16 106/64 95 09/28/16 09/28/16 09/29/16 15:00 23:00 07:00 Intake Total 480 ml 240 ml 587 ml Output Total 100 ml 100 ml 220 ml Balance 380 ml 140 ml 367 ml Intake Oral 480 ml 240 ml 587 ml Output Urine Total 100 ml 100 ml 220 ml # Bowel Movements 0 0 0 Imaging Last Impressions Liver Biopsy CT 09/22/16 0000 Signed Impressions: Service Date/Time: Thursday, September 22, 2016 10:49 - CONCLUSION: Uncomplicated CT guided biopsy. Saroj Martinez MD CT Angiography 09/22/16 0000 Signed Impressions: Service Date/Time: Thursday, September 22, 2016 10:49 - CONCLUSION: 1. Right lower lobe pulmonary mass measuring 3.6 x 2.6 cm. This would be amenable to percutaneous biopsy if clinically warranted. 2. Circumferential wall thickening involving the lower thoracic esophagus with some dilatation of the more proximal esophagus. I cannot exclude an infiltrating process such as malignancy. 3. No pulmonary embolus. 4. Pronounced emphysematous changes. 5. Tiny bilateral pleural effusions. Ruben Hannon Jr., MD Abdomen Ultrasound 09/22/16 0000 Signed Impressions: Service Date/Time: Thursday, September 22, 2016 11:32 - CONCLUSION: Trace of ascites. Insufficient for drainage. Saroj Martinez MD Abdomen/Pelvis CT 09/21/16 1049 Signed Impressions: Service Date/Time: Wednesday, September 21, 2016 12:51 - CONCLUSION: Persistent findings of cirrhosis hepatocellular disease splenomegaly varices portal hypertension and ascites. Significant change with multiple low density lesions ill-defined in the liver as well as intra-abdominal adenopathy at the bernie hepatis as well as retroperitoneal up to 5 cm in size. Findings are highly suggestive of malignancy such as hepatocellular carcinoma or metastatic disease. Mello Zelaya MD Chest X-Ray 09/21/16 1010 Signed Impressions: Service Date/Time: Wednesday, September 21, 2016 10:07 - CONCLUSION: There is a small focal area of parenchymal consolidation in the right lung base along with a small right effusion. Focal right lower lung pneumonia is the primary consideration. Recommend a followup chest x-ray in 2-3 weeks after appropriate medical therapy to ensure resolution. If this has not resolved after appropriate medical therapy, then a noncontrast CT thorax can be performed for further evaluation on a nonemergent outpatient basis.. Saroj Martinez MD Physical Exam GENERAL: Thin male, awake and alert, NAD SKIN: No generalized rashes, cool and dry HEENT: No scleral icterus. No injection or drainage. Moist mucosa NECK: Trachea midline. Supple, nontender, no meningeal signs. CARDIOVASCULAR: HS audible. RESPIRATORY: Clear to auscultation. Breath sounds equal bilaterally. GASTROINTESTINAL: Abdomen distended, with diffuse tenderness MUSCULOSKELETAL: Extremities without clubbing, cyanosis, or edema. No calf tenderness. NEUROLOGICAL: Non-focal Psych cooperative IV line sites with no e.o infection. Assessment & Plan Remarks Sepsis E.coli bacteremia Pneumonia vs septic emboli. Hepatitis C antibody positive. Hepatocellular carcinoma in a patient with HCV positive. Ascites with tiny pleural effusions. Esophageal mass needs EGD. Recs Change Rocephin to Levaquin - give 7 more days of po Abx Clinically seems stable from ID standpoint I will be available prn Please call if with any ID issue or question Eden Meneses MD Sep 29, 2016 13:31
--- NOTE | 2016-09-29 13:38 | HHI.GIFU ---
Subjective Remarks Pt sitting up in bed. States he still has not made any final decisions regarding chemotherapy vs. hospice. Pain controlled. (Abbie Johns ) Objective Vitals I&O Vital Signs Date Time Temp Pulse Resp B/P Pulse Ox O2 Delivery O2 Flow Rate FiO2 09/29/16 12:00 97.6 99 16 122/83 90 09/29/16 09:21 Room Air 21 09/29/16 08:00 97.4 94 16 108/76 90 09/29/16 04:00 98.0 90 20 102/60 98 09/29/16 00:00 98.0 97 22 109/65 95 09/28/16 20:45 Room Air 09/28/16 20:00 98.0 93 20 119/75 94 09/28/16 16:00 97.7 93 16 106/64 95 I/O 09/28/16 09/28/16 09/28/16 09/29/16 09/29/16 09/29/16 07:00 15:00 23:00 07:00 15:00 23:00 Intake Total 240 ml 480 ml 240 ml 587 ml Output Total 200 ml 100 ml 100 ml 220 ml Balance 40 ml 380 ml 140 ml 367 ml Intake Oral 240 ml 480 ml 240 ml 587 ml Output Urine Total 200 ml 100 ml 100 ml 220 ml # Bowel Movements 0 0 0 0 Imaging Last Impressions Chest X-Ray 09/27/16 0000 Signed Impressions: Service Date/Time: Tuesday, September 27, 2016 10:46 - CONCLUSION: Bilateral lower lobe consolidation and effusions. Sg Win MD Liver Biopsy CT 09/22/16 0000 Signed Impressions: Service Date/Time: Thursday, September 22, 2016 10:49 - CONCLUSION: Uncomplicated CT guided biopsy. Saroj Martinez MD CT Angiography 09/22/16 0000 Signed Impressions: Service Date/Time: Thursday, September 22, 2016 10:49 - CONCLUSION: 1. Right lower lobe pulmonary mass measuring 3.6 x 2.6 cm. This would be amenable to percutaneous biopsy if clinically warranted. 2. Circumferential wall thickening involving the lower thoracic esophagus with some dilatation of the more proximal esophagus. I cannot exclude an infiltrating process such as malignancy. 3. No pulmonary embolus. 4. Pronounced emphysematous changes. 5. Tiny bilateral pleural effusions. Ruben Hannon Jr., MD Abdomen Ultrasound 09/22/16 0000 Signed Impressions: Service Date/Time: Thursday, September 22, 2016 11:32 - CONCLUSION: Trace of ascites. Insufficient for drainage. Saroj Martinez MD Abdomen/Pelvis CT 09/21/16 1049 Signed Impressions: Service Date/Time: Wednesday, September 21, 2016 12:51 - CONCLUSION: Persistent findings of cirrhosis hepatocellular disease splenomegaly varices portal hypertension and ascites. Significant change with multiple low density lesions ill-defined in the liver as well as intra-abdominal adenopathy at the bernie hepatis as well as retroperitoneal up to 5 cm in size. Findings are highly suggestive of malignancy such as hepatocellular carcinoma or metastatic disease. Mello Zelaya MD Physical Exam HEENT: Normocephalic; atraumatic; no jaundice. CHEST: CTA, diminished CARDIAC: RRR ABDOMEN: Soft, distended, mild diffuse tenderness; hepatosplenomegaly; bowel sounds are present in all four quadrants. EXTREMITIES: No clubbing, cyanosis, or edema. SKIN: Multiple ecchymotic areas. PIPE LINE REPAIRER: No focal deficits; alert and oriented times three. (Abbie Johns) Assessment and Plan Plan ASSESSMENT: - Liver mass with intra-abdominal adenopathy and elevated tumor markers. Abdomen/Pelvis CT (09/21/16)-----> Persistent findings of cirrhosis hepatocellular disease splenomegaly varices portal hypertension and ascites. Significant change with multiple low density lesions ill-defined in the liver as well as intra-abdominal adenopathy at the bernie hepatis as well as retroperitoneal up to 5 cm in size. Findings are highly suggestive of malignancy such as hepatocellular carcinoma or metastatic disease. AFP 131.7, CEA 2.8, Ca19-[address] guided liver biopsy with acitve cirrhosis with focal moderately differentiated hepatocellular carcinoma. S/P EGD (09/24/16)-----> medium esophageal varices, there was a large amount of residual food seen in the distal esophagus and mid esophagus, food residue in the entire examined stomach, retroflexion was not performed. It was recommended that he had EGD with prolonged NPO period , possibly in conjunction with colonoscopy if patient agrees. Oncology following----> poor prognosis, patient considering Hospice vs. Chemotherapy. Pt is still considering this and has not made his final decision. States that son is going to look at Hospice facility before he makes a decision. - Esophageal thickening involving the lower thoracic esophagus with some dilatation of the more proximal esophagus on CTA. S/P EGD as above. Rpt EGD was recommended, but patient now considering Hospice. Will hold on this unless he wants to pursue aggressive tx. - RLL Pulmonary mass measuring 3.6 x 2.6. - Alcoholic cirrhosis- He continue to drink, has been stable with Lasix, Aldactone and Pepcid - Ascites. US with trace ascites, insufficient for safe drainage - Chronic anemia. HH 8.7/25.6. - History of Varices- EGD in 2013, no bleeding reported - Pneumonia- Chest x-ray suggesting pneumonia, abx - Hyponatremia, hypokalemia per attending - Hepatitis C antibodies. Viral load and genotype pending. Plan: - [place], Heart healthy - Cont. Spironolactone - Cont. Lactulose - Monitor labs - Oncology following, poor prognosis, recommends Hospice- pt still deciding on chemo vs. hospice, but states his son is going to look at hospice facility. - Would hold off on further procedures at this time, since patient is considering Hospice. If he elects aggressive tx then can discuss again. - Further recommendations to follow based on results of above - Patient seen and examined by Dr. Scruggs and myself and this note is written on his behalf. (Abbie Johns) Physician Comments Patient was seen and examined, agree with above note and plan, await patient and family decision about hospice. (Stella Scruggs MD) Abbie Johns Sep 29, 2016 13:38 Stella Scruggs MD Sep 29, 2016 20:41
[2016-09-29] MEDS: LEVOFLOXACIN 750 MG TAB PO SCH (13:47)
--- NOTE | 2016-09-29 19:47 | HHI.FPPN ---
Subjective Remarks Patient seen around 1100 No acute events overnight, Afebrile, vitals wnl and stable. Feeling very tired, not wanting to talk today. Denies CP. SOB mild and stable. (Delmar Dumont MD R1) Objective Vitals Vital Signs Date Time Temp Pulse Resp B/P Pulse Ox O2 Delivery O2 Flow Rate FiO2 09/29/16 16:00 97.9 100 16 135/79 93 09/29/16 12:00 97.6 99 16 122/83 90 09/29/16 09:21 Room Air 21 09/29/16 08:53 102 09/29/16 08:00 97.4 94 16 108/76 90 09/29/16 04:00 98.0 90 20 102/60 98 09/29/16 00:00 98.0 97 22 109/65 95 09/28/16 20:45 Room Air 09/28/16 20:00 98.0 93 20 119/75 94 I/O 09/28/16 09/28/16 09/28/16 09/29/16 09/29/16 09/29/16 07:00 15:00 23:00 07:00 15:00 23:00 Intake Total 240 ml 480 ml 240 ml 587 ml 840 ml Output Total 200 ml 100 ml 100 ml 220 ml 925 ml Balance 40 ml 380 ml 140 ml 367 ml -85 ml Intake Oral 240 ml 480 ml 240 ml 587 ml 840 ml Output Urine Total 200 ml 100 ml 100 ml 220 ml 925 ml # Bowel Movements 0 0 0 0 (Delmar Dumont MD R1) Result Diagram: 09/27/16 0827 09/26/16 0423 Objective Remarks GENERAL: Cachectic adult white male lying on side in bed appearing uncomfortable but in NAD SKIN: No stigmata of chronic liver disease except very mild jaundice. CARDIOVASCULAR: NRRR, normal S1/S2, no MRG RESPIRATORY: Normal rate. Intermittent cough. Clear to auscultation bilaterally : No crackles or wheezes. GASTROINTESTINAL: Abdomen non-distended. MUSCULOSKELETAL: Grossly normal motor function and range of motion NEUROLOGICAL: Awake, alert. Grossly nonfocal. Normal speech. Procedures 09/22 - CT guided liver Bx (Delmar Dumont MD R1) A/P Assessment and Plan 60 year old male with PMH of cirrhosis presenting with: Discharge Planning Unclear at this time; pending work-up of malignancy and discussions with palliative care (Delmar Dumont MD R1) Attending Attestation Patient seen and examined. Case reviewed and discussed Agree with plan of care as discussed with me and documented in the resident note. (Naty Man MD) Problem List: (1) Hepatocellular carcinoma Status: Acute Plan: Impression: Highly suspicious for malignancy by CT. CTA chest showing approx 3x3 cm lung mass, could be primary or met; CTA with portal hypertension, ascites, esophageal thickening which could also be primary cancer source AFP elevated to 131.7, CA 19-9 elevated to 45.1, CEA Ag normal (2.8) Biopsy: Active cirrhosis with focal moderately differentiated hepatocellular carcinoma -Oncology consulted, appreciate their recommendations -Hospice versus trial of sorafenib; poor prognosis -Patient leaning toward hospice, would like more info -Hospice consult placed -GI consulted, appreciate their recommendations -EGD 09/24 showing esophageal varices -Colonoscopy once stable unless transitioned to hospice -Palliative care (Dr. Hudson) consulted to address goals of care and disposition planning (CM to assist as well, patient lives in [place], son is local) -Patient/his son still deciding regarding options; patient's son has some fears regarding his grandson -Patient to discuss with son again this evening about hospice versus trial of sorafenib; will place hospice consult pending family decision -Arrange for socially responsible investment adviser to provide support to grandson Pain Control: -Pain scale: Ibuprofen (PA 1-2) and oxycodone 5mg / 10mg (PA 3-5 / 6-10) as needed for pain -Dilaudid 1 mg IV every 3 hours for breakthrough pain PT to assess for weakness/deconditioning and safety of discharge home (2) Sepsis syndrome Status: Acute Plan: Patient met sepsis criteria during hospitalization (Hypotension, tachycardia); however, patient has history of chronic hypotension presumably secondary to cirrhosis. Lactic acid initially wnl; subsequently increased to 3.7 09/22 Patient with CXR suggestive of pneumonia 2D echo not suggestive of endocarditis Abdominal U/S showing small ascites but insufficient to obtain paracentesis sample Liver biopsy: gram stain, AFB, fungal stain negative ID consulted: -Continue to follow cultures -S/P Rocephin -Continue Levaquin 750 mg PO x7 days per ID -Recheck CXR; consider oral antibiotics based on results -Bilateral LL consolidation/effusions Cultures: Blood cultures 09/22 : 1 bottle growing E. coli (resistant to ampicillin, Unasyn, Bactrim) -Other blood cultures drawn 09/22 negative to date Sputum- heavy growth normal respiratory adam Antibiotic History: Flagyl x5 doses Azithromycin x1 dose Zosyn x1 dose (3) Pneumonia Status: Acute Plan: -Continue management per ID as above -Repeat CXR 09/27- bilateral LL consolidation and effusions -Continue Prednisone 40mg daily Impression: CXR 09/21 suspicious for right lower lobe pneumonia. In setting of likely cancer, this could either be a primary with obstruction versus solely malignancy versus separate community-acquired pneumonia. CTA chest showing 3x3 cm mass and emphysematous changes Legionella urine antigen, Pneumococcal urine antigen negative Sputum Gram stain negative, culture growing normal respiratory adam Influenza negative (4) Liver cirrhosis Status: Chronic Plan: Well compensated at present -GI Consulted, appreciate their recs - Cont. Aldactone 12.5mg BID - Hold Furosemide 20mg - Cont. Albumin 25mg IV q12hrs - Hepatic dosing of meds (5) Hyponatremia Status: Resolved Plan: Likely chronic, now normalized * Encourage salty foods (6) Anemia of chronic disease Status: Chronic Plan: Stable at present * Repeat H/H if symptomatic (7) Depression Status: Chronic Plan: Stable * Continue home Seroquel, Elavil (8) GERD (gastroesophageal reflux disease) Status: Chronic Plan: Stable * Continue home Protonix (9) Alcohol abuse Status: Chronic Plan: Does not drink very much at present, however has severe cirrhosis * [facility] protocol * Continue vitamin supplementation with thiamine, folic acid, B12 (10) Tobacco abuse Status: Chronic Plan: Nicotine patch if patient requests (11) FEN/PPX Status: Acute Plan: Fluids: PO only except with IV meds Elecs: Monitor and replete PRN Nutrition: Diet regular basic DVT: SCDs to BLE; Enoxaparin 40mg daily Pain: As above GI: On Protonix 40 mg daily (Delmar Dumont MD R1) Problem Qualifiers (1) Pneumonia: Qualified Code: J18.1 - Pneumonia of right lower lobe due to infectious organism (2) Liver cirrhosis: Qualified Code: K70.30 - Alcoholic cirrhosis of liver without ascites Delmar Dumont MD R1 Sep 29, 2016 19:47 Naty Man MD Sep 30, 2016 16:37
[2016-09-29] MEDS: AMITRIPTYLINE HCL 50 MG TAB PO SCH (23:02)
[2016-09-29] MEDS: QUEtiapine FUMARATE 50 MG EXTENDED RELEASE TABLET PO SCH (23:02)
[2016-09-30] MEDS: ALBUMIN HUMAN 5% 25 GM/500 ML BOTTLE IV SCH ×3 (01:11→21:38)
[2016-09-30 03:55] VITALS: BP 112/69; PULSE 92; RESP 18; TEMP 98.6; O2SAT 91
[2016-09-30] MEDS: MIDODRINE 5 MG TAB PO SCH ×3 (06:33→17:15)
[2016-09-30 08:00] VITALS: BP 126/74; PULSE 123; PULSE 91; RESP 18; TEMP 97.9; O2SAT 93
[2016-09-30] MEDS: SODIUM CHLORIDE 0.9% FLUSH 5 ML FLUSH FLUSH SCH ×2 (09:00→21:38)
[2016-09-30] MEDS: FOLIC ACID 1 MG TAB PO SCH (09:27)
[2016-09-30] MEDS: CYANOCOBALAMIN 100 MCG TAB PO SCH (09:27)
[2016-09-30] MEDS: PANTOPRAZOLE SOD 40 MG DELAYED RELEASE TAB PO SCH (09:27)
[2016-09-30] MEDS: THIAMINE HCL 100 MG TAB PO SCH (09:27)
[2016-09-30] MEDS: MULTIVITAMIN TAB PO SCH (09:27)
[2016-09-30] MEDS: SPIRONOLACTONE 25 MG TAB PO SCH ×2 (09:27→21:37)
[2016-09-30] MEDS: LEVOFLOXACIN 750 MG TAB PO SCH (09:27)
[2016-09-30] MEDS: predniSONE 20 MG TAB PO SCH (09:27)
[2016-09-30] MEDS: LACTULOSE SYRUP 20 GM/30 ML CUP PO SCH (09:27)
[2016-09-30 09:55] LABS: HCV RNA PCR IU/ML 24600 IU/mL (()); HCV RNA PCR LOGIU/ML 4.39 (())
--- NOTE | 2016-09-30 11:40 | PD.ONC.PN ---
Subjective Subjective Remarks Afebrile overnight. Patient having some abdominal pain, located in the right upper quadrant. Pain is improved with pain medications. Patient still deciding on hospice. Hospice is going to speak with patient's son and patient this evening at 5-530. Objective Data Date Time Temp Pulse Resp B/P Pulse Ox O2 Delivery O2 Flow Rate FiO2 09/30/16 08:00 97.9 91 18 126/74 93 09/30/16 03:55 98.6 92 18 112/69 91 09/29/16 23:27 98.5 93 18 115/71 93 09/29/16 22:00 Room Air 21 09/29/16 20:00 96 09/29/16 19:55 98.4 96 18 134/92 92 09/29/16 16:00 97.9 100 16 135/79 93 09/29/16 12:00 97.6 99 16 122/83 90 09/30/16 09/30/16 09/30/16 06:59 14:59 22:59 Intake Total 240 ml Output Total 425 ml Balance -185 ml Result Diagram: 09/27/1627 09/26/16 0423 Administered Medications Medications (Trade) Dose Ordered Sig/Bashir Route PRN Reason Start Time Stop Time Status Last Admin Dose Admin IV Flush (NS Flush) 2 ml UNSCH PRN FLUSH FLUSH AFTER USING IV ACCESS 09/21/16 14:30 09/26/16 21:11 IV Flush (NS Flush) 2 ml BID FLUSH 09/21/16 21:00 09/30/16 09:00 Oxycodone HCl (Roxicodone) 10 mg Q4H PRN PO PAIN SCALE 6 TO 10 09/21/16 14:30 09/30/16 06:32 Hydromorphone HCl (Dilaudid Pf Inj) 1 mg Q3H PRN IV BREAKTHROUGH PAIN 09/21/16 14:30 09/23/16 11:48 Prednisone (Deltasone) 40 mg DAILY PO 09/22/16 09:00 09/30/16 09:27 Pantoprazole Sodium (Protonix) 40 mg DAILY PO 09/22/16 09:00 09/30/16 09:27 Amitriptyline HCl (Elavil) 50 mg HS PO 09/21/16 21:00 09/29/16 23:02 Folic Acid (Folate) 1 mg DAILY PO 09/22/16 09:00 09/30/16 09:27 Furosemide (Lasix) 20 mg DAILY PO 09/22/16 09:00 Hold 09/24/16 11:51 Thiamine HCl (Vitamin B1) 100 mg DAILY PO 09/22/16 09:00 09/30/16 09:27 Quetiapine Fumarate (SEROquel XR) 50 mg HS PO 09/21/16 21:00 09/29/16 23:02 Albumin Human (Albumin 5% Inj) 25 gm Q12H IV 09/22/16 09:00 09/30/16 01:11 Midodrine (Proamatine) 10 mg TID@,, PO 09/23/16 12:00 09/30/16 06:33 Lactulose (Lactulose Liq) 30 ml DAILY PO 09/23/16 11:00 09/30/16 09:27 Spironolactone (Aldactone) 12.5 mg BID PO 09/24/16 09:00 09/30/16 09:27 Enoxaparin Sodium (Lovenox Inj) 40 mg Q24H SQ 09/24/16 12:00 09/29/16 11:44 Multivitamins (Theragran) 1 tab DAILY PO 09/28/16 09:00 09/30/16 09:27 Cyanocobalamin (Vitamin B12) 100 mcg DAILY PO 09/28/16 09:00 09/30/16 09:27 Levofloxacin (Levaquin) 750 mg DAILY PO 09/29/16 14:00 10/06/16 13:59 09/30/16 09:27 Objective Remarks GENERAL: Middle aged male, lying in bed, sleeping on approach. SKIN: dry and flaky skin. HEAD: Normocephalic. EYES: No scleral icterus. No injection or drainage. NECK: Supple, trachea midline. CARDIOVASCULAR: Regular rate and rhythm RESPIRATORY: Breath sounds equal bilaterally. No accessory muscle use. GASTROINTESTINAL: Abdomen soft, non-tender, nondistended. EXTREMITIES: No cyanosis. scant edema. NEUROLOGICAL: awake and alert. normal speech. appropriate affect Assessment/Plan Problem List: (1) Hepatocellular carcinoma Status: Acute Plan: --Moderately differentiated hepatocellular carcinoma. --CT showed Liver mass with intra-abdominal adenopathy. --history of alcohol-induced and hep C cirrhosis. - CT chest showed a right lower lobe lung mass and circumferential wall thickening of lower thoracic esophagus. --AFP and Ca 19-9 slightly elevated but non specific. --09/24 Path showed hepatocellular carcinoma. Prognosis is poor. Unusual mets pattern to lung. --CT showed thickened esophageal wall and that may be the cause of his HENRI pain. -EGD showed esophageal varices with retained food. (2) Pneumonia Status: Acute Plan: -- Chest x-ray showed right lung base consolidation with small right pleural effusion. --on abx (3) Liver cirrhosis Status: Chronic Plan: --still drinks one to two beers a day. -- history of portal hypertension with varices but no history of GI bleed. --CT abdomen also showed ascites and sign of portal hypertension. --Hep C positive. Assessment 60y/o male with hepatocellular carcinoma. Plan 1. await decision on hospice. 2. continue supportive care Attending Statement The exam, history, and the medical decision-making described in the above note were completed with the assistance of the mid-level provider. I reviewed and agree with the findings presented. I attest that I had a [id number] encounter with the patient on the same day, and personally performed and documented my assessment and findings in the medical record. HENRI pain controlled. No SOB. Abdomen slightly more distended. They are going to meet with hospice this afternoon. He can be d/c home with hospice if he decided on comfort care. Problem Qualifiers (1) Pneumonia: Qualified Code: J18.1 - Pneumonia of right lower lobe due to infectious organism (2) Liver cirrhosis: Qualified Code: K70.30 - Alcoholic cirrhosis of liver without ascites Kary Montgomery Sep 30, 2016 11:40 Ranjit Franz MD Sep 30, 2016 15:51
[2016-09-30] MEDS ORDERED: FUROSEMIDE 20 MG/2 ML VIAL IV PUSH ONE (11:45)
[2016-09-30] MEDS: ENOXAPARIN SODIUM 40 MG/0.4 ML SYRINGE SQ SCH (11:54)
[2016-09-30 12:00] VITALS: BP 97/65; PULSE 83; RESP 18; TEMP 97.3; O2SAT 92
--- NOTE | 2016-09-30 15:52 | HHI.GIFU ---
Subjective Remarks Resting in bed. No complaints. Still has not made decision re: chemo vs. hospice. Him and his son are meeting with hospice this evening to further discuss Hospice services. (Abibe Johns) Objective Vitals I&O Vital Signs Date Time Temp Pulse Resp B/P Pulse Ox O2 Delivery O2 Flow Rate FiO2 09/30/16 12:00 97.3 83 18 97/65 92 09/30/16 08:00 97.9 91 18 126/74 93 09/30/16 08:00 Nasal Cannula 2.00 09/30/16 08:00 123 09/30/16 03:55 98.6 92 18 112/69 91 09/29/16 23:27 98.5 93 18 115/71 93 09/29/16 22:00 Room Air 21 09/29/16 20:00 96 09/29/16 19:55 98.4 96 18 134/92 92 09/29/16 16:00 97.9 100 16 135/79 93 I/O 09/29/16 09/29/16 09/29/16 09/30/16 09/30/16 09/30/16 06:59 14:59 22:59 06:59 14:59 22:59 Intake Total 587 ml 840 ml 480 ml 240 ml 0 ml Output Total 220 ml 925 ml 220 ml 425 ml Balance 367 ml -85 ml 260 ml -185 ml 0 ml Intake Oral 587 ml 840 ml 480 ml 240 ml IV Total 0 ml Output Urine Total 220 ml 925 ml 220 ml 425 ml # Bowel Movements 0 1 0 Imaging Last Impressions Chest X-Ray 09/27/16 0000 Signed Impressions: Service Date/Time: Tuesday, September 27, 2016 10:46 - CONCLUSION: Bilateral lower lobe consolidation and effusions. Sg Win MD Liver Biopsy CT 09/22/16 0000 Signed Impressions: Service Date/Time: Thursday, September 22, 2016 10:49 - CONCLUSION: Uncomplicated CT guided biopsy. Saroj Martinez MD CT Angiography 09/22/16 0000 Signed Impressions: Service Date/Time: Thursday, September 22, 2016 10:49 - CONCLUSION: 1. Right lower lobe pulmonary mass measuring 3.6 x 2.6 cm. This would be amenable to percutaneous biopsy if clinically warranted. 2. Circumferential wall thickening involving the lower thoracic esophagus with some dilatation of the more proximal esophagus. I cannot exclude an infiltrating process such as malignancy. 3. No pulmonary embolus. 4. Pronounced emphysematous changes. 5. Tiny bilateral pleural effusions. Ruben Hannon Jr., MD Abdomen Ultrasound 09/22/16 0000 Signed Impressions: Service Date/Time: Thursday, September 22, 2016 11:32 - CONCLUSION: Trace of ascites. Insufficient for drainage. Saroj Martinez MD Abdomen/Pelvis CT 09/21/16 1049 Signed Impressions: Service Date/Time: Wednesday, September 21, 2016 12:51 - CONCLUSION: Persistent findings of cirrhosis hepatocellular disease splenomegaly varices portal hypertension and ascites. Significant change with multiple low density lesions ill-defined in the liver as well as intra-abdominal adenopathy at the bernie hepatis as well as retroperitoneal up to 5 cm in size. Findings are highly suggestive of malignancy such as hepatocellular carcinoma or metastatic disease. Mello Zelaya MD Physical Exam HEENT: Normocephalic; atraumatic; no jaundice. CHEST: CTA, diminished CARDIAC: RRR ABDOMEN: Soft, distended, mild diffuse tenderness; hepatosplenomegaly; bowel sounds are present in all four quadrants. EXTREMITIES: No clubbing, cyanosis, or edema. SKIN: Multiple ecchymotic areas. SILVER SOLUTION MIXER: No focal deficits; alert and oriented times three. (Abbie Johns) Assessment and Plan Plan ASSESSMENT: - Liver mass with intra-abdominal adenopathy and elevated tumor markers. Abdomen/Pelvis CT (09/21/16)-----> Persistent findings of cirrhosis hepatocellular disease splenomegaly varices portal hypertension and ascites. Significant change with multiple low density lesions ill-defined in the liver as well as intra-abdominal adenopathy at the bernie hepatis as well as retroperitoneal up to 5 cm in size. Findings are highly suggestive of malignancy such as hepatocellular carcinoma or metastatic disease. AFP 131.7, CEA 2.8, Ca19-[address] guided liver biopsy with acitve cirrhosis with focal moderately differentiated hepatocellular carcinoma. S/P EGD (09/24/16)-----> medium esophageal varices, there was a large amount of residual food seen in the distal esophagus and mid esophagus, food residue in the entire examined stomach, retroflexion was not performed. It was recommended that he had EGD with prolonged NPO period , possibly in conjunction with colonoscopy if patient agrees. Oncology following----> poor prognosis, patient considering Hospice vs. Chemotherapy. Pt is still considering this and has not made his final decision. Pt and son meeting with hospice today at 5:30. - Esophageal thickening involving the lower thoracic esophagus with some dilatation of the more proximal esophagus on CTA. S/P EGD as above. Rpt EGD was recommended, but patient now considering Hospice. Will hold on this unless he wants to pursue aggressive tx. - RLL Pulmonary mass measuring 3.6 x 2.6. - Alcoholic cirrhosis- He continue to drink, has been stable with Lasix, Aldactone and Pepcid - Ascites. US with trace ascites, insufficient for safe drainage - Chronic anemia. HH 8.7/25.6. - History of Varices- EGD in 2013, no bleeding reported - Pneumonia- Chest x-ray suggesting pneumonia, abx - Hyponatremia, hypokalemia per attending - Hepatitis C antibodies. Viral load and genotype pending. Plan: - [place], Heart healthy - Cont. Spironolactone - Cont. Lactulose - Monitor labs - Oncology following, poor prognosis, recommends Hospice- pt still deciding on chemo vs. hospice, pt and son meeting with hospice tonight. - Would hold off on further procedures at this time, since patient is considering Hospice. If he elects aggressive tx then can discuss again. - Further recommendations to follow based on results of above - Patient seen and examined by Dr. Scruggs and myself and this note is written on his behalf. (Abbie Johns) Physician Comments Patient was seen and examined, agree with above note and plan, recommend hospice. (Stella Scruggs MD) Abbie Johns Sep 30, 2016 15:52 Stella Scruggs MD Sep 30, 2016 20:39
[2016-09-30 16:00] VITALS: BP 113/70; PULSE 110; RESP 20; TEMP 98.3; O2SAT 93
--- NOTE | 2016-09-30 16:26 | HHI.HCPN ---
Reason for visit a. To assist with evaluation and management of symptoms including:pain b. To assist medical decision maker(s) with: better understanding of current medical conditions; weighing benefits/burdens of medical treatment options; making medical treatment decisions. (Kaitlin Pruett) Subjective/Interval History Patient seen today to follow-up on goals, he has been considering hospice though was still undecided. He met with hospice yesterday though his indicate he wishes to meet with him again with his son present before making decisions. He has remained stable. No new labs or imaging. No further invasive or diagnostic measures pending patient's decisions regarding proceeding with palliative chemotherapy versus hospice. As an appointment later this afternoon to meet with hospice with his son. Patient seen in room no family or visitors present. He is awake alert, pleasant , conversant. Explore with him his feelings regarding chemotherapy versus hospice. He tells me that he met with hospice yesterday but doesn't want to make any further decisions without involving his son though he is leaning towards hospice. He asked me about how hospice can help him in the home setting , he also asked about hospice possibly back in his home state of [place] [he was here for the holidays visiting his son which is an annual trip], but he also indicates that he would be okay was staying locally with his son to spend more time with his grandson before he dies, receiving local hospice. I explained to him hospice role, philosophy, services provided. He asked with hospice provides housing in utilities I explained that they do not. He indicates he is looking at possibly moving in with his son locally and receiving hospice services there however his son's is a barrier to this and seems resistant to moving in. He also has a close friend locally who has just bought a home who might allow him to move in with him, he indicates he could also receive hospice services there. He expresses comfort oriented goals , he doesn't want to return to the hospital and have any further invasive measures and at this point does not sound like he would want chemotherapy. Sounds likely he will proceed with hospice pending he is able to work out the logistics of where he will be living etc. All questions answered, he is appreciative of follow-up visit today, he requests I come back and see him tomorrow morning after his meeting with hospice yue. Denies pain currently, indicates he has been fairly comfortable today. Says he has not had increased shortness of breath today. No abdominal complaints. Has been out of bed with the walker PT has provided him with. Endorses good appetite tells me he is hoping to order a [employer] jay tonight for dinner. (Kaitlin Pruett) Advance Directives Living Will: Never completed (Kaitlin Pruett) Objective Vital Signs Date Time Temp Pulse Resp B/P Pulse Ox O2 Delivery O2 Flow Rate FiO2 09/30/16 12:00 97.3 83 18 97/65 92 09/30/16 08:00 97.9 91 18 126/74 93 09/30/16 08:00 Nasal Cannula 2.00 09/30/16 08:00 123 09/30/16 03:55 98.6 92 18 112/69 91 09/29/16 23:27 98.5 93 18 115/71 93 09/29/16 22:00 Room Air 21 09/29/16 20:00 96 09/29/16 19:55 98.4 96 18 134/92 92 Intake & Output 09/30/16 09/30/16 07:00 19:00 Intake Total 720 ml 0 ml Output Total 645 ml Balance 75 ml 0 ml Intake Oral 720 ml IV Total 0 ml Output Urine Total 645 ml # Bowel Movements 1 Physical Exam CONSTITUTIONAL/GENERAL: This is a thin frail appearing middle-aged man. SKIN: Jaundice. Ecchymoses, few abrasions, on upper extremities. No wounds seen anteriorly. RESPIRATORY/CHEST: Symmetric, unlabored respirations on NC 2l/ Clear to auscultation. GASTROINTESTINAL: Abdomen soft, somewhat distended. No guarding. Bowel sounds present. MUSCULOSKELETAL: Extremities without clubbing, cyanosis, or edema. + Muscle atrophy 4. NEUROLOGICAL: Awake and alert. Oriented 3, appropriate. Appears to have good insight to hospitalization, diagnoses and prognosis. moves all 4 extremities. ( Kaitlin Pruett) Diagnostic Tests Result Diagram: 09/27/16 0827 09/26/16 0423 Imaging Last Impressions Chest X-Ray 09/27/16 0000 Signed Impressions: Service Date/Time: Tuesday, September 27, 2016 10:46 - CONCLUSION: Bilateral lower lobe consolidation and effusions. Sg Win MD Liver Biopsy CT 09/22/16 0000 Signed Impressions: Service Date/Time: Thursday, September 22, 2016 10:49 - CONCLUSION: Uncomplicated CT guided biopsy. Saroj Martinez MD CT Angiography 09/22/16 0000 Signed Impressions: Service Date/Time: Thursday, September 22, 2016 10:49 - CONCLUSION: 1. Right lower lobe pulmonary mass measuring 3.6 x 2.6 cm. This would be amenable to percutaneous biopsy if clinically warranted. 2. Circumferential wall thickening involving the lower thoracic esophagus with some dilatation of the more proximal esophagus. I cannot exclude an infiltrating process such as malignancy. 3. No pulmonary embolus. 4. Pronounced emphysematous changes. 5. Tiny bilateral pleural effusions. Ruben Hannon Jr., MD Abdomen Ultrasound 09/22/16 0000 Signed Impressions: Service Date/Time: Thursday, September 22, 2016 11:32 - CONCLUSION: Trace of ascites. Insufficient for drainage. Saroj Martinez MD Abdomen/Pelvis CT 09/21/16 1049 Signed Impressions: Service Date/Time: Wednesday, September 21, 2016 12:51 - CONCLUSION: Persistent findings of cirrhosis hepatocellular disease splenomegaly varices portal hypertension and ascites. Significant change with multiple low density lesions ill-defined in the liver as well as intra-abdominal adenopathy at the bernie hepatis as well as retroperitoneal up to 5 cm in size. Findings are highly suggestive of malignancy such as hepatocellular carcinoma or metastatic disease. Mello Zelaya MD (Kaitlin Pruett) Assessment and Plan Disease Oriented Problem List: (1) End-stage liver disease (2) Liver cirrhosis (3) Pneumonia (4) GERD (gastroesophageal reflux disease) (5) Sepsis syndrome Symptom Scale: (1) Malnutrition (2) Pain Pertinent Non-Medical Issues Psychosocial: Virtually from [place]. Not . Supported by one son, as well as [id number] grandson these very close with. 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 Spiritual: Legal: Patient appears capacitated and able to make his own decisions though does involve his son Shelton. Per [place] statutes if patient became incapacitated his son would be legal decision maker. Ethical issues impacting care: Important Contacts son Shelton Watt [phone] Prognosis Admitted for coughing, shortness of breath as well as epigastric pain. Abdominal CT findings of significant hepatocellular disease. Biopsy obtained positive for moderately differentiated hepatocellular carcinoma. Per oncology poor prognosis overall could consider palliative chemotherapy otherwise hospice recommended. Code Status: No Code Plan * CODE STATUS dnr/dni no code. * Goals still pending. Patient has a follow-up meeting with hospice and his son later this afternoon. Sounds likely he will proceed with hospice pending he is able to work out the logistics of where he will be living etc. Goals expressed are comfort oriented. * SYMPTOMS: --Pain-denies any pain or discomfort today. He has intermittently endorse pain to chest, back to nursing. had prn oxycodone used x 3 yesterday, x1 today , as well as prn hydromorphone (last dose required 09/23 ) today oxycodone was changed to scheduled Q hr. We'll continue to evaluate --Malnutritionalbumin low, 3.1. Chronic, likely secondary to disease process. Eating 100% of meals past few days, however at presentation 09/21 reported poor intake for the prior week or so. * Palliative care will continue to follow during hospital course as condition evolves, to assist patient/decision-maker with understanding of medical conditions, weighing benefits/burdens of treatment options, for clarification of goals of treatment. Additionally will assist with any symptoms of palliative concern (Kaitlin Pruett) Time Spent Total Floor Time (mins): 20 Face to Face Time (mins): 20 (Kaitlin Pruett) Attestation To help prompt me to consider important information that might be impacting today's encounter and assessment, information from prior notes written by myself or my colleagues may have been "brought forward" into today's note. My signature on this note, however, is an attestation that I personally performed the exam, history, and/or decision-making noted today, and, unless otherwise indicated, the interactions with patient, family, and staff as well as the review of records all occurred today. I also attest that the listed assessment and stated plan reflect my best clinical judgment today based on the combination of historical information, prior notes, and today's exam/ interactions. When time spent is documented, it refers only to time spent today by the signer, or if indicated, combined time spent today by collaborating physician/nurse practitioner. (Kaitlin Pruett) Collaborating MD Comments Chart reviewed. Case discussed with palliative care BENEFITS PROCESSOR. Above BENEFITS PROCESSOR note reviewed and I concur. . (Juarez Laurent MD) Kaitlin Pruett Sep 30, 2016 16:26 Juarez Laurent MD Nov 13, 2016 14:21
--- NOTE | 2016-09-30 16:32 | HHI.FPPN ---
Subjective Remarks Mr. Watkins was afebrile with stable vital signs overnight; patient with O2 saturations of ~91-93% on RA to 2L O2 via NC. Patient visited this morning; he reported continued chest pain with coughing. Patient otherwise denied complaints; he reports that he will have meeting this afternoon with hospice regarding goals of his care. Patient was laying in bed in minimally interactive to questioning. Per EMR, patient voiding and stooling normally; patient reports liquid bowel movements overnight (Shaheen Patel MD R2) Remarks Patient reevaluated this afternoon at 1625; patient visibly more alert and watching TV. Patient states that he is doing well overall, and does not report increased pain. Patient again reports upcoming meeting at 5:30 PM. (Shaheen Patel MD R2) Objective Vitals Vital Signs Date Time Temp Pulse Resp B/P Pulse Ox O2 Delivery O2 Flow Rate FiO2 09/30/16 12:00 97.3 83 18 97/65 92 09/30/16 08:00 97.9 91 18 126/74 93 09/30/16 08:00 Nasal Cannula 2.00 09/30/16 08:00 123 09/30/16 03:55 98.6 92 18 112/69 91 09/29/16 23:27 98.5 93 18 115/71 93 09/29/16 22:00 Room Air 21 09/29/16 20:00 96 09/29/16 19:55 98.4 96 18 134/92 92 I/O 09/29/16 09/29/16 09/29/16 09/30/16 09/30/16 09/30/16 07:00 15:00 23:00 07:00 15:00 23:00 Intake Total 587 ml 840 ml 480 ml 240 ml 0 ml Output Total 220 ml 925 ml 220 ml 425 ml Balance 367 ml -85 ml 260 ml -185 ml 0 ml Intake Oral 587 ml 840 ml 480 ml 240 ml IV Total 0 ml Output Urine Total 220 ml 925 ml 220 ml 425 ml # Bowel Movements 0 1 0 (Shaheen Patel MD R2) Result Diagram: 09/27/16 0827 09/26/16 0423 Imaging Last Impressions Chest X-Ray 09/27/16 0000 Signed Impressions: Service Date/Time: Tuesday, September 27, 2016 10:46 - CONCLUSION: Bilateral lower lobe consolidation and effusions. Sg Win MD Liver Biopsy CT 09/22/16 0000 Signed Impressions: Service Date/Time: Thursday, September 22, 2016 10:49 - CONCLUSION: Uncomplicated CT guided biopsy. Saroj Martinez MD CT Angiography 09/22/16 0000 Signed Impressions: Service Date/Time: Thursday, September 22, 2016 10:49 - CONCLUSION: 1. Right lower lobe pulmonary mass measuring 3.6 x 2.6 cm. This would be amenable to percutaneous biopsy if clinically warranted. 2. Circumferential wall thickening involving the lower thoracic esophagus with some dilatation of the more proximal esophagus. I cannot exclude an infiltrating process such as malignancy. 3. No pulmonary embolus. 4. Pronounced emphysematous changes. 5. Tiny bilateral pleural effusions. Ruben Hannon Jr., MD Abdomen Ultrasound 09/22/16 0000 Signed Impressions: Service Date/Time: Thursday, September 22, 2016 11:32 - CONCLUSION: Trace of ascites. Insufficient for drainage. Saroj Martinez MD Abdomen/Pelvis CT 09/21/16 1049 Signed Impressions: Service Date/Time: Wednesday, September 21, 2016 12:51 - CONCLUSION: Persistent findings of cirrhosis hepatocellular disease splenomegaly varices portal hypertension and ascites. Significant change with multiple low density lesions ill-defined in the liver as well as intra-abdominal adenopathy at the bernie hepatis as well as retroperitoneal up to 5 cm in size. Findings are highly suggestive of malignancy such as hepatocellular carcinoma or metastatic disease. Mello Zelaya MD Objective Remarks GENERAL: Cachectic adult white male in NAD SKIN: No stigmata of chronic liver disease except very mild jaundice. CARDIOVASCULAR: NRRR, normal S1/S2, no MRG RESPIRATORY: Normal rate. Intermittent cough. Decreased breath sounds; possible congestion/crackles but exam limited by lack of forceful inspiration GASTROINTESTINAL: Abdomen mildly distended. Mild pain to palpation MUSCULOSKELETAL: Grossly normal motor function and range of motion NEUROLOGICAL: Awake, alert. Grossly nonfocal. Normal speech. Procedures 09/22 - CT guided liver Bx (Shaheen Patel MD R2) A/P Assessment and Plan 60 year old male with PMH of cirrhosis presenting with: Discharge Planning Unclear at this time; pending work-up of malignancy and discussions with palliative care (Shaheen Patel MD R2) Attending Attestation Patient seen and examined with the resident team. Case reviewed and discussed Agree with plan of care as discussed with me and documented in the resident note. (Naty Man MD) Problem List: (1) Hepatocellular carcinoma Status: Acute Plan: Impression: Highly suspicious for malignancy by CT. CTA chest showing approx 3x3 cm lung mass, could be primary or met; CTA with portal hypertension, ascites, esophageal thickening which could also be primary cancer source AFP elevated to 131.7, CA 19-9 elevated to 45.1, CEA Ag normal (2.8) Biopsy: Active cirrhosis with focal moderately differentiated hepatocellular carcinoma -Oncology consulted, appreciate their recommendations -Hospice versus trial of sorafenib; poor prognosis -Patient leaning toward hospice, would like more info -Hospice consult placed -GI consulted, appreciate their recommendations -EGD 09/24 showing esophageal varices -Colonoscopy once stable unless transitioned to hospice -Palliative care (Dr. Hudson) consulted to address goals of care and disposition planning (CM to assist as well, patient lives in [place], son is local) -Patient/his son still deciding regarding options; patient's son has some fears regarding his grandson -Patient to discuss with son again this evening about hospice versus trial of sorafenib; will place hospice consult pending family decision -Arrange for social work supervisor to provide support to grandson Pain Control: -Pain scale: Oxycodone 10mg (PA) as needed for pain -Dilaudid 1 mg IV every 3 hours for breakthrough pain PT to assess for weakness/deconditioning and safety of discharge home (2) Sepsis syndrome Status: Acute Plan: Patient met sepsis criteria during hospitalization (Hypotension, tachycardia); however, patient has history of chronic hypotension presumably secondary to cirrhosis. Lactic acid initially wnl; subsequently increased to 3.7 09/22 Patient with CXR suggestive of pneumonia 2D echo not suggestive of endocarditis Abdominal U/S showing small ascites but insufficient to obtain paracentesis sample Liver biopsy: gram stain, AFB, fungal stain negative ID consulted: -Continue to follow cultures -Continue Levaquin 750 mg PO x7 days per ID -Recheck CXR; consider oral antibiotics based on results -Bilateral LL consolidation/effusions Cultures: Blood cultures 09/22 : 1 bottle growing E. coli (resistant to ampicillin, Unasyn, Bactrim) -Other blood cultures drawn 09/22 negative to date Sputum- heavy growth normal respiratory adam Antibiotic History: Flagyl x5 doses Azithromycin x1 dose Zosyn x1 dose Rocephin (3) Pneumonia Status: Acute Plan: -Continue management per ID as above -Repeat CXR 09/27- bilateral LL consolidation and effusions -Continue Prednisone 40mg daily Impression: CXR 09/21 suspicious for right lower lobe pneumonia. In setting of likely cancer, this could either be a primary with obstruction versus solely malignancy versus separate community-acquired pneumonia. CTA chest showing 3x3 cm mass and emphysematous changes Legionella urine antigen, Pneumococcal urine antigen negative Sputum Gram stain negative, culture growing normal respiratory adam Influenza negative (4) Liver cirrhosis Status: Chronic Plan: Well compensated at present -GI Consulted, appreciate their recs - Cont. Aldactone 12.5mg BID - Hold Furosemide 20mg -Will give Lasix 20mg IV 09/30 due to possible increased pulmonary fluid on exam - Cont. Albumin 25mg IV q12hrs - Hepatic dosing of meds (5) Hyponatremia Status: Resolved Plan: Likely chronic, now normalized * Encourage salty foods (6) Anemia of chronic disease Status: Chronic Plan: Stable at present * Repeat H/H if symptomatic (7) Depression Status: Chronic Plan: Stable * Continue home Seroquel, Elavil (8) GERD (gastroesophageal reflux disease) Status: Chronic Plan: Stable * Continue home Protonix (9) Alcohol abuse Status: Chronic Plan: Does not drink very much at present, however has severe cirrhosis * [facility] protocol * Continue vitamin supplementation with thiamine, folic acid, B12 (10) Tobacco abuse Status: Chronic Plan: Nicotine patch if patient requests (11) Diarrhea Status: Acute Plan: Impression: Artery bowel movements reported 09/30 -We'll stop daily lactulose and reevaluate tomorrow (12) FEN/PPX Status: Acute Plan: Fluids: PO only except with IV meds Elecs: Monitor and replete PRN Nutrition: Diet regular basic DVT: SCDs to BLE; Enoxaparin 40mg daily Pain: As above GI: On Protonix 40 mg daily (Shaheen Patel MD R2) Problem Qualifiers (1) Pneumonia: Qualified Code: J18.1 - Pneumonia of right lower lobe due to infectious organism (2) Liver cirrhosis: Qualified Code: K70.30 - Alcoholic cirrhosis of liver without ascites Shaheen Patel MD R2 Sep 30, 2016 16:32 Naty Man MD Oct 01, 2016 10:46
[2016-09-30 17:56] LABS: HEPATITIS C RNA GENOTYPE GENOTYPE 2 (())
[2016-09-30 20:08] VITALS: PULSE 111
[2016-09-30 20:39] VITALS: BP 138/81; PULSE 89; RESP 22; TEMP 97.3; O2SAT 92
[2016-09-30] MEDS: QUEtiapine FUMARATE 50 MG EXTENDED RELEASE TABLET PO SCH (21:36)
[2016-09-30] MEDS: AMITRIPTYLINE HCL 50 MG TAB PO SCH (21:37)
[2016-10-01] VITALS (7 sets, daily range): BP systolic 94–126; BP diastolic 66–76; PULSE 89–111; RESP 19–20; TEMP 97.3–98.2; O2SAT 90–95
[2016-10-01] MEDS: MIDODRINE 5 MG TAB PO SCH ×3 (05:17→17:03)
[2016-10-01 07:03] LABS: BICARBONATE 25.1 MEQ/L (21.0-32.0); POTASSIUM 3.5 MEQ/L (3.5-5.1)
[2016-10-01] MEDS: SODIUM CHLORIDE 0.9% FLUSH 5 ML FLUSH FLUSH SCH ×2 (09:00→21:23)
[2016-10-01] MEDS: ALBUMIN HUMAN 5% 25 GM/500 ML BOTTLE IV SCH ×2 (09:00→21:23)
[2016-10-01] MEDS: SPIRONOLACTONE 25 MG TAB PO SCH ×2 (09:47→21:24)
[2016-10-01] MEDS: LEVOFLOXACIN 750 MG TAB PO SCH (09:48)
[2016-10-01] MEDS: THIAMINE HCL 100 MG TAB PO SCH (09:48)
[2016-10-01] MEDS: FOLIC ACID 1 MG TAB PO SCH (09:48)
[2016-10-01] MEDS: CYANOCOBALAMIN 100 MCG TAB PO SCH (09:48)
[2016-10-01] MEDS: predniSONE 20 MG TAB PO SCH (09:48)
[2016-10-01] MEDS: MULTIVITAMIN TAB PO SCH (09:48)
[2016-10-01] MEDS: PANTOPRAZOLE SOD 40 MG DELAYED RELEASE TAB PO SCH (09:48)
--- NOTE | 2016-10-01 10:08 | PD.ONC.PN ---
Subjective Subjective Remarks Afebrile overnight. Patient resting comfortably. He is without complaint. He tells me he plans to go home with his son and grandson, "once they finish talking to hospice." Objective Data Date Time Temp Pulse Resp B/P Pulse Ox O2 Delivery O2 Flow Rate FiO2 10/01/16 08:45 101 10/01/16 08:00 97.6 102 20 114/76 90 10/01/16 04:00 98.1 91 20 112/66 92 10/01/16 00:00 98.2 96 20 106/69 95 09/30/16 21:30 Nasal Cannula 2.00 09/30/16 20:39 97.3 89 22 138/81 92 09/30/16 20:08 111 09/30/16 16:00 98.3 110 20 113/70 93 09/30/16 12:00 97.3 83 18 97/65 92 10/01/16 10/01/16 10/01/16 07:00 15:00 23:00 Intake Total 240 ml Balance 240 ml Result Diagram: 09/27/16 0827 10/01/16 0602 Laboratory Results Laboratory Tests Test 10/01/16 06:02 Sodium Level 136 MEQ/L Potassium Level 3.5 MEQ/L Chloride Level 103 MEQ/L Carbon Dioxide Level 25.1 MEQ/L Anion Gap 8 MEQ/L Blood Urea Nitrogen 10 MG/DL Creatinine 0.74 MG/DL Estimat Glomerular Filtration 109 ML/MIN Rate Random Glucose 99 MG/DL Calcium Level 8.9 MG/DL Administered Medications Medications (Trade) Dose Ordered Sig/Bashir Route PRN Reason Start Time Stop Time Status Last Admin Dose Admin IV Flush (NS Flush) 2 ml UNSCH PRN FLUSH FLUSH AFTER USING IV ACCESS 09/21/16 14:30 09/26/16 21:11 IV Flush (NS Flush) 2 ml BID FLUSH 09/21/16 21:00 10/01/16 09:00 Hydromorphone HCl (Dilaudid Pf Inj) 1 mg Q3H PRN IV BREAKTHROUGH PAIN 09/21/16 14:30 09/23/16 11:48 Prednisone (Deltasone) 40 mg DAILY PO 09/22/16 09:00 10/01/16 09:48 Pantoprazole Sodium (Protonix) 40 mg DAILY PO 09/22/16 09:00 10/01/16 09:48 Amitriptyline HCl (Elavil) 50 mg HS PO 09/21/16 21:00 09/30/16 21:37 Folic Acid (Folate) 1 mg DAILY PO 09/22/16 09:00 10/01/16 09:48 Furosemide (Lasix) 20 mg DAILY PO 09/22/16 09:00 Hold 09/24/16 11:51 Thiamine HCl (Vitamin B1) 100 mg DAILY PO 09/22/16 09:00 10/01/16 09:48 Quetiapine Fumarate (SEROquel XR) 50 mg HS PO 09/21/16 21:00 09/30/16 21:36 Albumin Human (Albumin 5% Inj) 25 gm Q12H IV 09/22/16 09:00 09/30/16 21:38 Midodrine (Proamatine) 10 mg TID@,,17 PO 09/23/16 12:00 10/01/16 05:17 Lactulose (Lactulose Liq) 30 ml DAILY PO 09/23/16 11:00 Hold 09/30/16 09:27 Spironolactone (Aldactone) 12.5 mg BID PO 09/24/16 09:00 10/01/16 09:47 Enoxaparin Sodium (Lovenox Inj) 40 mg Q24H SQ 09/24/16 12:00 09/30/16 11:54 Multivitamins (Theragran) 1 tab DAILY PO 09/28/16 09:00 10/01/16 09:48 Cyanocobalamin (Vitamin B12) 100 mcg DAILY PO 09/28/16 09:00 10/01/16 09:48 Levofloxacin (Levaquin) 750 mg DAILY PO 09/29/16 14:00 10/06/16 13:59 10/01/16 09:48 Oxycodone HCl (Roxicodone) 10 mg Q4H PRN PO PAIN SCALE 6 TO 10 09/30/16 18:00 10/01/16 09:53 Objective Remarks GENERAL: Middle aged male, sitting up in bed, eating breakfast SKIN: dry and flaky skin. HEAD: Normocephalic. EYES: No scleral icterus. No injection or drainage. NECK: Supple, trachea midline. CARDIOVASCULAR: Regular rate and rhythm RESPIRATORY: Breath sounds equal bilaterally. No accessory muscle use. GASTROINTESTINAL: Abdomen soft, non-tender, nondistended. EXTREMITIES: No cyanosis. scant edema. NEUROLOGICAL: AO x 3. moving all extremities Assessment/Plan Problem List: (1) Hepatocellular carcinoma Status: Acute Plan: --Moderately differentiated hepatocellular carcinoma. --CT showed Liver mass with intra-abdominal adenopathy. --history of alcohol-induced and hep C cirrhosis. - CT chest showed a right lower lobe lung mass and circumferential wall thickening of lower thoracic esophagus. --AFP and Ca 19-9 slightly elevated but non specific. --09/24 Path showed hepatocellular carcinoma. Prognosis is poor. Unusual mets pattern to lung. --CT showed thickened esophageal wall and that may be the cause of his HENRI pain. -EGD showed esophageal varices with retained food. (2) Pneumonia Status: Acute Plan: -- Chest x-ray showed right lung base consolidation with small right pleural effusion. --on abx (3) Liver cirrhosis Status: Chronic Plan: --still drinks one to two beers a day. -- history of portal hypertension with varices but no history of GI bleed. --CT abdomen also showed ascites and sign of portal hypertension. --Hep C positive. Assessment 60y/o male with hepatocellular carcinoma. Plan 1. clear for d/c to hospice 2. supportive care Attending Statement The exam, history, and the medical decision-making described in the above note were completed with the assistance of the mid-level provider. I reviewed and agree with the findings presented. I attest that I had a [id number] encounter with the patient on the same day, and personally performed and documented my assessment and findings in the medical record. HENRI pain controlled. Samy to walk around with walker. Does not want aggressive treatment. Can be d/c home with hospice. Problem Qualifiers (1) Pneumonia: Qualified Code: J18.1 - Pneumonia of right lower lobe due to infectious organism (2) Liver cirrhosis: Qualified Code: K70.30 - Alcoholic cirrhosis of liver without ascites Kary Montgomery Oct 01, 2016 10:07 Ranjit Franz MD Oct 01, 2016 16:31
--- NOTE | 2016-10-01 11:42 | HHI.HCPN ---
Reason for visit a. To assist with evaluation and management of symptoms including:pain b. To assist medical decision maker(s) with: better understanding of current medical conditions; weighing benefits/burdens of medical treatment options; making medical treatment decisions. (Kaitlin Pruett) Subjective/Interval History Patient seen twice this morning per his request to follow up today. He is sleeping soundly both times I am by, does not stir to my knocking on door or verbal greeting, nursing indicates he did not sleep well last night. Request her pls call me when he is up and about later today. She informs he did meet w hospice yesterday pm, with his son, and indicated that he wanted to speak w palliative again before making a decision. Hospice also reports no decision made. He has remained stable. No new labs or imaging. No further invasive or diagnostic measures pending patient's decisions regarding proceeding with palliative chemotherapy versus hospice. --Nursing notified me later in afternoon that pt awake, family has arrived. met w pt, carolyn Peoples at bedside. Shelton informs they met w hospice last evening and all questions were answered, pt is still undecided. Pt informs he is sure that he is going to stay in [place] not pursue returning to his home state, however he is still undecided RE hospice. It sounds as if they are still working out the social issues of where pt will live while receiving hospice. Pt endorses other than being tired, indicates he was unable to sleep well overnight due to people waking him up for VS , etc. indicates his pain is well- controlled today. No shortness of breath. No nausea or vomiting. Good appetite. His son has brought [employer] for lunch. Provided carolyn Peoples with my contact information. Discuss with primary nurse, discussed with hospice admissions nurse. (Kaitlin Pruett) Advance Directives Living Will: Never completed (Kaitlin Pruett) Objective Vital Signs Date Time Temp Pulse Resp B/P Pulse Ox O2 Delivery O2 Flow Rate FiO2 10/01/16 08:45 101 10/01/16 08:00 97.6 102 20 114/76 90 10/01/16 04:00 98.1 91 20 112/66 92 10/01/16 00:00 98.2 96 20 106/69 95 09/30/16 21:30 Nasal Cannula 2.00 09/30/16 20:39 97.3 89 22 138/81 92 09/30/16 20:08 111 09/30/16 16:00 98.3 110 20 113/70 93 09/30/16 12:00 97.3 83 18 97/65 92 Intake & Output 10/01/16 10/01/16 07:00 19:00 Intake Total 1222 ml Output Total 1100 ml Balance 122 ml Intake Oral 720 ml IV Total 502 ml Output Urine Total 1100 ml # Voids 1 # Bowel Movements 1 Physical Exam CONSTITUTIONAL/GENERAL: This is a thin frail appearing middle-aged man. fatigues with conversation. SKIN: Jaundice. Ecchymoses on upper extremities. No wounds seen anteriorly. RESPIRATORY/CHEST: Symmetric, unlabored respirations on room air. Clear to auscultation. GASTROINTESTINAL: Abdomen soft, somewhat distended. No guarding. Bowel sounds present. MUSCULOSKELETAL: Extremities without clubbing, cyanosis, or edema. + Muscle atrophy 4. NEUROLOGICAL: Awake and alert. Oriented 3, appropriate. Appears to have good insight to hospitalization, diagnoses and prognosis. moves all 4 extremities. ( Kaitlin Pruett) Diagnostic Tests Laboratory Laboratory Tests Test 10/01/16 06:02 Sodium Level 136 MEQ/L (136-145) Potassium Level 3.5 MEQ/L (3.5-5.1) Chloride Level 103 MEQ/L (98-107) Carbon Dioxide Level 25.1 MEQ/L (21.0-32.0) Anion Gap 8 MEQ/L (5-15) Blood Urea Nitrogen 10 MG/DL (7-18) Creatinine 0.74 MG/DL (0.60-1.30) Estimat Glomerular Filtration 109 ML/MIN Rate (>89) Random Glucose 99 MG/DL (74-106) Calcium Level 8.9 MG/DL (8.5-10.1) (Kaitlin Pruett) Result Diagram: 09/27/16 0827 10/01/16 0602 Imaging Last Impressions Chest X-Ray 09/27/16 0000 Signed Impressions: Service Date/Time: Tuesday, September 27, 2016 10:46 - CONCLUSION: Bilateral lower lobe consolidation and effusions. Sg Win MD Liver Biopsy CT 09/22/16 0000 Signed Impressions: Service Date/Time: Thursday, September 22, 2016 10:49 - CONCLUSION: Uncomplicated CT guided biopsy. Saroj Martinez MD CT Angiography 09/22/16 0000 Signed Impressions: Service Date/Time: Thursday, September 22, 2016 10:49 - CONCLUSION: 1. Right lower lobe pulmonary mass measuring 3.6 x 2.6 cm. This would be amenable to percutaneous biopsy if clinically warranted. 2. Circumferential wall thickening involving the lower thoracic esophagus with some dilatation of the more proximal esophagus. I cannot exclude an infiltrating process such as malignancy. 3. No pulmonary embolus. 4. Pronounced emphysematous changes. 5. Tiny bilateral pleural effusions. Ruben Hannon Jr., MD Abdomen Ultrasound 09/22/16 0000 Signed Impressions: Service Date/Time: Thursday, September 22, 2016 11:32 - CONCLUSION: Trace of ascites. Insufficient for drainage. Saroj Martinez MD Abdomen/Pelvis CT 09/21/16 1049 Signed Impressions: Service Date/Time: Wednesday, September 21, 2016 12:51 - CONCLUSION: Persistent findings of cirrhosis hepatocellular disease splenomegaly varices portal hypertension and ascites. Significant change with multiple low density lesions ill-defined in the liver as well as intra-abdominal adenopathy at the bernie hepatis as well as retroperitoneal up to 5 cm in size. Findings are highly suggestive of malignancy such as hepatocellular carcinoma or metastatic disease. Mello Zelaya MD (Kaitlin Pruett) Assessment and Plan Disease Oriented Problem List: (1) End-stage liver disease (2) Liver cirrhosis (3) Pneumonia (4) GERD (gastroesophageal reflux disease) (5) Sepsis syndrome Symptom Scale: (1) Malnutrition (2) Pain Pertinent Non-Medical Issues Psychosocial: Virtually from [place]. Not . Supported by one son, as well as [id number] grandson these very close with. 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 Spiritual: Legal: Patient appears capacitated and able to make his own decisions though does involve his son Shelton. Per [place] statutes if patient became incapacitated his son would be legal decision maker. Ethical issues impacting care: Important Contacts son Shelton Watt [phone] Prognosis Admitted for coughing, shortness of breath as well as epigastric pain. Abdominal CT findings of significant hepatocellular disease. Biopsy obtained positive for moderately differentiated hepatocellular carcinoma. Per oncology poor prognosis overall could consider palliative chemotherapy otherwise hospice recommended. Code Status: No Code Plan * CODE STATUS dnr/dni no code. * Goals still pending. Patient had a follow-up meeting with hospice and his son yesterday pm, still was undecided. Told RN he wished to meet w palliative again before making decision-- I met with them again, they are still undecided. Sounds likely he will proceed with hospice pending he is able to work out the logistics of where he will be living etc. Goals expressed are comfort oriented. * SYMPTOMS: --Pain-endorses pain is well-controlled today. He has intermittently endorse pain to chest, back to nursing. had scheduled oxycodone. --Malnutritionalbumin low, 3.1. Chronic, likely secondary to disease process. Eating 100% of meals past few days, however at presentation 09/21 reported poor intake for the prior week or so. * Palliative care will continue to follow during hospital course as condition evolves, to assist patient/decision-maker with understanding of medical conditions, weighing benefits/burdens of treatment options, for clarification of goals of treatment. Additionally will assist with any symptoms of palliative concern (Kaitlin Pruett) Time Spent Total Floor Time (mins): 25 Face to Face Time (mins): 15 >50% Counseling/Coord of Care: Yes (d/w RN, hospice ) (Kaitlin Pruett) Attestation To help prompt me to consider important information that might be impacting today's encounter and assessment, information from prior notes written by myself or my colleagues may have been "brought forward" into today's note. My signature on this note, however, is an attestation that I personally performed the exam, history, and/or decision-making noted today, and, unless otherwise indicated, the interactions with patient, family, and staff as well as the review of records all occurred today. I also attest that the listed assessment and stated plan reflect my best clinical judgment today based on the combination of historical information, prior notes, and today's exam/ interactions. When time spent is documented, it refers only to time spent today by the signer, or if indicated, combined time spent today by collaborating physician/nurse practitioner. (Kaitlin Pruett) Collaborating MD Comments Chart reviewed. Case discussed with palliative care ELECTRONIC PUBLISHING SPECIALIST. Above ELECTRONIC PUBLISHING SPECIALIST note reviewed and I concur. . (Juarez Laurent MD) Kaitlin Pruett Oct 01, 2016 11:42 Juarez Laurent MD Nov 13, 2016 14:38
--- NOTE | 2016-10-01 12:00 | HHI.GIFU ---
Subjective Remarks Resting in bed. States he actually feels pretty good today because he was able to get a good night's rest. He and his son met with Hospice today. He is leaning towards Hospice care but has not made a final decision and states that he would like to think about it over the weekend and make a final decision on Tuesday. (Abbie Johns) Objective Vitals I&O Vital Signs Date Time Temp Pulse Resp B/P Pulse Ox O2 Delivery O2 Flow Rate FiO2 10/01/16 08:45 101 10/01/16 08:00 97.6 102 20 114/76 90 10/01/16 04:00 98.1 91 20 112/66 92 10/01/16 00:00 98.2 96 20 106/69 95 09/30/16 21:30 Nasal Cannula 2.00 09/30/16 20:39 97.3 89 22 138/81 92 09/30/16 20:08 111 09/30/16 16:00 98.3 110 20 113/70 93 09/30/16 12:00 97.3 83 18 97/65 92 I/O 09/30/16 09/30/16 09/30/16 10/01/16 10/01/16 10/01/16 07:00 15:00 23:00 07:00 15:00 23:00 Intake Total 240 ml 720 ml 982 ml 240 ml Output Total 425 ml 800 ml 1100 ml Balance -185 ml -80 ml -118 ml 240 ml Intake Oral 240 ml 720 ml 480 ml 240 ml IV Total 0 ml 502 ml Output Urine Total 425 ml 800 ml 1100 ml # Voids 3 1 # Bowel Movements 0 1 1 0 Laboratory Laboratory Tests Test 10/01/16 06:02 Sodium Level 136 Potassium Level 3.5 Chloride Level 103 Carbon Dioxide Level 25.1 Anion Gap 8 Blood Urea Nitrogen 10 Creatinine 0.74 Estimat Glomerular Filtration 109 Rate Random Glucose 99 Calcium Level 8.9 Imaging Last Impressions Chest X-Ray 09/27/16 0000 Signed Impressions: Service Date/Time: Tuesday, September 27, 2016 10:46 - CONCLUSION: Bilateral lower lobe consolidation and effusions. Sg Win MD Liver Biopsy CT 09/22/16 0000 Signed Impressions: Service Date/Time: Thursday, September 22, 2016 10:49 - CONCLUSION: Uncomplicated CT guided biopsy. Saroj Martinez MD CT Angiography 09/22/16 0000 Signed Impressions: Service Date/Time: Thursday, September 22, 2016 10:49 - CONCLUSION: 1. Right lower lobe pulmonary mass measuring 3.6 x 2.6 cm. This would be amenable to percutaneous biopsy if clinically warranted. 2. Circumferential wall thickening involving the lower thoracic esophagus with some dilatation of the more proximal esophagus. I cannot exclude an infiltrating process such as malignancy. 3. No pulmonary embolus. 4. Pronounced emphysematous changes. 5. Tiny bilateral pleural effusions. Ruben Hannon Jr., MD Abdomen Ultrasound 09/22/16 0000 Signed Impressions: Service Date/Time: Thursday, September 22, 2016 11:32 - CONCLUSION: Trace of ascites. Insufficient for drainage. Saroj Martinez MD Abdomen/Pelvis CT 09/21/16 1049 Signed Impressions: Service Date/Time: Wednesday, September 21, 2016 12:51 - CONCLUSION: Persistent findings of cirrhosis hepatocellular disease splenomegaly varices portal hypertension and ascites. Significant change with multiple low density lesions ill-defined in the liver as well as intra-abdominal adenopathy at the bernie hepatis as well as retroperitoneal up to 5 cm in size. Findings are highly suggestive of malignancy such as hepatocellular carcinoma or metastatic disease. Mello Zelaya MD Physical Exam HEENT: Normocephalic; atraumatic; no jaundice. CHEST: CTA, diminished CARDIAC: RRR ABDOMEN: Soft, distended, mild diffuse tenderness; hepatosplenomegaly; bowel sounds are present in all four quadrants. EXTREMITIES: No clubbing, cyanosis, or edema. SKIN: Multiple ecchymotic areas. INFORMATICS SCIENTIST: No focal deficits; alert and oriented times three. (Abbie Johns) Assessment and Plan Plan ASSESSMENT: - Liver mass with intra-abdominal adenopathy and elevated tumor markers. Abdomen/Pelvis CT (09/21/16)-----> Persistent findings of cirrhosis hepatocellular disease splenomegaly varices portal hypertension and ascites. Significant change with multiple low density lesions ill-defined in the liver as well as intra-abdominal adenopathy at the bernie hepatis as well as retroperitoneal up to 5 cm in size. Findings are highly suggestive of malignancy such as hepatocellular carcinoma or metastatic disease. AFP 131.7, CEA 2.8, Ca19-[address] guided liver biopsy with acitve cirrhosis with focal moderately differentiated hepatocellular carcinoma. S/P EGD (09/24/16)-----> medium esophageal varices, there was a large amount of residual food seen in the distal esophagus and mid esophagus, food residue in the entire examined stomach, retroflexion was not performed. It was recommended that he had EGD with prolonged NPO period , possibly in conjunction with colonoscopy if patient agrees. Oncology following----> poor prognosis, patient considering Hospice vs. Chemotherapy. Pt met with hospice. He is leaning towards this, but wants to think about it over the weekend and make final decision on Tuesday. - Esophageal thickening involving the lower thoracic esophagus with some dilatation of the more proximal esophagus on CTA. S/P EGD as above. Rpt EGD was recommended, but patient now considering Hospice. Will hold on this unless he wants to pursue aggressive tx. - RLL Pulmonary mass measuring 3.6 x 2.6. - Alcoholic cirrhosis- He continue to drink, has been stable with Lasix, Aldactone and Pepcid - Ascites. US with trace ascites, insufficient for safe drainage - Chronic anemia. HH stable. - History of Varices- EGD in 2013, no bleeding reported - Pneumonia- Chest x-ray suggesting pneumonia, abx - Hyponatremia, hypokalemia per attending - Hepatitis C antibodies. Viral load and genotype pending. Plan: - [place], Heart healthy - Cont. Spironolactone - Cont. Lactulose - Monitor labs - Oncology following, poor prognosis, recommends Hospice- pt still deciding on chemo vs. hospice. - Pt met with hospice. He is leaning towards this, but wants to think about it over the weekend and make final decision on Tuesday. - GI will sign off, please reconsult if he chooses aggressive treatment and is agreeable to procedures - Patient seen and examined by Dr. Scruggs and myself and this note is written on his behalf. (Abbie Johns) Physician Comments Patient was seen and examined, agree with above note and plan, poor prognosis, we will FU as needed. pls call us. (Stella Scruggs MD) Abbie Johns Oct 01, 2016 12:00 Stella Scruggs MD Oct 02, 2016 07:38
[2016-10-01] MEDS: ENOXAPARIN SODIUM 40 MG/0.4 ML SYRINGE SQ SCH (12:30)
[2016-10-01] MEDS ORDERED: FUROSEMIDE 20 MG/2 ML VIAL IV PUSH ONE (16:00)
--- NOTE | 2016-10-01 16:14 | HHI.FPPN ---
Subjective Remarks No acute events overnight. AFVSS. Had discussion about hospice yesterday and is still working things out with his family. Final decision still pending. Objective Vitals Vital Signs Date Time Temp Pulse Resp B/P Pulse Ox O2 Delivery O2 Flow Rate FiO2 10/01/16 12:00 97.6 89 20 94/66 94 10/01/16 08:45 101 10/01/16 08:00 97.6 102 20 114/76 90 10/01/16 08:00 Nasal Cannula 2.00 10/01/16 04:00 98.1 91 20 112/66 92 10/01/16 00:00 98.2 96 20 106/69 95 09/30/16 21:30 Nasal Cannula 2.00 09/30/16 20:39 97.3 89 22 138/81 92 09/30/16 20:08 111 I/O 09/30/16 09/30/16 09/30/16 10/01/16 10/01/16 10/01/16 07:00 15:00 23:00 07:00 15:00 23:00 Intake Total 240 ml 720 ml 982 ml 240 ml Output Total 425 ml 800 ml 1100 ml Balance -185 ml -80 ml -118 ml 240 ml Intake Oral 240 ml 720 ml 480 ml 240 ml IV Total 0 ml 502 ml Output Urine Total 425 ml 800 ml 1100 ml # Voids 3 1 # Bowel Movements 0 1 1 0 Result Diagram: 09/27/16 0827 10/01/16 0602 Imaging Last Impressions Chest X-Ray 09/27/16 0000 Signed Impressions: Service Date/Time: Tuesday, September 27, 2016 10:46 - CONCLUSION: Bilateral lower lobe consolidation and effusions. Sg Win MD Liver Biopsy CT 09/22/16 0000 Signed Impressions: Service Date/Time: Thursday, September 22, 2016 10:49 - CONCLUSION: Uncomplicated CT guided biopsy. Saroj Martinez MD CT Angiography 09/22/16 0000 Signed Impressions: Service Date/Time: Thursday, September 22, 2016 10:49 - CONCLUSION: 1. Right lower lobe pulmonary mass measuring 3.6 x 2.6 cm. This would be amenable to percutaneous biopsy if clinically warranted. 2. Circumferential wall thickening involving the lower thoracic esophagus with some dilatation of the more proximal esophagus. I cannot exclude an infiltrating process such as malignancy. 3. No pulmonary embolus. 4. Pronounced emphysematous changes. 5. Tiny bilateral pleural effusions. Ruben Hannon Jr., MD Abdomen Ultrasound 09/22/16 0000 Signed Impressions: Service Date/Time: Thursday, September 22, 2016 11:32 - CONCLUSION: Trace of ascites. Insufficient for drainage. Saroj Martinez MD Abdomen/Pelvis CT 09/21/16 1049 Signed Impressions: Service Date/Time: Wednesday, September 21, 2016 12:51 - CONCLUSION: Persistent findings of cirrhosis hepatocellular disease splenomegaly varices portal hypertension and ascites. Significant change with multiple low density lesions ill-defined in the liver as well as intra-abdominal adenopathy at the bernie hepatis as well as retroperitoneal up to 5 cm in size. Findings are highly suggestive of malignancy such as hepatocellular carcinoma or metastatic disease. Mello Zelaya MD Objective Remarks GENERAL: Cachectic adult white male in NAD SKIN: No stigmata of chronic liver disease except very mild jaundice. CARDIOVASCULAR: NRRR, normal S1/S2, no MRG RESPIRATORY: Normal rate. Intermittent cough. Decreased breath sounds; possible congestion/crackles but exam limited by lack of forceful inspiration GASTROINTESTINAL: Abdomen mildly distended. Mild pain to palpation MUSCULOSKELETAL: Grossly normal motor function and range of motion NEUROLOGICAL: Awake, alert. Grossly nonfocal. Normal speech. Procedures 09/22 - CT guided liver Bx Medications and IVs Current Medications Medications (Trade) Dose Ordered Sig/Bashir Route Start Time Stop Time Status Last Admin (NS Flush) 2 ml UNSCH PRN FLUSH 09/21/16 14:30 09/26/16 21:11 (NS Flush) 2 ml BID FLUSH 09/21/16 21:00 10/01/16 09:00 (Dilaudid Pf Inj) 1 mg Q3H PRN IV 09/21/16 14:30 09/23/16 11:48 (Deltasone) 40 mg DAILY PO 09/22/16 09:00 10/01/16 09:48 (Protonix) 40 mg DAILY PO 09/22/16 09:00 10/01/16 09:48 (Elavil) 50 mg HS PO 09/21/16 21:00 09/30/16 21:37 (Folate) 1 mg DAILY PO 09/22/16 09:00 10/01/16 09:48 (Lasix) 20 mg DAILY PO 09/22/16 09:00 Hold 09/24/16 11:51 (Vitamin B1) 100 mg DAILY PO 09/22/16 09:00 10/01/16 09:48 (SEROquel XR) 50 mg HS PO 09/21/16 21:00 09/30/16 21:36 (Albumin 5% Inj) 25 gm Q12H IV 09/22/16 09:00 09/30/16 21:38 (Proamatine) 10 mg TID@,, PO 09/23/16 12:00 10/01/16 12:30 (Lactulose Liq) 30 ml DAILY PO 09/23/16 11:00 Hold 09/30/16 09:27 (Pill Splitter) 1 ea UNSCH PRN OTHER 09/23/16 11:15 (Aldactone) 12.5 mg BID PO 09/24/16 09:00 10/01/16 09:47 (Lovenox Inj) 40 mg Q24H SQ 09/24/16 12:00 10/01/16 12:30 (Theragran) 1 tab DAILY PO 09/28/16 09:00 10/01/16 09:48 (Vitamin B12) 100 mcg DAILY PO 09/28/16 09:00 10/01/16 09:48 (Levaquin) 750 mg DAILY PO 09/29/16 14:00 10/06/16 13:59 10/01/16 09:48 (Roxicodone) 10 mg Q4H PRN PO 09/30/16 18:00 10/01/16 09:53 A/P Assessment and Plan 60 year old male with PMH of cirrhosis presenting with: Discharge Planning Unclear at this time; pending work-up of malignancy and discussions with palliative care Problem List: (1) Hepatocellular carcinoma Status: Acute Plan: Impression: Highly suspicious for malignancy by CT. CTA chest showing approx 3x3 cm lung mass, could be primary or met; CTA with portal hypertension, ascites, esophageal thickening which could also be primary cancer source AFP elevated to 131.7, CA 19-9 elevated to 45.1, CEA Ag normal (2.8) Biopsy: Active cirrhosis with focal moderately differentiated hepatocellular carcinoma -Oncology consulted, appreciate their recommendations -Hospice versus trial of sorafenib; poor prognosis -Patient leaning toward hospice, would like more info -Hospice consult placed, had meeting with family, discussion ongoing -GI consulted, appreciate their recommendations -EGD 09/24 showing esophageal varices -Colonoscopy once stable unless transitioned to hospice -Palliative care (Dr. Hudson) consulted to address goals of care and disposition planning (CM to assist as well, patient lives in [place], son is local) -Patient/his son still deciding regarding options; patient's son has some fears regarding his grandson -Patient to discuss with son again this evening about hospice versus trial of sorafenib; will place hospice consult pending family decision -Arrange for social security benefits interviewer to provide support to grandson Pain Control: -Pain scale: Oxycodone 10mg (PA) as needed for pain -Dilaudid 1 mg IV every 3 hours for breakthrough pain PT to assess for weakness/deconditioning and safety of discharge home (2) Sepsis syndrome Status: Acute Plan: Patient met sepsis criteria during hospitalization (Hypotension, tachycardia); however, patient has history of chronic hypotension presumably secondary to cirrhosis. Lactic acid initially wnl; subsequently increased to 3.7 09/22 Patient with CXR suggestive of pneumonia 2D echo not suggestive of endocarditis Abdominal U/S showing small ascites but insufficient to obtain paracentesis sample Liver biopsy: gram stain, AFB, fungal stain negative ID consulted: -Continue to follow cultures -Continue Levaquin 750 mg PO x7 days per ID -Recheck CXR; consider oral antibiotics based on results -Bilateral LL consolidation/effusions Cultures: Blood cultures 09/22 : 1 bottle growing E. coli (resistant to ampicillin, Unasyn, Bactrim) -Other blood cultures drawn 09/22 negative to date Sputum- heavy growth normal respiratory adam Antibiotic History: Flagyl x5 doses Azithromycin x1 dose Zosyn x1 dose Rocephin (3) Pneumonia Status: Acute Plan: -Continue management per ID as above -Repeat CXR 09/27- bilateral LL consolidation and effusions -Continue Prednisone 40mg daily Impression: CXR 09/21 suspicious for right lower lobe pneumonia. In setting of likely cancer, this could either be a primary with obstruction versus solely malignancy versus separate community-acquired pneumonia. CTA chest showing 3x3 cm mass and emphysematous changes Legionella urine antigen, Pneumococcal urine antigen negative Sputum Gram stain negative, culture growing normal respiratory adam Influenza negative (4) Liver cirrhosis Status: Chronic Plan: Well compensated at present -GI Consulted, appreciate their recs - Cont. Aldactone 12.5mg BID -Will give Lasix 20mg IV 09/30 due to possible increased pulmonary fluid on exam -Consider resuming home lasix tomorrow am - Cont. Albumin 25mg IV q12hrs - Hepatic dosing of meds (5) Hyponatremia Status: Resolved Plan: Likely chronic, now normalized * Encourage salty foods (6) Anemia of chronic disease Status: Chronic Plan: Stable at present * Repeat H/H if symptomatic (7) Depression Status: Chronic Plan: Stable * Continue home Seroquel, Elavil (8) GERD (gastroesophageal reflux disease) Status: Chronic Plan: Stable * Continue home Protonix (9) Alcohol abuse Status: Chronic Plan: Does not drink very much at present, however has severe cirrhosis * [facility] protocol * Continue vitamin supplementation with thiamine, folic acid, B12 (10) Tobacco abuse Status: Chronic Plan: Nicotine patch if patient requests (11) Diarrhea Status: Acute Plan: Impression: Artery bowel movements reported 09/30 -We'll stop daily lactulose and reevaluate tomorrow (12) FEN/PPX Status: Acute Plan: Fluids: PO only except with IV meds Elecs: Monitor and replete PRN Nutrition: Diet regular basic DVT: SCDs to BLE; Enoxaparin 40mg daily Pain: As above GI: On Protonix 40 mg daily Problem Qualifiers (1) Pneumonia: Qualified Code: J18.1 - Pneumonia of right lower lobe due to infectious organism (2) Liver cirrhosis: Qualified Code: K70.30 - Alcoholic cirrhosis of liver without ascites Delmar Dumont MD R1 Oct 01, 2016 4:14 pm
[2016-10-01] MEDS: QUEtiapine FUMARATE 50 MG EXTENDED RELEASE TABLET PO SCH (21:23)
[2016-10-01] MEDS: AMITRIPTYLINE HCL 50 MG TAB PO SCH (21:24)
[2016-10-02] VITALS (7 sets, daily range): BP systolic 102–141; BP diastolic 61–71; PULSE 90–119; RESP 18–20; TEMP 96.2–97.9; O2SAT 90–97
[2016-10-02] MEDS: MIDODRINE 5 MG TAB PO SCH ×3 (06:06→16:50)
[2016-10-02 08:40] LABS: BICARBONATE 25.1 MEQ/L (21.0-32.0); POTASSIUM 3.4 MEQ/L (3.5-5.1)
[2016-10-02] MEDS: THIAMINE HCL 100 MG TAB PO SCH (09:18)
[2016-10-02] MEDS: PANTOPRAZOLE SOD 40 MG DELAYED RELEASE TAB PO SCH (09:18)
[2016-10-02] MEDS: MULTIVITAMIN TAB PO SCH (09:18)
[2016-10-02] MEDS: predniSONE 20 MG TAB PO SCH (09:18)
[2016-10-02] MEDS: SPIRONOLACTONE 25 MG TAB PO SCH ×2 (09:18→20:12)
[2016-10-02] MEDS: CYANOCOBALAMIN 100 MCG TAB PO SCH (09:18)
[2016-10-02] MEDS: LEVOFLOXACIN 750 MG TAB PO SCH (09:18)
[2016-10-02] MEDS: FOLIC ACID 1 MG TAB PO SCH (09:18)
[2016-10-02] MEDS: SODIUM CHLORIDE 0.9% FLUSH 5 ML FLUSH FLUSH SCH ×2 (09:19→20:12)
[2016-10-02] MEDS: ALBUMIN HUMAN 5% 25 GM/500 ML BOTTLE IV SCH ×2 (09:19→20:12)
[2016-10-02] MEDS: ENOXAPARIN SODIUM 40 MG/0.4 ML SYRINGE SQ SCH (12:13)
--- NOTE | 2016-10-02 13:49 | HHI.FPPN ---
Subjective Remarks Mr. Watkins was afebrile with mild tachycardia (90's - 105 bpm) overnight. Patient reports continued chest congestion and pain with coughing; patient also reports throat pain. Patient otherwise states that he is doing well. Patient reports 1 normal bowel movement this morning. No reported shortness of breath. No increasing abdominal distension reported by patient; he states he plans to ask for therapeutic paracentesis on Tuesday. Patient voiding and stooling normally per EMR. Patient states that his grandson will visit this afternoon. Normal appetite; wants pizza tonight. (Shaheen aPtel MD R2) Objective Vitals Vital Signs Date Time Temp Pulse Resp B/P Pulse Ox O2 Delivery O2 Flow Rate FiO2 10/02/16 12:00 96.5 105 20 113/63 90 10/02/16 08:00 97.6 92 20 102/61 90 10/02/16 04:00 97.8 90 19 112/65 92 10/02/16 00:00 97.9 94 19 102/62 92 10/01/16 20:46 Nasal Cannula 2.00 10/01/16 20:00 95 10/01/16 20:00 97.8 94 19 114/66 93 10/01/16 16:00 97.3 111 20 126/67 91 I/O 10/01/16 10/01/16 10/01/16 10/02/16 10/02/16 10/02/16 07:00 15:00 23:00 07:00 15:00 23:00 Intake Total 240 ml 840 ml 822 ml 280 ml Output Total 100 ml 850 ml 200 ml Balance 240 ml 740 ml -28 ml 80 ml Intake Oral 240 ml 840 ml 320 ml 280 ml IV Total 502 ml Output Urine Total 100 ml 850 ml 200 ml # Voids 1 # Bowel Movements 0 1 2 (Shaheen Patel MD R2) Result Diagram: 10/02/16 0749 Imaging Last Impressions Chest X-Ray 09/27/16 0000 Signed Impressions: Service Date/Time: Tuesday, September 27, 2016 10:46 - CONCLUSION: Bilateral lower lobe consolidation and effusions. Sg Win MD Liver Biopsy CT 09/22/16 0000 Signed Impressions: Service Date/Time: Thursday, September 22, 2016 10:49 - CONCLUSION: Uncomplicated CT guided biopsy. Saroj Martinez MD CT Angiography 09/22/16 0000 Signed Impressions: Service Date/Time: Thursday, September 22, 2016 10:49 - CONCLUSION: 1. Right lower lobe pulmonary mass measuring 3.6 x 2.6 cm. This would be amenable to percutaneous biopsy if clinically warranted. 2. Circumferential wall thickening involving the lower thoracic esophagus with some dilatation of the more proximal esophagus. I cannot exclude an infiltrating process such as malignancy. 3. No pulmonary embolus. 4. Pronounced emphysematous changes. 5. Tiny bilateral pleural effusions. Ruben Hannon Jr., MD Abdomen Ultrasound 09/22/16 0000 Signed Impressions: Service Date/Time: Thursday, September 22, 2016 11:32 - CONCLUSION: Trace of ascites. Insufficient for drainage. Saroj Martinez MD Abdomen/Pelvis CT 09/21/16 1049 Signed Impressions: Service Date/Time: Wednesday, September 21, 2016 12:51 - CONCLUSION: Persistent findings of cirrhosis hepatocellular disease splenomegaly varices portal hypertension and ascites. Significant change with multiple low density lesions ill-defined in the liver as well as intra-abdominal adenopathy at the bernie hepatis as well as retroperitoneal up to 5 cm in size. Findings are highly suggestive of malignancy such as hepatocellular carcinoma or metastatic disease. Mello Zelaya MD Objective Remarks GENERAL: Cachectic adult white male in NAD SKIN: No visible rashes. Bruising on upper extremities. CARDIOVASCULAR: NRRR, normal S1/S2, no MRG RESPIRATORY: Normal rate. Intermittent cough. Decreased breath sounds; possible congestion/crackles similar to prior exams GASTROINTESTINAL: Abdomen distended. Mild pain to palpation MUSCULOSKELETAL: Grossly normal motor function and range of motion NEUROLOGICAL: Awake, alert. Grossly nonfocal. Normal speech. Procedures 09/22 - CT guided liver Bx (Shaheen Patel MD R2) A/P Assessment and Plan 60 year old male with PMH of cirrhosis presenting with: Discharge Planning Unclear at this time; pending work-up of malignancy and discussions with palliative care (Shaheen Patel MD R2) Attending Attestation Patient seen and examined with Dr. Patel. Case reviewed and discussed Agree with plan of care as discussed with me and documented in the resident note (Naty Man MD) Problem List: (1) Hepatocellular carcinoma Status: Acute Plan: Impression: Highly suspicious for malignancy by CT. CTA chest showing approx 3x3 cm lung mass, could be primary or met; CTA with portal hypertension, ascites, esophageal thickening which could also be primary cancer source AFP elevated to 131.7, CA 19-9 elevated to 45.1, CEA Ag normal (2.8) EGD 09/24 showing esophageal varices Biopsy: Active cirrhosis with focal moderately differentiated hepatocellular carcinoma -Oncology consulted, appreciate their recommendations -Hospice consulted; plan for discharge home with hospice. -GI consulted, appreciate their recommendations -Signed off at this time -Palliative care (Dr. Hudson) consulted to address goals of care and disposition planning (CM to assist as well, patient lives in [place], son is local) -Arrange for rn social services to provide support to grandson -Plan for hospice once logistics of living situation worked out Pain Control: -Pain scale: Oxycodone 10mg (PA) as needed for pain -Dilaudid 1 mg IV every 3 hours for breakthrough pain -PT- no home health needed (2) Sepsis syndrome Status: Acute Plan: Patient met sepsis criteria during hospitalization (Hypotension, tachycardia); however, patient has history of chronic hypotension presumably secondary to cirrhosis. Lactic acid initially wnl; subsequently increased to 3.7 09/22 Patient with CXR suggestive of pneumonia 2D echo not suggestive of endocarditis Abdominal U/S showing small ascites but insufficient to obtain paracentesis sample Liver biopsy: gram stain, AFB, fungal stain negative Repeat CXR 09/27 demonstrating bilateral LL consolidation/effusions ID consulted: -Continue to follow cultures -Continue Levaquin 750 mg PO x7 days per ID (as of 09/29) Cultures: Blood cultures 09/22 : 1 bottle growing E. coli (resistant to ampicillin, Unasyn, Bactrim) -Other blood cultures drawn 09/22 negative to date Sputum- heavy growth normal respiratory adam Antibiotic History: Flagyl x5 doses Azithromycin x1 dose Zosyn x1 dose Rocephin (3) Pneumonia Status: Acute Plan: -Continue management per ID as above -Continue Prednisone 40mg daily Impression: CXR 09/21 suspicious for right lower lobe pneumonia. In setting of likely cancer, this could either be a primary with obstruction versus solely malignancy versus separate community-acquired pneumonia. CTA chest showing 3x3 cm mass and emphysematous changes Repeat CXR 09/27- bilateral LL consolidation and effusions Legionella urine antigen, Pneumococcal urine antigen negative, Influenza negative Sputum Gram stain negative, culture growing normal respiratory adam (4) Liver cirrhosis Status: Chronic Plan: Well compensated at present -GI Consulted, appreciate their recs - Cont. Aldactone 12.5mg BID -Continue Lasix 20mg PO daily - Cont. Albumin 25mg IV q12hrs - Hepatic dosing of meds (5) Hyponatremia Status: Resolved Plan: Likely chronic, now normalized * Encourage salty foods (6) Anemia of chronic disease Status: Chronic Plan: Stable at present * Repeat H/H if symptomatic (7) Depression Status: Chronic Plan: Stable * Continue home Seroquel, Elavil (8) GERD (gastroesophageal reflux disease) Status: Chronic Plan: Stable * Continue home Protonix (9) Alcohol abuse Status: Chronic Plan: Does not drink very much at present, however has severe cirrhosis * [facility] protocol * Continue vitamin supplementation with thiamine, folic acid, B12 (10) upper respiratory congestion Status: Acute Plan: -Will give scheduled Flonase BID and assess for improvement (11) Tobacco abuse Status: Chronic Plan: Nicotine patch if patient requests (12) FEN/PPX Status: Acute Plan: Fluids: PO only except with IV meds Elecs: Monitor and replete PRN Nutrition: Diet regular basic DVT: SCDs to BLE; Enoxaparin 40mg daily Pain: As above GI: On Protonix 40 mg daily (Shaheen Patel MD R2) Problem Qualifiers (1) Pneumonia: Qualified Code: J18.1 - Pneumonia of right lower lobe due to infectious organism (2) Liver cirrhosis: Qualified Code: K70.30 - Alcoholic cirrhosis of liver without ascites Shaheen Patel MD R2 Oct 02, 2016 13:49 Naty Man MD Oct 03, 2016 14:00
[2016-10-02] MEDS: FLUTICASONE PROPIONATE 50 MCG/ACT 16 GM NASAL SPRAY NASAL SCH ×2 (14:00→20:15)
[2016-10-02] MEDS ORDERED: POTASSIUM CHLORIDE 10 MEQ CONTROLLED RELEASE TAB PO ONE (15:45)
[2016-10-02] MEDS: AMITRIPTYLINE HCL 50 MG TAB PO SCH (20:12)
[2016-10-02] MEDS: QUEtiapine FUMARATE 50 MG EXTENDED RELEASE TABLET PO SCH (20:12)
[2016-10-02] MEDS: SODIUM CHLORIDE 0.9% FLUSH 5 ML FLUSH FLUSH PRN (22:44)
[2016-10-03] MEDS: MIDODRINE 5 MG TAB PO SCH ×3 (07:22→17:50)
[2016-10-03 08:00] VITALS: BP 129/64; PULSE 108; PULSE 115; RESP 22; TEMP 98; O2SAT 93
[2016-10-03] MEDS: FLUTICASONE PROPIONATE 50 MCG/ACT 16 GM NASAL SPRAY NASAL SCH ×2 (09:00→21:00)
--- NOTE | 2016-10-03 09:06 | HHI.FPPN ---
Subjective Remarks Afebrile, BP within normal limits. Pulse 90s-110s over past 24 hours. This AM patient reports mild chest congestion and chest pressure due to slightly increased abdominal distension. Denies abdominal pain. Tolerating diet well without N/V. Voiding and stooling regularly without issues. Denies calf pain. Objective Vitals Vital Signs Date Time Temp Pulse Resp B/P Pulse Ox O2 Delivery O2 Flow Rate FiO2 10/03/16 08:00 98.0 108 22 129/64 93 10/03/16 00:00 Room Air 10/02/16 20:00 97.9 119 18 141/67 97 10/02/16 20:00 Room Air 10/02/16 19:59 118 10/02/16 16:00 96.2 113 20 120/71 95 10/02/16 12:00 96.5 105 20 113/63 90 10/02/16 12:00 96.5 105 20 113/63 90 I/O 10/02/16 10/02/16 10/02/16 10/03/16 10/03/16 10/03/16 07:00 15:00 23:00 07:00 15:00 23:00 Intake Total 280 ml 480 ml 240 ml 980 ml Output Total 200 ml Balance 80 ml 480 ml 240 ml 980 ml Intake Oral 280 ml 480 ml 240 ml 480 ml Albumin 500 ml Output Urine Total 200 ml # Voids 6 1 3 # Bowel Movements 1 0 0 Result Diagram: 10/02/16 0749 Objective Remarks GENERAL: Cachectic adult white male in NAD SKIN: No visible rashes. Bruising on upper extremities. CARDIOVASCULAR: RRR, normal S1/S2, no m/r/g RESPIRATORY: Normal rate. Intermittent cough. Decreased breath sounds; slight congestion/crackles similar to prior exams GASTROINTESTINAL: Abdomen slightly more distended than previous examination. Nontender to palpation. No guarding. MUSCULOSKELETAL: Grossly normal motor function and range of motion NEUROLOGICAL: Awake, alert. Grossly nonfocal. Normal speech. Procedures 09/22 - CT guided liver Bx A/P Assessment and Plan 60 year old male with PMH of cirrhosis presenting with: Discharge Planning Plan for home with home hospice Problem List: (1) Hepatocellular carcinoma Status: Acute Plan: Impression: Highly suspicious for malignancy by CT. CTA chest showing approx 3x3 cm lung mass, could be primary or met; CTA with portal hypertension, ascites, esophageal thickening which could also be primary cancer source AFP elevated to 131.7, CA 19-9 elevated to 45.1, CEA Ag normal (2.8) EGD 09/24 showing esophageal varices Biopsy: Active cirrhosis with focal moderately differentiated hepatocellular carcinoma -Oncology consulted, appreciate their recommendations -Hospice consulted; plan for discharge home with hospice. -GI consulted, appreciate their recommendations -Signed off at this time -Palliative care (Dr. Hudson) consulted to address goals of care and disposition planning (CM to assist as well, patient lives in [place], son is local) -Arrange for social science research assistant to provide support to grandson -Plan for hospice once logistics of living situation worked out Pain Control: -Pain scale: Oxycodone 10mg (PA) as needed for pain -Dilaudid 1 mg IV every 3 hours for breakthrough pain PT: no home health needed (2) Sepsis syndrome Status: Acute Plan: Patient met sepsis criteria during hospitalization (Hypotension, tachycardia); however, patient has history of chronic hypotension presumably secondary to cirrhosis. Lactic acid initially wnl; subsequently increased to 3.7 09/22 Patient with CXR suggestive of pneumonia 2D echo not suggestive of endocarditis Abdominal U/S showing small ascites but insufficient to obtain paracentesis sample Liver biopsy: gram stain, AFB, fungal stain negative Repeat CXR 09/27 demonstrating bilateral LL consolidation/effusions ID consulted: -Continue to follow cultures -Continue Levaquin 750 mg PO x7 days per ID (as of 09/29 - anticipated end date of 10/06) Cultures: Blood cultures 09/22 : 1 bottle growing E. coli (resistant to ampicillin, Unasyn, Bactrim) -Other blood cultures drawn 09/22 negative to date Sputum- heavy growth normal respiratory adam Antibiotic History: Rocephin x5 days Flagyl x5 doses Azithromycin x1 dose Zosyn x1 dose (3) Pneumonia Status: Acute Plan: -Continue management per ID as above -Continue Prednisone 40mg daily Impression: CXR 09/21 suspicious for right lower lobe pneumonia. In setting of likely cancer, this could either be a primary with obstruction versus solely malignancy versus separate community-acquired pneumonia. CTA chest showing 3x3 cm mass and emphysematous changes Repeat CXR 09/27- bilateral LL consolidation and effusions Legionella urine antigen, Pneumococcal urine antigen negative, Influenza negative Sputum Gram stain negative, culture growing normal respiratory adam (4) Liver cirrhosis Status: Chronic Plan: Well compensated at present time Slight increase of abdominal distension on exam this AM. Will consider repeat abdominal US and paracentesis if indicated and if ascites is not responsive to Lasix with albumin - GI consulted, appreciate their recs. Now signed off. - Continue Aldactone 12.5 mg po BID - Continue Lasix 20 mg po daily - Cont. Albumin 25 gm IV q12h - Hepatic dosing of medications (5) Hyponatremia Status: Resolved Plan: Now normalized Encourage adequate salt intake in diet (6) Anemia of chronic disease Status: Chronic Plan: Stable at present * Repeat H/H if symptomatic (7) Hypotension Status: Acute Plan: BPs stable; 102-141/61-71 over past 24 hours Continue midodrine 10 mg po TID (8) Depression Status: Chronic Plan: Stable * Continue home Seroquel, Elavil (9) GERD (gastroesophageal reflux disease) Status: Chronic Plan: Stable * Continue home Protonix (10) Alcohol abuse Status: Chronic Plan: Does not drink very much at present, however has severe cirrhosis * [facility] protocol * Continue vitamin supplementation with thiamine, folic acid, B12 (11) upper respiratory congestion Status: Acute Plan: -Will give scheduled Flonase BID and assess for improvement (12) Tobacco abuse Status: Chronic Plan: Nicotine patch if patient requests (13) FEN/PPX Status: Acute Plan: Fluids: PO only except with IV meds Electrolytes: Monitor and replete prn Nutrition: regular basic diet DVT: SCDs to BLE; Enoxaparin 40mg subq daily Pain control: As above GI: Protonix 40 mg po daily Problem Qualifiers (1) Pneumonia: Qualified Code: J18.1 - Pneumonia of right lower lobe due to infectious organism (2) Liver cirrhosis: Qualified Code: K70.30 - Alcoholic cirrhosis of liver without ascites (3) Hypotension: Qualified Code: I95.89 - Other specified hypotension Josh Vera MD R1 Oct 03, 2016 09:05
[2016-10-03] MEDS: predniSONE 20 MG TAB PO SCH (09:54)
[2016-10-03] MEDS: LEVOFLOXACIN 750 MG TAB PO SCH (09:54)
[2016-10-03] MEDS: SPIRONOLACTONE 25 MG TAB PO SCH ×2 (09:54→20:59)
[2016-10-03] MEDS: FUROSEMIDE 20 MG TAB PO SCH (09:54)
[2016-10-03] MEDS: CYANOCOBALAMIN 100 MCG TAB PO SCH (09:54)
[2016-10-03] MEDS: FOLIC ACID 1 MG TAB PO SCH (09:54)
[2016-10-03] MEDS: THIAMINE HCL 100 MG TAB PO SCH (09:54)
[2016-10-03] MEDS: MULTIVITAMIN TAB PO SCH (09:54)
[2016-10-03] MEDS: PANTOPRAZOLE SOD 40 MG DELAYED RELEASE TAB PO SCH (09:54)
[2016-10-03] MEDS: SODIUM CHLORIDE 0.9% FLUSH 5 ML FLUSH FLUSH SCH ×2 (09:56→20:59)
--- NOTE | 2016-10-03 10:53 | HHI.PR ---
Addendum to Inpatient Note Addendum Reason: Additional Documentation Additional Information 60 year old male with history of alcoholic cirrhosis well-compensated and significant smoking history admitted for shortness of breath found to be secondary to metastatic cancer and probable post-obstructive pneumonia from lung metastasis. Work-up including liver biopsy established diagnosis of hepatocellular carcinoma. GI consulted for clarification of GI involvement by EGD/colonoscopy, however after discussions between patient & family, oncology, and palliative care, decision was made for hospice as prognosis is poor regardless of GI involvement. Patient continues to do well clinically with improved SOB from time of admision. Placement pending. Delmar Dumont MD R1 Oct 03, 2016 10:53 am
[2016-10-03] MEDS: ALBUMIN HUMAN 5% 25 GM/500 ML BOTTLE IV SCH ×2 (11:30→20:58)
[2016-10-03 12:00] VITALS: BP 121/74; PULSE 103; RESP 18; TEMP 97.5; O2SAT 94
[2016-10-03] MEDS: ENOXAPARIN SODIUM 40 MG/0.4 ML SYRINGE SQ SCH (12:00)
[2016-10-03 16:00] VITALS: BP 99/65; PULSE 101; RESP 18; TEMP 98.3; O2SAT 96
[2016-10-03 20:37] VITALS: PULSE 109
[2016-10-03 20:38] VITALS: BP 120/70; PULSE 117; RESP 20; TEMP 98.8; O2SAT 94
[2016-10-03] MEDS: AMITRIPTYLINE HCL 50 MG TAB PO SCH (20:59)
[2016-10-03] MEDS: QUEtiapine FUMARATE 50 MG EXTENDED RELEASE TABLET PO SCH (20:59)
[2016-10-03] MEDS: SODIUM CHLORIDE 0.9% FLUSH 5 ML FLUSH FLUSH PRN (21:53)
[2016-10-04] VITALS (7 sets, daily range): BP systolic 103–140; BP diastolic 53–77; PULSE 95–133; RESP 18–20; TEMP 97.2–98.3; O2SAT 90–94
[2016-10-04] MEDS: MIDODRINE 5 MG TAB PO SCH ×3 (06:24→16:37)
[2016-10-04 08:16] LABS: AUTOMATED NEUTROPHIL # 6.7 TH/MM3 (1.8-7.7); BASOPHIL % 0.3 % (0.0-2.0); EOSINOPHIL % 0.4 % (0.0-4.0); HEMATOCRIT 24.1 % (39.0-51.0); HEMO FLAGS DIFF FINAL; LYMPH % 14.1 % (9.0-44.0); LYMPHOCYTE # 1.3 TH/MM3 (1.0-4.8); MEAN CELL VOLUME 90.1 FL (80.0-100.0); MEAN CORPUSCULAR HEMOGLOBIN 30.2 PG (27.0-34.0); MEAN CORPUSCULAR HGB CONC 33.5 % (32.0-36.0); MONO % 13.5 % (0.0-8.0); NEUT % 71.7 % (16.0-70.0); PLATELET COUNT 119 TH/MM3 (150-450); RED BLOOD COUNT 2.67 MIL/MM3 (4.50-5.90); RED CELL DISTRIBUTION WIDTH 17.9 % (11.6-17.2); WHITE BLOOD COUNT 9.4 TH/MM3 (4.0-11.0)
[2016-10-04 08:43] LABS: BICARBONATE 26.3 MEQ/L (21.0-32.0); POTASSIUM 3.9 MEQ/L (3.5-5.1)
[2016-10-04] MEDS: FUROSEMIDE 20 MG TAB PO SCH (09:14)
[2016-10-04] MEDS: SPIRONOLACTONE 25 MG TAB PO SCH ×2 (09:14→20:47)
[2016-10-04] MEDS: predniSONE 20 MG TAB PO SCH (09:14)
[2016-10-04] MEDS: FOLIC ACID 1 MG TAB PO SCH (09:14)
[2016-10-04] MEDS: CYANOCOBALAMIN 100 MCG TAB PO SCH (09:14)
[2016-10-04] MEDS: MULTIVITAMIN TAB PO SCH (09:14)
[2016-10-04] MEDS: PANTOPRAZOLE SOD 40 MG DELAYED RELEASE TAB PO SCH (09:14)
[2016-10-04] MEDS: THIAMINE HCL 100 MG TAB PO SCH (09:14)
[2016-10-04] MEDS: LEVOFLOXACIN 750 MG TAB PO SCH (09:14)
[2016-10-04] MEDS: FLUTICASONE PROPIONATE 50 MCG/ACT 16 GM NASAL SPRAY NASAL SCH ×2 (09:15→20:49)
[2016-10-04] MEDS: ALBUMIN HUMAN 5% 25 GM/500 ML BOTTLE IV SCH ×2 (09:15→20:49)
[2016-10-04] MEDS: SODIUM CHLORIDE 0.9% FLUSH 5 ML FLUSH FLUSH SCH ×2 (09:21→20:49)
[2016-10-04] MEDS: ENOXAPARIN SODIUM 40 MG/0.4 ML SYRINGE SQ SCH (12:11)
--- NOTE | 2016-10-04 12:25 | HHI.FPPN ---
Subjective Remarks No adverse events overnight. Patient reports he is doing well overall. Denies chest pain, shortness of breath, pain elsewhere, no issues urinating or with BMs. Denies abdominal pain. No lower extremity swelling or pain. (Josh Vera MD R1) Objective Vitals Vital Signs Date Time Temp Pulse Resp B/P Pulse Ox O2 Delivery O2 Flow Rate FiO2 10/04/16 09:24 Room Air 10/04/16 08:00 98.3 107 20 124/72 90 10/04/16 05:48 97.2 109 18 103/56 90 10/04/16 00:14 97.8 118 18 122/77 94 10/03/16 20:38 98.8 117 20 120/70 94 10/03/16 20:37 109 10/03/16 20:00 Room Air 10/03/16 16:00 98.3 101 18 99/65 96 I/O 10/03/16 10/03/16 10/03/16 10/04/16 10/04/16 10/04/16 07:00 15:00 23:00 07:00 15:00 23:00 Intake Total 980 ml 1000 ml 500 ml Balance 980 ml 1000 ml 500 ml Intake Oral 480 ml 1000 ml Albumin 500 ml 500 ml # Voids 3 5 2 # Bowel Movements 0 1 0 (Josh Vera MD R1) Result Diagram: 10/04/16 0752 10/04/16 0752 Objective Remarks GENERAL: Cachectic adult white male in NAD SKIN: No visible rashes. Bruising on upper extremities. CARDIOVASCULAR: RRR, normal S1/S2, no m/r/g RESPIRATORY: Normal rate. Decreased breath sounds; slight congestion/crackles similar to prior exams GASTROINTESTINAL: Abdomen moderately distended. Nontender to palpation. Tympanitic to percussion. No guarding. MUSCULOSKELETAL: Grossly normal motor function and range of motion NEUROLOGICAL: Awake, alert. Grossly nonfocal. Normal speech. Procedures 09/22 - CT guided liver Bx (Josh Vera MD R1) A/P Assessment and Plan 60 year old male with PMH of cirrhosis presenting with: Discharge Planning Plan for home with home hospice (Josh Vera MD R1) Attending Attestation Patient seen and examined with the resident team Case reviewed and discussed Agree with plan of care as discussed with me and documented in the resident note. (Naty Man MD) Problem List: (1) Hepatocellular carcinoma Status: Acute Plan: Impression: Highly suspicious for malignancy by CT. CTA chest showing approx 3x3 cm lung mass, could be primary or met; CTA with portal hypertension, ascites, esophageal thickening which could also be primary cancer source AFP elevated to 131.7, CA 19-9 elevated to 45.1, CEA Ag normal (2.8) EGD 09/24 showing esophageal varices Biopsy: Active cirrhosis with focal moderately differentiated hepatocellular carcinoma -Oncology consulted, appreciate their recommendations -Hospice consulted; plan for discharge home with hospice. -GI consulted, appreciate their recommendations -Signed off at this time -Palliative care (Dr. Hudson) consulted to address goals of care and disposition planning (CM to assist as well, patient lives in [place], son is local) -Arrange for child welfare social worker to provide support to grandson -Plan for hospice once logistics of living situation worked out Pain Control: -Pain scale: Oxycodone 10mg (PA) as needed for pain -Dilaudid 1 mg IV every 3 hours for breakthrough pain PT: no home health needed (2) Sepsis syndrome Status: Resolved Plan: Patient met sepsis criteria during hospitalization (Hypotension, tachycardia); however, patient has history of chronic hypotension presumably secondary to cirrhosis. Lactic acid initially wnl; subsequently increased to 3.7 09/22 Patient with CXR suggestive of pneumonia 2D echo not suggestive of endocarditis Abdominal U/S showing small ascites but insufficient to obtain paracentesis sample Liver biopsy: gram stain, AFB, fungal stain negative Repeat CXR 09/27 demonstrating bilateral LL consolidation/effusions ID consulted: -Continue to follow cultures -Continue Levaquin 750 mg PO x7 days per ID (as of 09/29 - anticipated end date of 10/06) Cultures: Blood cultures 09/22 : 1 bottle growing E. coli (resistant to ampicillin, Unasyn, Bactrim) -Other blood cultures drawn 09/22 negative to date Sputum- heavy growth normal respiratory adam Antibiotic History: Rocephin x5 days Flagyl x5 doses Azithromycin x1 dose Zosyn x1 dose (3) Pneumonia Status: Acute Plan: -Continue management per ID as above -Continue Prednisone 40mg daily Impression: CXR 09/21 suspicious for right lower lobe pneumonia. In setting of likely cancer, this could either be a primary with obstruction versus solely malignancy versus separate community-acquired pneumonia. CTA chest showing 3x3 cm mass and emphysematous changes Repeat CXR 1/2- bilateral LL consolidation and effusions Legionella urine antigen, Pneumococcal urine antigen negative, Influenza negative Sputum Gram stain negative, culture growing normal respiratory adam (4) Liver cirrhosis Status: Chronic Plan: Well compensated at present time Slight increase of abdominal distension on exam this AM. Will consider repeat abdominal US and paracentesis if indicated and if ascites is not responsive to Lasix with albumin - GI consulted, appreciate their recs. Now signed off. - Continue Aldactone 12.5 mg po BID - Continue Lasix 20 mg po daily - Cont. Albumin 25 gm IV q12h - Hepatic dosing of medications (5) Hyponatremia Status: Resolved Plan: Now normalized Encourage adequate salt intake in diet (6) Anemia of chronic disease Status: Chronic Plan: Stable at present * Repeat H/H if symptomatic (7) Hypotension Status: Acute Plan: BPs stable; 102-141/61-71 over past 24 hours Continue midodrine 10 mg po TID (8) Depression Status: Chronic Plan: Stable * Continue home Seroquel, Elavil (9) GERD (gastroesophageal reflux disease) Status: Chronic Plan: Stable * Continue home Protonix (10) Alcohol abuse Status: Chronic Plan: Does not drink very much at present, however has severe cirrhosis * [facility] protocol * Continue vitamin supplementation with thiamine, folic acid, B12 (11) upper respiratory congestion Status: Acute Plan: -Will give scheduled Flonase BID and assess for improvement (12) Tobacco abuse Status: Chronic Plan: Nicotine patch if patient requests (13) FEN/PPX Status: Acute Plan: Fluids: PO only except with IV meds Electrolytes: Monitor and replete prn Nutrition: regular basic diet DVT: SCDs to BLE; Enoxaparin 40mg subq daily Pain control: As above GI: Protonix 40 mg po daily (Josh Vera MD R1) Problem Qualifiers (1) Pneumonia: Qualified Code: J18.1 - Pneumonia of right lower lobe due to infectious organism (2) Liver cirrhosis: Qualified Code: K70.30 - Alcoholic cirrhosis of liver without ascites (3) Hypotension: Qualified Code: I95.89 - Other specified hypotension Josh Vera MD R1 Oct 04, 2016 12:25 Naty Man MD Oct 06, 2016 13:20
--- NOTE | 2016-10-04 13:22 | PD.ONC.PN ---
Subjective Subjective Remarks Afebrile overnight. Pt states he slept well last night. He also states that he is ready to leave. He is planning to be discharged home with hospice. His pain is well controlled at this time. Objective Data Date Time Temp Pulse Resp B/P Pulse Ox O2 Delivery O2 Flow Rate FiO2 10/04/16 09:24 Room Air 10/04/16 08:00 98.3 107 20 124/72 90 10/04/16 05:48 97.2 109 18 103/56 90 10/04/16 00:14 97.8 118 18 122/77 94 10/03/16 20:38 98.8 117 20 120/70 94 10/03/16 20:37 109 10/03/16 20:00 Room Air 10/03/16 16:00 98.3 101 18 99/65 96 Result Diagram: 10/04/16 0752 10/04/16 0752 Laboratory Results Laboratory Tests Test 10/04/16 07:52 White Blood Count 9.4 TH/MM3 Red Blood Count 2.67 MIL/MM3 Hemoglobin 8.1 GM/DL Hematocrit 24.1 % Mean Corpuscular Volume 90.1 FL Mean Corpuscular Hemoglobin 30.2 PG Mean Corpuscular Hemoglobin 33.5 % Concent Red Cell Distribution Width 17.9 % Platelet Count 119 TH/MM3 Mean Platelet Volume 7.6 FL Neutrophils (%) (Auto) 71.7 % Lymphocytes (%) (Auto) 14.1 % Monocytes (%) (Auto) 13.5 % Eosinophils (%) (Auto) 0.4 % Basophils (%) (Auto) 0.3 % Neutrophils # (Auto) 6.7 TH/MM3 Lymphocytes # (Auto) 1.3 TH/MM3 Monocytes # (Auto) 1.3 TH/MM3 Eosinophils # (Auto) 0.0 TH/MM3 Basophils # (Auto) 0.0 TH/MM3 CBC Comment DIFF FINAL Differential Comment Sodium Level 138 MEQ/L Potassium Level 3.9 MEQ/L Chloride Level 104 MEQ/L Carbon Dioxide Level 26.3 MEQ/L Anion Gap 8 MEQ/L Blood Urea Nitrogen 10 MG/DL Creatinine 0.64 MG/DL Estimat Glomerular Filtration 128 ML/MIN Rate Random Glucose 84 MG/DL Calcium Level 8.8 MG/DL Administered Medications Medications (Trade) Dose Ordered Sig/Bashir Route PRN Reason Start Time Stop Time Status Last Admin Dose Admin IV Flush (NS Flush) 2 ml UNSCH PRN FLUSH FLUSH AFTER USING IV ACCESS 09/21/16 14:30 10/03/16 21:53 IV Flush (NS Flush) 2 ml BID FLUSH 09/21/16 21:00 10/04/16 09:21 Hydromorphone HCl (Dilaudid Pf Inj) 1 mg Q3H PRN IV BREAKTHROUGH PAIN 09/21/16 14:30 09/23/16 11:48 Prednisone (Deltasone) 40 mg DAILY PO 09/22/16 09:00 10/04/16 09:14 Pantoprazole Sodium (Protonix) 40 mg DAILY PO 09/22/16 09:00 10/04/16 09:14 Amitriptyline HCl (Elavil) 50 mg HS PO 09/21/16 21:00 10/03/16 20:59 Folic Acid (Folate) 1 mg DAILY PO 09/22/16 09:00 10/04/16 09:14 Furosemide (Lasix) 20 mg DAILY PO 09/22/16 09:00 10/04/16 09:14 Thiamine HCl (Vitamin B1) 100 mg DAILY PO 09/22/16 09:00 10/04/16 09:14 Quetiapine Fumarate (SEROquel XR) 50 mg HS PO 09/21/16 21:00 10/03/16 20:59 Albumin Human (Albumin 5% Inj) 25 gm Q12H IV 09/22/16 09:00 10/04/16 09:15 Midodrine (Proamatine) 10 mg TID@,,17 PO 09/23/16 12:00 10/04/16 12:14 Lactulose (Lactulose Liq) 30 ml DAILY PO 09/23/16 11:00 Hold 09/30/16 09:27 Spironolactone (Aldactone) 12.5 mg BID PO 09/24/16 09:00 10/04/16 09:14 Enoxaparin Sodium (Lovenox Inj) 40 mg Q24H SQ 09/24/16 12:00 10/04/16 12:11 Multivitamins (Theragran) 1 tab DAILY PO 09/28/16 09:00 10/04/16 09:14 Cyanocobalamin (Vitamin B12) 100 mcg DAILY PO 09/28/16 09:00 10/04/16 09:14 Levofloxacin (Levaquin) 750 mg DAILY PO 09/29/16 14:00 10/06/16 13:59 10/04/16 09:14 Oxycodone HCl (Roxicodone) 10 mg Q4H PRN PO PAIN SCALE 6 TO 10 09/30/16 18:00 10/04/16 12:11 Fluticasone Propionate (Flonase Zaid Spr) 1 spray BID NASAL 10/02/16 14:00 10/04/16 09:15 Objective Remarks GENERAL: Older, chronically ill appearing male in no distress sitting up in the bed watching TV. SKIN: Warm and dry. HEAD: Normocephalic. EYES: No injection or drainage. NECK: Supple, trachea midline. CARDIOVASCULAR: +S1/S2. No murmur appreciated. RESPIRATORY: Lungs clear throughout. Breathing easy and unlabored. GASTROINTESTINAL: +BS. Abdomen tight. Recent US shows no fluid. EXTREMITIES: No edema. MUSCULOSKELETAL: Generalized weakness. NEUROLOGICAL: A&Ox3. No focal deficits. Assessment/Plan Problem List: (1) Hepatocellular carcinoma Status: Acute Plan: --Moderately differentiated hepatocellular carcinoma. --CT showed Liver mass with intra-abdominal adenopathy. --history of alcohol-induced and hep C cirrhosis. - CT chest showed a right lower lobe lung mass and circumferential wall thickening of lower thoracic esophagus. --AFP and Ca 19-9 slightly elevated but non specific. --09/24 Path showed hepatocellular carcinoma. Prognosis is poor. Unusual mets pattern to lung. --CT showed thickened esophageal wall and that may be the cause of his HENRI pain. -EGD showed esophageal varices with retained food. (2) Pneumonia Status: Acute Plan: -- Chest x-ray showed right lung base consolidation with small right pleural effusion. --on abx (3) Liver cirrhosis Status: Chronic Plan: --still drinks one to two beers a day. -- history of portal hypertension with varices but no history of GI bleed. --CT abdomen also showed ascites and sign of portal hypertension. --Hep C positive. Assessment 60y/o male with hepatocellular carcinoma. Plan 1. OK for discharge to hospice from oncology standpoint. 2. Continue supportive care. Attending Statement The exam, history, and the medical decision-making described in the above note were completed with the assistance of the mid-level provider. I reviewed and agree with the findings presented. I attest that I had a [id number] encounter with the patient on the same day, and personally performed and documented my assessment and findings in the medical record. He is concern about abdominal distention. Will get US to r/o ascites. Pain is controlled. Can be d/c with hospice. Problem Qualifiers (1) Pneumonia: Qualified Code: J18.1 - Pneumonia of right lower lobe due to infectious organism (2) Liver cirrhosis: Qualified Code: K70.30 - Alcoholic cirrhosis of liver without ascites Violet Solitario Oct 04, 2016 13:22 Ranjit Franz MD Oct 04, 2016 16:02
--- NOTE | 2016-10-04 14:10 | RADRPT ---
EXAM DATE/TIME: 10/04/2016 11:59 [facility] COMPARISON: US ABDOMEN - LOWER LIMITED, September 22, 2016, 11:32. INDICATIONS : Ascites. MEDICAL HISTORY : Cirrhosis. Ascites. SURGICAL HISTORY : Appendectomy. Spinal fusion. Orthopedic surgery, right hand, left wrist, left collar bone, and right ankle. ENCOUNTER: Subsequent ACUITY: 2 weeks PAIN SCORE: 0/10 LOCATION: Abdomen. AREA EVALUATED: Abdomen. FINDINGS: Imaging of the abdomen and pelvis was performed to evaluate for ascites for possible paracentesis. Sm all collection of free fluid is identified left lower quadrant. CONCLUSION: Minimal ascites with fluid identified in the left lower quadrant. Edson Canseco MD on October 04, 2016 at 14:03 Board Certified Radiologist. This report was verified electronically.
[2016-10-04] MEDS: QUEtiapine FUMARATE 50 MG EXTENDED RELEASE TABLET PO SCH (20:46)
[2016-10-04] MEDS: AMITRIPTYLINE HCL 50 MG TAB PO SCH (20:47)
[2016-10-05] MEDS: MIDODRINE 5 MG TAB PO SCH (06:16)
[2016-10-05 07:58] VITALS: BP 125/60; PULSE 120; RESP 20; TEMP 97.5; O2SAT 90
[2016-10-05] MEDS: FOLIC ACID 1 MG TAB PO SCH (08:48)
[2016-10-05] MEDS: THIAMINE HCL 100 MG TAB PO SCH (08:48)
[2016-10-05] MEDS: CYANOCOBALAMIN 100 MCG TAB PO SCH (08:48)
[2016-10-05] MEDS: SPIRONOLACTONE 25 MG TAB PO SCH (08:48)
[2016-10-05] MEDS: MULTIVITAMIN TAB PO SCH (08:48)
[2016-10-05] MEDS: PANTOPRAZOLE SOD 40 MG DELAYED RELEASE TAB PO SCH (08:48)
[2016-10-05] MEDS: SODIUM CHLORIDE 0.9% FLUSH 5 ML FLUSH FLUSH SCH (08:49)
[2016-10-05] MEDS: LEVOFLOXACIN 750 MG TAB PO SCH (08:49)
[2016-10-05] MEDS: predniSONE 20 MG TAB PO SCH (08:49)
[2016-10-05] MEDS: FUROSEMIDE 20 MG TAB PO SCH (08:49)
[2016-10-05] MEDS: ALBUMIN HUMAN 5% 25 GM/500 ML BOTTLE IV SCH (08:49)
[2016-10-05] MEDS: FLUTICASONE PROPIONATE 50 MCG/ACT 16 GM NASAL SPRAY NASAL SCH (08:50)
--- NOTE | 2016-10-05 09:32 | PD.ONC.PN ---
Subjective Subjective Remarks Afebrile overnight. Patient resting comfortably. He states he is eager to go home. He had some abdominal pain earlier this AM which improved with pain meds. Objective Data Date Time Temp Pulse Resp B/P Pulse Ox O2 Delivery O2 Flow Rate FiO2 10/05/16 07:58 97.5 120 20 125/60 90 10/04/16 21:05 Nasal Cannula 2.00 10/04/16 20:00 98.1 111 18 127/77 94 10/04/16 19:56 133 10/04/16 16:00 97.7 110 20 140/53 91 10/04/16 12:00 97.9 109 20 121/74 91 10/05/16 10/05/16 10/05/16 07:00 15:00 23:00 Intake Total 1000 ml Balance 1000 ml Result Diagram: 10/04/16 0752 10/04/16 0752 Administered Medications Medications (Trade) Dose Ordered Sig/Bashir Route PRN Reason Start Time Stop Time Status Last Admin Dose Admin IV Flush (NS Flush) 2 ml UNSCH PRN FLUSH FLUSH AFTER USING IV ACCESS 09/21/16 14:30 10/03/16 21:53 IV Flush (NS Flush) 2 ml BID FLUSH 09/21/16 21:00 10/05/16 08:49 Hydromorphone HCl (Dilaudid Pf Inj) 1 mg Q3H PRN IV BREAKTHROUGH PAIN 09/21/16 14:30 09/23/16 11:48 Prednisone (Deltasone) 40 mg DAILY PO 09/22/16 09:00 10/05/16 08:49 Pantoprazole Sodium (Protonix) 40 mg DAILY PO 09/22/16 09:00 10/05/16 08:48 Amitriptyline HCl (Elavil) 50 mg HS PO 09/21/16 21:00 10/04/16 20:47 Folic Acid (Folate) 1 mg DAILY PO 09/22/16 09:00 10/05/16 08:48 Furosemide (Lasix) 20 mg DAILY PO 09/22/16 09:00 10/05/16 08:49 Thiamine HCl (Vitamin B1) 100 mg DAILY PO 09/22/16 09:00 10/05/16 08:48 Quetiapine Fumarate (SEROquel XR) 50 mg HS PO 09/21/16 21:00 1/9/17 20:46 Albumin Human (Albumin 5% Inj) 25 gm Q12H IV 09/22/16 09:00 10/05/16 08:49 Midodrine (Proamatine) 10 mg TID@,, PO 09/23/16 12:00 10/05/16 06:16 Lactulose (Lactulose Liq) 30 ml DAILY PO 09/23/16 11:00 Hold 09/30/16 09:27 Spironolactone (Aldactone) 12.5 mg BID PO 09/24/16 09:00 10/05/16 08:48 Enoxaparin Sodium (Lovenox Inj) 40 mg Q24H SQ 09/24/16 12:00 10/04/16 12:11 Multivitamins (Theragran) 1 tab DAILY PO 09/28/16 09:00 10/05/16 08:48 Cyanocobalamin (Vitamin B12) 100 mcg DAILY PO 09/28/16 09:00 10/05/16 08:48 Levofloxacin (Levaquin) 750 mg DAILY PO 09/29/16 14:00 10/06/16 13:59 10/05/16 08:49 Oxycodone HCl (Roxicodone) 10 mg Q4H PRN PO PAIN SCALE 6 TO 10 09/30/16 18:00 10/05/16 06:44 Fluticasone Propionate (Flonase Zaid Spr) 1 spray BID NASAL 10/02/16 14:00 10/05/16 08:50 Objective Remarks GENERAL: Middle aged male, sitting up in bed, in nad. SKIN: dry and flaky skin. HEAD: Normocephalic. EYES: No injection or drainage. NECK: Supple, trachea midline. CARDIOVASCULAR: Regular rate and rhythm RESPIRATORY: Breath sounds equal bilaterally. No accessory muscle use. GASTROINTESTINAL: Abdomen soft, non-tender, nondistended. EXTREMITIES: No cyanosis. scant edema. NEUROLOGICAL: awake and alert, normal speech. moving all extremities. Assessment/Plan Problem List: (1) Hepatocellular carcinoma Status: Acute Plan: --patient states he is going home with hospice. --Moderately differentiated hepatocellular carcinoma. --CT showed Liver mass with intra-abdominal adenopathy. --history of alcohol-induced and hep C cirrhosis. - CT chest showed a right lower lobe lung mass and circumferential wall thickening of lower thoracic esophagus. --AFP and Ca 19-9 slightly elevated but non specific. --09/24 Path showed hepatocellular carcinoma. Prognosis is poor. Unusual mets pattern to lung. --CT showed thickened esophageal wall and that may be the cause of his HENRI pain. -EGD showed esophageal varices with retained food. (2) Pneumonia Status: Acute Plan: -- Chest x-ray showed right lung base consolidation with small right pleural effusion. --on levaquin (3) Liver cirrhosis Status: Chronic Plan: --still drinks one to two beers a day. -- history of portal hypertension with varices but no history of GI bleed. --CT abdomen also showed ascites and sign of portal hypertension. --Hep C positive. Assessment 60y/o male with hepatocellular carcinoma. Plan 1. clear for d/c to hospice. 2. Continue supportive care. Attending Statement The exam, history, and the medical decision-making described in the above note were completed with the assistance of the mid-level provider. I reviewed and agree with the findings presented. I attest that I had a [id number] encounter with the patient on the same day, and personally performed and documented my assessment and findings in the medical record.(Late entry). Abdominal pain is controlled. Await d/c to hospice. US showed no significant ascites. Continue comfort care with hospice. Problem Qualifiers (1) Pneumonia: Qualified Code: J18.1 - Pneumonia of right lower lobe due to infectious organism (2) Liver cirrhosis: Qualified Code: K70.30 - Alcoholic cirrhosis of liver without ascites Kary Montgomery Oct 05, 2016 09:32 Ranjit Franz MD Oct 05, 2016 15:39
--- NOTE | 2016-10-05 10:16 | HHI.FPPN ---
Subjective Remarks No acute events overnight. Vital signs continue to show tachycardia but otherwise unremarkable. Patient states that he feels very well and has no complaints. Has been up since 5AM and moving around in his room unassisted. He reports that he is already scheduled to go to hospice care center out in [place] today and is expected to leave this morning. Patient reports that he is very ready to go. (Ethel Orta MD R2) Objective Vitals Vital Signs Date Time Temp Pulse Resp B/P Pulse Ox O2 Delivery O2 Flow Rate FiO2 10/05/16 09:32 Room Air 21 10/05/16 07:58 97.5 120 20 125/60 90 10/04/16 21:05 Nasal Cannula 2.00 10/04/16 20:00 98.1 111 18 127/77 94 10/04/16 19:56 133 10/04/16 16:00 97.7 110 20 140/53 91 10/04/16 12:00 97.9 109 20 121/74 91 I/O 10/04/16 10/04/16 10/04/16 10/05/16 10/05/16 10/05/16 07:00 15:00 23:00 07:00 15:00 23:00 Intake Total 720 ml 482 ml 1000 ml Output Total 1000 ml Balance -280 ml 482 ml 1000 ml Intake Oral 720 ml 480 ml 1000 ml IV Total 2 ml Output Urine Total 1000 ml # Voids 2 3 3 # Bowel Movements 0 1 0 0 (Ethel Orta MD R2) Result Diagram: 10/04/16 0752 10/04/16 0752 Objective Remarks GENERAL: Cachectic adult white male in NAD SKIN: No visible rashes. Bruising on upper extremities. CARDIOVASCULAR: RRR, normal S1/S2, no m/r/g RESPIRATORY: Normal rate. Clear to auscultation bilaterally. MUSCULOSKELETAL: Grossly normal motor function and range of motion. Walking around the room unassisted with a normal gait. NEUROLOGICAL: Awake, alert. Grossly nonfocal. Normal speech. Procedures 09/22 - CT guided liver Bx (Ethel Orta MD R2) A/P Assessment and Plan 60 year old male with PMH of cirrhosis presenting with: Discharge Planning Hospice today * Called palliative care to confirm hospice discharge which seems to be accurate. dw Dr. Jody sevillaw Dr. Man [facility] Attending Attestation Patient seen and examined. Case reviewed and discussed Agree with plan of care as discussed with me and documented in the resident note. (Naty Man MD) Problem List: (1) Hepatocellular carcinoma Status: Acute Plan: Suspicion for metastasis which was found to be due to hepatocellular carcinoma confirmed via biopsy. Found have elevated AFP, CA 199. -EGD 09/24 showing esophageal varices -Biopsy: Active cirrhosis with focal moderately differentiated hepatocellular carcinoma Oncology consulted, appreciate their recommendations -Hospice consulted; plan for discharge home with hospice. GI consulted, appreciate their recommendations -Signed off at this time Palliative care: -Arrange for social worker aide to provide support to grandson -Plan for hospice Imaging: * CT abdomen: Cirrhosis hepatocellular disease, splenomegaly, and varices portal hypertension and ascites. Multiple low density lesions in the liver, intra-abdominal adenopathy as well as retroperitoneal. Findings highly suggestive of malignancy of HCC or metastatic disease. Pain Control: -Pain scale: Oxycodone 10mg (PA) as needed for pain -Dilaudid 1 mg IV every 3 hours for breakthrough pain (2) Sepsis syndrome Status: Resolved Plan: Patient met sepsis criteria during hospitalization (Hypotension, tachycardia); however, patient has history of chronic hypotension presumably secondary to cirrhosis. -Lactic acid was initially WNL but did increase to high of 3.7 on 09/22. -CXR suggestive of pneumonia * Repeat CXR 09/27 demonstrating bilateral LL consolidation/effusions -Prednisone 40mg * has been continued since 09/22, will require taper. Will defer treatment to hospice ID consulted: Appreciate recommendations -Continue to follow cultures -Continue Levaquin 750 mg PO x7 days per ID (as of 09/29 - anticipated end date of 10/06) Cultures: Blood cultures 09/22 : 1 bottle growing E. coli (resistant to ampicillin, Unasyn, Bactrim) * Repeat blood cultures negative * Sputum- heavy growth normal respiratory adam Antibiotic History: Rocephin x5 days Flagyl x5 doses Azithromycin x1 dose Zosyn x1 dose (3) Pneumonia Status: Acute Plan: -Continue management per ID as above -Continue Prednisone 40mg daily Impression: CXR 09/21 suspicious for right lower lobe pneumonia. In setting of likely cancer, this could either be a primary with obstruction versus solely malignancy versus separate community-acquired pneumonia. Sputum Gram stain negative, culture growing normal respiratory adam (4) Liver cirrhosis Status: Chronic Plan: Well compensated at present time - Continue Aldactone 12.5 mg po BID - Continue Lasix 20 mg po daily - Cont. Albumin 25 gm IV q12h - Hepatic dosing of medications (5) Alcohol abuse Status: Chronic Plan: * [facility] protocol * Continue vitamin supplementation with thiamine, folic acid, B12 (6) FEN/PPX Status: Acute Plan: Fluids: none Electrolytes: Monitor and replete prn Nutrition: regular basic diet DVT: SCDs to BLE; Enoxaparin 40mg subq daily GI: Protonix 40 mg po daily Chronic conditions: * Hypotension: Continue midodrine 10 mg po TID * GERD: protonix * Depression: Continue home Seroquel, Elavil (Ethel Orta MD R2) Problem Qualifiers (1) Pneumonia: Qualified Code: J18.1 - Pneumonia of right lower lobe due to infectious organism (2) Liver cirrhosis: Qualified Code: K70.30 - Alcoholic cirrhosis of liver without ascites Ethel Orta MD R2 Oct 05, 2016 10:15 Naty Man MD Oct 05, 2016 17:05 (12) Tobacco abuse Status: Chronic Plan: Nicotine patch if patient requests (13) FEN/PPX Status: Acute Plan: Fluids: PO only except with IV meds Electrolytes: Monitor and replete prn Nutrition: regular basic diet DVT: SCDs to BLE; Enoxaparin 40mg subq daily Pain control: As above GI: Protonix 40 mg po daily Problem Qualifiers (1) Pneumonia: Qualified Code: J18.1 - Pneumonia of right lower lobe due to infectious organism (2) Liver cirrhosis: Qualified Code: K70.30 - Alcoholic cirrhosis of liver without ascites (3) Hypotension: Qualified Code: I95.89 - Other specified hypotension Ethel Orta MD R2 Oct 05, 2016 10:15
--- NOTE | 2016-10-06 14:23 | HHI.DS ---
Discharge Summary Admission Date Sep 21, 2016 at 13:44 Discharge Date: Oct 05, 2016 Admitting Diagnosis pneumonia/liver nodules (1) Hepatocellular carcinoma Plan: Suspicion for metastasis which was found to be due to hepatocellular carcinoma confirmed via biopsy. Found have elevated AFP, CA 199. -EGD 09/24 showing esophageal varices -Biopsy: Active cirrhosis with focal moderately differentiated hepatocellular carcinoma Oncology consulted, appreciate their recommendations -Hospice consulted; plan for discharge home with hospice. GI consulted, appreciate their recommendations -Signed off at this time Palliative care: -Arrange for social service technician to provide support to grandson -Plan for hospice Imaging: * CT abdomen: Cirrhosis hepatocellular disease, splenomegaly, and varices portal hypertension and ascites. Multiple low density lesions in the liver, intra-abdominal adenopathy as well as retroperitoneal. Findings highly suggestive of malignancy of HCC or metastatic disease. Pain Control: -Pain scale: Oxycodone 10mg (PA) as needed for pain -Dilaudid 1 mg IV every 3 hours for breakthrough pain (2) Sepsis syndrome Plan: Patient met sepsis criteria during hospitalization (Hypotension, tachycardia); however, patient has history of chronic hypotension presumably secondary to cirrhosis. -Lactic acid was initially WNL but did increase to high of 3.7 on 09/22. -CXR suggestive of pneumonia * Repeat CXR 09/27 demonstrating bilateral LL consolidation/effusions -Prednisone 40mg * has been continued since 09/22, will require taper. Will defer treatment to hospice ID consulted: Appreciate recommendations -Continue to follow cultures -Continue Levaquin 750 mg PO x7 days per ID (as of 09/29 - anticipated end date of 10/06) Cultures: Blood cultures 09/22 : 1 bottle growing E. coli (resistant to ampicillin, Unasyn, Bactrim) * Repeat blood cultures negative * Sputum- heavy growth normal respiratory adam Antibiotic History: Rocephin x5 days Flagyl x5 doses Azithromycin x1 dose Zosyn x1 dose (3) Pneumonia Plan: -Continue management per ID as above -Continue Prednisone 40mg daily Impression: CXR 09/21 suspicious for right lower lobe pneumonia. In setting of likely cancer, this could either be a primary with obstruction versus solely malignancy versus separate community-acquired pneumonia. Sputum Gram stain negative, culture growing normal respiratory adam (4) Liver cirrhosis Plan: Well compensated at present time - Continue Aldactone 12.5 mg po BID - Continue Lasix 20 mg po daily - Cont. Albumin 25 gm IV q12h - Hepatic dosing of medications (5) Alcohol abuse Plan: * [facility] protocol * Continue vitamin supplementation with thiamine, folic acid, B12 (6) FEN/PPX Plan: Fluids: none Electrolytes: Monitor and replete prn Nutrition: regular basic diet DVT: SCDs to BLE; Enoxaparin 40mg subq daily GI: Protonix 40 mg po daily Chronic conditions: * Hypotension: Continue midodrine 10 mg po TID * GERD: protonix * Depression: Continue home [facility] Hematology/oncology Procedures 09/22 - CT guided liver Bx Brief History 60-year-old male with extensive smoking history and cirrhosis of the liver due to prior alcohol use presenting with a history of increased shortness of breath and cough starting last Tuesday. These been progressively worsening gradually to the point where it is difficult to move very far without stopping to catch her breath. He also endorses some mild pleuritic chest pain, but no chest pain unrelated to inspiration, and no chest pain on exertion. No fevers or chills that is noted. He is also been nauseous and has vomited about 6 times in the last several days, one of which had streaks of blood in the vomitus but no large volume of blood, no coffee ground emesis, no bile. No hematochezia or melena. CBC/BMP: 10/04/16 0752 10/04/16 0752 Significant Findings Laboratory Tests Test 10/04/16 07:52 Red Blood Count 2.67 MIL/MM3 (4.50-5.90) Hemoglobin 8.1 GM/DL (13.0-17.0) Hematocrit 24.1 % (39.0-51.0) Red Cell Distribution Width 17.9 % (11.6-17.2) Platelet Count 119 TH/MM3 (150-450) Neutrophils (%) (Auto) 71.7 % (16.0-70.0) Monocytes (%) (Auto) 13.5 % (0.0-8.0) Monocytes # (Auto) 1.3 TH/MM3 (0-0.9) Imaging Last Impressions Abdomen Ultrasound 10/04/16 0000 Signed Impressions: Service Date/Time: Tuesday, October 04, 2016 11:59 - CONCLUSION: Minimal ascites with fluid identified in the left lower quadrant. Edson Canseco MD Chest X-Ray 09/27/16 0000 Signed Impressions: Service Date/Time: Tuesday, September 27, 2016 10:46 - CONCLUSION: Bilateral lower lobe consolidation and effusions. Sg Win MD Liver Biopsy CT 09/22/16 0000 Signed Impressions: Service Date/Time: Thursday, September 22, 2016 10:49 - CONCLUSION: Uncomplicated CT guided biopsy. Saroj Martinez MD CT Angiography 09/22/16 0000 Signed Impressions: Service Date/Time: Thursday, September 22, 2016 10:49 - CONCLUSION: 1. Right lower lobe pulmonary mass measuring 3.6 x 2.6 cm. This would be amenable to percutaneous biopsy if clinically warranted. 2. Circumferential wall thickening involving the lower thoracic esophagus with some dilatation of the more proximal esophagus. I cannot exclude an infiltrating process such as malignancy. 3. No pulmonary embolus. 4. Pronounced emphysematous changes. 5. Tiny bilateral pleural effusions. Ruben Hannon Jr., MD Abdomen/Pelvis CT 09/21/16 1049 Signed Impressions: Service Date/Time: Wednesday, September 21, 2016 12:51 - CONCLUSION: Persistent findings of cirrhosis hepatocellular disease splenomegaly varices portal hypertension and ascites. Significant change with multiple low density lesions ill-defined in the liver as well as intra-abdominal adenopathy at the bernie hepatis as well as retroperitoneal up to 5 cm in size. Findings are highly suggestive of malignancy such as hepatocellular carcinoma or metastatic disease. Mello Zelaya MD PE at Discharge GENERAL: Cachectic adult white male in NAD SKIN: No visible rashes. Bruising on upper extremities. CARDIOVASCULAR: RRR, normal S1/S2, no m/r/g RESPIRATORY: Normal rate. Clear to auscultation bilaterally. MUSCULOSKELETAL: Grossly normal motor function and range of motion. Walking around the room unassisted with a normal gait. NEUROLOGICAL: Awake, alert. Grossly nonfocal. Normal speech. Hospital Course 60 year old male with history of alcoholic cirrhosis well-compensated and significant smoking history admitted for shortness of breath found to be secondary to metastatic cancer and probable post-obstructive pneumonia from lung metastasis. Work-up including liver biopsy established diagnosis of hepatocellular carcinoma. GI consulted for clarification of GI involvement by EGD/colonoscopy, however after discussions between patient & family, oncology, and palliative care, decision was made for hospice as prognosis is poor regardless of GI involvement. Patient continues to do well clinically with improved SOB from time of admision. Patient discharged in stable condition to hospice care. Pt Condition on Discharge: Stable Discharge Disposition: Hospice/Med Facility Discharge Instructions DIET: Follow Instructions for: As Tolerated, No Restrictions Activities you can perform: Regular-No Restrictions Ethel Orta MD R2 Oct 06, 2016 14:23
== END 2016-10-05 13:00 | disposition hospice, inpatient (51) | DRG 435 ==
LOC: NEPC 09:40 → NEDA 13:44 → N04B 19:17
PROVIDERS: ADMIT Family Medicine; ATTEND Family Medicine
PROC: 0FB13ZX Excision of Right Lobe Liver, Percutaneous Approach, Diagnostic (ICD-10-PCS; principal; 2016-09-22)
PROC: 0DJ08ZZ Inspection of Upper Intestinal Tract, Via Natural or Artificial Opening Endoscopic (ICD-10-PCS; 2016-09-24)
DX: C22.0 Liver cell carcinoma (principal); J18.9 Pneumonia, unspecified organism; A41.9 Sepsis, unspecified organism; R64 Cachexia; C78.00 Secondary malignant neoplasm of unspecified lung; E46 Unspecified protein-calorie malnutrition; I95.9 Hypotension, unspecified; K76.6 Portal hypertension; J44.0 Chronic obstructive pulmonary disease with (acute) lower respiratory infection; I85.10 Secondary esophageal varices without bleeding; E87.1 Hypo-osmolality and hyponatremia; K70.30 Alcoholic cirrhosis of liver without ascites; Z51.5 Encounter for palliative care; F10.10 Alcohol abuse, uncomplicated; F17.210 Nicotine dependence, cigarettes, uncomplicated; Z23 Encounter for immunization; K21.9 Gastro-esophageal reflux disease without esophagitis; F32.9 Major depressive disorder, single episode, unspecified; Z66 Do not resuscitate; D63.8 Anemia in other chronic diseases classified elsewhere; Z68.21 Body mass index [BMI] 21.0-21.9, adult; K59.00 Constipation, unspecified; E87.6 Hypokalemia; B19.20 Unspecified viral hepatitis C without hepatic coma
CPT/HCPCS: 47000; 71010; 71020; 71275; 74177; 76705; 77012; 80048; 80053; 80074; 81001; 82105; 82378; 83605; 83615; 83690; 84155; 84484; 85014; 85018; 85025; 85610; 85730; 86140; 86301; 87015; 87040; 87070; 87186; 87205; 87522; 87804; 87902; 88307; 88312; 88313; 90471; 90686; 93005; 93306; 94640; 94664; 96361; 96374; 96375; C9113; G0008; J0456; J0696; J1170; J1650; J1940; J2250; J2405; J2543; J3010; J7030; J7050; J7512; P9045; Q2038; Q9967